=== PATIENT | male | born 1970 | race African-American/Black ===

== ENCOUNTER 2020-08-07 17:36 | Emergency (ER) | payer MEDICAID, SELFPAY ==
--- NOTE | ~2020-08-07 | XR_ITS ---
EXAMINATION: XR CHEST CLINICAL INFORMATION: Cough COMPARISON: None TECHNIQUE: 2 views of the chest were obtained. FINDINGS: There are streaky and hazy multifocal airspace opacities in the right and left midlung. These are concerning for atypical pneumonia, Covid 19. This could be further assessed with CT. No pleural effusion. Heart size normal. Cardiac and mediastinal contours are normal. XR/XR chest 2V IMPRESSION: Streaky and hazy multifocal bilateral airspace opacities concerning for pneumonia.
[2020-08-07 17:50] VITALS: BP 118/81; BP 126/84; PULSE 125; PULSE 80; RESP 20; TEMP 38.8; O2SAT 95; O2SAT 98; BMI 27.3
--- NOTE | 2020-08-07 18:10 | ED.PSYCH ---
HPI - Psych General Chief Complaint: Psychiatric Symptoms Stated Complaint: [facility] Time Seen by Provider: 08/08/20 00:48 Source: patient Mode of arrival: ambulatory Limitations: no limitations History of Present Illness HPI Narrative: 49-year-old male with past medical history of anxiety, depression, hypertension, and [facility] earlier today presents with ETOH abuse, marijuana abuse and suicidal and homicidal ideation. He states that he cannot function in the outside world, feels that he is being persecuted, and wants to kill people. MD complaint: suicidal ideation, feels depressed, homicidal ideation and alcohol abuse Onset (ago): hour(s) (Within the hour of arrival) History of same: Yes Relieving factors: none Exacerbating factors: alcohol and drug use Context: recent alcohol abuse, recent drug abuse and significant life stressor (Released from senior care earlier today) Associated psychiatric symptoms: depression, suicidal ideation, homicidal ideation and racing thoughts Associated symptoms: denies other symptoms Treatments prior to arrival: none If self harm: admits thoughts of self harm Related Data Home Medications Medication Instructions Recorded Confirmed fluoxetine 1 cap PO DAILY 08/07/20 08/07/20 hydroxyzine HCl 50 mg PO BEDTIME 08/07/20 08/07/20 hydroxyzine pamoate 1 cap PO BEDTIME 08/07/20 08/07/20 lisinopril-hydrochlorothiazide 08/07/20 prazosin 1 cap PO BEDTIME 08/07/20 08/07/20 Previous Rx's Medication Instructions Recorded cefuroxime axetil 500 mg PO Q12H 10 Days #20 tab 08/08/20 doxycycline monohydrate 100 mg PO BID 10 Days #20 cap 08/08/20 Allergies Allergy/AdvReac Type Severity Reaction Status Date / Time Penicillins [PENICILLINS] Allergy Severe SWELLING Unverified 03/08/20 19:23 AND ITCHING, THROAT CLOSES. Review of Systems Review of Systems: Constitutional: No Fever, No Chills ENT/Mouth: No Ear Pain, No Nasal Congestion, No sore throat Eyes: No Eye Pain, No Swelling, No Redness Cardiovascular: No Chest Pain, No SOB Respiratory: No Cough, No Sputum, No Dyspnea Gastrointestinal: No Nausea, No Vomiting, No Diarrhea, No Hematochezia, No Melena Genitourinary: No Dysuria, No Urinary Frequency, No Hematuria Musculoskeletal: No Myalgias Skin: No Skin Lesions, No rash Neuro: No Weakness, No Numbness, No Paresthesias, No Dizziness, No Headache Psych: Positive ETOH and marijuana abuse, positive Anxiety, positive Depression, positive SI/HI Heme/Lymph: No Lymphadenopathy Endocrine: No Polyuria, No Polydipsia Yes all other systems are reviewed and are negative PMFSH Past Medical History Attestation statement: The following information was validated with the patient. Source: old records reviewed Medical History ADHD Depression PTSD (post-traumatic stress disorder) Social History Social History Alcohol intake: current Smoking Status: Current every day smoker Use of substances other than those prescribed or required for medical reasons: Yes Substance Use Type: Marijuana Advance Directives: No Advance Directives Information Provided: Yes Physical Exam Vital Signs: Vital Signs: Last Vital Signs Temp 101.4 F H 08/07/20 21:21 Pulse 111 H 08/07/20 21:21 Resp 18 08/07/20 21:21 BP 124/84 08/07/20 21:21 Pulse Ox 97 08/07/20 21:21 Body Mass Index 27.3 Appearance: Alert. Oriented X3. No acute distress. Eyes: Pupils equal, round and reactive to light. ENT: Pharynx normal. Neck: Normal inspection. Neck supple. CVS: Normal heart rate and rhythm. Pulses normal. Respiratory: No respiratory distress. Breath sounds normal. Abdomen: Soft and nontender. Skin: Skin warm and dry. Normal skin color. Normal skin turgor. Extremities: No lower extremity edema. Neuro: No motor deficit. No sensory deficit. Course Course Course Narrative: 49-year-old male with past medical history of hypertension, EtOH abuse, marijuana abuse, released from senior care this morning presents with suicidal and homicidal ideation. He states that he has a ?flight of ideas? and that he has ?racing thoughts?. He is not specific about what these ideas or thoughts are, repeatedly states that he is suicidal and homicidal. He does not have a specific target, and does not give a specific plan about suicidality. Plan of care is for CBC, Chem 7, COVID test, CARTWRIGHT, and BHN consult. Chest x-rays positive for pneumonia. BHN consult complete. Plan of care to discharge home. Patient is satisfied with plan of care, states that he is going to physically assault someone here so he can stay in the hospital. Security at bedside, [place] [employer] called. MDM - Psych Differential Diagnosis Differential diagnosis: Likely acute psychosis, homicidal ideation, suicidal ideation, depression, drug-induced psychotic disorder, acute anxiety, attention deficit disorder, attention deficit hyperactivity disorder, substance abuse, alcohol intoxication and mood disorder Medical Records Attestation: I reviewed the patient's medical records. Lab Data Attestation: I reviewed the patient's lab results. Result diagrams: 08/07/20 18:56 08/07/20 18:56 Labs: Lab Results 08/07/20 08/07/20 08/07/20 Range/Units 18:50 18:50 18:56 WBC 11.2 H (4.8-10.8) X10*3/uL RBC 4.94 (4.60-5.80) X10*6/uL Hgb 13.2 L (14.0-18.0) g/dl Hct 39.4 L (42-52) % MCV 79.8 L (80-98) fL MCH 26.7 L (27.0-33.0) pg MCHC 33.5 (31.0-36.0) g/dl RDW 13.8 (11.0-16.0) % Plt Count 319 (160-400) X10*3/uL MPV 8.8 L (9.4-12.4) fL Immature Gran % (Auto) 0.3 (0.0-0.4) % Neut % (Auto) 82.6 H (45-73) % Lymph % (Auto) 11.2 L (20-40) % Stokes % (Auto) 5.5 (2-11) % Eos % (Auto) 0.1 (0-4) % Baso % (Auto) 0.3 (0-2) % Lymph # (Auto) 1.3 (1.2-4.9) X10*3/uL Stokes # (Auto) 0.6 (0.1-1.2) X10*3/uL Eos # (Auto) 0.0 (0.0-0.4) X10*3/uL Baso # (Auto) 0.0 (0.0-0.2) X10*3/uL Abs Immat Gran (auto) 0.03 (0.00-0.03) X10*3/uL Absolute Neuts (auto) 9.3 H (2.0-8.3) X10*3/uL Absolute Nucleated RBC 0.000 (0.0-0.012) X10*3/uL Nucleated RBC % (auto) 0.0 (0.0-0.2) /100WBC Sodium (135-145) mmol/L Potassium (3.3-5.1) mmol/L Chloride (96-108) mmol/L Carbon Dioxide (22-29) mmol/L Anion Gap (12-20) BUN (9-16) mg/dL Creatinine (0.5-1.4) mg/dL Estim Creat Clear Calc Estimated GFR Random Glucose (60-115) mg/dL Calcium (8.4-10.2) mg/dL Total Bilirubin (0.0-1.0) mg/dL AST (5-37) U/L ALT (0-40) U/L Alkaline Phosphatase (39-117) U/L Total Protein (6.5-8.0) g/dL Albumin (3.5-5.0) g/dL Urine Opiates Screen Not Detected (Not Detect) Ur Barbiturates Screen Not Detected (Not Detect) Ur Phencyclidine Scrn Not Detected (Not Detect) Ur Amphetamines Screen Not Detected (Not Detect) U Benzodiazepines Scrn Not Detected (Not Detect) Urine Cocaine Screen Not Detected (Not Detect) U Marijuana (THC) Screen POSITIVE H (Not Detect) Ethyl Alcohol mg/dL COVID-19 (ANANDA) Negative (Negative) COVID-19 Clin Com See Note 08/07/20 08/07/20 Range/Units 18:56 18:56 WBC (4.8-10.8) X10*3/uL RBC (4.60-5.80) X10*6/uL Hgb (14.0-18.0) g/dl Hct (42-52) % MCV (80-98) fL MCH (27.0-33.0) pg MCHC (31.0-36.0) g/dl RDW (11.0-16.0) % Plt Count (160-400) X10*3/uL MPV (9.4-12.4) fL Immature Gran % (Auto) (0.0-0.4) % Neut % (Auto) (45-73) % Lymph % (Auto) (20-40) % Stokes % (Auto) (2-11) % Eos % (Auto) (0-4) % Baso % (Auto) (0-2) % Lymph # (Auto) (1.2-4.9) X10*3/uL Stokes # (Auto) (0.1-1.2) X10*3/uL Eos # (Auto) (0.0-0.4) X10*3/uL Baso # (Auto) (0.0-0.2) X10*3/uL Abs Immat Gran (auto) (0.00-0.03) X10*3/uL Absolute Neuts (auto) (2.0-8.3) X10*3/uL Absolute Nucleated RBC (0.0-0.012) X10*3/uL Nucleated RBC % (auto) (0.0-0.2) /100WBC Sodium 137 (135-145) mmol/L Potassium 3.8 (3.3-5.1) mmol/L Chloride 102 (96-108) mmol/L Carbon Dioxide 21 L (22-29) mmol/L Anion Gap 18 (12-20) BUN 17 H (9-16) mg/dL Creatinine 1.25 (0.5-1.4) mg/dL Estim Creat Clear Calc 68.1 Estimated GFR > 60 Random Glucose 88 (60-115) mg/dL Calcium 10.0 (8.4-10.2) mg/dL Total Bilirubin 0.8 (0.0-1.0) mg/dL AST 28 (5-37) U/L ALT 27 (0-40) U/L Alkaline Phosphatase 71 (39-117) U/L Total Protein 8.1 H (6.5-8.0) g/dL Albumin 4.9 (3.5-5.0) g/dL Urine Opiates Screen (Not Detect) Ur Barbiturates Screen (Not Detect) Ur Phencyclidine Scrn (Not Detect) Ur Amphetamines Screen (Not Detect) U Benzodiazepines Scrn (Not Detect) Urine Cocaine Screen (Not Detect) U Marijuana (THC) Screen (Not Detect) Ethyl Alcohol 40 mg/dL COVID-19 (ANANDA) (Negative) COVID-19 Clin Com Imaging Data Chest x-ray: Attestation: I personally reviewed and interpreted this imaging study as follows: Radiologist's impression: EXAMINATION: XR CHEST CLINICAL INFORMATION: Cough COMPARISON: None TECHNIQUE: 2 views of the chest were obtained. FINDINGS: There are streaky and hazy multifocal airspace opacities in the right and left midlung. These are concerning for atypical pneumonia, Covid 19. This could be further assessed with CT. No pleural effusion. Heart size normal. Cardiac and mediastinal contours are normal. XR/XR chest 2V IMPRESSION: Streaky and hazy multifocal bilateral airspace opacities concerning for pneumonia. Discharge Plan Discharge Clinical Impression: Depression Qualifiers: Depression Type: major depressive disorder Major depression recurrence: recurrent Active/Remission status: currently active Major depression episode severity: moderate Qualified Code(s): F33.1 - Major depressive disorder, recurrent, moderate Pneumonia Qualifiers: Pneumonia type: due to unspecified organism Laterality: bilateral Lung location: unspecified part of lung Qualified Code(s): J18.9 - Pneumonia, unspecified organism Patient Disposition: Home, Self-Care Instructions: Depression (ED), Pneumonia (ED) Additional Instructions: Your chest x-ray is positive for pneumonia. Please take doxycycline and cefuroxime as directed. These medications are antibiotics. Follow-up with primary care physician as needed. Thank you for choosing this emergency department for evaluation. Please follow-up with primary care physician as needed. Return to the emergency department for any new, concerning, or worsening symptoms. Prescriptions: New doxycycline monohydrate 100 mg capsule 100 mg PO BID 10 Days Qty: 20 RF: 0 cefuroxime axetil 500 mg tablet 500 mg PO Q12H 10 Days Qty: 20 RF: 0 No Action fluoxetine 40 mg capsule 1 cap PO DAILY RF: 0 hydroxyzine pamoate 100 mg capsule 1 cap PO BEDTIME RF: 0 prazosin 2 mg capsule 1 cap PO BEDTIME RF: 0 hydroxyzine HCl 50 mg Tablet 50 mg PO BEDTIME RF: 0 lisinopril-hydrochlorothiazide RF: 0
[2020-08-07 19:02] LABS: MANUAL DIFF FLAG NO
--- NOTE | 2020-08-07 19:03 | PC.NURSE ---
report taken from day shift rn. pt to keep phone/headphones/front end technician and ankle front end technician. yarn texture machine operator aware.
[2020-08-07 19:04] LABS: Basophils Percent Auto 0.3 % (0-2); Eosinophils Percent Auto 0.1 % (0-4); Hematocrit 39.4 % (42-52); Hemoglobin 13.2 g/dl (14.0-18.0); Imm Gran Abs Auto 0.03 X10*3/uL (0.00-0.03); Imm Gran Pct Auto 0.3 % (0.0-0.4); Lymphocytes Absolute Auto 1.3 X10*3/uL (1.2-4.9); Lymphocytes Percent Auto 11.2 % (20-40); Mean Corpuscular HGB Conc 33.5 g/dl (31.0-36.0); Mean Corpuscular Hemoglobin 26.7 pg (27.0-33.0); Mean Corpuscular Volume 79.8 fL (80-98); Mean Platelet Volume 8.8 fL (9.4-12.4); Monocytes Absolute Auto 0.6 X10*3/uL (0.1-1.2); Monocytes Percent Auto 5.5 % (2-11); Neutrophils Absolute Auto 9.3 X10*3/uL (2.0-8.3); Neutrophils Percent Auto 82.6 % (45-73); Platelet Count 319 X10*3/uL (160-400); Red Blood Count 4.94 X10*6/uL (4.60-5.80); Red Cell Distribution Width 13.8 % (11.0-16.0); White Blood Count 11.2 X10*3/uL (4.8-10.8)
[2020-08-07 19:19] LABS: COVID-19 Test Negative (Negative); IDNOW Serial# 9DD0AD1C
[2020-08-07 19:26] LABS: Ethanol 40 mg/dL
[2020-08-07 19:30] LABS: Amphetamine Screen Urine Not Detected (Not Detect); Barbiturates, Urine Not Detected (Not Detect); Benzodiazepines Screen Urine Not Detected (Not Detect); Cannabinoid Screen Urine POSITIVE (Not Detect); Cocaine Screen Urine Not Detected (Not Detect); Opiate Screen Urine Not Detected (Not Detect); Phencyclidine Screen Urine Not Detected (Not Detect)
[2020-08-07 19:31] LABS: Alanine Aminotransferase 27 U/L (0-40); Albumin Level 4.9 g/dL (3.5-5.0); Alkaline Phosphatase 71 U/L (39-117); Anion Gap 18 (12-20); Aspartate Amino Transferase 28 U/L (5-37); Bilirubin Total 0.8 mg/dL (0.0-1.0); Blood Urea Nitrogen 17 mg/dL (9-16); Carbon Dioxide 21 mmol/L (22-29); Chloride 102 mmol/L (96-108); Creatinine Clr Calc Pharmacy 68.1; Estimated Glomerular Filt Rate > 60; Glucose Random 88 mg/dL (60-115); Potassium 3.8 mmol/L (3.3-5.1); Sodium 137 mmol/L (135-145); Total Protein 8.1 g/dL (6.5-8.0)
[2020-08-07 20:00] VITALS: RESP 16
--- NOTE | 2020-08-07 20:37 | PC.NURSE ---
faxed and called em.
[2020-08-07 21:21] VITALS: BP 124/84; PULSE 111; RESP 18; TEMP 38.6; O2SAT 97
[2020-08-07] MEDS: Acetaminophen 325 MG TABLET 650 MG PO (21:28)
--- NOTE | 2020-08-07 23:29 | PC.NURSE ---
Report received. PT is laying in bed. Calm and cooperative. BHN at bed side for crisis evaluation.
[2020-08-07] MEDS: Ibuprofen 600 MG TABLET PO (23:57)
[2020-08-08] VITALS: BP 121/85; PULSE 88; RESP 18; TEMP 37.1; O2SAT 98
--- NOTE | 2020-08-08 01:14 | PC.NURSE ---
PATIENT BEING DISCHARGED BY BHN AND PROVIDER. PATIENT REFUSING TO SIGN DISCHARGE PAPERWORK. PATIENT IS ALERT AND ORIENTED AND AMBULATING STEADILY. SKIN IS WITHIN NORMAL LIMITS. NO DISTRESS NOTED. VERBALIZED UNDERSTANDING OF D/C INSTRUCTIONS WITH NO FURTHER QUESTIONS OR CONCERNS. SECURITY AT BEDSIDE FOR DISCHSARGE
== END 2020-08-08 01:29 | disposition home or self-care (01) ==
PROVIDERS: Nurse Practitioner Family; Emergency Provider Internal Medicine
DX: F33.1 Major depressive disorder, recurrent, moderate (principal); J18.9 Pneumonia, unspecified organism; Z20.822 Contact with and (suspected) exposure to COVID-19; F41.9 Anxiety disorder, unspecified; F43.0 Acute stress reaction; I10 Essential (primary) hypertension; F10.10 Alcohol abuse, uncomplicated; Y90.9 Presence of alcohol in blood, level not specified; F12.10 Cannabis abuse, uncomplicated; R45.851 Suicidal ideations; R45.850 Homicidal ideations; F43.10 Post-traumatic stress disorder, unspecified; F17.200 Nicotine dependence, unspecified, uncomplicated
CPT/HCPCS: 36415; 71046; 80053; 80307; 80320; 85025; 87635; 99284

== ENCOUNTER 2020-08-13 17:43 | Emergency (ER) | payer MEDICAID, SELFPAY ==
--- NOTE | ~2020-08-13 | XR_ITS ---
EXAMINATION: XR CHEST CLINICAL INFORMATION: Recent pneumonia COMPARISON: 08/07/2020 TECHNIQUE: 2 views of the chest were obtained. FINDINGS: Normal cardiomediastinal silhouette. Interval resolution of previously seen streaky opacities in the bilateral midlung areas. No focal consolidation. No pleural effusion or pneumothorax. No acute osseous abnormality. There are old left-sided rib fractures. XR/XR chest 2V IMPRESSION: No acute disease within the chest. No focal consolidation.
--- NOTE | 2020-08-13 17:44 | ED.ALCOHOL ---
HPI - Alcohol General Chief Complaint: ETOH/Substance Use Stated Complaint: ETOH Time Seen by Provider: 08/13/20 19:57 Source: patient and EMS Mode of arrival: EMS Limitations: no limitations History of Present Illness HPI narrative: 49-year-old male presents via EMS for crack cocaine, alcohol, and PCP intoxication. Patient is requesting detox. MD complaint: alcohol intoxication Last drink: Just prior to admission Chronic alcohol use: Yes Previous visits for alcohol intoxication: No Recent trauma: No Associated symptoms: denies other symptoms Treatments prior to arrival: none Related Data Home Medications Medication Instructions Recorded Confirmed fluoxetine 1 cap PO DAILY 08/07/20 08/07/20 hydroxyzine HCl 50 mg PO BEDTIME 08/07/20 08/07/20 hydroxyzine pamoate 1 cap PO BEDTIME 08/07/20 08/07/20 lisinopril-hydrochlorothiazide 08/07/20 prazosin 1 cap PO BEDTIME 08/07/20 08/07/20 Previous Rx's Medication Instructions Recorded cefuroxime axetil 500 mg PO Q12H 10 Days #20 tab 08/08/20 doxycycline monohydrate 100 mg PO BID 10 Days #20 cap 08/08/20 Allergies Allergy/AdvReac Type Severity Reaction Status Date / Time Penicillins [PENICILLINS] Allergy Severe SWELLING Verified 08/13/20 18:29 AND ITCHING, THROAT CLOSES. Review of Systems Review of Systems: Constitutional: No Fever, No Chills ENT/Mouth: No sore throat, No Rhinorrhea Eyes: No Eye Pain, No Swelling, No Redness Cardiovascular: No Chest Pain, No SOB Respiratory: No Cough, No Sputum Gastrointestinal: No Nausea, No Vomiting, No Diarrhea, No abdominal Pain Genitourinary: No Dysuria, No Hematuria Musculoskeletal: No joint pain, No Myalgias, No Joint Swelling Skin: No Skin Lesions, No rash Neuro: No Weakness, No Numbness, No Loss of Consciousness, No Dizziness, No Headache Psych: Positive crack cocaine, PCP, marijuana and alcohol abuse, No Anxiety, No Depression, No SI/HI/AH/VH Heme/Lymph: No Bruising, No Bleeding,No Lymphadenopathy Endocrine: No Polyuria, No Polydipsia Yes all other systems are reviewed and are negative [facility] Past Medical History Attestation statement: The following information was validated with the patient. Source: old records reviewed Medical History ADHD Depression PTSD (post-traumatic stress disorder) Social History Social History Alcohol intake: current Alcohol intake frequency: 3 or more drinks per day Alcohol type: hard liquor Smoking Status: Never smoker Use of substances other than those prescribed or required for medical reasons: Yes Substance Use Type: Crack/Cocaine Advance Directives: No Advance Directives Information Provided: Yes Physical Exam Vital Signs: Vital Signs: Last Vital Signs Temp 99.9 F 08/13/20 18:29 Pulse 91 08/13/20 19:47 Resp 16 08/13/20 19:47 BP 128/72 08/13/20 19:47 Pulse Ox 97 08/13/20 19:47 Body Mass Index 33.8 Appearance: Alert. Oriented X3. No acute distress. Eyes: Pupils equal, round and reactive to light. ENT: Pharynx normal. Neck: Normal inspection. Neck supple. CVS: Normal heart rate and rhythm. Pulses normal. Respiratory: No respiratory distress. Breath sounds normal. Abdomen: Soft and nontender. Skin: Skin warm and dry. Normal skin color. Normal skin turgor. Extremities: No lower extremity edema. Neuro: No motor deficit. No sensory deficit. Course Course Course Narrative: 49-year-old male with past medical history of anxiety, depression, hypertension, released from [facility] on 08/07. He presents today via EMS with cocaine crack, PCP, marijuana and alcohol abuse. EMS reports that he smoked 4 blunts and cracked, and had 4 bags a crack on him. Patient is alert oriented on arrival and He is requesting detox. He was seen on 08/07 for multiple complaints, noted to have pneumonia on chest x-ray. Will repeat chest x-ray to monitor for improvement. He does report taking his medications as prescribed. Chest x-ray shows improvement, with no acute disease. customer care team coach discussing detox options with patient. Patient required several redirections for language, behavior and compliance. Bed search exhausted for detox beds. customer care team coach will give patient a list of detox facilities. Patient discharged home. Patient is angry, states that he will be back. Escorted out of the main Emergency Department by security. MDM - Alcohol MDM Narrative Medical decision making narrative: Substance abuse Medical Records Attestation: I reviewed the patient's medical records. Lab Data Attestation: I reviewed the patient's lab results. Result diagrams: 08/13/20 18:34 08/13/20 18:34 Labs: Lab Results 08/13/20 08/13/20 08/13/20 Range/Units 18:34 18:34 18:34 WBC 8.5 (4.8-10.8) X10*3/uL RBC 4.37 L (4.60-5.80) X10*6/uL Hgb 11.7 L (14.0-18.0) g/dl Hct 34.6 L (42-52) % MCV 79.2 L (80-98) fL MCH 26.8 L (27.0-33.0) pg MCHC 33.8 (31.0-36.0) g/dl RDW 13.7 (11.0-16.0) % Plt Count 318 (160-400) X10*3/uL MPV 8.9 L (9.4-12.4) fL Immature Gran % (Auto) 0.4 (0.0-0.4) % Neut % (Auto) 79.0 H (45-73) % Lymph % (Auto) 12.2 L (20-40) % [place] % (Auto) 7.4 (2-11) % Eos % (Auto) 0.2 (0-4) % Baso % (Auto) 0.8 (0-2) % Lymph # (Auto) 1.0 L (1.2-4.9) X10*3/uL [place] # (Auto) 0.6 (0.1-1.2) X10*3/uL Eos # (Auto) 0.0 (0.0-0.4) X10*3/uL Baso # (Auto) 0.1 (0.0-0.2) X10*3/uL Abs Immat Gran (auto) 0.03 (0.00-0.03) X10*3/uL Absolute Neuts (auto) 6.7 (2.0-8.3) X10*3/uL Absolute Nucleated RBC 0.000 (0.0-0.012) X10*3/uL Nucleated RBC % (auto) 0.0 (0.0-0.2) /100WBC Sodium 140 (135-145) mmol/L Potassium 4.2 (3.3-5.1) mmol/L Chloride 108 (96-108) mmol/L Carbon Dioxide 21 L (22-29) mmol/L Anion Gap 15 (12-20) BUN 11 (9-16) mg/dL Creatinine 1.01 (0.5-1.4) mg/dL Estim Creat Clear Calc 83.9 Estimated GFR > 60 Random Glucose 101 (60-115) mg/dL Calcium 9.1 D (8.4-10.2) mg/dL Urine Color Urine Appearance Urine pH (5.0-8.0) Ur Specific [place] (1.005-1.025) Urine Protein (NEG-TRACE) MG/DL Urine Glucose (UA) (NEG) MG/DL Urine Ketones (NEG) MG/DL Urine Blood (NEG) Urine Nitrite (NEG) Ur Leukocyte Esterase (NEG) Urine RBC (0) /HPF Urine WBC (0-4) /HPF Ur Squamous Epith Cells /LPF Urine Bacteria /LPF Hyaline Casts /LPF Urine Mucus /LPF Urine Opiates Screen (Not Detect) Ur Barbiturates Screen (Not Detect) Ur Phencyclidine Scrn (Not Detect) Ur Amphetamines Screen (Not Detect) U Benzodiazepines Scrn (Not Detect) Urine Cocaine Screen (Not Detect) U Marijuana (THC) Screen (Not Detect) Ethyl Alcohol 112 mg/dL 08/13/20 08/13/20 Range/Units 18:34 18:34 WBC (4.8-10.8) X10*3/uL RBC (4.60-5.80) X10*6/uL Hgb (14.0-18.0) g/dl Hct (42-52) % MCV (80-98) fL MCH (27.0-33.0) pg MCHC (31.0-36.0) g/dl RDW (11.0-16.0) % Plt Count (160-400) X10*3/uL MPV (9.4-12.4) fL Immature Gran % (Auto) (0.0-0.4) % Neut % (Auto) (45-73) % Lymph % (Auto) (20-40) % [place] % (Auto) (2-11) % Eos % (Auto) (0-4) % Baso % (Auto) (0-2) % Lymph # (Auto) (1.2-4.9) X10*3/uL [place] # (Auto) (0.1-1.2) X10*3/uL Eos # (Auto) (0.0-0.4) X10*3/uL Baso # (Auto) (0.0-0.2) X10*3/uL Abs Immat Gran (auto) (0.00-0.03) X10*3/uL Absolute Neuts (auto) (2.0-8.3) X10*3/uL Absolute Nucleated RBC (0.0-0.012) X10*3/uL Nucleated RBC % (auto) (0.0-0.2) /100WBC Sodium (135-145) mmol/L Potassium (3.3-5.1) mmol/L Chloride (96-108) mmol/L Carbon Dioxide (22-29) mmol/L Anion Gap (12-20) BUN (9-16) mg/dL Creatinine (0.5-1.4) mg/dL Estim Creat Clear Calc Estimated GFR Random Glucose (60-115) mg/dL Calcium (8.4-10.2) mg/dL Urine Color YELLOW Urine Appearance CLEAR Urine pH 5.5 (5.0-8.0) Ur Specific [place] >= 1.030 H (1.005-1.025) Urine Protein NEG (NEG-TRACE) MG/DL Urine Glucose (UA) NEG (NEG) MG/DL Urine Ketones NEG (NEG) MG/DL Urine Blood 1+ H (NEG) Urine Nitrite NEG (NEG) Ur Leukocyte Esterase NEG (NEG) Urine RBC 1-4 (0) /HPF Urine WBC 1-4 (0-4) /HPF Ur Squamous Epith Cells 1+ /LPF Urine Bacteria NONE /LPF Hyaline Casts 0-2 /LPF Urine Mucus TRACE /LPF Urine Opiates Screen Not Detected (Not Detect) Ur Barbiturates Screen Not Detected (Not Detect) Ur Phencyclidine Scrn POSITIVE H (Not Detect) Ur Amphetamines Screen Not Detected (Not Detect) U Benzodiazepines Scrn Not Detected (Not Detect) Urine Cocaine Screen POSITIVE H (Not Detect) U Marijuana (THC) Screen POSITIVE H (Not Detect) Ethyl Alcohol mg/dL Imaging Data Chest x-ray: Attestation: I personally reviewed and interpreted this imaging study as follows: Radiologist's impression: EXAMINATION: XR CHEST CLINICAL INFORMATION: Recent pneumonia COMPARISON: 08/07/2020 TECHNIQUE: 2 views of the chest were obtained. FINDINGS: Normal cardiomediastinal silhouette. Interval resolution of previously seen streaky opacities in the bilateral midlung areas. No focal consolidation. No pleural effusion or pneumothorax. No acute osseous abnormality. There are old left-sided rib fractures. XR/XR chest 2V IMPRESSION: No acute disease within the chest. No focal consolidation. Discharge Plan Discharge Clinical Impression: Polysubstance abuse Patient Disposition: Home, Self-Care Instructions: Polysubstance Abuse (ED) Additional Instructions: You were evaluated for polysubstance abuse. Unfortunately there are no detox beds available tonight. Please call detox facilities and requested bed. Thank you for choosing this emergency department for evaluation. Please follow-up with primary care physician as needed. Return to the emergency department for any new, concerning, or worsening symptoms. Prescriptions: No Action fluoxetine 40 mg capsule 1 cap PO DAILY RF: 0 hydroxyzine pamoate 100 mg capsule 1 cap PO BEDTIME RF: 0 prazosin 2 mg capsule 1 cap PO BEDTIME RF: 0 hydroxyzine HCl 50 mg Tablet 50 mg PO BEDTIME RF: 0 lisinopril-hydrochlorothiazide RF: 0 doxycycline monohydrate 100 mg capsule 100 mg PO BID 10 Days Qty: 20 RF: 0 cefuroxime axetil 500 mg tablet 500 mg PO Q12H 10 Days Qty: 20 RF: 0 Interventions: ED Discharge Assessment Last Done: 08/13/20 20:38 Discharge Date/Time: 08/13/20 20:38
[2020-08-13 18:29] VITALS: BP 143/87; PULSE 110; RESP 18; TEMP 37.7; O2SAT 97; BMI 33.8
[2020-08-13 18:40] LABS: MANUAL DIFF FLAG NO
[2020-08-13 18:42] LABS: Basophils Absolute Auto 0.1 X10*3/uL (0.0-0.2); Basophils Percent Auto 0.8 % (0-2); Eosinophils Percent Auto 0.2 % (0-4); Hematocrit 34.6 % (42-52); Hemoglobin 11.7 g/dl (14.0-18.0); Imm Gran Abs Auto 0.03 X10*3/uL (0.00-0.03); Imm Gran Pct Auto 0.4 % (0.0-0.4); Lymphocytes Percent Auto 12.2 % (20-40); Mean Corpuscular HGB Conc 33.8 g/dl (31.0-36.0); Mean Corpuscular Hemoglobin 26.8 pg (27.0-33.0); Mean Corpuscular Volume 79.2 fL (80-98); Mean Platelet Volume 8.9 fL (9.4-12.4); Monocytes Absolute Auto 0.6 X10*3/uL (0.1-1.2); Monocytes Percent Auto 7.4 % (2-11); Neutrophils Absolute Auto 6.7 X10*3/uL (2.0-8.3); Platelet Count 318 X10*3/uL (160-400); Red Blood Count 4.37 X10*6/uL (4.60-5.80); Red Cell Distribution Width 13.7 % (11.0-16.0); White Blood Count 8.5 X10*3/uL (4.8-10.8)
[2020-08-13 18:47] LABS: Glucose Urine UA NEG (NEG); Leukocyte Esterase Urine NEG (NEG); Nitrite Urine NEG (NEG); PH 5.5 (5.0-8.0); Specific Gravity - Urine >= 1.030 (1.005-1.025); Urine Blood 1+ (NEG); Urine Ketones NEG (NEG); Urine Protein NEG (NEG-TRACE)
[2020-08-13 18:51] LABS: Appearance Urine CLEAR; Color Urine YELLOW
[2020-08-13 18:56] LABS: Hyaline Casts Urine 0-2 /LPF; Mucus Urine TRACE /LPF; Squamous Epithelial Cell Urine 1+ /LPF
--- NOTE | 2020-08-13 19:07 | PC.NURSE ---
on phone with girlfriend. pt has been making mult requests from almost all staff passing by.
[2020-08-13 19:11] LABS: Ethanol 112 mg/dL
[2020-08-13 19:12] LABS: Anion Gap 15 (12-20); Blood Urea Nitrogen 11 mg/dL (9-16); Calcium 9.1 mg/dL (8.4-10.2); Carbon Dioxide 21 mmol/L (22-29); Chloride 108 mmol/L (96-108); Creatinine Clr Calc Pharmacy 83.9; Estimated Glomerular Filt Rate > 60; Glucose Random 101 mg/dL (60-115); Potassium 4.2 mmol/L (3.3-5.1); Sodium 140 mmol/L (135-145)
[2020-08-13 19:14] LABS: Amphetamine Screen Urine Not Detected (Not Detect); Barbiturates, Urine Not Detected (Not Detect); Cannabinoid Screen Urine POSITIVE (Not Detect); Cocaine Screen Urine POSITIVE (Not Detect); Opiate Screen Urine Not Detected (Not Detect); Phencyclidine Screen Urine POSITIVE (Not Detect)
--- NOTE | 2020-08-13 19:30 | MHC.RECOVSUP ---
Seeking detox o Current location: [facility] o Identified substance use concern: - Seeking ATS (detox) - Support ? Intervention: o ATS bed search started/completed/in process o Community resources provided o Harm reduction discussion ? Plan: o Bed search in progress to [facility] ? Additional information:I was able to engage with pt and he stated that he is looking to get into detox. He was on the phone with his girlfriend and she told me that she does not want him to get d/c because he doesn't have a place to sleep. I shared that I am not in a position to allow him to stay and that I am here to help him with getting into detox. I called [facility] and was told to call after 8pm because there was a change of shift happening. Pt stated having a history of mental health. pt also stated that he is currently suffering from homelessness and that [facility]. pt is not on MAT.
[2020-08-13 19:38] LABS: Benzodiazepines Screen Urine Not Detected (Not Detect)
[2020-08-13 19:47] VITALS: BP 128/72; PULSE 91; RESP 16; O2SAT 97
--- NOTE | 2020-08-13 20:37 | MHC.RECOVSUP ---
Reason for consult o Current location: [facility] ? Additional information:After calling [facility], there were no beds available for pt. I was able to provide him with recovery resources as well as the number for the detox and suggested that he call every two hours because he is on the waiting list.
--- NOTE | 2020-08-13 21:50 | MHC.CARE ---
CARE team and organ recovery coordinator contacted by waiting room staff re: pt who had just been discharged from ED. Pt was expressing his frustration with not being able to get into treatment, however was told by his fiancee that if he is able to present to [address] [place] [id number] in [place] before midnight that he will be able to stay there. Tasneem ordered for pt to transport to [facility].
== END 2020-08-13 20:38 | disposition home or self-care (01) ==
PROVIDERS: Nurse Practitioner Family; Emergency Provider Internal Medicine
DX: F14.120 Cocaine abuse with intoxication, uncomplicated (principal); F16.120 Hallucinogen abuse with intoxication, uncomplicated; F10.120 Alcohol abuse with intoxication, uncomplicated; Y90.5 Blood alcohol level of 100-119 mg/100 ml; F12.120 Cannabis abuse with intoxication, uncomplicated; I10 Essential (primary) hypertension; F43.10 Post-traumatic stress disorder, unspecified; F32.9 Major depressive disorder, single episode, unspecified; Z79.899 Other long term (current) drug therapy
CPT/HCPCS: 36415; 71046; 80048; 80307; 80320; 81001; 85025; 99285

== ENCOUNTER 2020-08-31 22:03 | Inpatient (IN) | payer MEDICAID, SELFPAY ==
--- NOTE | ~2020-08-31 | CT_ITS ---
EXAMINATION: CT ANGIOGRAM OF THE CHEST WITH AND WITHOUT CONTRAST (CT PULMONARY ANGIOGRAM FOR PE) CLINICAL INFORMATION: Reason for Exam COVID pneumonia with hypoxia COMPARISON: Chest x-ray 08/31/2020 TECHNIQUE: Prior to contrast administration, noncontrast localization images were obtained. Subsequently, multidetector volumetric imaging was performed from the thoracic inlet to below the diaphragms following the administration of 65 mL Omnipaque 350 intravenous contrast. No contrast reaction reported Sagittal, coronal, and MIP oblique sagittal reformatted images were obtained on the CT workstation, uploaded to PACS, and reviewed. This CT examination was performed using dose optimization techniques as appropriate, variously including the following: *Automated exposure control *Adjustment of mA and/or kV according to patient size (this includes techniques or standardized protocols for targeted exams where dose is matched to indication/reason for exam; i.e. extremities or head) *Use of iterative reconstruction technique Total exam dose-length product 283 mGy-cm FINDINGS: QUALITY OF STUDY/CONTRAST BOLUS: Satisfactory. PULMONARY ARTERIES: No central or segmental pulmonary emboli. Although assessment is partially limited due to streak artifact from dense contrast in the SVC, there is suspected to drainage of a prominent right upper lobe pulmonary vein into the SVC as seen on image [id number] in the setting of partial anomalous pulmonary venous return. THORACIC AORTA: No aneurysm or dissection. LUNG: There is moderately extensive multifocal patchy consolidation and groundglass opacity bilaterally, in keeping with history of Covid pneumonia. Mild upper lobe predominant emphysema is noted. PLEURA: No pleural effusion or pneumothorax. MEDIASTINUM: The visualized thyroid gland is unremarkable. There are subcentimeter mediastinal lymph nodes within the range of normal variation. Cardiac size is within normal limits; no pericardial effusion. CHEST WALL/AXILLA: No axillary or internal mammary lymphadenopathy. OSSEOUS STRUCTURES: No acute or suspicious osseous abnormality. UPPER ABDOMEN: Unremarkable. No reflux of contrast into the hepatic veins to suggest elevated right heart pressures. CT/CT angio chest PE protocol IMPRESSION: 1. No pulmonary embolus identified. 2. Moderately extensive patchy consolidations consistent with history of Covid pneumonia. 3. Upper lobe predominant emphysema. 4. 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 VTE: negative
--- NOTE | ~2020-08-31 | XR_ITS ---
EXAMINATION: XR CHEST CLINICAL INFORMATION: Positive COMPARISON: 08/13/2020 TECHNIQUE: Frontal view of the chest was obtained. FINDINGS: Exam does demonstrate patchy areas of opacity bilaterally occupying the mid to lower lung zones. Consistent with infiltrates. No effusion. XR/XR chest 1V IMPRESSION: Bilateral patchy infiltrates mid to lower lung zones
[2020-08-31 22:11] VITALS: BP 119/79; PULSE 107; RESP 16; TEMP 37.6; O2SAT 88; O2SAT 96; BMI 25.7
--- NOTE | 2020-08-31 22:21 | ED_ITS ---
HPI - SOB/Dyspnea General Chief Complaint: Upper Respiratory Symptoms Stated Complaint: Covid + Time Seen by Provider: 08/31/20 22:19 Source: patient Mode of arrival: ambulatory Limitations: no limitations History of Present Illness HPI Narrative: Patient with No significant past medical history was tested positive on 08/14 since then his not feeling good feel tired short of breath exhausted body aches been to [facility] 2 times was seen here yesterday for the same comes here as he is not getting better per EMS patient was saturating 88% at room air but on arrival patient was saturating 94% MD elicited complaint: shortness of breath and cough Related Data Home Medications Medication Instructions Recorded Confirmed fluoxetine 1 cap PO DAILY 09/01/20 09/01/20 hydroxyzine pamoate 1 cap PO BEDTIME 09/01/20 09/01/20 mirtazapine 15 mg PO DAILY 09/01/20 09/01/20 prazosin 1 cap PO BEDTIME 09/01/20 09/01/20 Allergies Allergy/AdvReac Type Severity Reaction Status Date / Time Penicillins [PENICILLINS] Allergy Severe SWELLING Verified 08/13/20 18:29 AND ITCHING, THROAT CLOSES. Review of Systems Review of Systems: Constitutional : No Weight loss, No Fever, No Chills ENT/Mouth : No sore throat, No Rhinorrhea Eyes: No Eye Pain, No Swelling Cardiovascular : No Chest Pain, no palpitations Respiratory : + Cough, No Sputum, + shortness of breath Gastrointestinal : no Nausea, No Vomiting, No Diarrhea, No abdominal Pain, no black stools Genitourinary : No Dysuria, No Urinary Frequency Musculoskeletal : No joint pain, + Myalgias, No Joint Swelling Skin : No Skin Lesions, No rash Neuro : + Weakness, No Numbness, No Dizziness, No Headache Psych : No Anxiety/Panic, No Depression Heme/Lymph: No Bruising, No Lymphadenopathy Endocrine : No Polyuria, No Polydipsia All other systems reviewed and are negative [facility] Past Medical History Medical History ADHD COVID-19 Depression PTSD (post-traumatic stress disorder) Social History Social History Household Members: None Housing: Homeless Do you presently have visiting nurse or other home services: No Alcohol intake: current Alcohol intake frequency: 3 or more drinks per day Alcohol type: hard liquor Smoking Status: Current every day smoker Packs Per Day: 0.5 Cigarettes Per Day: 10.0 Smoked in Last 30 Days: Yes Patient Interested in Nicotine Replacement: No Patient Given Instructions on How to Stop Smoking: Yes Date Education Initiated: 09/01/20 Second Hand Smoke Exposure: No Use of substances other than those prescribed or required for medical reasons: Yes Substance Use Type: Marijuana Substance Use Frequency: Daily Last Used Substance: Days (ago) Currently Displaying Signs/Symptoms of Drug Intoxication Withdrawal: No Any prior treatment program specific to substance use: No Have you been hit, kicked, punched, or otherwise hurt by someone within the past year? If so, by whom?: No Do you feel safe in your current relationship?: No Current Relationship Is there a partner from a previous relationship who is making you feel unsafe now?: No Are you made to feel afraid or neglected: No Advance Directives: No Advance Directives Information Provided: No Do you have thoughts of harming others: None Do you have a plan to hurt others: No Plan Recently lost weight without trying: Unsure service: No Current occupational status: employed Physical Exam Vital Signs: Vital Signs: Last Vital Signs Temp 97.7 F 09/01/20 19:07 Pulse 75 09/01/20 19:07 Resp 18 09/01/20 19:07 BP 123/63 09/01/20 19:07 Pulse Ox 96 09/01/20 19:07 Body Mass Index 25.7 Appearance: Alert. Oriented X3. No acute distress. Eyes: Pupils equal, round and reactive to light. ENT: Pharynx normal. Neck: Normal inspection. Neck supple. CVS: Normal heart rate and rhythm. Pulses normal. Respiratory: No respiratory distress. Good air entry Occasional crackles at bases Abdomen: Soft and nontender. Bowel sounds are present, no mass palpable, no CVA tenderness Skin: Skin warm and dry. Normal skin color. Normal skin turgor. Extremities: No lower extremity edema. Neuro: Oriented X 3. No motor deficit. No sensory deficit. MDM - SOB/Dyspnea MDM Narrative Medical decision making narrative: Patient with COVID-19 pneumonia exertion likes hypoxia not feeling good chest x-ray shows bilateral infiltrates patient for IV antibiotics steroids and supportive treatment 01:35 Showed bilateral diffuse infiltrates. Patient is homeless poor compliance with medications or steroids this is time patient will get inflammatory response symptomatically hypoxic will admit patient for supportive treatment, cta negative for PE Differential Diagnosis Differential diagnosis: Likely pneumonia Lab Data Attestation: I reviewed the patient's lab results. Result diagrams: 08/31/20 23:24 08/31/20 23:24 Labs: Lab Results 08/31/20 08/31/20 08/31/20 Range/Units 23:24 23:24 23:24 WBC 10.5 (4.8-10.8) X10*3/uL RBC 4.53 L (4.60-5.80) X10*6/uL Hgb 12.1 L (14.0-18.0) g/dl Hct 36.7 L (42-52) % MCV 81.0 (80-98) fL MCH 26.7 L (27.0-33.0) pg MCHC 33.0 (31.0-36.0) g/dl RDW 14.7 (11.0-16.0) % Plt Count 478 H D (160-400) X10*3/uL MPV 9.3 L (9.4-12.4) fL Immature Gran % (Auto) 1.6 H (0.0-0.4) % Neut % (Auto) 63.2 (45-73) % Lymph % (Auto) 25.1 (20-40) % Valley % (Auto) 8.2 (2-11) % Eos % (Auto) 1.7 (0-4) % Baso % (Auto) 0.2 (0-2) % Lymph # (Auto) 2.6 (1.2-4.9) X10*3/uL Valley # (Auto) 0.9 (0.1-1.2) X10*3/uL Eos # (Auto) 0.2 (0.0-0.4) X10*3/uL Baso # (Auto) 0.0 (0.0-0.2) X10*3/uL Abs Immat Gran (auto) 0.17 H (0.00-0.03) X10*3/uL Absolute Neuts (auto) 6.6 (2.0-8.3) X10*3/uL Absolute Nucleated RBC 0.050 H (0.0-0.012) X10*3/uL Nucleated RBC % (auto) 0.5 H (0.0-0.2) /100WBC D-Dimer 278 NG/ML Sodium 142 (135-145) mmol/L Potassium 4.5 (3.3-5.1) mmol/L Chloride 103 (96-108) mmol/L Carbon Dioxide 27 (22-29) mmol/L Anion Gap 17 (12-20) BUN 17 H D (9-16) mg/dL Creatinine 0.96 (0.5-1.4) mg/dL Estim Creat Clear Calc 81.8 Estimated GFR > 60 Random Glucose 74 (60-115) mg/dL Lactic Acid (0.5-2.0) mmol/L Lactic Acid Fup @ 2Hr (0.5-2.0) mmol/L Calcium 9.1 (8.4-10.2) mg/dL Total Bilirubin 0.8 (0.0-1.0) mg/dL Direct Bilirubin 0.4 (0.0-0.5) mg/dL AST 27 (5-37) U/L ALT 22 (0-40) U/L Alkaline Phosphatase 83 (39-117) U/L Lactate Dehydrogenase 419 H (118-273) U/L C-Reactive Protein 2.87 H (< or = 0.50) mg/dL Total Protein 7.0 (6.5-8.0) g/dL Albumin 3.9 D (3.5-5.0) g/dL COVID-19 (ANANDA) (Negative) COVID-19 Clin Com 08/31/20 09/01/20 09/01/20 Range/Units 23:24 00:45 01:57 WBC (4.8-10.8) X10*3/uL RBC (4.60-5.80) X10*6/uL Hgb (14.0-18.0) g/dl Hct (42-52) % MCV (80-98) fL MCH (27.0-33.0) pg MCHC (31.0-36.0) g/dl RDW (11.0-16.0) % Plt Count (160-400) X10*3/uL MPV (9.4-12.4) fL Immature Gran % (Auto) (0.0-0.4) % Neut % (Auto) (45-73) % Lymph % (Auto) (20-40) % Valley % (Auto) (2-11) % Eos % (Auto) (0-4) % Baso % (Auto) (0-2) % Lymph # (Auto) (1.2-4.9) X10*3/uL Valley # (Auto) (0.1-1.2) X10*3/uL Eos # (Auto) (0.0-0.4) X10*3/uL Baso # (Auto) (0.0-0.2) X10*3/uL Abs Immat Gran (auto) (0.00-0.03) X10*3/uL Absolute Neuts (auto) (2.0-8.3) X10*3/uL Absolute Nucleated RBC (0.0-0.012) X10*3/uL Nucleated RBC % (auto) (0.0-0.2) /100WBC D-Dimer NG/ML Sodium (135-145) mmol/L Potassium (3.3-5.1) mmol/L Chloride (96-108) mmol/L Carbon Dioxide (22-29) mmol/L Anion Gap (12-20) BUN (9-16) mg/dL Creatinine (0.5-1.4) mg/dL Estim Creat Clear Calc Estimated GFR Random Glucose (60-115) mg/dL Lactic Acid 2.2 H* (0.5-2.0) mmol/L Lactic Acid Fup @ 2Hr 2.0 (0.5-2.0) mmol/L Calcium (8.4-10.2) mg/dL Total Bilirubin (0.0-1.0) mg/dL Direct Bilirubin (0.0-0.5) mg/dL AST (5-37) U/L ALT (0-40) U/L Alkaline Phosphatase (39-117) U/L Lactate Dehydrogenase (118-273) U/L C-Reactive Protein (< or = 0.50) mg/dL Total Protein (6.5-8.0) g/dL Albumin (3.5-5.0) g/dL COVID-19 (ANANDA) Positive A (Negative) COVID-19 Clin Com See Note Discharge Plan Discharge Clinical Impression: COVID-19, Hypoxia Patient Disposition: Admitted As Inpatient Interventions: Admission Worksheet (ED) Last Done: 09/01/20 06:54 Discharge Date/Time: 09/01/20 06:55
[2020-08-31 23:39] LABS: MANUAL DIFF FLAG NO
[2020-08-31 23:44] LABS: Basophils Percent Auto 0.2 % (0-2); Eosinophils Absolute Auto 0.2 X10*3/uL (0.0-0.4); Eosinophils Percent Auto 1.7 % (0-4); Hematocrit 36.7 % (42-52); Hemoglobin 12.1 g/dl (14.0-18.0); Imm Gran Abs Auto 0.17 X10*3/uL (0.00-0.03); Imm Gran Pct Auto 1.6 % (0.0-0.4); Lymphocytes Absolute Auto 2.6 X10*3/uL (1.2-4.9); Lymphocytes Percent Auto 25.1 % (20-40); Mean Corpuscular Hemoglobin 26.7 pg (27.0-33.0); Mean Platelet Volume 9.3 fL (9.4-12.4); Monocytes Absolute Auto 0.9 X10*3/uL (0.1-1.2); Monocytes Percent Auto 8.2 % (2-11); NRBC Pct Auto 0.5 /100WBC (0.0-0.2); Neutrophils Absolute Auto 6.6 X10*3/uL (2.0-8.3); Neutrophils Percent Auto 63.2 % (45-73); Platelet Count 478 X10*3/uL (160-400); Red Blood Count 4.53 X10*6/uL (4.60-5.80); Red Cell Distribution Width 14.7 % (11.0-16.0); White Blood Count 10.5 X10*3/uL (4.8-10.8)
[2020-09-01] VITALS (7 sets, daily range): BP systolic 123–156; BP diastolic 63–85; PULSE 75–83; RESP 18; TEMP 36.2–36.6; O2SAT 96–98
[2020-09-01] MEDS: cefTRIAXone sodium 1 GM in 0.9 % Sodium Chloride 50 ML IV (00:04)
[2020-09-01 00:05] LABS: D Dimer 278 NG/ML
[2020-09-01] MEDS: 0.9 % Sodium Chloride 1,000 ML 999 ML IVCONT (00:05)
[2020-09-01 00:10] LABS: Lactic Acid 2.2 mmol/L (0.5-2.0)
[2020-09-01 00:12] LABS: Alanine Aminotransferase 22 U/L (0-40); Albumin Level 3.9 g/dL (3.5-5.0); Alkaline Phosphatase 83 U/L (39-117); Anion Gap 17 (12-20); Aspartate Amino Transferase 27 U/L (5-37); Bilirubin Direct 0.4 mg/dL (0.0-0.5); Bilirubin Total 0.8 mg/dL (0.0-1.0); Blood Urea Nitrogen 17 mg/dL (9-16); C Reactive Protein 2.87 mg/dL (< or = 0.50); Calcium 9.1 mg/dL (8.4-10.2); Carbon Dioxide 27 mmol/L (22-29); Chloride 103 mmol/L (96-108); Creatinine Clr Calc Pharmacy 81.8; Estimated Glomerular Filt Rate > 60; Glucose Random 74 mg/dL (60-115); Lactate Dehydrogenase 419 U/L (118-273); Potassium 4.5 mmol/L (3.3-5.1); Sodium 142 mmol/L (135-145)
[2020-09-01] MEDS: Doxycycline Hyclate 100 MG in 0.9 % Sodium Chloride 250 ML 166.67 MG IV (00:48)
[2020-09-01 01:11] LABS: COVID-19 Test Positive (Negative)
[2020-09-01] MEDS: iohexoL 350 MG/ML 75 ML INFUS..BTL 60 ML IV (01:27)
[2020-09-01 01:36] LABS: Reflex Lactate? Lactic Acid Added
--- NOTE | 2020-09-01 05:20 | PM.IMHP ---
History of Present Illness Date of Service: 09/01/20 Chief Complaint: Difficulty breathing This is in 49-year-old male with past medical history of hypertension who presents to the hospital with complaints of difficulty breathing. Patient reports that he was tested positive for COVID about 2 weeks ago but developed shortness of breath few days ago that got worse today. He is coughing minimally, and has some sputum production. He has no fever but chills, denies any sick contacts or recent travel, denies any abdominal pain nausea or vomiting, no diarrhea or constipation, no urinary symptoms, he denies having any loss of appetite smell or taste, he has no lower extremity edema. EMS reported that they found patient to be hypoxic with an O2 level of 88 on arrival to his home, in the ED patient hemodynamically stable with a temp of 99.6, heart rate of 107, respiratory rate of 16, blood pressure 119/79, satting 96% on room air. It appears that he does desat to the high 80s low 90s when ambulating. Labs are significant for a WBC count of 10.5, hemoglobin of 12.1, BUN of 17, creatinine of 0.96, lactic acid of 2.2 that resolved with fluids, LDH of 419, CRP of 2.87, CT angiograms revealing no PE, moderately extensive patchy consolidations consistent with history of COVID pneumonia, upper lobe predominant emphysema Past medical history: Hypertension, ADHD, PTSD Past surgical history: Denies Family history: Denies Social history: Comes from home, reports smoking 70s cigarettes a day, smokes marijuana daily, reports that he uses alcohol daily but has not drank in 3 days and isn't having any withdrawal symptoms. Review of Systems Review of Systems: Yes all other systems are reviewed and are negative [facility] Medical History ADHD COVID-19 Depression PTSD (post-traumatic stress disorder) Social History Alcohol intake: current Alcohol intake frequency: 3 or more drinks per day Alcohol type: hard liquor Smoking Status: Never smoker Substance Use Type: Crack/Cocaine Advance Directives: No Advance Directives Information Provided: No Meds Allergies Allergy/AdvReac Type Severity Reaction Status Date / Time Penicillins [PENICILLINS] Allergy Severe SWELLING Verified 08/13/20 18:29 AND ITCHING, THROAT CLOSES. Home Medications Medication Instructions Recorded Confirmed Last Taken Type fluoxetine 1 cap PO DAILY 09/01/20 09/01/20 Unknown History hydroxyzine pamoate 1 cap PO BEDTIME 09/01/20 09/01/20 Unknown History mirtazapine 15 mg PO DAILY 09/01/20 09/01/20 Unknown History prazosin 1 cap PO BEDTIME 09/01/20 09/01/20 Unknown History Physical Exam Vital Signs and Narrative: Vital Signs: Last Vital Signs Temp 97.9 F 09/01/20 02:07 Pulse 82 09/01/20 04:39 Resp 18 09/01/20 04:39 BP 128/82 09/01/20 04:39 Pulse Ox 97 09/01/20 04:39 Body Mass Index 25.7 Const: General: cooperative and no acute distress Orientation/consciousness: patient oriented x3 Eyes: General: appearance normal, both eyes and all related structures Resp: Effort & Inspection: normal respiratory effort and able to speak in complete sentences Cardio: Rate: regular rate Rhythm: regular rhythm GI: Palpation (GI): Soft to palpation Auscultation: normal bowel sounds Skin: General skin exam: no rashes or lesions noted Neuro: General: patient oriented x3 Cognition (Neuro): normal cognition Extrem: General: Yes normal to inspection and Yes no pedal edema Results Labs CBC and Chem 7: 08/31/20 23:24 08/31/20 23:24 Labs: Laboratory Results - last 24 hr 08/31/20 08/31/20 08/31/20 23:24 23:24 23:24 MCV 81.0 MCH 26.7 L MCHC 33.0 RDW 14.7 Plt Count 478 H D MPV 9.3 L Immature Gran % (Auto) 1.6 H Neut % (Auto) 63.2 Lymph % (Auto) 25.1 [place]ake % (Auto) 8.2 Eos % (Auto) 1.7 Baso % (Auto) 0.2 Lymph # (Auto) 2.6 [place] # (Auto) 0.9 Eos # (Auto) 0.2 Baso # (Auto) 0.0 Abs Immat Gran (auto) 0.17 H Absolute Neuts (auto) 6.6 Absolute Nucleated RBC 0.050 H Nucleated RBC % (auto) 0.5 H D-Dimer 278 Anion Gap 17 Estim Creat Clear Calc 81.8 Estimated GFR > 60 Random Glucose 74 Lactic Acid Lactic Acid Fup @ 2Hr Calcium 9.1 Total Bilirubin 0.8 Direct Bilirubin 0.4 AST 27 ALT 22 Alkaline Phosphatase 83 Lactate Dehydrogenase 419 H C-Reactive Protein 2.87 H Total Protein 7.0 Albumin 3.9 D COVID-19 (ANANDA) COVID-19 Clin Com 08/31/20 09/01/20 09/01/20 23:24 00:45 01:57 MCV MCH MCHC RDW Plt Count MPV Immature Gran % (Auto) Neut % (Auto) Lymph % (Auto) [place] % (Auto) Eos % (Auto) Baso % (Auto) Lymph # (Auto) [place] # (Auto) Eos # (Auto) Baso # (Auto) Abs Immat Gran (auto) Absolute Neuts (auto) Absolute Nucleated RBC Nucleated RBC % (auto) D-Dimer Anion Gap Estim Creat Clear Calc Estimated GFR Random Glucose Lactic Acid 2.2 H* Lactic Acid Fup @ 2Hr 2.0 Calcium Total Bilirubin Direct Bilirubin AST ALT Alkaline Phosphatase Lactate Dehydrogenase C-Reactive Protein Total Protein Albumin COVID-19 (ANANDA) Positive A COVID-19 Clin Com See Note Imaging Radiologist's Impressions: Impressions Chest X-Ray 08/31/20 22:21 IMPRESSION: Bilateral patchy infiltrates mid to lower lung zones Chest CTA 09/01/20 00:44 IMPRESSION: 1. No pulmonary embolus identified. 2. Moderately extensive patchy consolidations consistent with history of Covid pneumonia. 3. Upper lobe predominant emphysema. 4. 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 VTE: negative Assessment and Plan (1) Pneumonia due to COVID-19 virus: Status: Acute (2) Acute respiratory failure with hypoxia: Status: Acute This is a 41-year-old male who was diagnosed with COVID-19 about 2 weeks ago presents the hospital with complaints of shortness of breath. # COVID-19 pneumonia - CT shows extensive patchy infiltrate - found to be hypoxic in the high 80s - currently satting 96% on room air, has not required any oxygen while in the hospital - reported to have hypoxia on ambulation - at this time will monitor him off of any steroids as patient has no significant O2 requirements during my interview and during the hospital stay # acute hypoxic respiratory failure - secondary to COVID-19 - EMS recorded the patient was 88% on arrival - while in the ED has been satting in the 90s on room air - monitor for any worsening of respiratory status and or any increase in O2 requirements # PTSD/ADHD - continue home medications # hypertension - patient tells me that he has history of hypertension - will continue prazosin? DVT prophylaxis: Heparin subQ
[2020-09-01] MEDS: Mirtazapine 15 MG TABLET PO (09:02)
[2020-09-01] MEDS: FLUoxetine HCl 20 MG CAPSULE 40 MG PO (09:02)
[2020-09-01] MEDS: 0.9 % Sodium Chloride Flush 3 ML SYRINGE IVFLUSH ×2 (09:02→22:56)
--- NOTE | 2020-09-01 11:25 | MHC.CM.PN ---
CM met with pt who reports being homeless. He reports he called the [employer] response line about getting into a [facility]/hotel for isolation however he was there in mid-July so he is ineligible. per their guidelines, pt only needs to quarantine for the first 10 days after diagnosis. Pt reports he is looking into shelters but feels that is probably where he got the virus to begin with. Pt reports he is not feeling well and hopes he will not be discharged today. CM explained he should continue to explore DC options as he may DC soon. Current DC plan is TBD, pt reports he is familiar with the area shelters and is exploring that option. Pt will need bus passes or a taxi voucher depending on where he is going at DC.
[2020-09-01] MEDS: Heparin Sodium,Porcine 5,000 UNIT/ML VIAL 5000 UNIT SUBCUT (22:56)
[2020-09-01] MEDS: hydrOXYzine HCL 50 MG TABLET 100 MG PO (22:56)
[2020-09-01] MEDS: Prazosin HCL 1 MG CAPSULE PO (22:56)
[2020-09-02] VITALS: BP 120/78; PULSE 68; RESP 18; TEMP 36.6; O2SAT 98
[2020-09-02 03:45] VITALS: BP 124/71; PULSE 71; RESP 18; TEMP 37.7; O2SAT 98
[2020-09-02] MEDS: 0.9 % Sodium Chloride Flush 3 ML SYRINGE IVFLUSH ×2 (03:59→08:49)
[2020-09-02 05:43] LABS: MANUAL DIFF FLAG NO
[2020-09-02] MEDS: Heparin Sodium,Porcine 5,000 UNIT/ML VIAL 5000 UNIT SUBCUT (06:21)
[2020-09-02 06:37] LABS: Anion Gap 13 (12-20); Blood Urea Nitrogen 11 mg/dL (9-16); Calcium 8.9 mg/dL (8.4-10.2); Carbon Dioxide 24 mmol/L (22-29); Chloride 109 mmol/L (96-108); Creatinine Clr Calc Pharmacy 99.4; Estimated Glomerular Filt Rate > 60; Glucose Random 166 mg/dL (60-115); Potassium 4.7 mmol/L (3.3-5.1); Sodium 141 mmol/L (135-145)
[2020-09-02 06:41] LABS: Basophils Percent Auto 0.1 % (0-2); Eosinophils Percent Auto 0.2 % (0-4); Hematocrit 33.2 % (42-52); Hemoglobin 10.7 g/dl (14.0-18.0); Imm Gran Abs Auto 0.12 X10*3/uL (0.00-0.03); Imm Gran Pct Auto 1.1 % (0.0-0.4); Lymphocytes Absolute Auto 2.1 X10*3/uL (1.2-4.9); Lymphocytes Percent Auto 19.1 % (20-40); Mean Corpuscular HGB Conc 32.2 g/dl (31.0-36.0); Mean Corpuscular Hemoglobin 26.2 pg (27.0-33.0); Mean Corpuscular Volume 81.2 fL (80-98); Mean Platelet Volume 9.6 fL (9.4-12.4); Monocytes Absolute Auto 0.9 X10*3/uL (0.1-1.2); Monocytes Percent Auto 8.3 % (2-11); Neutrophils Absolute Auto 7.7 X10*3/uL (2.0-8.3); Neutrophils Percent Auto 71.2 % (45-73); Platelet Count 432 X10*3/uL (160-400); Red Blood Count 4.09 X10*6/uL (4.60-5.80); White Blood Count 10.7 X10*3/uL (4.8-10.8)
[2020-09-02 07:52] VITALS: BP 121/83; PULSE 72; RESP 20; TEMP 36.3; O2SAT 98
[2020-09-02] MEDS: Mirtazapine 15 MG TABLET PO (08:49)
[2020-09-02] MEDS: FLUoxetine HCl 20 MG CAPSULE 40 MG PO (08:49)
--- NOTE | 2020-09-02 09:48 | PM.DS ---
DS: Providers Provider Date of Service: 09/02/20 Date of admission: 09/01/20 05:20 Primary care physician: Unknown Physician DS: Diagnosis Discharge Diagnosis (1) Pneumonia due to COVID-19 virus: Status: Acute (2) Acute respiratory failure with hypoxia: Status: Acute DS: Medications Discharge Medications Home Medications: Home Medications Medication Instructions Recorded Confirmed fluoxetine 1 cap PO DAILY 09/01/20 09/01/20 hydroxyzine pamoate 1 cap PO BEDTIME 09/01/20 09/01/20 mirtazapine 15 mg PO DAILY 09/01/20 09/01/20 prazosin 1 cap PO BEDTIME 09/01/20 09/01/20 Previous Rx's Medication Instructions Recorded dexamethasone [Decadron] 6 mg PO DAILY #9 tab 09/02/20 DS: Summary Hospital Course Hospital Course: Chief Complaint: Difficulty breathing This is in 49-year-old male with past medical history of hypertension who presents to the hospital with complaints of difficulty breathing. Patient reports that he was tested positive for COVID about 2 weeks ago but developed shortness of breath few days ago that got worse today. He is coughing minimally, and has some sputum production. He has no fever but chills, denies any sick contacts or recent travel, denies any abdominal pain nausea or vomiting, no diarrhea or constipation, no urinary symptoms, he denies having any loss of appetite smell or taste, he has no lower extremity edema. EMS reported that they found patient to be hypoxic with an O2 level of 88 on arrival to his home, in the ED patient hemodynamically stable with a temp of 99.6, heart rate of 107, respiratory rate of 16, blood pressure 119/79, satting 96% on room air. It appears that he does desat to the high 80s low 90s when ambulating. Labs are significant for a WBC count of 10.5, hemoglobin of 12.1, BUN of 17, creatinine of 0.96, lactic acid of 2.2 that resolved with fluids, LDH of 419, CRP of 2.87, CT angiograms revealing no PE, moderately extensive patchy consolidations consistent with history of COVID pneumonia, upper lobe predominant emphysema Hospital course: Patient was observed in the hospital overnight. He did not have any documented evidence of low oxgyen other that what EMS reported. O2 sat has been consitently at 97 or above without oxygen. He has minimal cough. Will discharge with Dexamerthasone and advise self isolation Time Spent with Patient Time attestation: Total time spent providing and/or coordinating discharge services: Discharge coordination time: Greater than 30 minutes Physical Exam Vital Signs: Vital Signs: Last Vital Signs Temp 97.3 F 09/02/20 07:52 Pulse 72 09/02/20 07:52 Resp 20 09/02/20 07:52 BP 121/83 09/02/20 07:52 Pulse Ox 98 09/02/20 07:52 Body Mass Index 25.7 General: AO X 3, no acute distress Resp: normal respiratory effort, CVS: S1,S2,RRR GI: +BS, NT, no distention Skin: No rash Neuro: motor grossly intact Psych: appropriate affect DS: Data Data Completed and Pending Labs on day of discharge: Laboratory Results - last 24 hr 09/02/20 09/02/20 05:29 05:29 WBC 10.7 RBC 4.09 L Hgb 10.7 L Hct 33.2 L MCV 81.2 MCH 26.2 L MCHC 32.2 RDW 15.0 Plt Count 432 H MPV 9.6 Immature Gran % (Auto) 1.1 H Neut % (Auto) 71.2 Lymph % (Auto) 19.1 L [place] % (Auto) 8.3 Eos % (Auto) 0.2 Baso % (Auto) 0.1 Lymph # (Auto) 2.1 [place] # (Auto) 0.9 Eos # (Auto) 0.0 Baso # (Auto) 0.0 Abs Immat Gran (auto) 0.12 H Absolute Neuts (auto) 7.7 Absolute Nucleated RBC 0.000 Nucleated RBC % (auto) 0.0 Sodium 141 Potassium 4.7 Chloride 109 H Carbon Dioxide 24 Anion Gap 13 BUN 11 Creatinine 0.79 Estim Creat Clear Calc 99.4 Estimated GFR > 60 Random Glucose 166 H D Calcium 8.9 Preliminary micro results at discharge 08/31/20 23:33 Blood Culture - Preliminary Blood - Venous No growth after 24 hours. 08/31/20 23:24 Blood Culture - Preliminary Blood - Venous No growth after 24 hours. Discharge Plan Discharge Anticipated Discharge Date/Time: 09/02/20 09:42 Patient Disposition: Home, Self-Care Referrals: Physician,Unknown [Primary Care Provider] - Discharge Medications: New dexamethasone [Decadron] 6 mg tablet 6 mg PO DAILY Qty: 9 RF: 0 Continued fluoxetine 40 mg capsule 1 cap PO DAILY RF: 0 hydroxyzine pamoate 100 mg capsule 1 cap PO BEDTIME RF: 0 prazosin 1 mg capsule 1 cap PO BEDTIME RF: 0 mirtazapine 15 mg tablet 15 mg PO DAILY RF: 0 Discharge Orders: Discharge Order (Routine); Ordered 09/02/20 Ordered By: Lg Burgess Diet: advance to usual diet Activity on Discharge: As tolerated Stand Alone Forms: Patient Portal Discharge page Care Plan Goals: full recovery from covid Health Concerns: covid 19 Plan of Treatment: Take Dexamethasone as recommended. Follow CDC islation protocol CDC Guidelines for home isolation: - Stay away from others - Limit contact with pets and animals: If you must care for a pet, wash your hands before and after interacting with them - Wear a mask if you are sick - Cover your mouth and nose with a tissue when you cough or sneeze. Dispose of tissues in a lined trash can and wash your hands immediately with soap and water for at least 20 seconds. If soap and water are not available, clean hands with alcohol-based hand microelectronics technician that contains at least 60% alcohol. - Clean your hands often with soap and water for at least 20 seconds - Avoid touching your eyes, nose and mouth with unwashed hands - Do not share dishes, drinking glasses, cups, eating utensils, towels, or bedding with other people in your home. After using these items, wash them thoroughly with soap and water or put in the diagrammer and seamer. - Clean high-touch surfaces in your isolation area (?sick room? and bathroom) every day; let a caregiver clean and disinfect high-touch surfaces in other areas of the home. Clean the area or item with soap and water or another detergent if it is dirty. Then, use a household disinfectant. Seek medical attention, but call first: - Seek medical care right away if your illness is worsening (for example, if you have difficulty breathing). - Call your doctor before going in: Before going to the doctor?s office or emergency room, call ahead and tell them your symptoms. They will tell you what to do. - If possible, put on a facemask before you enter the building. If you can?t put on a facemask, try to keep a safe distance from other people (at least 6 feet away). This will help protect the people in the office or waiting room. - Follow care instructions from your healthcare provider and local health department: Your local health authorities will give instructions on checking your symptoms and reporting information. Emergency warning signs for COVID-19: - Difficulty breathing or shortness of breath - Persistent pain or pressure in the chest - New confusion or inability to arouse - Bluish lips or face Additional Instructions: - [] Discharge Date/Time: 09/02/20 10:48
--- NOTE | 2020-09-02 09:57 | MHC.CM.PN ---
CM informed pt now has a place to go however he will need to leave soon as his ride will only be available for a short time. Pt discharging today to a friends home with no services
[2020-09-02] MEDS: dexAMETHasone 6 MG TABLET PO (10:19)
== END 2020-09-02 10:48 | disposition home or self-care (01) | DRG 137 ==
LOC: HO.ED 09-01 01:39 → HO.IMC 09-01 05:51
PROVIDERS: Admitting Provider Internal Medicine; Emergency Provider Internal Medicine; Visit Provider Internal Medicine
DX: U07.1 COVID-19 (principal); J96.01 Acute respiratory failure with hypoxia; J12.82 Pneumonia due to coronavirus disease 2019; F17.210 Nicotine dependence, cigarettes, uncomplicated; F43.10 Post-traumatic stress disorder, unspecified; F90.9 Attention-deficit hyperactivity disorder, unspecified type; I10 Essential (primary) hypertension; Z79.899 Other long term (current) drug therapy
CPT/HCPCS: 36415; 71045; 71275; 80048; 80076; 83605; 83615; 85025; 85379; 86140; 87040; 87635; 96365; 96368; 96375; 99285; J0696; J1100; J8540; Q9967

== ENCOUNTER 2020-09-13 23:07 | Emergency (ER) | payer MEDICAID, SELFPAY ==
[2020-09-13 23:16] VITALS: BP 140/90; PULSE 100; RESP 18; O2SAT 95; O2SAT 96; BMI 25.0
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
== END 2020-09-13 23:30 | disposition left against medical advice (07) ==
PROVIDERS: Emergency Provider Internal Medicine
DX: F19.20 Other psychoactive substance dependence, uncomplicated (principal); Z86.16 Personal history of COVID-19; F43.10 Post-traumatic stress disorder, unspecified; F17.200 Nicotine dependence, unspecified, uncomplicated; F12.90 Cannabis use, unspecified, uncomplicated
CPT/HCPCS: 99283

== ENCOUNTER 2020-11-28 23:50 | Emergency (ER) | payer MEDICAID, SELFPAY ==
[2020-11-29 00:02] VITALS: BP 119/77; PULSE 96; RESP 16; TEMP 36.6; O2SAT 96; BMI 28.3
--- NOTE | 2020-11-29 00:20 | ED_ITS ---
HPI - Psych General Chief Complaint: ETOH/Substance Use Stated Complaint: ETOH SI Time Seen by Provider: 11/29/20 00:20 History of Present Illness HPI Narrative: Patient is a 50-year-old male with a long history of alcohol use cocaine use heroin use. Patient used are 3 tonight. Subsequently feel that he is unsafe to be alone. Patient denies suicidal ideation. Patient denies homicidal ideation. Has a long history of substance abuse. Patient denies any specific plan. Had a previous history of COVID-19. Related Data Home Medications Medication Instructions Recorded Confirmed fluoxetine 1 cap PO DAILY 09/01/20 09/01/20 hydroxyzine pamoate 1 cap PO BEDTIME 09/01/20 09/01/20 mirtazapine 15 mg PO DAILY 09/01/20 09/01/20 prazosin 1 cap PO BEDTIME 09/01/20 09/01/20 Previous Rx's Medication Instructions Recorded dexamethasone [Decadron] 6 mg PO DAILY #9 tab 09/02/20 Allergies Allergy/AdvReac Type Severity Reaction Status Date / Time Penicillins [PENICILLINS] Allergy Severe SWELLING Verified 08/13/20 18:29 AND ITCHING, THROAT CLOSES. Review of Systems Review of Systems: Constitutional: No Weight loss, No Fever, No Chills, No Night Sweats, No Fatigue, No Malaise ENT/Mouth: No Hearing loss, No Ear Pain, No Nasal Congestion, No Sinus Pain, No Hoarseness, No sore throat, No Rhinorrhea, No Swallowing Difficulty Eyes: No Eye Pain, No Swelling, No Redness, No Foreign Body, No Discharge, No Vision Changes Cardiovascular: No Chest Pain, No SOB, No Dyspnea on Exertion, No Orthopnea, No Edema, No Palpitations Respiratory: No Cough, No Sputum, No Wheezing, No Smoke Exposure, No Dyspnea Gastrointestinal: No Nausea, No Vomiting, No Diarrhea, No Constipation, No abdominal Pain, No Hematochezia, No Melena Genitourinary: no irregular bleeding, No Dysuria, No Urinary Frequency, No Hematuria, No Urinary Incontinence, No Urgency, No Flank Pain, No Urinary Flow Changes, No Hesitancy Musculoskeletal: No joint pain, No Myalgias, No Joint Swelling Skin: No Skin Lesions, No rash Neuro: No Weakness, No Numbness, No Paresthesias, No Loss of Consciousness, No Dizziness, No Headache Psych: No Anxiety/Panic, No Depression, No SI/HI/AH/VH, No Social Issues, Heme/Lymph: No Bruising, No Bleeding,No Lymphadenopathy Endocrine: No Polyuria, No Polydipsia, No Temperature Intolerance [facility] Past Medical History Attestation statement: The following information was validated with the patient. Medical History ADHD COVID-19 Depression PTSD (post-traumatic stress disorder) Social History Social History Household Members: None Housing: Homeless Do you presently have visiting nurse or other home services: No Alcohol intake: current Alcohol intake frequency: 3 or more drinks per day Alcohol type: hard liquor Cigarette Packs Per Day: 0.5 Cigarettes Per Day: 10.0 Second Hand Smoke Exposure: No Substance Use Type: Marijuana service: No Current occupational status: employed Physical Exam Vital Signs: Vital Signs: Last Vital Signs Temp 97.9 F 11/29/20 00:02 Pulse 96 11/29/20 00:02 Resp 16 11/29/20 00:02 BP 119/77 11/29/20 00:02 Pulse Ox 96 11/29/20 00:02 Body Mass Index 28.3 Appearance: Alert. Oriented X3. No acute distress. Eyes: Pupils equal, round and reactive to light. ENT: Pharynx normal. Neck: Normal inspection. Neck supple. No lymph nodes noted. No crepitus CVS: Normal heart rate and rhythm. Pulses normal. Normal S1 and S2 Respiratory: No respiratory distress. Breath sounds normal. No Wheezing. No rales Abdomen: Soft and nontender. No rigidity. No distention. good BS x4 Skin: Skin warm and dry. Normal skin color. Normal skin turgor. Extremities: No lower extremity edema. Neurovascular intact to all extremities. No Lacerations. No Rash Neuro: Oriented X 3. No motor deficit. No sensory deficit. Moving all extermities. No slurred speech MDM - Psych MDM Narrative Medical decision making narrative: Will wait for clinical sobriety. Will get N to evaluate patient. Discharge Plan Discharge Prescriptions: No Action fluoxetine 40 mg capsule 1 cap PO DAILY RF: 0 hydroxyzine pamoate 100 mg capsule 1 cap PO BEDTIME RF: 0 prazosin 1 mg capsule 1 cap PO BEDTIME RF: 0 mirtazapine 15 mg tablet 15 mg PO DAILY RF: 0 dexamethasone [Decadron] 6 mg tablet 6 mg PO DAILY Qty: 9 RF: 0
--- NOTE | 2020-11-29 00:34 | PC.NURSE ---
paperwork faxed to [facility]
[2020-11-29 01:07] LABS: COVID-19 Test Negative (Negative)
--- NOTE | 2020-11-29 01:24 | PC.NURSE ---
Electronic monitoring service called regarding pt stating that his ankle monitor is running low on battery. this nurse informed them that pt can not be left alone with ankle monitor certified surgical first assistant as it has a wire. electronic monitor service on phone said they understood and requested a phone number for [facility] in order to check in with staff and make sure patient is still in facility. phone number ([phone]) given to electronic monitoring service.
[2020-11-29 01:32] LABS: Ethanol 81 mg/dL
[2020-11-29 01:49] LABS: Amphetamine Screen Urine Not Detected (Not Detect); Barbiturates, Urine Not Detected (Not Detect); Benzodiazepines Screen Urine POSITIVE (Not Detect); Cannabinoid Screen Urine POSITIVE (Not Detect); Cocaine Screen Urine POSITIVE (Not Detect); Opiate Screen Urine Not Detected (Not Detect); Phencyclidine Screen Urine POSITIVE (Not Detect)
--- NOTE | 2020-11-29 01:55 | MHC.CARE ---
[facility] is also here to see pt, however pt is unable to be interviewed at this time. Pt is sedated and unable to wake up. CARE team should be consulted tomorrow to determine level of risk.
--- NOTE | 2020-11-29 02:10 | PC.NURSE ---
spoke with Nirmala from [facility], paperwork was received.
--- NOTE | 2020-11-29 03:47 | PC.NURSE ---
Darrell(?) from electronic monitoring service called to confirm that pt is still in behavioral health pod. this nurse informed her that pt is still in behavioral health pod. Darrell has no other questions or concerns at this time, she also stated that she would call around 7am to once again confirm that pt is still here.
--- NOTE | 2020-11-29 06:47 | PC.NURSE ---
Avery from electronic monitoring service called again to confirm that Kameron is still in the Behavioral health pod. this nurse informed her that he is still here and is still sleeping. Avery requested that patients ankle monitor be charged when he wakes up if possible. this nurse will inform oncoming nurse about this request.
--- NOTE | 2020-11-29 08:58 | ECG_ITS ---
Test Reason : MED CLEARANCE Blood Pressure : / mmHG Vent. Rate : 088 BPM Atrial Rate : 088 BPM P-R Int : 146 ms QRS Dur : 094 ms QT Int : 358 ms P-R-T Axes : 053 062 060 degrees QTc Int : 433 ms Normal sinus rhythm Minimal voltage criteria for LVH, may be normal variant Borderline ECG No previous ECGs available Referred By: Neha Hinkle Electronically Signed By:TEODORA KUMAR MD
--- NOTE | 2020-11-29 10:08 | PC.NURSE ---
CALL TO [facility]. PT LAST FILLED MEDS 09/10/20 FOR 30 DAY SUPPLY.
[2020-11-29 10:39] LABS: MANUAL DIFF FLAG NO
[2020-11-29 10:40] LABS: Basophils Percent Auto 0.7 % (0-2); Eosinophils Absolute Auto 0.2 X10*3/uL (0.0-0.4); Eosinophils Percent Auto 4.5 % (0-4); Hemoglobin 13.2 g/dl (14.0-18.0); Imm Gran Abs Auto 0.01 X10*3/uL (0.00-0.03); Imm Gran Pct Auto 0.2 % (0.0-0.4); Lymphocytes Absolute Auto 1.7 X10*3/uL (1.2-4.9); Lymphocytes Percent Auto 41.2 % (20-40); Mean Corpuscular HGB Conc 32.2 g/dl (31.0-36.0); Mean Platelet Volume 9.2 fL (9.4-12.4); Monocytes Absolute Auto 0.4 X10*3/uL (0.1-1.2); Monocytes Percent Auto 8.7 % (2-11); Neutrophils Absolute Auto 1.8 X10*3/uL (2.0-8.3); Neutrophils Percent Auto 44.7 % (45-73); Platelet Count 231 X10*3/uL (160-400); Red Blood Count 4.71 X10*6/uL (4.60-5.80); Red Cell Distribution Width 15.2 % (11.0-16.0)
[2020-11-29 10:41] VITALS: BP 128/93; PULSE 79; TEMP 36; O2SAT 95
[2020-11-29 10:45] LABS: Prothrombin Time 11.3 SEC (10.8-13.0)
--- NOTE | 2020-11-29 10:55 | PC.NURSE ---
PT OOB TO PHONE. SEEN BY CARE TEAM. AWAITING DISPO
[2020-11-29 11:13] LABS: Alanine Aminotransferase 14 U/L (0-40); Albumin Level 4.1 g/dL (3.5-5.0); Alkaline Phosphatase 84 U/L (39-117); Anion Gap 12 (12-20); Aspartate Amino Transferase 23 U/L (5-37); Bilirubin Total 0.4 mg/dL (0.0-1.0); Blood Urea Nitrogen 18 mg/dL (9-16); Calcium 9.5 mg/dL (8.4-10.2); Carbon Dioxide 23 mmol/L (22-29); Chloride 111 mmol/L (96-108); Creatinine Clr Calc Pharmacy 95.1; Estimated Glomerular Filt Rate > 60; Glucose Random 96 mg/dL (60-115); Potassium 4.1 mmol/L (3.3-5.1); Sodium 142 mmol/L (135-145); Total Protein 6.8 g/dL (6.5-8.0)
--- NOTE | 2020-11-29 12:21 | MHC.RECOVSUP ---
? Reason for consult:Continuity of care o Current location: [facility] o Identified substance use concern: Polysubstance - Seeking ATS (detox) - Support ? Intervention: o ATS bed search started/completed/in process o Community resources provided o Harm reduction discussion ? Plan: o Bed search in progress to o Patient to follow up with [facility] after discharge ? Additional information: Pt. is seeking detox. Bed search started, [facility] have no bed availibility. Waiting for [facility] and [facility] to return call after looking at referral.
== END 2020-11-29 14:02 | disposition other institution (70) ==
PROVIDERS: Physician Assistant Medical; Emergency Provider Emergency Medicine Emergency Medical Services
DX: F10.10 Alcohol abuse, uncomplicated (principal); Y90.4 Blood alcohol level of 80-99 mg/100 ml; F14.10 Cocaine abuse, uncomplicated; F11.10 Opioid abuse, uncomplicated; Z79.899 Other long term (current) drug therapy; Z59.0 Homelessness; Z20.822 Contact with and (suspected) exposure to COVID-19
CPT/HCPCS: 36415; 80053; 80307; 82077; 85025; 85610; 87635; 93005; 99284; 99285

== ENCOUNTER 2021-01-04 23:01 | Emergency (ER) | payer MEDICAID, SELFPAY ==
--- NOTE | 2021-01-04 23:03 | ED.ALCOHOL ---
HPI - Alcohol General Chief Complaint: ETOH/Substance Use Stated Complaint: Seeking Detox Time Seen by Provider: 01/04/21 23:26 Source: patient and EMS Mode of arrival: EMS Limitations: altered mental status History of Present Illness HPI narrative: 50-year-old male presents via EMS for a request for detox. Patient has his eyes closed, is not answering any questions. MD complaint: alcohol intoxication, alcohol dependence and desires rehab Last drink: Just prior to admission Chronic alcohol use: Yes Previous visits for alcohol intoxication: Yes Recent trauma: No Associated symptoms: denies other symptoms Related Data Home Medications Medication Instructions Recorded Confirmed fluoxetine 1 cap PO DAILY 09/01/20 09/01/20 hydroxyzine pamoate 1 cap PO BEDTIME 09/01/20 09/01/20 mirtazapine 15 mg PO DAILY 09/01/20 09/01/20 prazosin 1 cap PO BEDTIME 09/01/20 09/01/20 Previous Rx's Medication Instructions Recorded dexamethasone [Decadron] 6 mg PO DAILY #9 tab 09/02/20 Allergies Allergy/AdvReac Type Severity Reaction Status Date / Time Penicillins [PENICILLINS] Allergy Severe SWELLING Verified 01/04/21 23:17 AND ITCHING, THROAT CLOSES. Review of Systems Review of Systems: Patient is not answering any questions at this time. [facility] Past Medical History Attestation statement: The following information was validated with the patient. Source: old records reviewed Medical History ADHD COVID-19 Depression PTSD (post-traumatic stress disorder) Social History Social History Household Members: None Housing: Homeless Do you presently have visiting nurse or other home services: No Alcohol intake: current Alcohol intake frequency: 3 or more drinks per day Alcohol type: beer and hard liquor Patient Tobacco Use Status: Tobacco use Unknown Cigarette Packs Per Day: 0.5 Cigarettes Per Day: 10.0 Second Hand Smoke Exposure: No Substance Use Type: Crack/Cocaine and Heroin Advance Directives: No Advance Directives Information Provided: No service: No Current occupational status: employed Physical Exam Vital Signs: Vital Signs: Last Vital Signs Temp 98.3 F 01/04/21 23:12 Pulse 101 H 01/04/21 23:12 Resp 17 01/04/21 23:12 BP 133/82 01/04/21 23:12 Pulse Ox 97 01/04/21 23:12 Body Mass Index 31.5 Appearance: Alert. Oriented X3. No acute distress. Eyes: Pupils equal, round and reactive to light. ENT: Pharynx normal. Neck: Normal inspection. Neck supple. CVS: Normal heart rate and rhythm. Pulses normal. Respiratory: No respiratory distress. Breath sounds normal. Abdomen: Soft and nontender. Skin: Skin warm and dry. Normal skin color. Normal skin turgor. Extremities: No lower extremity edema. Neuro: No motor deficit. No sensory deficit. Course Course Course Narrative: 50-year-old male with significant past medical history of substance abuse, wearing an ankle bracelet from gun charges, presents via EMS for substance abuse requesting detox facilities. Patient is belligerent, not answering questions asked, when asked why he was wearing a bracelet on his ankle he stated that he was a ?menace to society?. Patient is not forthcoming with substances used. Stated that we are the medical coding auditor in that we should know what we are looking at. Security requested at this time as patient is verbally aggressive to all staff. Patient was reminded that he presented to the emergency department for assistance, and that he should mind his manners. 11:22 p.m. patient verbally aggressive, swearing at staff, security at bedside. Patient discharged home with paperwork for discharge facilities. Discharge Plan Discharge Clinical Impression: Cocaine substance abuse Alcoholic intoxication Qualifiers: Complication of substance-induced condition: uncomplicated Qualified Code(s): F10.920 - Alcohol use, unspecified with intoxication, uncomplicated Patient Disposition: Home, Self-Care Instructions: Polysubstance Abuse (ED) Additional Instructions: Consider detox. Thank you for choosing this emergency department for evaluation. Please follow-up with primary care physician as needed. Return to the emergency department for any new, concerning, or worsening symptoms. Prescriptions: No Action fluoxetine 40 mg capsule 1 cap PO DAILY RF: 0 hydroxyzine pamoate 100 mg capsule 1 cap PO BEDTIME RF: 0 prazosin 1 mg capsule 1 cap PO BEDTIME RF: 0 mirtazapine 15 mg tablet 15 mg PO DAILY RF: 0 dexamethasone [Decadron] 6 mg tablet 6 mg PO DAILY Qty: 9 RF: 0
[2021-01-04 23:12] VITALS: BP 133/82; PULSE 101; RESP 17; TEMP 36.8; O2SAT 97; BMI 31.5
--- NOTE | 2021-01-04 23:34 | PC.NURSE ---
PT BECAME VERBALLY ABUSIVE TO STAFF, CONTINUED TO DENY SI/SI, CONTINUED TO STATE HIS ONLY NEED WAS FOR DETOX PLACEMENT. PT WAS INTRUSIVE TO SURROUNDING PATIENT CARE WELL. PT REMAINED A/O X 3, SPEAKS IN FULL CLR SENTENCES. PER PROVIDER PT TO BE D/C W/LIST OF AREA DETOX FACILITIES
== END 2021-01-05 00:12 | disposition home or self-care (01) ==
PROVIDERS: Emergency Provider Internal Medicine
DX: F10.229 Alcohol dependence with intoxication, unspecified (principal); Y90.9 Presence of alcohol in blood, level not specified; F14.10 Cocaine abuse, uncomplicated
CPT/HCPCS: 99284

== ENCOUNTER 2021-04-28 03:06 | Emergency (ER) | payer MEDICAID, SELFPAY ==
[2021-04-28 03:18] VITALS: BP 150/100; PULSE 108; RESP 18; TEMP 36.8; O2SAT 98; BMI 27.6
--- NOTE | 2021-04-28 06:21 | PC.NURSE ---
IN ROOM TO SUTURE PT. PT TOLERATED WELL.
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
== END 2021-04-28 06:48 | disposition home or self-care (01) ==
PROVIDERS: Emergency Provider Emergency Medicine Emergency Medical Services
DX: S01.111A Laceration without foreign body of right eyelid and periocular area, initial encounter (principal); S01.412A Laceration without foreign body of left cheek and temporomandibular area, initial encounter; Y04.2XXA Assault by strike against or bumped into by another person, initial encounter; Y93.89 Activity, other specified; Y92.511 Restaurant or cafe as the place of occurrence of the external cause; Y99.9 Unspecified external cause status
CPT/HCPCS: 12052; 99283; 99284

== ENCOUNTER 2021-07-10 02:24 | Emergency (ER) | payer MEDICAID, SELFPAY ==
[2021-07-10 02:40] VITALS: BP 132/74; BP 135/94; PULSE 104; PULSE 86; RESP 22; TEMP 37.3; O2SAT 96; O2SAT 98; BMI 26.6
[2021-07-10 02:42] LABS: Glucose, Whole Blood 111 mg/dL (60-115)
--- NOTE | 2021-07-10 03:09 | ED.ALCOHOL ---
HPI - Alcohol General Chief Complaint: ETOH/Substance Use Stated Complaint: ETOH AND SI Time Seen by Provider: 07/10/21 03:07 History of Present Illness HPI narrative: 50-year-old male with a history of using alcohol, crack cocaine, marijuana. Very angry about someone. Potentially Wanna kill her. Patient question suicidal ideation. No specific plan. Sent in for further evaluation. Had previous history of COVID get his COVID vaccine. Related Data Home Medications Medication Instructions Recorded Confirmed fluoxetine 40 mg capsule 1 cap PO DAILY 09/01/20 09/01/20 hydroxyzine pamoate 100 mg capsule 1 cap PO BEDTIME 09/01/20 09/01/20 mirtazapine 15 mg tablet 15 mg PO DAILY 09/01/20 09/01/20 prazosin 1 mg capsule 1 cap PO BEDTIME 09/01/20 09/01/20 Previous Rx's Medication Instructions Recorded dexamethasone 6 mg tablet 6 mg PO DAILY #9 tab 09/02/20 (Decadron) bacitracin 500 unit/gram topical 1 appl TOPICAL BID #14.2 g 04/28/21 ointment Allergies Allergy/AdvReac Type Severity Reaction Status Date / Time Penicillins [PENICILLINS] Allergy Severe SWELLING Verified 07/10/21 02:43 AND ITCHING, THROAT CLOSES. Review of Systems Review of Systems: No chest pain or shortness breath no nausea no vomiting Yes all other systems are reviewed and are negative PMFSH Past Medical History Attestation statement: The following information was validated with the patient. Medical History ADHD COVID-19 Depression PTSD (post-traumatic stress disorder) Social History Social History Household Members: None Housing: Homeless Do you presently have visiting nurse or other home services: No Alcohol intake: current Alcohol intake frequency: 3 or more drinks per day Alcohol type: beer and hard liquor Patient Tobacco Use Status: Tobacco use Unknown Cigarette Packs Per Day: 0.5 Cigarettes Per Day: 10.0 Second Hand Smoke Exposure: No Substance Use Type: Crack/Cocaine and Heroin Advance Directives: No service: No Current occupational status: employed Physical Exam Vital Signs: Vital Signs: Last Vital Signs Temp 99.1 F 07/10/21 02:40 Pulse 104 H 07/10/21 02:40 Resp 22 H 07/10/21 02:40 BP 135/94 H 07/10/21 02:40 Pulse Ox 96 07/10/21 02:40 BMI result Body Mass Index 26.6 Appearance: Alert. Oriented X3. No acute distress. Eyes: Pupils equal, round and reactive to light. ENT: Pharynx normal. Neck: Normal inspection. Neck supple. No lymph nodes noted. No crepitus CVS: Normal heart rate and rhythm. Pulses normal. Normal S1 and S2 Respiratory: No respiratory distress. Breath sounds normal. No Wheezing. No rales Abdomen: Soft and nontender. No rigidity. No distention. good BS x4 Skin: Skin warm and dry. Normal skin color. Normal skin turgor. Extremities: No lower extremity edema. Neurovascular intact to all extremities. No Lacerations. No Rash Neuro: Oriented X 3. No motor deficit. No sensory deficit. Moving all extermities. No slurred speech MDM - Alcohol MDM Narrative Medical decision making narrative: Will get crisis to evaluate patient once patient is sober. Patient alcohol was 200. Awaiting crisis evaluation. In stable condition Lab Data Attestation: I reviewed the patient's lab results. Result diagrams: 07/10/21 03:36 07/10/21 03:36 Labs: Lab Results 07/10/21 07/10/21 07/10/21 Range/Units 02:39 03:36 03:36 WBC 6.1 (4.8-10.8) X10*3/uL RBC 5.29 (4.60-5.80) X10*6/uL Hgb 14.7 (14.0-18.0) g/dl Hct 43.3 (42.0-52.0) % MCV 81.9 (80.0-98.0) fL MCH 27.8 (27.0-33.0) pg MCHC 33.9 (31.0-36.0) g/dl RDW 15.5 (11.0-16.0) % Plt Count 299 (160-400) X10*3/uL MPV 9.2 L (9.4-12.4) fL Immature Gran % (Auto) 0.3 (0.0-0.4) % Neut % (Auto) 43.2 L (45-73) % Lymph % (Auto) 46.0 H (20-40) % [place] % (Auto) 8.4 (2-11) % Eos % (Auto) 1.3 (0-4) % Baso % (Auto) 0.8 (0-2) % Lymph # (Auto) 2.8 (1.2-4.9) X10*3/uL [place] # (Auto) 0.5 (0.1-1.2) X10*3/uL Eos # (Auto) 0.1 (0.0-0.4) X10*3/uL Baso # (Auto) 0.1 (0.0-0.2) X10*3/uL Abs Immat Gran (auto) 0.02 (0.00-0.03) X10*3/uL Absolute Neuts (auto) 2.6 (2.0-8.3) x10*3/uL Absolute Nucleated RBC 0.000 (0.0-0.012) X10*3/uL Nucleated RBC % (auto) 0.0 (0.0-0.2) /100WBC Sodium 144 (135-145) mmol/L Potassium 4.3 (3.3-5.1) mmol/L Chloride 112 H (96-108) mmol/L Carbon Dioxide 22 (22-29) mmol/L Anion Gap 14 (12-20) BUN 8 L (9-16) mg/dL Creatinine 1.11 (0.5-1.4) mg/dL Estim Creat Clear Calc 75.2 Estimated GFR > 60 POC Glucose 111 (60-115) mg/dL Random Glucose 100 (60-115) mg/dL Calcium 10.1 D (8.4-10.2) mg/dL Ethyl Alcohol mg/dL COVID-19 (ANANDA) (Negative) COVID-19 Clin Com 07/10/21 07/10/21 Range/Units 03:36 03:36 WBC (4.8-10.8) X10*3/uL RBC (4.60-5.80) X10*6/uL Hgb (14.0-18.0) g/dl Hct (42.0-52.0) % MCV (80.0-98.0) fL MCH (27.0-33.0) pg MCHC (31.0-36.0) g/dl RDW (11.0-16.0) % Plt Count (160-400) X10*3/uL MPV (9.4-12.4) fL Immature Gran % (Auto) (0.0-0.4) % Neut % (Auto) (45-73) % Lymph % (Auto) (20-40) % [place] % (Auto) (2-11) % Eos % (Auto) (0-4) % Baso % (Auto) (0-2) % Lymph # (Auto) (1.2-4.9) X10*3/uL [place] # (Auto) (0.1-1.2) X10*3/uL Eos # (Auto) (0.0-0.4) X10*3/uL Baso # (Auto) (0.0-0.2) X10*3/uL Abs Immat Gran (auto) (0.00-0.03) X10*3/uL Absolute Neuts (auto) (2.0-8.3) x10*3/uL Absolute Nucleated RBC (0.0-0.012) X10*3/uL Nucleated RBC % (auto) (0.0-0.2) /100WBC Sodium (135-145) mmol/L Potassium (3.3-5.1) mmol/L Chloride (96-108) mmol/L Carbon Dioxide (22-29) mmol/L Anion Gap (12-20) BUN (9-16) mg/dL Creatinine (0.5-1.4) mg/dL Estim Creat Clear Calc Estimated GFR POC Glucose (60-115) mg/dL Random Glucose (60-115) mg/dL Calcium (8.4-10.2) mg/dL Ethyl Alcohol 194 mg/dL COVID-19 (ANANDA) Negative (Negative) COVID-19 Clin Com See Note Discharge Plan Discharge Clinical Impression: Alcoholic intoxication, Suicidal ideation Prescriptions: No Action fluoxetine 40 mg capsule 1 cap PO DAILY RF: 0 hydroxyzine pamoate 100 mg capsule 1 cap PO BEDTIME RF: 0 prazosin 1 mg capsule 1 cap PO BEDTIME RF: 0 mirtazapine 15 mg tablet 15 mg PO DAILY RF: 0 dexamethasone [Decadron] 6 mg tablet 6 mg PO DAILY Qty: 9 RF: 0 bacitracin 500 unit/gram ointment 1 appl topical BID Qty: 14.2 RF: 0
--- NOTE | 2021-07-10 03:16 | PC.NURSE ---
Addendum entered by Syl Riddle 07/10/21 03:17: charge master coordinator made aware as pt will need sitter. Awaiting possible room assignment change. Original Note: Per Dr Lyman, upon MD pemberton, pt expressing vague SI. Pt admit to Dr Lyman use of crack and marijuana in addition to ETOH which was the only substance pt had reported to this RN. Per Dr Lyman, pt to have labs, and crisis c/s when sober.
[2021-07-10 03:48] LABS: MANUAL DIFF FLAG NO
[2021-07-10 03:49] LABS: Basophils Absolute Auto 0.1 X10*3/uL (0.0-0.2); Basophils Percent Auto 0.8 % (0-2); Eosinophils Absolute Auto 0.1 X10*3/uL (0.0-0.4); Eosinophils Percent Auto 1.3 % (0-4); Hematocrit 43.3 % (42.0-52.0); Hemoglobin 14.7 g/dl (14.0-18.0); Imm Gran Abs Auto 0.02 X10*3/uL (0.00-0.03); Imm Gran Pct Auto 0.3 % (0.0-0.4); Lymphocytes Absolute Auto 2.8 X10*3/uL (1.2-4.9); Mean Corpuscular HGB Conc 33.9 g/dl (31.0-36.0); Mean Corpuscular Hemoglobin 27.8 pg (27.0-33.0); Mean Corpuscular Volume 81.9 fL (80.0-98.0); Mean Platelet Volume 9.2 fL (9.4-12.4); Monocytes Absolute Auto 0.5 X10*3/uL (0.1-1.2); Monocytes Percent Auto 8.4 % (2-11); Neutrophils Absolute Auto 2.6 x10*3/uL (2.0-8.3); Neutrophils Percent Auto 43.2 % (45-73); Platelet Count 299 X10*3/uL (160-400); Red Blood Count 5.29 X10*6/uL (4.60-5.80); Red Cell Distribution Width 15.5 % (11.0-16.0); White Blood Count 6.1 X10*3/uL (4.8-10.8)
[2021-07-10 04:04] LABS: Ethanol 194 mg/dL
[2021-07-10 04:05] LABS: Anion Gap 14 (12-20); Blood Urea Nitrogen 8 mg/dL (9-16); Calcium 10.1 mg/dL (8.4-10.2); Carbon Dioxide 22 mmol/L (22-29); Chloride 112 mmol/L (96-108); Creatinine Clr Calc Pharmacy 75.2; Estimated Glomerular Filt Rate > 60; Glucose Random 100 mg/dL (60-115); Potassium 4.3 mmol/L (3.3-5.1); Sodium 144 mmol/L (135-145)
[2021-07-10 04:06] LABS: COVID-19 Test Negative (Negative); IDNOW Serial# 9DD0AD1C
[2021-07-10 06:00] VITALS: BP 124/81; PULSE 92; RESP 16; O2SAT 97
[2021-07-10 08:21] VITALS: BP 113/70; PULSE 87; RESP 16; TEMP 36.6; O2SAT 100
--- NOTE | 2021-07-10 10:34 | MHC.RECOVSUP ---
? Reason for consult:/recovery Support o Current location: [address] [place] [address] o Identified substance use concern:ETOH - Support ? Intervention: o Community resources provided o Plan: o Patient awaiting crisis evaluation o Patient to follow up with [facility] after discharge ? Additional information: Patient is no longer SI or HI. Patient refuses to go to detox and had a harm reduction discussion with him. gave patient community resources.Patient wants to be discharged.
[2021-07-10 10:50] VITALS: BP 133/83; PULSE 106; RESP 14; TEMP 36.6; O2SAT 98
== END 2021-07-10 11:04 | disposition home or self-care (01) ==
PROVIDERS: Emergency Provider Emergency Medicine Emergency Medical Services; PCP Internal Medicine
DX: F10.129 Alcohol abuse with intoxication, unspecified (principal); R45.851 Suicidal ideations; Y90.6 Blood alcohol level of 120-199 mg/100 ml; F11.90 Opioid use, unspecified, uncomplicated; F14.90 Cocaine use, unspecified, uncomplicated; F17.210 Nicotine dependence, cigarettes, uncomplicated; Z20.822 Contact with and (suspected) exposure to COVID-19; Z71.6 Tobacco abuse counseling; Z79.899 Other long term (current) drug therapy
CPT/HCPCS: 80048; 82077; 82947; 85025; 87635; 99284

== ENCOUNTER 2021-08-24 01:34 | Emergency (ER) | payer MEDICAID, SELFPAY ==
[2021-08-24 01:38] VITALS: BP 149/86; PULSE 103; RESP 16; TEMP 37.2; O2SAT 94; BMI 28.3
[2021-08-24 02:05] LABS: Appearance Urine CLEAR; Color Urine YELLOW; Glucose Urine UA NEG (NEG); Leukocyte Esterase Urine NEG (NEG); Nitrite Urine NEG (NEG); Specific Gravity - Urine <= 1.005 (1.005-1.025); Urine Blood TRACE (NEG); Urine Ketones NEG (NEG); Urine Protein NEG (NEG-TRACE)
[2021-08-24 02:14] LABS: WBC Urine 0-2 /HPF (0-4)
[2021-08-24 02:15] LABS: Bacteria Urine TRACE /LPF; RBC Urine 0-2 /HPF (0); Squamous Epithelial Cell Urine TRACE /LPF
[2021-08-24 02:20] LABS: Amphetamine Screen Urine Not Detected (Not Detect); Barbiturates, Urine Not Detected (Not Detect); Benzodiazepines Screen Urine Not Detected (Not Detect); Cannabinoid Screen Urine POSITIVE (Not Detect); Cocaine Screen Urine POSITIVE (Not Detect); Fentanyl, urine Not Detected (Not Detect); Opiate Screen Urine Not Detected (Not Detect); Phencyclidine Screen Urine Not Detected (Not Detect)
[2021-08-24 02:21] LABS: COVID-19 Test Negative (Negative)
--- NOTE | 2021-08-24 05:54 | PC.NURSE ---
Patient slept though the night, no distress observed/reported, behavior calm and quiet, patient reported he has been not taking his medication for year or more, N referral completed/confirmed , pending evaluation in the morning, will continue to monitor.
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
[2021-08-24 10:14] VITALS: BP 115/95; PULSE 92; RESP 16; O2SAT 100
== END 2021-08-24 10:18 | disposition home or self-care (01) ==
PROVIDERS: Emergency Provider Student in an Organized Health Care Education/Training Program
DX: F43.10 Post-traumatic stress disorder, unspecified (principal); F19.90 Other psychoactive substance use, unspecified, uncomplicated; F17.200 Nicotine dependence, unspecified, uncomplicated; Z20.822 Contact with and (suspected) exposure to COVID-19; Z72.89 Other problems related to lifestyle; Z63.0 Problems in relationship with spouse or partner; Z79.899 Other long term (current) drug therapy
CPT/HCPCS: 80307; 81001; 87635; 99284

== ENCOUNTER 2021-08-28 13:18 | Outpatient (REF) | payer MEDICAID, SELFPAY ==
--- NOTE | ~2021-08-28 | XR_ITS ---
EXAMINATION: RIGHT ELBOW AND RIGHT FOREARM X-RAYS CLINICAL INFORMATION: Pain post fall COMPARISON: None TECHNIQUE: 3 views of the right elbow and 2 views of the right forearm FINDINGS: Right elbow: There is a displaced fracture of the proximal ulna intra-articular with the humeral ulnar joint. There is a 2 cm displacement. No other fracture is seen. There is an elbow joint effusion. There is soft tissue swelling adjacent to the fracture. There is an osteophyte at the triceps tendon insertion to the olecranon. Right forearm: There is a fracture of the proximal humerus intra-articular with the humeral ulnar joint. No other acute fracture is seen. 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 There is deformity of the distal radius and distal ulna, question congenital versus posttraumatic. Soft tissues are unremarkable. XR/XR forearm RT 2V IMPRESSION: Displaced fracture of the proximal humerus intra-articular with the humeral ulnar joint. There is up to 2 cm fracture displacement. Elbow joint effusion. Osteophyte at the triceps tendon insertion to the olecranon.
--- NOTE | ~2021-08-28 | XR_ITS ---
EXAMINATION: RIGHT ELBOW AND RIGHT FOREARM X-RAYS CLINICAL INFORMATION: Pain post fall COMPARISON: None TECHNIQUE: 3 views of the right elbow and 2 views of the right forearm FINDINGS: Right elbow: There is a displaced fracture of the proximal ulna intra-articular with the humeral ulnar joint. There is a 2 cm displacement. No other fracture is seen. There is an elbow joint effusion. There is soft tissue swelling adjacent to the fracture. There is an osteophyte at the triceps tendon insertion to the olecranon. Right forearm: There is a fracture of the proximal humerus intra-articular with the humeral ulnar joint. No other acute fracture is seen. 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 There is deformity of the distal radius and distal ulna, question congenital versus posttraumatic. Soft tissues are unremarkable. XR/XR elbow RT 2V IMPRESSION: Displaced fracture of the proximal humerus intra-articular with the humeral ulnar joint. There is up to 2 cm fracture displacement. Elbow joint effusion. Osteophyte at the triceps tendon insertion to the olecranon.
== END 2021-08-28 13:19 | disposition home or self-care (01) ==
LOC: HO.XRAY 13:18
PROVIDERS: PCP Internal Medicine; Visit Provider Internal Medicine
DX: M25.521 Pain in right elbow (principal); S52.001A Unspecified fracture of upper end of right ulna, initial encounter for closed fracture; W19.XXXA Unspecified fall, initial encounter
CPT/HCPCS: 73070; 73090

== ENCOUNTER 2021-08-28 14:17 | Emergency (ER) | payer MEDICAID, SELFPAY ==
[2021-08-28 14:27] VITALS: BP 152/101; PULSE 83; RESP 19; TEMP 36.6; O2SAT 100; BMI 29.1
--- NOTE | 2021-08-28 15:11 | ED.EXTPRO ---
HPI - Extremity Problem General Chief complaint: Extremity Injury, Upper Stated complaint: r elbox fx Time Seen by Provider: 08/28/21 14:31 Source: patient Mode of arrival: ambulatory History of Present Illness HPI Narrative: 50-year-old male with past medical history of ADHD, depression, PTSD, substance abuse, presenting to the ED complaining right elbow pain s/p mechanical slip and fall on ice 1.5 weeks ago. Denies symptoms prior to fall occluding headache, CP/SOB. Denies head trauma or LOC. Reports continued pain to right elbow with decreased ROM. Denies numbness, tingling, weakness, CP, headache Patient states he is noncompliant with antihypertensives previously and saw PCP today who sent him to ED for x-rays and also prescribed new antihypertensives which she does not know the name of and hasnt started yet MD Complaint: extremity pain and extremity swelling Onset (ago): week(s) Pain Consistency: constant Location: right, upper extremity and elbow Related Data Home Medications Medication Instructions Recorded Confirmed fluoxetine 40 mg capsule 1 cap PO DAILY 09/01/20 09/01/20 hydroxyzine pamoate 100 mg capsule 1 cap PO BEDTIME 09/01/20 09/01/20 mirtazapine 15 mg tablet 15 mg PO DAILY 09/01/20 09/01/20 prazosin 1 mg capsule 1 cap PO BEDTIME 09/01/20 09/01/20 Previous Rx's Medication Instructions Recorded dexamethasone 6 mg tablet 6 mg PO DAILY #9 tab 09/02/20 (Decadron) bacitracin 500 unit/gram topical 1 appl TOPICAL BID #14.2 g 04/28/21 ointment acetaminophen 500 mg tablet 500 mg PO Q6H PRN #20 tab 08/28/21 (Tylenol Extra Strength) ibuprofen 800 mg tablet 800 mg PO Q8H PRN #14 tab 08/28/21 Allergies Allergy/AdvReac Type Severity Reaction Status Date / Time Penicillins [PENICILLINS] Allergy Severe SWELLING Verified 07/10/21 02:43 AND ITCHING, THROAT CLOSES. Review of Systems Review of Systems: Constitutional: No Fever, No Chills ENT/Mouth: No Ear Pain, No Nasal Congestion, No sore throat, No Swallowing Difficulty Cardiovascular: No Chest Pain, No SOB Respiratory: No Cough, No Sputum Gastrointestinal: No Nausea, No Vomiting,No Abdominal pain Genitourinary:, No Dysuria, No Urinary Frequency, No Urgency, No Flank Pain Musculoskeletal: + joint pain, No Myalgias, + Joint Swelling Skin: No Skin Lesions, No rash Neuro: No Weakness, No Numbness, No Paresthesias, no head trauma, no LOC Yes all other systems are reviewed and are negative [facility] Past Medical History Attestation statement: The following information was validated with the patient. Medical History ADHD COVID-19 Depression PTSD (post-traumatic stress disorder) Social History Social History Household Members: None Housing: Homeless Do you presently have visiting nurse or other home services: No Alcohol intake: current Alcohol intake frequency: 3 or more drinks per day Alcohol type: beer and hard liquor Patient Tobacco Use Status: Tobacco use Unknown Cigarette Packs Per Day: 0.5 Cigarettes Per Day: 10.0 Second Hand Smoke Exposure: No Substance Use Type: Crack/Cocaine and Heroin Advance Directives: No Advance Directives Information Provided: No service: No Current occupational status: employed Physical Exam Vital Signs: Vital Signs: Last Vital Signs Temp 98 F 08/28/21 14:27 Pulse 83 08/28/21 14:27 Resp 19 08/28/21 14:27 BP 152/101 H 08/28/21 14:27 Pulse Ox 100 08/28/21 14:27 BMI result Body Mass Index 29.1 Const: General: cooperative, healthy appearing and no acute distress Orientation/consciousness: patient oriented x3 Limitations: no limitations HENMT: Head: Yes normal to inspection Ears: hearing grossly normal bilaterally General nose exam: Normal external nose present Face and sinus: Yes normal facial exam Eyes: General: appearance normal, both eyes and all related structures EOM: EOMs intact bilaterally Neck: Neck: Yes normal visual inspection and Yes no meningeal signs Resp: Effort & Inspection: normal respiratory effort and no respiratory distress Cardio: Rate: regular rate Heart sounds: S1 normal heart sound present and S2 normal heart sound present Peripheral pulses: radial pulses present Skin: Rashes: no rashes Wounds: no wounds Neuro: General: patient oriented x3 and no meningeal signs Gait exam (Neuro): Normal gait present Extrem: Other: Right elbow with noted swelling and diffuse tenderness. Decreased flexion and extension secondary to pain. Neurovascular intact distally. Right shoulder nontender. Right wrist/digits nontender with full range of motion intact Course Course Course Narrative: XR forearm RT 2V IMPRESSION: Displaced fracture of the proximal ulna intra-articular with the humeral ulnar joint. There is up to 2 cm fracture displacement. Elbow joint effusion. Osteophyte at the triceps tendon insertion to the olecranon.? >> case discussed with orthopedic PA Rogelio recommended posterior long-arm splint and sling and have patient follow-up in the office later this week or early next week. Discussed at length with patient to avoid a to H/drug use especially prior to surgery I put him at risk of complications with anesthesia and infection -stressed importance of compliance with home medications, specifically antihypertensives. Patient denies CP, headache. MDM - Extremity (Nontraumatic) MDM Narrative Medical decision making narrative: 50-year-old male with past medical history of ADHD, depression, PTSD, substance abuse, presenting to the ED complaining right elbow pain s/p mechanical slip and fall on ice 1.5 weeks ago. On exam hypertensive, NAD, physical exam as above. Concern for fracture versus dislocation versus MSK pain/strain. Plan: X-rays Medical Records Attestation: I reviewed the patient's medical records. Lab Data Attestation: I reviewed the patient's lab results. Discharge Plan Discharge Clinical Impression: Fracture of proximal end of right ulna Qualifiers: Encounter type: initial encounter Fracture type: closed Fracture morphology: unspecified fracture morphology Qualified Code(s): S52.001A - Unspecified fracture of upper end of right ulna, initial encounter for closed fracture Patient Disposition: Home, Self-Care Instructions: Elbow Fracture (ED) Additional Instructions: You have a fractured elbow. Wear splint at all times, keep dry, and clean If fingers become swollen, numb, or pain becomes unbearable remove splint and return to the emergency department You need to follow-up in the orthopedic office by the end of the week or early next week, they should contact you however if they do not call you by Thursday please call them Motrin and Tylenol will help with pain and swelling, take as needed. Ice and elevate your elbow. Prescriptions: New ibuprofen 800 mg tablet 800 mg PO Q8H PRN (Reason: pain) Qty: 14 0RF acetaminophen [Tylenol Extra Strength] 500 mg tablet 500 mg PO Q6H PRN (Reason: pain or fever) Qty: 20 0RF No Action fluoxetine 40 mg capsule 1 cap PO DAILY 0RF hydroxyzine pamoate 100 mg capsule 1 cap PO BEDTIME 0RF prazosin 1 mg capsule 1 cap PO BEDTIME 0RF mirtazapine 15 mg tablet 15 mg PO DAILY 0RF dexamethasone [Decadron] 6 mg tablet 6 mg PO DAILY Qty: 9 0RF bacitracin 500 unit/gram ointment 1 appl topical BID Qty: 14.2 0RF Referrals: Rogelio Bernstein PA-C [Physician [employer]] - 2 days
== END 2021-08-28 16:04 | disposition home or self-care (01) ==
PROVIDERS: Emergency Provider Emergency Medicine; PCP Internal Medicine
DX: S52.001A Unspecified fracture of upper end of right ulna, initial encounter for closed fracture (principal); F90.9 Attention-deficit hyperactivity disorder, unspecified type; F33.1 Major depressive disorder, recurrent, moderate; F43.10 Post-traumatic stress disorder, unspecified; F14.10 Cocaine abuse, uncomplicated; F17.210 Nicotine dependence, cigarettes, uncomplicated; Z71.6 Tobacco abuse counseling; Z79.899 Other long term (current) drug therapy
CPT/HCPCS: 99283; 99284

== ENCOUNTER 2021-09-10 07:22 | Outpatient (REF) | payer MEDICAID, SELFPAY ==
--- NOTE | ~2021-09-10 | XR_ITS ---
EXAMINATION: XR ELBOW, RIGHT CLINICAL INFORMATION: Pain. COMPARISON: Right elbow 08/28/2021 TECHNIQUE: AP, lateral, and oblique views of the right elbow. FINDINGS: There is a complete fracture involving the proximal ulna with superior displacement of the olecranon. There is no abnormal joint effusion seen however. The radius is intact. The soft tissues are normal. XR/XR elbow RT min 3V IMPRESSION: Complete transverse fracture proximal ulna with superior dislocation of the olecranon. However no abnormal joint effusion seen. Previously seen joint effusion has improved significantly..
== END 2021-09-10 07:23 | disposition home or self-care (01) ==
LOC: HO.HOSX 07:22
PROVIDERS: Visit Provider Physician Assistant
DX: M25.521 Pain in right elbow (principal)
CPT/HCPCS: 29105; 73080; 99202

== ENCOUNTER 2021-10-03 08:22 | Outpatient (REF) | payer MEDICAID, SELFPAY ==
--- NOTE | ~2021-10-03 | XR_ITS ---
EXAMINATION: XR ELBOW, RIGHT CLINICAL INFORMATION: Pain COMPARISON: Previous x-rays most recent August 2021 TECHNIQUE: AP, lateral, and oblique views of the right elbow. FINDINGS: There is a displaced fracture of the proximal ulnar intra-articular with the humeral ulnar joint. There is a 2 cm displacement. Alignment appears unchanged. No other fracture is seen. There is an elbow joint effusion. There is an osteophyte at the triceps tendon insertion to the olecranon. XR/XR elbow RT min 3V IMPRESSION: No change in the displaced intra-articular proximal ulnar fracture.
== END 2021-10-03 08:23 | disposition home or self-care (01) ==
LOC: HO.HOSX 08:22
PROVIDERS: Visit Provider Physician Assistant
DX: S52.001A Unspecified fracture of upper end of right ulna, initial encounter for closed fracture (principal)
CPT/HCPCS: 73080; 99212

== ENCOUNTER 2021-10-08 08:13 | Day surgery (SDC) | payer MEDICAID, SELFPAY ==
--- NOTE | 2021-10-04 08:42 | HO.ANESPROP2 ---
Documented by User: Laura Ortiz NP 10/04/21 08:43 HPI - Anesthesia Eval Consult details Narrative: 50yo M for Right Olecranon ORIF PMFSH Active Problems Active Problems: All Active Problems (Updated 09/12/21 @ 20:24 by Ary Ramírez PA-C) Fracture of proximal end of right ulna (Acute) Pneumonia due to COVID-19 virus (Acute) COVID-19 (Acute) Past Medical History Medical History ADHD COVID-19 Depression PTSD (post-traumatic stress disorder) Social History Social History Household Members: None Housing: Homeless Do you presently have visiting nurse or other home services: No Alcohol intake: current Alcohol intake frequency: 3 or more drinks per day Alcohol type: beer and hard liquor Patient Tobacco Use Status: Current everyday Tobacco user Tobacco use type: Cigarette Cigarette Packs Per Day: 0.5 Cigarettes Per Day: 8 Second Hand Smoke Exposure: No Use of substances other than those prescribed or required for medical reasons: Yes Substance Use Type: Crack/Cocaine and Heroin Substance Use Frequency: Daily Are you DNR?: No Advance Directives: No Advance Directives Information Provided: Yes service: No Current occupational status: employed Meds Allergies Allergy/AdvReac Type Severity Reaction Status Date / Time Penicillins [PENICILLINS] Allergy Severe SWELLING Verified 10/03/21 11:40 AND ITCHING, THROAT CLOSES. Home Medications Medication Instructions Recorded Confirmed Last Taken Type fluoxetine 40 mg capsule 1 cap PO DAILY 09/01/20 09/01/20 Unknown History hydroxyzine pamoate 100 mg capsule 1 cap PO BEDTIME 09/01/20 09/01/20 Unknown History mirtazapine 15 mg tablet 15 mg PO DAILY 09/01/20 09/01/20 Unknown History prazosin 1 mg capsule 1 cap PO BEDTIME 09/01/20 09/01/20 Unknown History Exam Exam Date and Time: October 04, 2021 0842 Pertinent Lab Results Pertinent Lab Results: Laboratory Tests 07/10/21 07/10/21 03:36 03:36 WBC 6.1 Hgb 14.7 Hct 43.3 Plt Count 299 Sodium 144 Potassium 4.3 Chloride 112 H Carbon Dioxide 22 BUN 8 L Creatinine 1.11 Narrative Narrative: EKG 11/2020 Vent. Rate : 088 BPM ? ? Atrial Rate : 088 BPM ?? P-R Int : 146 ms? QRS Dur : 094 ms ? ? QT Int : 358 ms ? ? ? P-R-T Axes : 053 062 060 degrees ?? QTc Int : 433 ms ? Normal sinus rhythm Minimal voltage criteria for LVH, may be normal variant Borderline ECG No previous ECGs available Assessment and Plan Assessment Anesthesia Assessment: Chart Reviewed Documented by User: Celestine Jurado MD 10/08/21 14:11 PMFSH Past Medical History Medical History ADHD COVID-19 Depression PTSD (post-traumatic stress disorder) Family History Family history of problems with anesthesia: No Surgical History History of Problems with Anesthesia: No Social History Social History Household Members: None Housing: Homeless Do you presently have visiting nurse or other home services: No Alcohol intake: current Alcohol intake frequency: 3 or more drinks per day Alcohol type: beer and hard liquor Patient Tobacco Use Status: Current everyday Tobacco user Tobacco use type: Cigarette Cigarette Packs Per Day: 0.5 Cigarettes Per Day: 8 Second Hand Smoke Exposure: No Use of substances other than those prescribed or required for medical reasons: Yes Substance Use Type: Crack/Cocaine and Heroin Substance Use Frequency: Daily Are you DNR?: No Advance Directives: No Advance Directives Information Provided: Yes service: No Current occupational status: employed Meds Allergies Allergy/AdvReac Type Severity Reaction Status Date / Time Penicillins [PENICILLINS] Allergy Severe SWELLING Verified 10/03/21 11:40 AND ITCHING, THROAT CLOSES. Home Medications Medication Instructions Recorded Confirmed Last Taken Type fluoxetine 40 mg capsule 1 cap PO DAILY 09/01/20 09/01/20 Unknown History hydroxyzine pamoate 100 mg capsule 1 cap PO BEDTIME 09/01/20 09/01/20 Unknown History mirtazapine 15 mg tablet 15 mg PO DAILY 09/01/20 09/01/20 Unknown History prazosin 1 mg capsule 1 cap PO BEDTIME 09/01/20 09/01/20 Unknown History Exam Airway Mallampati Class: II TM Dist: >3cm Neck ROM: Full Loose/Missing/Broken Teeth: Yes (Chipped ) Heart: S1 S2 Lungs: b/l breath sounds Assessment and Plan Assessment Anesthesia Assessment: Anesthesia Plan Discussed Final Anesthetic Review Family History of Problems with Anesthesia: No History of Problems with Anesthesia: No NPO: Yes Final Preanesthetic Review: Meds/Allgs Chart Reviewed, Consent Obtained/Reviewed and Anes Risks/Benef Reviewed Patient Risk: Intermediate Procedure Risk: Intermediate Anesthetic Plan Anesthetic Plan: GA and Regional Block Disposition: Standard PACU
--- NOTE | ~2021-10-08 | FL_ITS ---
EXAMINATION: XR FLUOROSCOPY WITH IMAGES CLINICAL INFORMATION: Intra-articular fracture right olecranon status post open reduction internal fixation. COMPARISON: Radiographs right elbow 10/03/2021. TECHNIQUE: Fluoroscopy performed by Dr. Ralph Grover. Fluoroscopy time: 0.5 minutes DAP: 0.0267 mGycm2 Images: 6 FINDINGS: The intra-articular fracture right olecranon is reduced with dorsal side plate and multiple screws. Fracture fragments are in near-anatomic alignment. There is no dislocation. The hardware is intact. FL/FL guidance in OR IMPRESSION: Status post reduction internal fixation olecranon fracture. Hardware intact.
[2021-10-08 08:45] VITALS: BP 137/93; PULSE 84; RESP 20; TEMP 36.3; O2SAT 99; BMI 28.3
[2021-10-08 09:00] LABS: Amphetamine Screen Urine Not Detected (Not Detect); Barbiturates, Urine Not Detected (Not Detect); Benzodiazepines Screen Urine Not Detected (Not Detect); Cannabinoid Screen Urine POSITIVE (Not Detect); Cocaine Screen Urine Not Detected (Not Detect); Fentanyl, urine Not Detected (Not Detect); Opiate Screen Urine Not Detected (Not Detect); Phencyclidine Screen Urine Not Detected (Not Detect)
[2021-10-08] MEDS: Lactated Ringers 1,000 ML 100 ML IVCONT (09:19)
--- NOTE | 2021-10-08 12:09 | MHC.SHP ---
Pre-Procedural Eval Section A Date of Service: 10/08/21 The patient is an INPATIENT: No Changes since office visit: Yes Patient answered all questions; No Cold of Flu in the past 2 weeks, No New Medical Problems and No Changes in Medication The History & Physical has been completed within 30 days and I have reviewed it.: Yes Section B Chief Complaint: fracture Allergies: Allergies Allergy/AdvReac Type Severity Reaction Status Date / Time Penicillins [PENICILLINS] Allergy Severe SWELLING Verified 10/03/21 11:40 AND ITCHING, THROAT CLOSES. Plan I have reviewed the history and physical and performed a pertinent physical examination on my patient. No changes have occurred unless specified.
[2021-10-08 13:36] VITALS: BP 130/89; PULSE 79; RESP 16; O2SAT 94
[2021-10-08 14:26] VITALS: BP 137/95; PULSE 87; RESP 16; TEMP 36.1; O2SAT 99
--- NOTE | 2021-10-08 14:26 | P.BOP_ITS ---
Brief Operative Note Date of Service: 10/08/21 Pre-op diagnosis: Right olecranon fracture Procedure: ORIF right olvcranon Implants: Styker 3.5 lag screws x 2 Ignacio olecranon locking plate Surgeon: Ralph Grover MD Anesthesia: GLMA and regional Was an Guide Dog Trainer used for this Procedure?: Yes Guide Dog Trainer: Ary Ramírez Estimated blood loss (mL): 50 Tourniquet time (min): 70 IV fluids (mL): 1,000 Pathology: none sent Condition: stable Disposition: PACU
[2021-10-08 14:41] VITALS: BP 125/87; PULSE 80; RESP 17; O2SAT 98
[2021-10-08 15:06] VITALS: BP 131/88; PULSE 79; RESP 16; O2SAT 100
--- NOTE | 2021-10-09 08:29 | P.OP_ITS ---
Operative Note Operative Note Date of Service: 10/09/21 Narrative: Date of Service: 10/08/21 Pre-op diagnosis: Right olecranon fracture Procedure: ORIF right olvcranon Implants: Styker 3.5 lag screws x 2 Ignacio Olecranon locking plate Surgeon: Ralph Grover MD Anesthesia: GLMA and regional Was an Papier Mache' Molder used for this Procedure?: Yes Papier Mache' Molder: Ary Ramírez Estimated blood loss (mL): 50 Tourniquet time (min): 70 IV fluids (mL): 1,000 Pathology: none sent Condition: stable Disposition: PACU Patient was brought to the operating room and placed supine on the surgical table. He was prepped and draped in standard sterile fashion and a time out was called to identify proper site, proper procedure and IV antibiotics per weight were administered. I began by insufflating the tourniquet to 250 mm Hg and then made a standard posterior incision over the olecranon. Sharp dissection was taken down to bone and the periosteal tissue and fibrous tissue was dissected off of the nonunion. Both ends of the displaced olecranon fracture were identified. A curette and run sure were used to debride the fibrous bone down to bleeding cancellous bone. I irrigated copiously and placed a sharp tenaculum in via drill holes into the fracture fragments and was able to provisionally reduce the fracture. Then, using standard AO technique, I placed 2 lag screws orthogonal to the oblique fracture. This compressed the fracture and stabilized the reduction. I then placed a 8 hole olecranon locking plate over the fracture. A longitudinal split was made in the triceps to Harpreet the most proximal portion of the plate. Biplane fluoroscopy was used to confirm fracture reduction and hardware position. I then placed 2 proximal locking screws and then compressed the fracture from the distal oblong hole. Again I had excellent reproduction of the normal anatomy and reduction of the fracture. The remaining screw holes were filled with a combination of locking and non locking screws. Final biplanar fluoroscopic images were obtained. I was satisfied with the reduction and the hardware position. I then irrigated copiously and closed with absorbable suture and kae. Sterile dressing were applied and patient was placed in a sling. He will initiate ROM immediately.,
== END 2021-10-08 15:36 | disposition home or self-care (01) ==
PROVIDERS: Nurse Practitioner; PCP Internal Medicine; Visit Provider Orthopaedic Surgery
PROC: (CPT 24685; principal; 2021-10-08 11:40)
DX: S52.031A Displaced fracture of olecranon process with intraarticular extension of right ulna, initial encounter for closed fracture (principal); R20.0 Anesthesia of skin; W00.0XXA Fall on same level due to ice and snow, initial encounter; Y93.9 Activity, unspecified; Y92.9 Unspecified place or not applicable; Y99.8 Other external cause status; Z59.00 Homelessness unspecified; F90.9 Attention-deficit hyperactivity disorder, unspecified type; F32.9 Major depressive disorder, single episode, unspecified; F43.10 Post-traumatic stress disorder, unspecified; F10.239 Alcohol dependence with withdrawal, unspecified; F14.90 Cocaine use, unspecified, uncomplicated; F11.90 Opioid use, unspecified, uncomplicated; F17.210 Nicotine dependence, cigarettes, uncomplicated; Z88.0 Allergy status to penicillin
CPT/HCPCS: 24685; 80307; C1713; J1100; J2250; J2405; J2795; J3010

== ENCOUNTER 2021-11-05 07:08 | Outpatient (REF) | payer MEDICAID, SELFPAY ==
--- NOTE | ~2021-11-05 | XR_ITS ---
EXAMINATION: XR ELBOW, RIGHT CLINICAL INFORMATION: Elbow pain. COMPARISON: 10/08/2021 and studies dating back to 08/28/2021. TECHNIQUE: AP, lateral, and oblique views of the right elbow. FINDINGS: Patient is status post repair of proximal ulnar fracture with sideplate and screw fixation. Hardware appears intact. Staple line is present. There is a right elbow effusion. Fracture fragments appear aligned. XR/XR elbow RT min 3V IMPRESSION: Status post repair of proximal right ulnar fracture with hardware intact.
== END 2021-11-05 07:09 | disposition home or self-care (01) ==
LOC: HO.HOSX 07:08
PROVIDERS: Visit Provider Physician Assistant
DX: S52.001D Unspecified fracture of upper end of right ulna, subsequent encounter for closed fracture with routine healing (principal)
CPT/HCPCS: 73080; 99212

== ENCOUNTER 2021-12-05 07:13 | Outpatient (REF) | payer MEDICAID, SELFPAY | END 2021-12-05 07:14 | disposition home or self-care (01) | LOC: HO.HOSX 07:13 | PROVIDERS: Visit Provider Physician Assistant | DX: Z13.89 Encounter for screening for other disorder (principal) ==

== ENCOUNTER 2022-03-22 05:01 | Emergency (ER) | payer MEDICAID, SELFPAY ==
[2022-03-22 05:21] VITALS: BP 150/96; PULSE 113; RESP 18; O2SAT 93; BMI 27.3
[2022-03-22 06:00] VITALS: BP 127/83; PULSE 104; O2SAT 94
--- NOTE | 2022-03-22 06:58 | ED.GENADULT ---
HPI - General Adult General Chief complaint: ETOH/Substance Use Stated complaint: Drug Use,Seeking Detox Time Seen by Provider: 03/22/22 06:58 Source: patient and EMS Mode of arrival: EMS Limitations: no limitations History of Present Illness HPI narrative: 51-year-old male with history of daily abuse of alcohol presented after consuming alcohol on night last night seeking for detox. Patient otherwise decline headache, CP, SOB, and abdominal pain. Patient also declined SI or HI. Patient admitted to use marijuana for a long time otherwise no other drugs. Related Data Home Medications Medication Instructions Recorded Confirmed fluoxetine 40 mg capsule 1 cap PO DAILY 09/01/20 09/01/20 hydroxyzine pamoate 100 mg capsule 1 cap PO BEDTIME 09/01/20 09/01/20 mirtazapine 15 mg tablet 15 mg PO DAILY 09/01/20 09/01/20 prazosin 1 mg capsule 1 cap PO BEDTIME 09/01/20 09/01/20 Previous Rx's Medication Instructions Recorded dexamethasone 6 mg tablet 6 mg PO DAILY #9 tabs 09/02/20 (Decadron) bacitracin 500 unit/gram topical 1 appl topical BID #14.2 grams 04/28/21 ointment oxycodone-acetaminophen 5 mg-325 1 tab PO Q4-6H PRN pain (scale 10/08/21 mg tablet (Percocet) score 4-6) 7 days #42 tabs naproxen 500 mg tablet 500 mg PO Q8-12H PRN pain 30 days 10/09/21 #240 tabs Allergies Allergy/AdvReac Type Severity Reaction Status Date / Time Penicillins [PENICILLINS] Allergy Severe SWELLING Verified 10/03/21 11:40 AND ITCHING, THROAT CLOSES. Review of Systems Review of Systems: All other systems are reviewed and are negative Constitutional: Reports as per HPI and Reports no additional constitutional complaints Eyes: Reports as per HPI and Reports no additional eye complaints Reports system reviewed and no additional complaints, except as documented Cardiovascular: Reports as per HPI and Reports no additional cardiovascular complaints Respiratory: Reports as per HPI and Reports no additional respiratory complaints Gastrointestinal: Reports as per HPI and Reports no additional gastrointestinal complaints Genitourinary: Reports no additional female genitourinary complaints Musculoskeletal: Reports no additional musculoskeletal complaints Skin/Breast: Reports system reviewed and no additional complaints, except as docu Psychiatric: Reports no additional psychiatric complaints Endocrine: Reports no additional endocrine complaints Hematologic/Lymphatic: Reports no additional hematologic/lymphatic complaints Allergic/Immunologic: Reports no additional allergic/immunologic complaints Reports system reviewed and no additional complaints, except as documented and Reports Abnormal speech present [facility] Past Medical History Medical History ADHD COVID-19 Depression PTSD (post-traumatic stress disorder) Social History Social History Household Members: None Housing: Homeless Do you presently have visiting nurse or other home services: No Alcohol intake: current Alcohol intake frequency: 3 or more drinks per day Alcohol type: beer and hard liquor Patient Tobacco Use Status: Never used Tobacco Tobacco use type: Cigarette Cigarette Packs Per Day: 0.5 Cigarettes Per Day: 8 Second Hand Smoke Exposure: No Use of substances other than those prescribed or required for medical reasons: Yes Substance Use Type: Crack/Cocaine Advance Directives: No Advance Directives Information Provided: Yes service: No Current occupational status: employed Physical Exam ED Vital Signs: Vital Signs - 24 hr 03/22/22 05:21 03/22/22 06:00 Pulse Rate 113 H 104 H Respiratory Rate 18 Blood Pressure 150/96 H 127/83 Pulse Oximetry 93 94 Oxygen Delivery Method Room Air Room Air BMI result Body Mass Index 27.3 Vital signs have been reviewed as appeared to be correct. Blood pressure normal. Heart rate elevated. Respiration rate normal. Temperature normal. Oxygen saturation normal. Appearance: Alert. Oriented X3. No acute distress. Head: Normal external exam. Normocephalic. Atraumatic. No Avila signs noted. No raccoon eyes noted Eyes: PERRLA. EOMI. Conjunctiva and sclera normal. Eyelids normal. ENT: TM's Normal. Pharynx normal. Uvula midline. Moist mucous membranes. No trismus noted. No drooling noted. No muffled voice noted. Neck: Normal inspection. Neck supple. FROM. No adenopathy. Thyroid Normal. No meningeal signs. No neck mass noted. CVS: Normal heart rate and rhythm. Heart sound normal. No murmurs noted. Pulses normal throughout. Respiratory: No respiratory distress. Painless inspiration. Breath sounds normal. No wheezes/rales/rhonchi noted. Chest nontender. No accessory muscle usage noted or decreased air movement noted. Abdomen: Soft and nontender. Bowel sounds normal in all 4 quadrants. No distention noted. No organomegaly noted. No visible injury noted. Back: No CVA tenderness. Full range of motion noted. Skin: Skin warm and dry. Normal skin color. Normal skin turgor. No rashes/lesions/lacerations noted. Extremities: No lower extremity edema. Extremities exhibit normal range of motion. Extremities nontender. Neuro: Oriented X 3. Cranial nerve exam: II-XII are grossly intact No motor deficit. No sensory deficit. Reflexes normal. Patient Orientation: Person, Place, Time and Situation, okay hygiene and grooming. Fair eye contact, attentive, no tics or tremors. Level of Consciousness: Awake, Appropriate and Alert Patient Behavior: Appropriate, Guarded, Cooperative and Anxious Mood Description: Constricted, Blunted and Apprehensive Affect Description: Constricted, Blunted and Apprehensive Patient Cognition Impaired: No Ability to Follow Directions: Excellent Speech Pattern: Clear, Appropriate and Spontaneous Speech, nonpressured, spontaneous with regular rate and rhythm, normal volume and prosody. No dysarthria. Memory Description: Intact, Immediate Intact and Short Term Intact Hallucinations: None Delusions: Not Present Thought Process: Intact Thought Content: positive for Intact, positive for Logical, denies Suicidal Ideation and denies Homicidal Ideation. Depressive Symptoms: Not present. Judgement and Insight: Limited but adequate. Course Course Course Narrative: Patient eloped before full evaluation in the emergency department. Discharge Plan Discharge Clinical Impression: Alcoholic intoxication Patient Disposition: Elopement Prescriptions: No Action naproxen 500 mg tablet 500 mg PO Q8-12H PRN (Reason: pain) 30 Days Qty: 240 0RF fluoxetine 40 mg capsule 1 cap PO DAILY hydroxyzine pamoate 100 mg capsule 1 cap PO BEDTIME prazosin 1 mg capsule 1 cap PO BEDTIME mirtazapine 15 mg tablet 15 mg PO DAILY dexamethasone [Decadron] 6 mg tablet 6 mg PO DAILY Qty: 9 0RF bacitracin 500 unit/gram ointment 1 appl topical BID Qty: 14.2 0RF oxycodone-acetaminophen [Percocet] 5-325 mg tablet 1 tab PO Q4-6H PRN (Reason: pain (scale score 4-6)) 7 Days Qty: 42 0RF Interventions: ED Discharge Assessment Last Done: 03/22/22 08:26 Discharge Date/Time: 03/22/22 08:26
== END 2022-03-22 08:26 | disposition left against medical advice (07) ==
PROVIDERS: Emergency Provider Emergency Medicine
DX: F10.120 Alcohol abuse with intoxication, uncomplicated (principal); Y90.9 Presence of alcohol in blood, level not specified; F12.90 Cannabis use, unspecified, uncomplicated; F17.210 Nicotine dependence, cigarettes, uncomplicated; Z79.899 Other long term (current) drug therapy
CPT/HCPCS: 99282; 99284

== ENCOUNTER → 2022-07-31 14:31 | Outpatient (BNVA) | payer MEDICAID, SELFPAY | PROVIDERS: PCP Family Medicine; Visit Provider Surgery | DX: L72.0 Epidermal cyst (principal) | CPT/HCPCS: 99202 ==

== ENCOUNTER 2022-08-14 03:09 | Emergency (ER) | payer MEDICAID, SELFPAY ==
--- NOTE | 2022-08-14 05:33 | ED_ITS ---
HPI - Alcohol General Chief Complaint: ETOH/Substance Use Time Seen by Provider: 08/14/22 05:32 Source: patient Mode of arrival: EMS Limitations: no limitations History of Present Illness HPI narrative: Patient intoxicated wants help to stop drinking would like to go to detox patient has been here multiple times last year for same patient does have history of cocaine and marijuana use no fall no head injury Related Data Home Medications Medication Instructions Recorded Confirmed fluoxetine 40 mg capsule 1 cap PO DAILY 09/01/20 08/14/22 hydroxyzine pamoate 100 mg capsule 1 cap PO BEDTIME 09/01/20 08/14/22 prazosin 1 mg capsule 1 cap PO BEDTIME 09/01/20 08/14/22 Allergies Allergy/AdvReac Type Severity Reaction Status Date / Time Penicillins [PENICILLINS] Allergy Severe SWELLING Verified 10/03/21 11:40 AND ITCHING, THROAT CLOSES. Review of Systems Review of Systems: Yes all other systems are reviewed and are negative PMFSH Past Medical History Medical History ADHD COVID-19 Depression PTSD (post-traumatic stress disorder) Surgical History History of abdominal surgery Social History Social History Household Members: None Housing: Homeless Do you presently have visiting nurse or other home services: No Alcohol intake: current Alcohol intake frequency: 3 or more drinks per day Alcohol type: beer and hard liquor Patient Tobacco Use Status: Never used Tobacco Tobacco use type: Cigarette Cigarette Packs Per Day: 0.5 Cigarettes Per Day: 8 Second Hand Smoke Exposure: No Substance Use Type: Crack/Cocaine Advance Directives: No service: No Current occupational status: employed Physical Exam ED Vital Signs: Vital Signs - 24 hr 08/14/22 06:04 Temperature 98.7 F Pulse Rate 110 H Respiratory Rate 18 Blood Pressure 132/98 H Pulse Oximetry 98 Oxygen Delivery Method Room Air BMI result Body Mass Index 28.2 Appearance: Alert. Oriented X3. No acute distress. Intoxicated etoh+ Eyes: PERRLA, No Nystagmus ENT: Pharynx normal. Oral Mucosa moist atraumatic normocephalic Neck: Normal inspection. Neck supple. CVS: Normal heart rate and rhythm. Pulses normal. Respiratory: No respiratory distress. Equal air entry bilateral, no wheezing/rales/rhonchi Abdomen: Soft and nontender. Bowel sounds are present, no mass palpable, no CVA tenderness Skin: Skin warm and dry. Normal skin color. Normal skin turgor. Extremities: No lower extremity edema. No calf tenderness Neuro: Oriented X 3. No motor deficit. No sensory deficit.No cerebellar signs , cranial nerves II-XII intact Medical Decision Making Medical Decision Making [facility] Narrative: Will get care team involved for detox for cocaine and alcohol use patient medically cleared Lab Data [facility] Lab Attestation statement: I reviewed the patient's lab results. Labs: Lab Results 08/14/22 08/14/22 Range/Units 04:00 04:04 Urine Opiates Screen Not Detected (Not Detect) Urine Fentanyl Screen Not Detected (Not Detect) Ur Barbiturates Screen Not Detected (Not Detect) Ur Phencyclidine Scrn Not Detected (Not Detect) Ur Amphetamines Screen Not Detected (Not Detect) U Benzodiazepines Scrn Not Detected (Not Detect) Urine Cocaine Screen POSITIVE H (Not Detect) U Marijuana (THC) Screen POSITIVE H (Not Detect) Influenza Type A (PCR) NEGATIVE (Negative) Influenza Type B (PCR) NEGATIVE (Negative) RSV RNA Qual (PCR) NEGATIVE (Negative) SARS-CoV-2 RNA (RT-PCR) NEGATIVE (Negative) Discharge Plan Discharge Clinical Impression: Alcoholic intoxication, Cocaine abuse Patient Disposition: Still a Patient Prescriptions: No Action fluoxetine 40 mg capsule 1 cap PO DAILY hydroxyzine pamoate 100 mg capsule 1 cap PO BEDTIME prazosin 1 mg capsule 1 cap PO BEDTIME Interventions: [place]-Suicide Risk Severity Scale Last Done: 08/14/22 06:11
--- NOTE | 2022-08-14 05:35 | PC.NURSE ---
covid swab and [facility] urine sent See paper triage form
[2022-08-14 06:04] VITALS: BP 132/98; PULSE 110; RESP 18; TEMP 37.1; O2SAT 98; BMI 28.2
[2022-08-14 06:13] LABS: Amphetamine Screen Urine Not Detected (Not Detect); Barbiturates, Urine Not Detected (Not Detect); Opiate Screen Urine Not Detected (Not Detect); Phencyclidine Screen Urine Not Detected (Not Detect)
[2022-08-14 06:14] LABS: Benzodiazepines Screen Urine Not Detected (Not Detect); Cannabinoid Screen Urine POSITIVE (Not Detect); Cocaine Screen Urine POSITIVE (Not Detect); Fentanyl, urine Not Detected (Not Detect)
[2022-08-14 06:28] LABS: Influenza A PCR NEGATIVE (Negative); Influenza B PCR NEGATIVE (Negative); Resp Syncy Virus RNA Qual PCR NEGATIVE (Negative); SARS COV2 PCR INHOUSE NEGATIVE (Negative)
--- NOTE | 2022-08-14 07:40 | PC.NURSE ---
pt is sleeping resp even and unlabored.
[2022-08-14] MEDS: FLUoxetine HCl 20 MG CAPSULE 40 MG PO (08:40)
[2022-08-14 08:42] VITALS: BP 143/99; PULSE 104; RESP 16; TEMP 36.3; O2SAT 95
--- NOTE | 2022-08-14 08:45 | PC.NURSE ---
pt is awake, amb (i) gait steady to the bathroom, states that he is expecting a call from ssi on his phone. pt's phone is at the rn station so that he will be able to speak with ssi department when they call. pt denies any si/hi.
[2022-08-14 10:11] LABS: MANUAL DIFF FLAG NO
[2022-08-14 10:17] LABS: Basophils Percent Auto 0.6 % (0-2); Eosinophils Absolute Auto 0.2 X10*3/uL (0.0-0.4); Eosinophils Percent Auto 3.5 % (0-4); Hematocrit 44.8 % (42.0-52.0); Hemoglobin 14.7 g/dl (14.0-18.0); Imm Gran Abs Auto 0.02 X10*3/uL (0.00-0.03); Imm Gran Pct Auto 0.3 % (0.0-0.4); Lymphocytes Absolute Auto 2.1 X10*3/uL (1.2-4.9); Mean Corpuscular HGB Conc 32.8 g/dl (31.0-36.0); Mean Corpuscular Hemoglobin 26.8 pg (27.0-33.0); Mean Corpuscular Volume 81.8 fL (80.0-98.0); Monocytes Absolute Auto 0.6 X10*3/uL (0.1-1.2); Monocytes Percent Auto 8.9 % (2-11); Neutrophils Absolute Auto 3.8 x10*3/uL (2.0-8.3); Neutrophils Percent Auto 55.7 % (45-73); Platelet Count 266 X10*3/uL (160-400); Red Blood Count 5.48 X10*6/uL (4.60-5.80); White Blood Count 6.8 X10*3/uL (4.8-10.8)
[2022-08-14 10:39] LABS: Alanine Aminotransferase 21 U/L (0-40); Albumin Level 4.6 g/dL (3.5-5.0); Alkaline Phosphatase 83 U/L (39-117); Anion Gap 18 (12-20); Aspartate Amino Transferase 20 U/L (5-37); Bilirubin Total 0.7 mg/dL (0.0-1.0); Blood Urea Nitrogen 10 mg/dL (9-16); Calcium 9.3 mg/dL (8.4-10.2); Carbon Dioxide 20 mmol/L (22-29); Chloride 110 mmol/L (96-108); Creatinine Clr Calc Pharmacy 71.7; Estimated Glomerular Filt Rate > 60; Ethanol 27 mg/dL; Glucose Random 81 mg/dL (60-115); Potassium 4.6 mmol/L (3.3-5.1); Sodium 143 mmol/L (135-145); Total Protein 7.5 g/dL (6.5-8.0)
--- NOTE | 2022-08-14 12:36 | MHC.RECOVRN ---
This marine underwriter met with patient, patient was laying down in bed, awake to verbal command. Patient requesting detox. Patient reports has been drinking daily 4-6 24oz cans of beer daily for past 90 days, prior to this patient was in recovery for 1 year. Patient reports hisotry of ETOH use, has been through levels of treatment including, ATS,CSS, TSS. Patient reports in the past was on vivitrol injection for 10 months, which patient found effective. Patient reports no history of ETOH induced seizures, no history of DT's, halluciations. Patient reports in the past has experienced the sweats and tremor. Patient requesting to go to detox in [facility]. This marine underwriter sent referrals to [facility].
[2022-08-14 14:23] VITALS: BP 149/99; PULSE 96; RESP 16; TEMP 36.6; O2SAT 97
--- NOTE | 2022-08-14 15:49 | MHC.RECOVRN ---
Pt currently completing phone intake with [facility].
== END 2022-08-14 16:41 | disposition home or self-care (01) ==
PROVIDERS: Emergency Medicine; Emergency Provider Internal Medicine
DX: F10.220 Alcohol dependence with intoxication, uncomplicated (principal); Y90.1 Blood alcohol level of 20-39 mg/100 ml; F14.10 Cocaine abuse, uncomplicated; F17.210 Nicotine dependence, cigarettes, uncomplicated; Z20.822 Contact with and (suspected) exposure to COVID-19; Z20.828 Contact with and (suspected) exposure to other viral communicable diseases; F32.A Depression, unspecified; F43.10 Post-traumatic stress disorder, unspecified; Z79.899 Other long term (current) drug therapy
CPT/HCPCS: 0241U; 36415; 80053; 80307; 82077; 85025; 99284

== ENCOUNTER 2022-09-18 01:17 | Emergency (ER) | payer OTHER, MEDICAID, SELFPAY ==
[2022-09-18 01:23] VITALS: BMI 27.4
[2022-09-18 01:50] VITALS: BP 149/111; PULSE 95; RESP 17; TEMP 36.6; O2SAT 93
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
[2022-09-18 02:36] LABS: MANUAL DIFF FLAG NO
[2022-09-18 02:37] LABS: Basophils Percent Auto 0.5 % (0-2); Eosinophils Percent Auto 0.3 % (0-4); Hematocrit 46.7 % (42.0-52.0); Hemoglobin 15.5 g/dl (14.0-18.0); Imm Gran Abs Auto 0.01 X10*3/uL (0.00-0.03); Imm Gran Pct Auto 0.2 % (0.0-0.4); Lymphocytes Absolute Auto 2.7 X10*3/uL (1.2-4.9); Mean Corpuscular HGB Conc 33.2 g/dl (31.0-36.0); Mean Corpuscular Hemoglobin 27.3 pg (27.0-33.0); Mean Corpuscular Volume 82.4 fL (80.0-98.0); Mean Platelet Volume 9.1 fL (9.4-12.4); Monocytes Absolute Auto 0.6 X10*3/uL (0.1-1.2); Monocytes Percent Auto 9.6 % (2-11); Neutrophils Absolute Auto 2.6 x10*3/uL (2.0-8.3); Neutrophils Percent Auto 44.4 % (45-73); Platelet Count 281 X10*3/uL (160-400); Red Blood Count 5.67 X10*6/uL (4.60-5.80); Red Cell Distribution Width 15.3 % (11.0-16.0)
[2022-09-18 02:39] LABS: Appearance Urine Clear; Color Urine Yellow; Glucose Urine UA Negative (Negative); Leukocyte Esterase Urine Negative (Negative); Nitrite Urine Negative (Negative); UMIC TRIGGER UA YES; Urine Blood Small (1+) (Negative); Urine Ketones Negative (Negative); Urine Protein 30 (1+) mg/dL (Neg-Trace)
[2022-09-18 02:55] LABS: Alanine Aminotransferase 30 U/L (0-40); Albumin Level 4.9 g/dL (3.5-5.0); Alkaline Phosphatase 82 U/L (39-117); Anion Gap 15 (12-20); Aspartate Amino Transferase 25 U/L (5-37); Bilirubin Total 0.4 mg/dL (0.0-1.0); Blood Urea Nitrogen 10 mg/dL (9-16); Calcium 9.5 mg/dL (8.4-10.2); Carbon Dioxide 24 mmol/L (22-29); Chloride 112 mmol/L (96-108); Creatinine Clr Calc Pharmacy 75.1; Estimated Glomerular Filt Rate > 60; Ethanol 210 mg/dL; Glucose Random 89 mg/dL (60-115); Potassium 4.2 mmol/L (3.3-5.1); Sodium 147 mmol/L (135-145); Total Protein 7.8 g/dL (6.5-8.0)
[2022-09-18 02:59] LABS: COVID-19 Test Negative (Negative); IDNOW Serial# 6674DD1D
[2022-09-18 03:03] LABS: Amphetamine Screen Urine Not Detected (Not Detect); Barbiturates, Urine Not Detected (Not Detect); Benzodiazepines Screen Urine Not Detected (Not Detect); Cannabinoid Screen Urine POSITIVE (Not Detect); Cocaine Screen Urine POSITIVE (Not Detect); Fentanyl, urine POSITIVE (Not Detect); Opiate Screen Urine Not Detected (Not Detect); Phencyclidine Screen Urine Not Detected (Not Detect)
[2022-09-18 04:20] LABS: Bacteria Urine None Seen (None Seen); Hyaline Casts Urine 0-2 /LPF (0-2); RBC Urine 0-2 /HPF (0-2); Squamous Epithelial Cell Urine 0-2 /HPF (0-2); WBC Urine 0-5 /HPF (0-5)
[2022-09-18 05:29] VITALS: BP 129/80; PULSE 99; RESP 15; TEMP 36.5; O2SAT 98
--- NOTE | 2022-09-18 05:32 | PC.NURSE ---
Patient slept through the night, no distress observed/reported, asymptomatic of ETOH withdrawal at this time, behavior non concerning, med rec completed/patient is currently not on any medication, care consult ordered/pending evaluation, VSS, will continue to monitor.
--- NOTE | 2022-09-18 07:27 | PC.NURSE ---
patient appears to remain at rest at present respirations are even and unlabored patient appears in no distress, speaking with care team at present, and direct caqre staff. patient appears in no distress
== END 2022-09-18 08:04 | disposition home or self-care (01) ==
PROVIDERS: Emergency Provider Emergency Medicine Emergency Medical Services
DX: R45.850 Homicidal ideations (principal); F10.10 Alcohol abuse, uncomplicated; Y90.9 Presence of alcohol in blood, level not specified; F14.10 Cocaine abuse, uncomplicated; F12.10 Cannabis abuse, uncomplicated; Z20.822 Contact with and (suspected) exposure to COVID-19; Z20.828 Contact with and (suspected) exposure to other viral communicable diseases; Z79.899 Other long term (current) drug therapy
CPT/HCPCS: 36415; 80053; 80307; 81001; 82077; 85025; 87635; 99284; S9485

== ENCOUNTER 2022-10-09 21:08 | Emergency (ER) | payer MEDICAID, SELFPAY ==
[2022-10-09 21:18] VITALS: BP 160/98; PULSE 110; O2SAT 98
--- NOTE | 2022-10-09 21:19 | ED_ITS ---
HPI - Alcohol General Chief Complaint: ETOH/Substance Use <RAMIRO Swanson - Last Filed: 10/10/22 00:25> Stated Complaint: alcohol withdraw <RAMIRO Swanson - Last Filed: 10/10/22 00:25> Time Seen by Provider: 10/09/22 21:11 <RAMIRO Swanson - Last Filed: 10/10/22 00:25> Source: patient and EMS <RAMIRO Swanson Last Filed: 10/10/22 00:25> Mode of arrival: EMS <RAMIRO Swanson Last Filed: 10/10/22 00:25> Limitations: no limitations <RAMIRO Swanson Last Filed: 10/10/22 00:25> History of Present Illness HPI narrative: This is a 51-year-old male history of alcohol use disorder, ADHD, depression and anxiety presenting to the emergency department requesting detox from alcohol. Patient tells me typically drinks pt of whiskey a day with 6-12 Natty daddy's. Patient tells me his last drink was earlier this afternoon, he tells me he has gone into alcohol withdrawal however has never had alcohol withdrawal seizures or delirium tremens. Patient tells me he smokes marijuana however denies all other drug use, denies tobacco use. Denies visual, auditory and tactile hallucinations. Patient reports mild diffuse, throbbing headache and mild anxiety as well. Denies chest pain, shortness of breath, falls, trauma, nausea, vomiting, abdominal pain, vision changes, dizziness or weakness. Patient denies suicidal and homicidal ideation <RAMIRO Swanson - Last Filed: 10/10/22 00:25> Related Data Home Medications: Home Medications Medication Instructions Recorded Confirmed No Known Home Meds 09/18/22 09/18/22 <RAMIRO Swanson - Last Filed: 10/10/22 00:25> Allergies/Adverse Reactions: Allergies Allergy/AdvReac Type Severity Reaction Status Date / Time Penicillins [PENICILLINS] Allergy Severe SWELLING Verified 10/03/21 11:40 AND ITCHING, THROAT CLOSES. <RAMIRO Swanson Last Filed: 10/10/22 00:25> Review of Systems Review of Systems: Constitutional : No Fever, No Chills ENT/Mouth : No sore throat, No Rhinorrhea Eyes: No Eye Pain, No Swelling, No Redness Cardiovascular : No Chest Pain, No SOB Respiratory : No Cough, No Sputum Gastrointestinal : No Nausea, No Vomiting, No Diarrhea, No abdominal Pain Genitourinary : No Dysuria, No Hematuria Musculoskeletal : No joint pain, No Myalgias, No Joint Swelling Skin : No Skin Lesions, No rash Neuro : No Weakness, No Numbness, + headache Psych : No Anxiety, No Depression, No SI/HI/AH/VH All other systems reviewed and are negative <RAMIRO Swanson - Last Filed: 10/10/22 00:25> Yes all other systems are reviewed and are negative <RAMIRO Swanson - Last Filed: 10/10/22 00:25> [facility] Past Medical History Attestation statement: The following information was validated with the patient. <RAMIRO Swasnon - Last Filed: 10/10/22 00:25> Source: old records reviewed and nursing notes reviewed <RAMIRO Swanson - Last Filed: 10/10/22 00:25> Medical History: Medical History ADHD COVID-19 Depression PTSD (post-traumatic stress disorder) <RAMIRO Swanson - Last Filed: 10/10/22 00:25> Surgical History: Surgical History History of abdominal surgery <RAMIRO Swanson - Last Filed: 10/10/22 00:25> Social History Social History: Social History Household Members: None Housing: Homeless Do you presently have visiting nurse or other home services: No Alcohol intake: current Alcohol intake frequency: 3 or more drinks per day Alcohol type: beer and hard liquor Patient Tobacco Use Status: Never used Tobacco Tobacco use type: Cigarette Cigarette Packs Per Day: 0.5 Cigarettes Per Day: 8 Second Hand Smoke Exposure: No Substance Use Type: Crack/Cocaine Advance Directives: No Advance Directives Information Provided: No service: No Current occupational status: employed <RAMIRO Swanson - Last Filed: 10/10/22 00:25> Physical Exam ED Vital Signs: Vital Signs - 24 hr 10/09/22 21:23 10/09/22 21:31 10/09/22 21:39 Temperature 98.6 F 98.4 F 98.6 F Pulse Rate 104 H 89 107 H Respiratory Rate 18 16 12 Blood Pressure 142/94 H 149/103 H 148/100 H Pulse Oximetry 98 97 95 Oxygen Delivery Method Room Air Room Air Room Air 10/10/22 00:00 10/10/22 02:00 10/10/22 06:00 Temperature 98.6 F 97.7 F Pulse Rate 87 82 77 Respiratory Rate 16 16 16 Blood Pressure 155/94 H 138/92 H 131/85 Pulse Oximetry 97 98 97 Oxygen Delivery Method Room Air Room Air Room Air 10/10/22 07:52 Temperature 98.1 F Pulse Rate 88 Respiratory Rate 14 Blood Pressure 136/94 H Pulse Oximetry 94 Oxygen Delivery Method BMI result Body Mass Index 27.4 vss <RAMIRO Swanson - Last Filed: 10/10/22 00:25> Vital Signs - 24 hr 10/09/22 21:23 10/09/22 21:31 10/09/22 21:39 Temperature 98.6 F 98.4 F 98.6 F Pulse Rate 104 H 89 107 H Respiratory Rate 18 16 12 Blood Pressure 142/94 H 149/103 H 148/100 H Pulse Oximetry 98 97 95 Oxygen Delivery Method Room Air Room Air Room Air 10/10/22 00:00 10/10/22 02:00 10/10/22 06:00 Temperature 98.6 F 97.7 F Pulse Rate 87 82 77 Respiratory Rate 16 16 16 Blood Pressure 155/94 H 138/92 H 131/85 Pulse Oximetry 97 98 97 Oxygen Delivery Method Room Air Room Air Room Air 10/10/22 07:52 Temperature 98.1 F Pulse Rate 88 Respiratory Rate 14 Blood Pressure 136/94 H Pulse Oximetry 94 Oxygen Delivery Method BMI result Body Mass Index 27.4 <Michel Vinson MD - Last Filed: 10/10/22 10:40> Appearance: Alert.? Oriented X3.? No acute distress.? Head: Normocephalic, atraumatic, no step-offs or deformities Eyes/mi: Pupils equal, round and reactive to light.? Extraocular movements intact pain-free. Slight tongue fasciculations. Neck: Normal inspection.? Neck supple.? CVS: Normal heart rate and rhythm.? Pulses normal.? Respiratory: No respiratory distress.? Breath sounds normal.? Abdomen: Soft and nontender.? Skin: Skin warm and dry.? Normal skin color.? Normal skin turgor.? Extremities: No lower extremity edema.? No calf ttp. 5/5 strength to bilateral upper and lower extremities. Slight tremor to upper extremities while resting. Back: No midline tenderness, no C-spine tenderness, full range of motion, no C VA tenderness bilaterally Neuro: Oriented X 3.? No motor deficit.? No sensory deficit. CN 2-12 intact . Normal [id number], nzsr-[id number], steady tandem gait normal coordination. NIH stroke scale 0 <RAMIRO Swanson - Last Filed: 10/10/22 00:25> Course Reevaluation(s) Reevaluation #1: CBC appears to be within normal limits. Chemistry unremarkable. Ethanol negative. COVID negative. Patient feeling well hemodynamically stable. No signs of autonomic dysfunction, no signs of acute alcohol withdrawal at this time. Responding well to Ativan. Was placed on a CIWA protocol. If patient's CIWA greater than 9 will require medications, and possible admission however this time no need for that. Patient was evaluated by customer care team coach is who will see him again tomorrow morning for possible placement. At this time patient to be placed in observation, at time observation was started patient common cooperative no acute distress will continue to monitor. <RAMIRO Swanson - Last Filed: 10/10/22 00:25> Time: 00:24 <RAMIRO Swanson - Last Filed: 10/10/22 00:25> Reevaluation #2: The patient has been accepted into a detox program. The patient will be provided transport to the detox program. The patient was discharged. <Michel Vinson MD - Last Filed: 10/10/22 10:40> Time: 10:40 <Michel Vinson MD - Last Filed: 10/10/22 10:40> Medical Decision Making Medical Decision Making [facility] Narrative: [id number] This is a 51-year-old male presenting to the emergency department requesting detox from alcohol, denies SI and HI. Reports headache, mild anxiety. Physical exam with slight resting tremor to upper extremities and tongue fasciculations. Regular rate and rhythm. Lungs clear. Abdomen soft nontender nondistended. Neuro nonfocal. Cerebellar intact. Vital signs stable. No signs of autonomic dysfunction or acute alcohol withdrawal at this time. Likely still intoxicated from alcohol. Patient denies suicidal or homicidal ideation. Will rule out polysubstance abuse, electrolyte abnormalities. No signs of acute trauma, no signs of stroke, posterior stroke. Headache likely secondary to patient not drinking. Plan at this time medical clearance and evaluation by the customer care team coach is. I did already speak to the customer care team coach is the they will watch patient and aid in placement for detox. On arrival patient's CIWA score is 6, NIH stroke scale is 0 <RAMIRO Swanson - Last Filed: 10/10/22 00:25> Differential Diagnosis Differential Diagnoses: The differential diagnosis associated with the presentation includes < RAMIRO Swanson - Last Filed: 10/10/22 00:25> No signs of autonomic dysfunction or acute alcohol withdrawal at this time. Likely still intoxicated from alcohol. Patient denies suicidal or homicidal ideation. Will rule out polysubstance abuse, electrolyte abnormalities. No signs of acute trauma, no signs of stroke, posterior stroke. Headache likely secondary to patient not drinking. <RAMIRO Swanson - Last Filed: 10/10/22 00:25> Admission/Observation Consideration of admission/observation: Escalation of care including admission/observation considered <RAMIRO Swanson - Last Filed: 10/10/22 00:25> Unlikely medical admission <RAMIRO Swanson - Last Filed: 10/10/22 00:25> Consult Healthcare Provider Management of the patient was discussed with: Payroll Accounting Specialist (assistant women's basketball coach) <RAMRIO Swanson - Last Filed: 10/10/22 00:25> Lab Data [facility] Lab Attestation statement: I reviewed the patient's lab results. <RAMIRO Swanson - Last Filed: 10/10/22 00:25> Result Diagrams: 10/09/22 21:43 10/09/22 21:43 <RAMIRO Swanson - Last Filed: 10/10/22 00:25> Labs: Lab Results 10/09/22 10/09/22 10/09/22 Range/Units 21:43 21:43 21:43 WBC 6.1 (4.8-10.8) X10*3/uL RBC 5.09 (4.60-5.80) X10*6/uL Hgb 14.0 (14.0-18.0) g/dl Hct 41.9 L (42.0-52.0) % MCV 82.3 (80.0-98.0) fL MCH 27.5 (27.0-33.0) pg MCHC 33.4 (31.0-36.0) g/dl RDW 16.0 (11.0-16.0) % Plt Count 291 (160-400) X10*3/uL MPV 9.1 L (9.4-12.4) fL Immature Gran % (Auto) 0.3 (0.0-0.4) % Neut % (Auto) 46.8 (45-73) % Lymph % (Auto) 41.6 H (20-40) % [place] % (Auto) 9.5 (2-11) % Eos % (Auto) 1.0 (0-4) % Baso % (Auto) 0.8 (0-2) % Lymph # (Auto) 2.5 (1.2-4.9) X10*3/uL [place] # (Auto) 0.6 (0.1-1.2) X10*3/uL Eos # (Auto) 0.1 (0.0-0.4) X10*3/uL Baso # (Auto) 0.1 (0.0-0.2) X10*3/uL Abs Immat Gran (auto) 0.02 (0.00-0.03) X10*3/uL Absolute Neuts (auto) 2.9 (2.0-8.3) x10*3/uL Absolute Nucleated RBC 0.000 (0.0-0.012) X10*3/uL Nucleated RBC % (auto) 0.0 (0.0-0.2) /100WBC Sodium 140 (135-145) mmol/L Potassium 3.9 (3.3-5.1) mmol/L Chloride 107 (96-108) mmol/L Carbon Dioxide 24 (22-29) mmol/L Anion Gap 13 (12-20) BUN 12 (9-16) mg/dL Creatinine 0.98 (0.5-1.4) mg/dL Estim Creat Clear Calc 88.1 Estimated GFR > 60 Random Glucose 67 (60-115) mg/dL Calcium 9.4 (8.4-10.2) mg/dL Magnesium 1.9 (1.6-2.6) mg/dL Total Bilirubin 0.8 (0.0-1.0) mg/dL AST 30 (5-37) U/L ALT 32 (0-40) U/L Alkaline Phosphatase 86 (39-117) U/L Total Protein 7.1 (6.5-8.0) g/dL Albumin 4.4 (3.5-5.0) g/dL Urine Color Urine Appearance Urine pH (5.0-9.0) Ur Specific [place] (1.005-1.025) Urine Protein (Neg-Trace) mg/dL Urine Glucose (UA) (Negative) mg/dL Urine Ketones (Negative) mg/dL Urine Blood (Negative) Urine Nitrite (Negative) Ur Leukocyte Esterase (Negative) Urine RBC (0-2) /HPF Urine WBC (0-5) /HPF Ur Squamous Epith Cells (0-2) /HPF Urine Bacteria (None Seen) Hyaline Casts (0-2) /LPF Urine Opiates Screen (Not Detect) Urine Fentanyl Screen (Not Detect) Ur Barbiturates Screen (Not Detect) Ur Phencyclidine Scrn (Not Detect) Ur Amphetamines Screen (Not Detect) U Benzodiazepines Scrn (Not Detect) Urine Cocaine Screen (Not Detect) U Marijuana (THC) Screen (Not Detect) Ethyl Alcohol mg/dL COVID-19 (ANANDA) Negative (Negative) COVID-19 Clin Com See Note 10/09/22 10/10/22 10/10/22 Range/Units 21:43 08:09 08:09 WBC (4.8-10.8) X10*3/uL RBC (4.60-5.80) X10*6/uL Hgb (14.0-18.0) g/dl Hct (42.0-52.0) % MCV (80.0-98.0) fL MCH (27.0-33.0) pg MCHC (31.0-36.0) g/dl RDW (11.0-16.0) % Plt Count (160-400) X10*3/uL MPV (9.4-12.4) fL Immature Gran % (Auto) (0.0-0.4) % Neut % (Auto) (45-73) % Lymph % (Auto) (20-40) % [place] % (Auto) (2-11) % Eos % (Auto) (0-4) % Baso % (Auto) (0-2) % Lymph # (Auto) (1.2-4.9) X10*3/uL [place] # (Auto) (0.1-1.2) X10*3/uL Eos # (Auto) (0.0-0.4) X10*3/uL Baso # (Auto) (0.0-0.2) X10*3/uL Abs Immat Gran (auto) (0.00-0.03) X10*3/uL Absolute Neuts (auto) (2.0-8.3) x10*3/uL Absolute Nucleated RBC (0.0-0.012) X10*3/uL Nucleated RBC % (auto) (0.0-0.2) /100WBC Sodium (135-145) mmol/L Potassium (3.3-5.1) mmol/L Chloride (96-108) mmol/L Carbon Dioxide (22-29) mmol/L Anion Gap (12-20) BUN (9-16) mg/dL Creatinine (0.5-1.4) mg/dL Estim Creat Clear Calc Estimated GFR Random Glucose (60-115) mg/dL Calcium (8.4-10.2) mg/dL Magnesium (1.6-2.6) mg/dL Total Bilirubin (0.0-1.0) mg/dL AST (5-37) U/L ALT (0-40) U/L Alkaline Phosphatase (39-117) U/L Total Protein (6.5-8.0) g/dL Albumin (3.5-5.0) g/dL Urine Color Yellow Urine Appearance Hazy Urine pH 6.0 (5.0-9.0) Ur Specific [place] >= 1.030 H (1.005-1.025) Urine Protein Trace (Neg-Trace) mg/dL Urine Glucose (UA) Negative (Negative) mg/dL Urine Ketones Trace (Negative) mg/dL Urine Blood Trace (Negative) Urine Nitrite Negative (Negative) Ur Leukocyte Esterase Negative (Negative) Urine RBC 3-5 H (0-2) /HPF Urine WBC 6-10 H (0-5) /HPF Ur Squamous Epith Cells 3-5 (0-2) /HPF Urine Bacteria None Seen (None Seen) Hyaline Casts 0-2 (0-2) /LPF Urine Opiates Screen Not Detected (Not Detect) Urine Fentanyl Screen Not Detected (Not Detect) Ur Barbiturates Screen POSITIVE H (Not Detect) Ur Phencyclidine Scrn Not Detected (Not Detect) Ur Amphetamines Screen Not Detected (Not Detect) U Benzodiazepines Scrn Not Detected (Not Detect) Urine Cocaine Screen POSITIVE H (Not Detect) U Marijuana (THC) Screen POSITIVE H (Not Detect) Ethyl Alcohol < 10 mg/dL COVID-19 (ANANDA) (Negative) COVID-19 Clin Com <RAMIRO Swanson - Last Filed: 10/10/22 00:25> Lab Results 10/09/22 10/09/22 10/09/22 Range/Units 21:43 21:43 21:43 WBC 6.1 (4.8-10.8) X10*3/uL RBC 5.09 (4.60-5.80) X10*6/uL Hgb 14.0 (14.0-18.0) g/dl Hct 41.9 L (42.0-52.0) % MCV 82.3 (80.0-98.0) fL MCH 27.5 (27.0-33.0) pg MCHC 33.4 (31.0-36.0) g/dl RDW 16.0 (11.0-16.0) % Plt Count 291 (160-400) X10*3/uL MPV 9.1 L (9.4-12.4) fL Immature Gran % (Auto) 0.3 (0.0-0.4) % Neut % (Auto) 46.8 (45-73) % Lymph % (Auto) 41.6 H (20-40) % [place] % (Auto) 9.5 (2-11) % Eos % (Auto) 1.0 (0-4) % Baso % (Auto) 0.8 (0-2) % Lymph # (Auto) 2.5 (1.2-4.9) X10*3/uL [place] # (Auto) 0.6 (0.1-1.2) X10*3/uL Eos # (Auto) 0.1 (0.0-0.4) X10*3/uL Baso # (Auto) 0.1 (0.0-0.2) X10*3/uL Abs Immat Gran (auto) 0.02 (0.00-0.03) X10*3/uL Absolute Neuts (auto) 2.9 (2.0-8.3) x10*3/uL Absolute Nucleated RBC 0.000 (0.0-0.012) X10*3/uL Nucleated RBC % (auto) 0.0 (0.0-0.2) /100WBC Sodium 140 (135-145) mmol/L Potassium 3.9 (3.3-5.1) mmol/L Chloride 107 (96-108) mmol/L Carbon Dioxide 24 (22-29) mmol/L Anion Gap 13 (12-20) BUN 12 (9-16) mg/dL Creatinine 0.98 (0.5-1.4) mg/dL Estim Creat Clear Calc 88.1 Estimated GFR > 60 Random Glucose 67 (60-115) mg/dL Calcium 9.4 (8.4-10.2) mg/dL Magnesium 1.9 (1.6-2.6) mg/dL Total Bilirubin 0.8 (0.0-1.0) mg/dL AST 30 (5-37) U/L ALT 32 (0-40) U/L Alkaline Phosphatase 86 (39-117) U/L Total Protein 7.1 (6.5-8.0) g/dL Albumin 4.4 (3.5-5.0) g/dL Urine Color Urine Appearance Urine pH (5.0-9.0) Ur Specific [place] (1.005-1.025) Urine Protein (Neg-Trace) mg/dL Urine Glucose (UA) (Negative) mg/dL Urine Ketones (Negative) mg/dL Urine Blood (Negative) Urine Nitrite (Negative) Ur Leukocyte Esterase (Negative) Urine RBC (0-2) /HPF Urine WBC (0-5) /HPF Ur Squamous Epith Cells (0-2) /HPF Urine Bacteria (None Seen) Hyaline Casts (0-2) /LPF Urine Opiates Screen (Not Detect) Urine Fentanyl Screen (Not Detect) Ur Barbiturates Screen (Not Detect) Ur Phencyclidine Scrn (Not Detect) Ur Amphetamines Screen (Not Detect) U Benzodiazepines Scrn (Not Detect) Urine Cocaine Screen (Not Detect) U Marijuana (THC) Screen (Not Detect) Ethyl Alcohol mg/dL COVID-19 (ANANDA) Negative (Negative) COVID-19 Clin Com See Note 10/09/22 10/10/22 10/10/22 Range/Units 21:43 08:09 08:09 WBC (4.8-10.8) X10*3/uL RBC (4.60-5.80) X10*6/uL Hgb (14.0-18.0) g/dl Hct (42.0-52.0) % MCV (80.0-98.0) fL MCH (27.0-33.0) pg MCHC (31.0-36.0) g/dl RDW (11.0-16.0) % Plt Count (160-400) X10*3/uL MPV (9.4-12.4) fL Immature Gran % (Auto) (0.0-0.4) % Neut % (Auto) (45-73) % Lymph % (Auto) (20-40) % [place] % (Auto) (2-11) % Eos % (Auto) (0-4) % Baso % (Auto) (0-2) % Lymph # (Auto) (1.2-4.9) X10*3/uL [place] # (Auto) (0.1-1.2) X10*3/uL Eos # (Auto) (0.0-0.4) X10*3/uL Baso # (Auto) (0.0-0.2) X10*3/uL Abs Immat Gran (auto) (0.00-0.03) X10*3/uL Absolute Neuts (auto) (2.0-8.3) x10*3/uL Absolute Nucleated RBC (0.0-0.012) X10*3/uL Nucleated RBC % (auto) (0.0-0.2) /100WBC Sodium (135-145) mmol/L Potassium (3.3-5.1) mmol/L Chloride (96-108) mmol/L Carbon Dioxide (22-29) mmol/L Anion Gap (12-20) BUN (9-16) mg/dL Creatinine (0.5-1.4) mg/dL Estim Creat Clear Calc Estimated GFR Random Glucose (60-115) mg/dL Calcium (8.4-10.2) mg/dL Magnesium (1.6-2.6) mg/dL Total Bilirubin (0.0-1.0) mg/dL AST (5-37) U/L ALT (0-40) U/L Alkaline Phosphatase (39-117) U/L Total Protein (6.5-8.0) g/dL Albumin (3.5-5.0) g/dL Urine Color Yellow Urine Appearance Hazy Urine pH 6.0 (5.0-9.0) Ur Specific [place] >= 1.030 H (1.005-1.025) Urine Protein Trace (Neg-Trace) mg/dL Urine Glucose (UA) Negative (Negative) mg/dL Urine Ketones Trace (Negative) mg/dL Urine Blood Trace (Negative) Urine Nitrite Negative (Negative) Ur Leukocyte Esterase Negative (Negative) Urine RBC 3-5 H (0-2) /HPF Urine WBC 6-10 H (0-5) /HPF Ur Squamous Epith Cells 3-5 (0-2) /HPF Urine Bacteria None Seen (None Seen) Hyaline Casts 0-2 (0-2) /LPF Urine Opiates Screen Not Detected (Not Detect) Urine Fentanyl Screen Not Detected (Not Detect) Ur Barbiturates Screen POSITIVE H (Not Detect) Ur Phencyclidine Scrn Not Detected (Not Detect) Ur Amphetamines Screen Not Detected (Not Detect) U Benzodiazepines Scrn Not Detected (Not Detect) Urine Cocaine Screen POSITIVE H (Not Detect) U Marijuana (THC) Screen POSITIVE H (Not Detect) Ethyl Alcohol < 10 mg/dL COVID-19 (ANANDA) (Negative) COVID-19 Clin Com <Michel Vinson MD - Last Filed: 10/10/22 10:40> Core Measures AMI core measures followed: Yes <RAMIRO Swanson - Last Filed: 10/10/22 00:25> Measure exclusions: not indicated <RAMIRO Swanson - Last Filed: 10/10/22 00:25> Medications Administered Discontinued Medications Generic Name Dose Route Start Last Admin Trade Name Freq PRN Reason Stop Dose Admin Lorazepam 2 mg 10/09/22 21:18 10/09/22 21:45 Lorazepam 1 Mg Tablet PO 10/09/22 21:19 2 mg ONCE ONE Administration <RAMIRO Swanson - Last Filed: 10/10/22 00:25> Medications Administered Discontinued Medications Generic Name Dose Route Start Last Admin Trade Name Freq PRN Reason Stop Dose Admin Lorazepam 2 mg 10/09/22 21:18 10/09/22 21:45 Lorazepam 1 Mg Tablet PO 10/09/22 21:19 2 mg ONCE ONE Administration <Michel Vinson MD - Last Filed: 10/10/22 10:40> Critical Care Time Critical Care Time Critical Care Time: No <RAMIRO Swanson - Last Filed: 10/10/22 00:25> Discharge Plan Discharge Clinical Impression: Headache, Alcohol use disorder <RAMIRO Swanson - Last Filed: 10/10/22 00:25> Patient Disposition: Still a Patient <RAMIRO Swanson - Last Filed: 10/10/22 00:25> Prescriptions: No Action No Known Home Meds <RAMIRO Swanson - Last Filed: 10/10/22 00:25>
--- NOTE | 2022-10-09 21:20 | PC.NURSE ---
RAMIRO quarles for primary eval/assessment of patient immediately upon arrival to ED while awaiting bed assignment by charge weigher. Pt on EMS stretcher noted to be awake and alert without distress noted, he is conversing in full, clear and complete sentences answering questions appropriately. Pt is calm and cooperative at this time, will start in the main while medical concerns addressed.
[2022-10-09 21:23] VITALS: BP 142/94; PULSE 104; RESP 18; TEMP 37; O2SAT 98
[2022-10-09 21:31] VITALS: BP 149/103; PULSE 89; RESP 16; TEMP 36.9; O2SAT 97
[2022-10-09 21:39] VITALS: BP 148/100; PULSE 107; RESP 12; TEMP 37; O2SAT 95; BMI 27.4
[2022-10-09] MEDS: LORazepam 1 MG TABLET 2 MG PO (21:45)
--- NOTE | 2022-10-09 21:46 | MHC.EDTECH ---
PT BLOOD DRAWN ,COVID SWAB COLLECTED AND SENT TO LAB ,VITALS SIGN TAKEN ,PT WAS DESTINATION COORDINATOR INTO HOSPITAL ATTIRE PT JEANNAS LOCKED UP IN LOCKER # 10 IN POD .
[2022-10-09 21:49] LABS: MANUAL DIFF FLAG NO
[2022-10-09 21:50] LABS: Basophils Absolute Auto 0.1 X10*3/uL (0.0-0.2); Basophils Percent Auto 0.8 % (0-2); Eosinophils Absolute Auto 0.1 X10*3/uL (0.0-0.4); Hematocrit 41.9 % (42.0-52.0); Imm Gran Abs Auto 0.02 X10*3/uL (0.00-0.03); Imm Gran Pct Auto 0.3 % (0.0-0.4); Lymphocytes Absolute Auto 2.5 X10*3/uL (1.2-4.9); Lymphocytes Percent Auto 41.6 % (20-40); Mean Corpuscular HGB Conc 33.4 g/dl (31.0-36.0); Mean Corpuscular Hemoglobin 27.5 pg (27.0-33.0); Mean Corpuscular Volume 82.3 fL (80.0-98.0); Mean Platelet Volume 9.1 fL (9.4-12.4); Monocytes Absolute Auto 0.6 X10*3/uL (0.1-1.2); Monocytes Percent Auto 9.5 % (2-11); Neutrophils Absolute Auto 2.9 x10*3/uL (2.0-8.3); Neutrophils Percent Auto 46.8 % (45-73); Platelet Count 291 X10*3/uL (160-400); Red Blood Count 5.09 X10*6/uL (4.60-5.80); White Blood Count 6.1 X10*3/uL (4.8-10.8)
--- NOTE | 2022-10-09 21:58 | MHC.RECOVSUP ---
? Reason for consult:ETOH o? Current location:ED11? o? Identified substance use concern:? -? Seeking ATS (detox) -? Support ? Intervention: o? ATS bed search started/completed/in process o? Community resources provided ? Plan: o? Bed search in progress to [facility] o? Follow up tomorrow? ? Additional information:[facility] met with this pt and discussed ATS services, pt says he'd like to get ATS treatment, RC started bedsearch and provided pt with recovery resources. Please follow up with this pt in the morning.
[2022-10-09 22:04] LABS: COVID-19 Test Negative (Negative); Ethanol < 10 mg/dL; IDNOW Serial# 6674DD1D
[2022-10-09 22:05] LABS: Alanine Aminotransferase 32 U/L (0-40); Albumin Level 4.4 g/dL (3.5-5.0); Alkaline Phosphatase 86 U/L (39-117); Anion Gap 13 (12-20); Aspartate Amino Transferase 30 U/L (5-37); Bilirubin Total 0.8 mg/dL (0.0-1.0); Blood Urea Nitrogen 12 mg/dL (9-16); Calcium 9.4 mg/dL (8.4-10.2); Carbon Dioxide 24 mmol/L (22-29); Chloride 107 mmol/L (96-108); Creatinine Clr Calc Pharmacy 88.1; Estimated Glomerular Filt Rate > 60; Glucose Random 67 mg/dL (60-115); Magnesium 1.9 mg/dL (1.6-2.6); Potassium 3.9 mmol/L (3.3-5.1); Sodium 140 mmol/L (135-145); Total Protein 7.1 g/dL (6.5-8.0)
[2022-10-10] VITALS: BP 155/94; PULSE 87; RESP 16; TEMP 37; O2SAT 97
[2022-10-10 02:00] VITALS: BP 138/92; PULSE 82; RESP 16; TEMP 36.5; O2SAT 98
[2022-10-10 06:00] VITALS: BP 131/85; PULSE 77; RESP 16; O2SAT 97
--- NOTE | 2022-10-10 06:55 | PC.NURSE ---
Report to Jacqueline VILLA for continued care.
[2022-10-10 07:52] VITALS: BP 136/94; PULSE 88; RESP 14; TEMP 36.7; O2SAT 94
[2022-10-10 08:15] LABS: Appearance Urine Hazy; Color Urine Yellow; Glucose Urine UA Negative (Negative); Leukocyte Esterase Urine Negative (Negative); Nitrite Urine Negative (Negative); Specific Gravity - Urine >= 1.030 (1.005-1.025); UMIC TRIGGER UACC YES; Urine Blood Trace (Negative); Urine Ketones Trace mg/dL (Negative); Urine Protein Trace mg/dL (Neg-Trace)
[2022-10-10 08:38] LABS: Bacteria Urine None Seen (None Seen); Hyaline Casts Urine 0-2 /LPF (0-2); UACC Culture Trigger YES
[2022-10-10 10:14] LABS: Amphetamine Screen Urine Not Detected (Not Detect); Barbiturates, Urine POSITIVE (Not Detect); Benzodiazepines Screen Urine Not Detected (Not Detect); Cannabinoid Screen Urine POSITIVE (Not Detect); Cocaine Screen Urine POSITIVE (Not Detect); Fentanyl, urine Not Detected (Not Detect); Opiate Screen Urine Not Detected (Not Detect); Phencyclidine Screen Urine Not Detected (Not Detect)
--- NOTE | 2022-10-10 10:38 | PC.NURSE ---
Alert and oriented, resp even and unlabored. Offering no complaints at this time, call rodriguez within reach. Ambulating with steady gait.
[2022-10-10 10:43] VITALS: BP 145/102; PULSE 88; RESP 16; O2SAT 97
--- NOTE | 2022-10-10 10:54 | MHC.RECOVSUP ---
Pt accepted to [facility] and is in [employer].
== END 2022-10-10 11:02 | disposition home or self-care (01) ==
PROVIDERS: Physician Assistant; Emergency Provider Emergency Medicine Emergency Medical Services
DX: R51.9 Headache, unspecified (principal); F10.99 Alcohol use, unspecified with unspecified alcohol-induced disorder; Y90.0 Blood alcohol level of less than 20 mg/100 ml; Z20.822 Contact with and (suspected) exposure to COVID-19; F17.210 Nicotine dependence, cigarettes, uncomplicated
CPT/HCPCS: 36415; 80053; 80307; 81001; 82077; 83735; 85025; 87086; 87635; 99285

== ENCOUNTER 2022-10-17 05:43 | Emergency (ER) | payer MEDICAID, SELFPAY ==
[2022-10-17 05:51] VITALS: BP 144/96; PULSE 115; RESP 20; TEMP 36.4; O2SAT 97; BMI 27.2
[2022-10-17 07:20] LABS: MANUAL DIFF FLAG NO
[2022-10-17 07:22] LABS: Basophils Percent Auto 0.3 % (0-2); Hematocrit 44.3 % (42.0-52.0); Hemoglobin 14.9 g/dl (14.0-18.0); Imm Gran Abs Auto 0.03 X10*3/uL (0.00-0.03); Imm Gran Pct Auto 0.3 % (0.0-0.4); Lymphocytes Percent Auto 16.9 % (20-40); Mean Corpuscular HGB Conc 33.6 g/dl (31.0-36.0); Mean Corpuscular Hemoglobin 27.9 pg (27.0-33.0); Mean Platelet Volume 9.5 fL (9.4-12.4); Monocytes Percent Auto 8.5 % (2-11); Neutrophils Absolute Auto 8.8 x10*3/uL (2.0-8.3); Platelet Count 261 X10*3/uL (160-400); Red Blood Count 5.34 X10*6/uL (4.60-5.80); White Blood Count 11.9 X10*3/uL (4.8-10.8)
--- NOTE | 2022-10-17 07:29 | ED_ITS ---
HPI - General Adult General Chief complaint: General Medical Stated complaint: detox Time Seen by Provider: 10/17/22 07:28 Source: patient Mode of arrival: ambulatory Limitations: no limitations History of Present Illness HPI narrative: Patient is a 51 year old assigned male at with a history of substance abuse presenting to the emergency department today requesting detox. Patient states that he was at [facility] for 3 days for psychiatric issues, once he was discharged yesterday, he opted to drink alcohol, use crack, and smoke marijuana. Patient states that he is now regretful of these actions and would like help getting into a detox facility. Patient denies any dizziness, lightheadedness, abdominal pain, nausea, vomiting, fever, chills, blurry vision, double vision, loss of vision, chest pain, difficulty breathing, shortness of breath, back pain, night sweats, pain with urination, increased urinary frequency, increased urinary urgency, blood in his urine or stool, syncope or a near syncopal epis ode, recent trauma or falls, bowel incontinence, bladder incontinence, bowel retention, bladder retention, or any other complaints at this time. Onset (ago): day(s) (1) Severity: mild Relieving factors: none Exacerbating factors: none Associated symptoms: denies other symptoms Treatments prior to arrival: none Related Data Home Medications Medication Instructions Recorded Confirmed No Known Home Meds 09/18/22 09/18/22 Allergies Allergy/AdvReac Type Severity Reaction Status Date / Time Penicillins [PENICILLINS] Allergy Severe SWELLING Verified 10/17/22 05:57 AND ITCHING, THROAT CLOSES. Review of Systems Constitutional: Constitutional: Reports no additional constitutional complaints, Denies chills, Denies fever(s) and Denies night sweats Eyes: Eyes: Reports no additional eye complaints, Denies blurry vision, Denies change in vision, Denies diplopia, Denies eye discharge, Denies loss of vision and Denies eye pain ENT: Denies dizziness Cardiovascular: Cardiovascular: Reports no additional cardiovascular complaints, Denies chest pain, Denies lightheadedness, Denies Loss of Conscio usness and Denies dyspnea Respiratory: Respiratory: Reports no additional respiratory complaints and Denies dyspnea Gastrointestinal: Gastrointestinal: Reports no additional gastrointestinal c omplaints, Denies abdominal pain, Denies melena, Denies hematochezia, Denies change in bowel habits and Denies change in stool character Genitourinary: Genitourinary: Reports no additional male genitourinary complaints, Denies hematuria, Denies oliguria, Denies difficulty urinating, Denies dysuria, Denies urinary frequency, Denies urinary hesitancy, Denies urinary incontinence and Denies urinary urgency Musculoskeletal: Musculoskeletal: Reports no additional musculoskeletal complaints, Denies numbness and Denies tingling Neurologic: Denies dizziness, Denies loss of vision, Denies numbness and Denies tingling Psychiatric: Psychiatric: Reports no additional psychiatric complaints Endocrine: Endocrine: Reports no additional endocrine complaints Hematologic/Lymphatic: Hematologic/Lymphatic: Reports no additional hematologic/lymphatic complaints Allergic/Immunologic: Allergic/Immunologic: Reports no additional allergic/immunologic complaints PMFSH Past Medical History Attestation statement: The following information was validated with the patient. Source: old records reviewed and nursing notes reviewed Medical History ADHD COVID-19 Depression PTSD (post-traumatic stress disorder) Surgical History History of abdominal surgery Social History Social History Household Members: None Housing: Homeless Do you presently have visiting nurse or other home services: No Alcohol intake: current Alcohol intake frequency: 3 or more drinks per day Alcohol type: beer and hard liquor Patient Tobacco Use Status: Never used Tobacco Tobacco use type: Cigarette Cigarette Packs Per Day: 0.5 Cigarettes Per Day: 8 Second Hand Smoke Exposure: No Substance Use Type: Crack/Cocaine Advance Directives: No Advance Directives Information Provided: No service: No Current occupational status: employed Physical Exam ED Vital Signs: Vital Signs - 24 hr 10/17/22 05:51 10/17/22 09:59 Temperature 97.6 F 99.2 F Pulse Rate 115 H 105 H Respiratory Rate 20 20 Blood Pressure 144/96 H 132/72 Pulse Oximetry 97 96 Oxygen Delivery Method Room Air Room Air BMI result Body Mass Index 27.2 Const General: cooperative, no acute distress, alert and awake Nutritional Appearance: well nourished Orientation/consciousness: patient oriented x3 Limitations: no limitations HENMT Head: Yes normal to inspection and Yes atraumatic Ears: hearing grossly normal bilaterally and external ears normal General nose exam: Normal external nose present, no nasal discharge noted and no epistaxis Face and sinus: Yes normal facial exam, No abrasion and No laceration Mouth: Normal oral and palatal mucosa present, no drooling and no muffled voice Eyes General: appearance normal, both eyes and all related structures Periorbital: periorbital findings normal Eyelids: Yes eyelids normal Conjunctivae: conjunctivae normal Pupils: Equal, round and reactive pupils present EOM: EOMs intact bilaterally Neck Neck: Yes normal visual inspection, Yes full ROM and Yes no lymphadenopathy Chest Chest palpation & inspection: normal inspection of the chest Resp Effort & Inspection: normal respiratory effort and able to speak in complete sentences GI Inspection: Yes normal to inspection Neuro General: patient oriented x3 and moves all extremities Cranial nerves: Yes Equal, round and reactive pupils present Cognition (Neuro): normal cognition Motor exam (neuro): 5/5 motor strength present throughout Sensory Exam: Normal double simultaneous stimulation for sensation Coordination: [id number] test normal Extrem General: Yes normal to inspection, Yes full ROM and Yes capillary refill normal Psych Appearance: grossly normal Mental Status: mental status grossly normal Affect: normal affect Attitude: cooperative Thought process: Normal thought process present Thought content: Normal thought content present Insight: Good insight present (Psych) Medications Administered Discontinued Medications Generic Name Dose Route Start Last Admin Trade Name Joceline PRN Reason Stop Dose Admin Lorazepam 2 mg 10/17/22 07:43 10/17/22 08:11 Lorazepam 1 Mg Tablet PO 10/17/22 07:44 2 mg ONCE ONE Administration Medical Decision Making Medical Decision Making [facility] Narrative: Patient is a 51 year old assigned male at with a history of alcohol use presenting to the emergency department today requesting detox placement. Patient's physical exam was unremarkable. Patient's blood work was unremarkable. Recovery team met with the patient who explained that the patient did not meet detox placement criteria at this time. I explained my physical exam findings as well as all test results to the patient. I answered all questions asked by the patient. I stressed the importance of the patient taking his medication as prescribed. I stressed the importance of the patient following up with his primary care provider. I stressed the importance of the patient returning to the emergency department immediately if his symptoms were to worsen or if he were to develop any dizziness, shortness of breath, difficulty breathing, chest pain, blurry vision, loss of vision, nausea, vomiting, abdominal pain, fever, chills, back pain, or any other complaints. Patient verbalized agreement and understanding with this treatment plan and discharge. Differential Diagnosis Differential Diagnoses: The differential diagnosis associated with the presenta tion includes alcohol use Lab Data MDM Lab Attestation statement: I reviewed the patient's lab results. 10/17/22 07:17 10/17/22 07:17 Labs: Lab Results 10/17/22 10/17/22 10/17/22 Range/Units 07:17 07:17 09:21 WBC 11.9 H (4.8-10.8) X10*3/uL RBC 5.34 (4.60-5.80) X10*6/uL Hgb 14.9 (14.0-18.0) g/dl Hct 44.3 (42.0-52.0) % MCV 83.0 (80.0-98.0) fL MCH 27.9 (27.0-33.0) pg MCHC 33.6 (31.0-36.0) g/dl RDW 16.0 (11.0-16.0) % Plt Count 261 (160-400) X10*3/uL MPV 9.5 (9.4-12.4) fL Immature Gran % (Auto) 0.3 (0.0-0.4) % Neut % (Auto) 74.0 H (45-73) % Lymph % (Auto) 16.9 L (20-40) % [place] % (Auto) 8.5 (2-11) % Eos % (Auto) 0.0 (0-4) % Baso % (Auto) 0.3 (0-2) % Lymph # (Auto) 2.0 (1.2-4.9) X10*3/uL [place] # (Auto) 1.0 (0.1-1.2) X10*3/uL Eos # (Auto) 0.0 (0.0-0.4) X10*3/uL Baso # (Auto) 0.0 (0.0-0.2) X10*3/uL Abs Immat Gran (auto) 0.03 (0.00-0.03) X10*3/uL Absolute Neuts (auto) 8.8 H (2.0-8.3) x10*3/uL Absolute Nucleated RBC 0.000 (0.0-0.012) X10*3/uL Nucleated RBC % (auto) 0.0 (0.0-0.2) /100WBC Sodium 140 (135-145) mmol/L Potassium 4.6 (3.3-5.1) mmol/L Chloride 105 (96-108) mmol/L Carbon Dioxide 25 (22-29) mmol/L Anion Gap 15 (12-20) BUN 8 L (9-16) mg/dL Creatinine 1.00 (0.5-1.4) mg/dL Estim Creat Clear Calc 86.1 Estimated GFR > 60 Random Glucose 102 (60-115) mg/dL Calcium 9.6 (8.4-10.2) mg/dL Total Bilirubin 0.9 (0.0-1.0) mg/dL AST 30 (5-37) U/L ALT 34 (0-40) U/L Alkaline Phosphatase 83 (39-117) U/L Total Protein 7.8 (6.5-8.0) g/dL Albumin 4.9 (3.5-5.0) g/dL Urine Opiates Screen Not Detected (Not Detect) Urine Fentanyl Screen Not Detected (Not Detect) Ur Barbiturates Screen POSITIVE H (Not Detect) Ur Phencyclidine Scrn Not Detected (Not Detect) Ur Amphetamines Screen Not Detected (Not Detect) U Benzodiazepines Scrn Not Detected (Not Detect) Urine Cocaine Screen POSITIVE H (Not Detect) U Marijuana (THC) Screen POSITIVE H (Not Detect) Ethyl Alcohol 46 mg/dL Discharge Plan Discharge Clinical Impression: Alcohol use Patient Disposition: Home, Self-Care Instructions: Abuse of Alcohol (DC) Additional Instructions: Follow up with your primary care provider. Return to the emergency department immediately if your symptoms worsen or if you develop any dizziness, shortness of breath, difficulty breathing, chest pain, blurry vision, loss of vision, nausea, vomiting, abdominal pain, fever, chills, back pain, or any other complaints. Prescriptions: No Action No Known Home Meds [place] [facility] [place] (Call to establish and follow up with a primary care provider. If you already have a primary care provider, please follow up with them.) [facility] [place] [facility] [place] (Call to establish and follow up with a primary care provider. If you already have a primary care provider, please follow up with them.) [facility] [Provider Group] (Call to establish and follow up with a primary care provider. If you already have a primary care provider, please follow up with them.) Print Language: Estonian
[2022-10-17] MEDS: LORazepam 1 MG TABLET 2 MG PO (08:11)
[2022-10-17 08:18] LABS: Alanine Aminotransferase 34 U/L (0-40); Albumin Level 4.9 g/dL (3.5-5.0); Alkaline Phosphatase 83 U/L (39-117); Anion Gap 15 (12-20); Aspartate Amino Transferase 30 U/L (5-37); Bilirubin Total 0.9 mg/dL (0.0-1.0); Blood Urea Nitrogen 8 mg/dL (9-16); Calcium 9.6 mg/dL (8.4-10.2); Carbon Dioxide 25 mmol/L (22-29); Chloride 105 mmol/L (96-108); Creatinine Clr Calc Pharmacy 86.1; Estimated Glomerular Filt Rate > 60; Ethanol 46 mg/dL; Glucose Random 102 mg/dL (60-115); Potassium 4.6 mmol/L (3.3-5.1); Sodium 140 mmol/L (135-145); Total Protein 7.8 g/dL (6.5-8.0)
[2022-10-17 09:57] LABS: Amphetamine Screen Urine Not Detected (Not Detect); Barbiturates, Urine POSITIVE (Not Detect); Benzodiazepines Screen Urine Not Detected (Not Detect); Cannabinoid Screen Urine POSITIVE (Not Detect); Cocaine Screen Urine POSITIVE (Not Detect); Fentanyl, urine Not Detected (Not Detect); Opiate Screen Urine Not Detected (Not Detect); Phencyclidine Screen Urine Not Detected (Not Detect)
[2022-10-17 09:59] VITALS: BP 132/72; PULSE 105; RESP 20; TEMP 37.3; O2SAT 96
--- NOTE | 2022-10-17 10:26 | PC.NURSE ---
spoke w detox center and faxed the infor to them, awaiting final word/acceptance
--- NOTE | 2022-10-17 11:41 | MHC.RECOVSUP ---
Met with pt in RP2 for potential ATS. Pt reports having been at [facility] for 3 days for Psych and was out for one day drinking 4 nips and 3 24oz beers. Pt was provided recovery resources and T/W is checking in with [facility] to see if they would be open to taking him back for detox.
--- NOTE | 2022-10-17 13:27 | PC.NURSE ---
pt was set to be discharged but graduation coach was trying to get pt back to [facility], pt ended up eloping from the room
== END 2022-10-17 13:29 | disposition home or self-care (01) ==
PROVIDERS: Emergency Provider Emergency Medicine
DX: F10.20 Alcohol dependence, uncomplicated (principal); Y90.2 Blood alcohol level of 40-59 mg/100 ml; F19.10 Other psychoactive substance abuse, uncomplicated; F90.9 Attention-deficit hyperactivity disorder, unspecified type; F43.10 Post-traumatic stress disorder, unspecified; F32.A Depression, unspecified; F17.210 Nicotine dependence, cigarettes, uncomplicated
CPT/HCPCS: 36415; 80053; 80307; 82077; 85025; 99283; 99284

== ENCOUNTER 2022-10-27 02:23 | Inpatient (IN) | payer OTHER, MEDICAID, SELFPAY ==
--- NOTE | 2022-10-27 | ECG_ITS ---
Test Reason : PROLONGED QT Blood Pressure : / mmHG Vent. Rate : 076 BPM Atrial Rate : 076 BPM P-R Int : 142 ms QRS Dur : 088 ms QT Int : 400 ms P-R-T Axes : 056 059 069 degrees QTc Int : 450 ms Normal sinus rhythm Minimal voltage criteria for LVH, may be normal variant ( Sokolow-Pat ) Early Repolarization Borderline ECG When compared with ECG of 29-NOV-2020 13:41, No significant change was found Referred By: Giuseppe Smith Electronically Signed By:CANDIDA AARON
[2022-10-27 02:35] VITALS: BP 136/87; BP 178/118; PULSE 85; RESP 16; TEMP 36.6; O2SAT 95; O2SAT 96; BMI 32.6
[2022-10-27 03:04] LABS: Basophils Absolute Auto 0.1 X10*3/uL (0.0-0.2); Basophils Percent Auto 0.6 % (0-2); Eosinophils Absolute Auto 0.1 X10*3/uL (0.0-0.4); Eosinophils Percent Auto 1.5 % (0-4); Hematocrit 46.8 % (42.0-52.0); Hemoglobin 15.6 g/dl (14.0-18.0); Imm Gran Abs Auto 0.02 X10*3/uL (0.00-0.03); Imm Gran Pct Auto 0.3 % (0.0-0.4); Lymphocytes Absolute Auto 3.1 X10*3/uL (1.2-4.9); Lymphocytes Percent Auto 38.7 % (20-40); MANUAL DIFF FLAG NO; Mean Corpuscular HGB Conc 33.3 g/dl (31.0-36.0); Mean Corpuscular Hemoglobin 27.9 pg (27.0-33.0); Mean Corpuscular Volume 83.6 fL (80.0-98.0); Mean Platelet Volume 9.2 fL (9.4-12.4); Monocytes Absolute Auto 0.6 X10*3/uL (0.1-1.2); Neutrophils Percent Auto 50.9 % (45-73); Platelet Count 315 X10*3/uL (160-400); Red Cell Distribution Width 15.9 % (11.0-16.0); White Blood Count 7.9 X10*3/uL (4.8-10.8)
[2022-10-27 03:19] LABS: Alanine Aminotransferase 36 U/L (0-40); Albumin Level 4.9 g/dL (3.5-5.0); Alkaline Phosphatase 99 U/L (39-117); Amphetamine Screen Urine Not Detected (Not Detect); Anion Gap 14 (12-20); Aspartate Amino Transferase 38 U/L (5-37); Barbiturates, Urine POSITIVE (Not Detect); Benzodiazepines Screen Urine Not Detected (Not Detect); Bilirubin Total 1.2 mg/dL (0.0-1.0); Blood Urea Nitrogen 15 mg/dL (9-16); Calcium 9.9 mg/dL (8.4-10.2); Cannabinoid Screen Urine POSITIVE (Not Detect); Carbon Dioxide 24 mmol/L (22-29); Chloride 107 mmol/L (96-108); Cocaine Screen Urine POSITIVE (Not Detect); Creatinine Clr Calc Pharmacy 72.3; Estimated Glomerular Filt Rate > 60; Fentanyl, urine POSITIVE (Not Detect); Glucose Random 83 mg/dL (60-115); Opiate Screen Urine Not Detected (Not Detect); Phencyclidine Screen Urine POSITIVE (Not Detect); Potassium 4.2 mmol/L (3.3-5.1); Sodium 141 mmol/L (135-145); Total Protein 8.1 g/dL (6.5-8.0)
[2022-10-27 03:23] LABS: COVID-19 Test Negative (Negative); IDNOW Serial# 6674DD1D
[2022-10-27] MEDS: Acetaminophen 325 MG TABLET 650 MG PO (03:52)
[2022-10-27 04:11] LABS: Ethanol < 10 mg/dL
[2022-10-27 05:36] VITALS: BP 119/71; PULSE 67; RESP 16; TEMP 36.4; O2SAT 94
--- NOTE | 2022-10-27 06:48 | ED.PSYCH ---
HPI - Psych General Chief Complaint: Psychiatric Symptoms Stated Complaint: Altercation Time Seen by Provider: 10/27/22 06:40 Source: patient and EMS Mode of arrival: EMS Limitations: no limitations History of Present Illness HPI Narrative: 51-year-old male with history of PTSD, substance abuse, alcohol use presents to the ER for evaluation of suicidal ideation, homicidal ideation in the setting of acute intoxication. Patient reports drinking excessive amounts of alcohol was unable to quantify. On evaluation patient was sleeping and did not want to be woken up for interview and examination. On re-evaluation at 15:00 patient is awake, alert, oriented and pleasant. he states he thinks he starting to withdrawal from alcohol. He states his last drink was yesterday. He has been drinking at least 6 beers per day with liquor on top of that. He has also been using excessive amount of drugs almost daily. He wants to get help. He states he is going through a lot. MD complaint: suicidal ideation, feels depressed, homicidal ideation and alcohol abuse Onset (ago): unknown History of same: Yes Exacerbating factors: alcohol Context: recent alcohol abuse Associated psychiatric symptoms: depression, suicidal ideation and homicidal ideation Treatments prior to arrival: none If self harm: admits thoughts of self harm Related Data Home Medications Medication Instructions Recorded Confirmed fluoxetine 20 mg capsule 20 mg PO DAILY 10/27/22 10/27/22 hydrochlorothiazide 25 mg tablet 25 mg PO QAM 10/27/22 10/27/22 hydroxyzine pamoate 50 mg capsule 50 mg PO Q6H PRN Anxiety 10/27/22 10/27/22 melatonin 3 mg tablet 3 mg PO BEDTIME PRN Insomnia 10/27/22 10/27/22 mirtazapine 15 mg tablet 15 mg PO BEDTIME 10/27/22 10/27/22 prazosin 1 mg capsule 1 mg PO BEDTIME 10/27/22 10/27/22 Allergies Allergy/AdvReac Type Severity Reaction Status Date / Time Penicillins [PENICILLINS] Allergy Severe SWELLING Verified 10/17/22 05:57 AND ITCHING, THROAT CLOSES. PMFSH Past Medical History Medical History ADHD COVID-19 Depression PTSD (post-traumatic stress disorder) Surgical History History of abdominal surgery Social History Social History Household Members: None Housing: Homeless Do you presently have visiting nurse or other home services: No Alcohol intake: current Alcohol intake frequency: 3 or more drinks per day Alcohol type: beer and hard liquor Patient Tobacco Use Status: Never used Tobacco Tobacco use type: Cigarette Cigarette Packs Per Day: 0.5 Cigarettes Per Day: 8 Second Hand Smoke Exposure: No Substance Use Type: Crack/Cocaine Advance Directives: No Advance Directives Information Provided: No Healthcare Proxy: No Guardian: No service: No Current occupational status: employed Physical Exam Vital Signs: Vital Signs: Last Vital Signs Temp 97.6 F 10/27/22 05:36 Pulse 67 10/27/22 05:36 Resp 16 10/27/22 05:36 BP 119/71 10/27/22 05:36 Pulse Ox 94 10/27/22 05:36 O2 Del Method Room Air 10/27/22 05:36 BMI result Body Mass Index 32.6 Appearance: No acute distress. Head: normocephalic, atraumatic. Eyes: Pupils equal, round and reactive to light. ENT: Pharynx normal. No tonsillar swelling or exudate. Neck: Normal inspection. Neck supple. CVS: Normal heart rate and rhythm. Pulses normal. Respiratory: No respiratory distress. Breath sounds normal. Abdomen: Soft and nontender. +BS x4 Skin: Skin warm and dry. Normal skin color. Normal skin turgor. No rashes. Extremities: No lower extremity edema. No joint swelling. Neuro/psych: Oriented X 3. No motor deficit. No sensory deficit. CN II-XII intact. Normal speech and cognition. cooperative and pleasant. Depressed mood. Not suicidal, appropriate insight and judgment Medications Administered Generic Name Dose Route Start Last Admin Trade Name Freq PRN Reason Stop Dose Admin Fluoxetine HCl 20 mg 10/27/22 09:00 10/27/22 13:05 Fluoxetine Hcl 20 Mg Capsule PO 20 mg DAILY MARNIE Administration Hydrochlorothiazide 25 mg 10/27/22 09:00 10/27/22 13:05 Hydrochlorothiazide 25 Mg Tablet PO 25 mg DAILY MARNIE Administration Protocol Mirtazapine 15 mg 10/27/22 03:15 10/27/22 03:16 Mirtazapine 15 Mg Tablet PO Not Given BEDTIME MARNIE Prazosin HCl 1 mg 10/27/22 03:15 10/27/22 03:16 Prazosin Hcl 1 Mg Capsule PO Not Given BEDTIME MARNIE Protocol Discontinued Medications Generic Name Dose Route Start Last Admin Trade Name Joceline PRN Reason Stop Dose Admin Acetaminophen 650 mg 10/27/22 03:47 10/27/22 03:52 Acetaminophen 325 Mg Tablet PO 10/27/22 03:48 650 mg ONCE ONE Administration Medical Decision Making Medical Decision Making [facility] Narrative: 51-year-old male with history of PTSD, polysubstance abuse, alcohol use presents to the ER for evaluation of suicidal and homicidal ideation after reportedly drinking excessive amounts of alcohol. Patient uncooperative with interview and exam initially. Lab workup and toxicology were performed on arrival. Patient was found have a negative alcohol level and urine toxicology that was positive for fentanyl, barbiturates, PCP, cocaine and marijuana. Patient is medically cleared and should be evaluated by the care team for possible inpatient psychiatric admission once clinically sober. Patient is placed in physician observation at 12:30 pending care team evaluation. Differential Diagnosis Differential Diagnoses: The differential diagnosis associated with the presentation includes substance induced mood disorder, acute psychosis, schizophrenia, schizoaffective disorder, PTSD, bipolar disorder, major depression with psychotic features Lab Data [facility] Lab Attestation statement: I reviewed the patient's lab results. 10/27/22 02:57 10/27/22 02:57 Labs: Lab Results 10/27/22 10/27/22 10/27/22 Range/Units 02:57 02:57 02:57 WBC 7.9 (4.8-10.8) X10*3/uL RBC 5.60 (4.60-5.80) X10*6/uL Hgb 15.6 (14.0-18.0) g/dl Hct 46.8 (42.0-52.0) % MCV 83.6 (80.0-98.0) fL MCH 27.9 (27.0-33.0) pg MCHC 33.3 (31.0-36.0) g/dl RDW 15.9 (11.0-16.0) % Plt Count 315 (160-400) X10*3/uL MPV 9.2 L (9.4-12.4) fL Immature Gran % (Auto) 0.3 (0.0-0.4) % Neut % (Auto) 50.9 (45-73) % Lymph % (Auto) 38.7 (20-40) % [place] % (Auto) 8.0 (2-11) % Eos % (Auto) 1.5 (0-4) % Baso % (Auto) 0.6 (0-2) % Lymph # (Auto) 3.1 (1.2-4.9) X10*3/uL [place] # (Auto) 0.6 (0.1-1.2) X10*3/uL Eos # (Auto) 0.1 (0.0-0.4) X10*3/uL Baso # (Auto) 0.1 (0.0-0.2) X10*3/uL Abs Immat Gran (auto) 0.02 (0.00-0.03) X10*3/uL Absolute Neuts (auto) 4.0 (2.0-8.3) x10*3/uL Absolute Nucleated RBC 0.000 (0.0-0.012) X10*3/uL Nucleated RBC % (auto) 0.0 (0.0-0.2) /100WBC Sodium 141 (135-145) mmol/L Potassium 4.2 (3.3-5.1) mmol/L Chloride 107 (96-108) mmol/L Carbon Dioxide 24 (22-29) mmol/L Anion Gap 14 (12-20) BUN 15 (9-16) mg/dL Creatinine 1.21 (0.5-1.4) mg/dL Estim Creat Clear Calc 72.3 Estimated GFR > 60 Random Glucose 83 (60-115) mg/dL Calcium 9.9 (8.4-10.2) mg/dL Total Bilirubin 1.2 H (0.0-1.0) mg/dL AST 38 H (5-37) U/L ALT 36 (0-40) U/L Alkaline Phosphatase 99 (39-117) U/L Total Protein 8.1 H (6.5-8.0) g/dL Albumin 4.9 (3.5-5.0) g/dL Urine Color Urine Appearance Urine pH (5.0-9.0) Ur Specific [place] (1.005-1.025) Urine Protein (Neg-Trace) mg/dL Urine Glucose (UA) (Negative) mg/dL Urine Ketones (Negative) mg/dL Urine Blood (Negative) Urine Nitrite (Negative) Ur Leukocyte Esterase (Negative) Urine RBC (0-2) /HPF Urine WBC (0-5) /HPF Ur Squamous Epith Cells (0-2) /HPF Calcium Oxalate Crystal Urine Bacteria (None Seen) Hyaline Casts (0-2) /LPF Urine Opiates Screen (Not Detect) Urine Fentanyl Screen (Not Detect) Ur Barbiturates Screen (Not Detect) Ur Phencyclidine Scrn (Not Detect) Ur Amphetamines Screen (Not Detect) U Benzodiazepines Scrn (Not Detect) Urine Cocaine Screen (Not Detect) U Marijuana (THC) Screen (Not Detect) Ethyl Alcohol < 10 mg/dL COVID-19 (ANANDA) Negative (Negative) COVID-19 Clin Com See Note 10/27/22 10/27/22 Range/Units 02:57 02:57 WBC (4.8-10.8) X10*3/uL RBC (4.60-5.80) X10*6/uL Hgb (14.0-18.0) g/dl Hct (42.0-52.0) % MCV (80.0-98.0) fL MCH (27.0-33.0) pg MCHC (31.0-36.0) g/dl RDW (11.0-16.0) % Plt Count (160-400) X10*3/uL MPV (9.4-12.4) fL Immature Gran % (Auto) (0.0-0.4) % Neut % (Auto) (45-73) % Lymph % (Auto) (20-40) % [place] % (Auto) (2-11) % Eos % (Auto) (0-4) % Baso % (Auto) (0-2) % Lymph # (Auto) (1.2-4.9) X10*3/uL [place] # (Auto) (0.1-1.2) X10*3/uL Eos # (Auto) (0.0-0.4) X10*3/uL Baso # (Auto) (0.0-0.2) X10*3/uL Abs Immat Gran (auto) (0.00-0.03) X10*3/uL Absolute Neuts (auto) (2.0-8.3) x10*3/uL Absolute Nucleated RBC (0.0-0.012) X10*3/uL Nucleated RBC % (auto) (0.0-0.2) /100WBC Sodium (135-145) mmol/L Potassium (3.3-5.1) mmol/L Chloride (96-108) mmol/L Carbon Dioxide (22-29) mmol/L Anion Gap (12-20) BUN (9-16) mg/dL Creatinine (0.5-1.4) mg/dL Estim Creat Clear Calc Estimated GFR Random Glucose (60-115) mg/dL Calcium (8.4-10.2) mg/dL Total Bilirubin (0.0-1.0) mg/dL AST (5-37) U/L ALT (0-40) U/L Alkaline Phosphatase (39-117) U/L Total Protein (6.5-8.0) g/dL Albumin (3.5-5.0) g/dL Urine Color Dark Yellow Urine Appearance Clear Urine pH 5.5 (5.0-9.0) Ur Specific [place] >= 1.030 H (1.005-1.025) Urine Protein 100 (2+) H (Neg-Trace) mg/dL Urine Glucose (UA) Negative (Negative) mg/dL Urine Ketones 15 (Negative) mg/dL Urine Blood Negative (Negative) Urine Nitrite Negative (Negative) Ur Leukocyte Esterase Negative (Negative) Urine RBC 0-2 (0-2) /HPF Urine WBC 0-5 (0-5) /HPF Ur Squamous Epith Cells 0-2 (0-2) /HPF Calcium Oxalate Crystal Present Urine Bacteria None Seen (None Seen) Hyaline Casts 0-2 (0-2) /LPF Urine Opiates Screen Not Detected (Not Detect) Urine Fentanyl Screen POSITIVE H (Not Detect) Ur Barbiturates Screen POSITIVE H (Not Detect) Ur Phencyclidine Scrn POSITIVE H (Not Detect) Ur Amphetamines Screen Not Detected (Not Detect) U Benzodiazepines Scrn Not Detected (Not Detect) Urine Cocaine Screen POSITIVE H (Not Detect) U Marijuana (THC) Screen POSITIVE H (Not Detect) Ethyl Alcohol mg/dL COVID-19 (ANANDA) (Negative) COVID-19 Clin Com Independent Interpretation I performed an independent interpretation of an: EKG Interpretation: EKG with normal sinus rhythm, ventricular rate 76 beats per minute, normal LA interval, normal QTC, no ST segment elevations or depressions. No major change from November 2020 External Record Review External record reviewed: Outpatient record and Prior outpatient labs Prescription Management I considered prescription management with: Other ( antipsychotic and benzodiazepines) Chronic Conditions Patient?s care impacted by: Other ( Polysubstance abuse, PTSD) Social Determinants Patient?s care significantly limited by Social Determinants of Health including: Alcoholism and drug addiction in family and Other Social Determinant of Health Critical Care Time Critical Care Time Critical Care Time: No Discharge Plan Discharge Clinical Impression: Polysubstance abuse, Alcohol dependence Patient Disposition: Still a Patient Prescriptions: No Action prazosin 1 mg Capsule 1 mg PO BEDTIME hydroxyzine pamoate 50 mg Capsule 50 mg PO Q6H PRN (Reason: Anxiety) melatonin 3 mg Tablet 3 mg PO BEDTIME PRN (Reason: Insomnia) hydrochlorothiazide 25 mg Tablet 25 mg PO QAM mirtazapine 15 mg Tablet 15 mg PO BEDTIME fluoxetine 20 mg Capsule 20 mg PO DAILY Interventions: [place]-Suicide Risk Severity Scale Last Done: 10/27/22 11:53
[2022-10-27 07:51] LABS: Appearance Urine Clear; Color Urine Dark Yellow; Glucose Urine UA Negative (Negative); Leukocyte Esterase Urine Negative (Negative); Nitrite Urine Negative (Negative); PH 5.5 (5.0-9.0); Specific Gravity - Urine >= 1.030 (1.005-1.025); UMIC TRIGGER UA YES; Urine Blood Negative (Negative); Urine Ketones 15 mg/dL (Negative); Urine Protein 100 (2+) mg/dL (Neg-Trace)
[2022-10-27 08:12] LABS: Bacteria Urine None Seen (None Seen); Calcium Oxalate Crystals Urine Present; Hyaline Casts Urine 0-2 /LPF (0-2); RBC Urine 0-2 /HPF (0-2); Squamous Epithelial Cell Urine 0-2 /HPF (0-2); WBC Urine 0-5 /HPF (0-5)
[2022-10-27] MEDS: hydroCHLOROthiazide 25 MG TABLET PO (13:05)
[2022-10-27] MEDS: FLUoxetine HCl 20 MG CAPSULE PO (13:05)
[2022-10-27 16:10] VITALS: BP 134/96; PULSE 62; RESP 15; TEMP 36.3; O2SAT 97
[2022-10-27] MEDS: LORazepam 1 MG TABLET PO (16:21)
[2022-10-27] MEDS: Mirtazapine 15 MG TABLET PO (20:34)
[2022-10-27] MEDS: Prazosin HCL 1 MG CAPSULE PO (20:34)
[2022-10-27] MEDS: Melatonin 3 MG TABLET PO (20:37)
[2022-10-27 20:39] VITALS: BP 126/89; PULSE 72; RESP 17; TEMP 37.2; O2SAT 98
[2022-10-28 03:48] VITALS: BP 124/79; PULSE 78; RESP 17; TEMP 36.4; O2SAT 98
--- NOTE | 2022-10-28 05:59 | PC.NURSE ---
Patient slept through the night, no distress observed/reported, behavior non concerning, disposition per care team is voluntary inpatient bed search, medication compliant, labs completed/resulted, will continue to monitor.
[2022-10-28] MEDS: hydroCHLOROthiazide 25 MG TABLET PO (08:07)
[2022-10-28] MEDS: FLUoxetine HCl 20 MG CAPSULE PO (08:07)
[2022-10-28] MEDS: hydrOXYzine HCL 50 MG TABLET PO (08:10)
[2022-10-28 09:25] VITALS: BP 116/88; PULSE 72; RESP 12; TEMP 36.7; O2SAT 96
[2022-10-28 16:20] VITALS: BP 134/96; PULSE 86; RESP 20; TEMP 36.4; O2SAT 99
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
[2022-10-28 18:18] VITALS: BMI 27.5
[2022-10-28 20:20] VITALS: BP 137/85; PULSE 86; RESP 16; TEMP 36.1; O2SAT 96
[2022-10-28] MEDS: Melatonin 3 MG TABLET PO (20:29)
[2022-10-28] MEDS: Prazosin HCL 1 MG CAPSULE PO (20:29)
[2022-10-28] MEDS: Mirtazapine 15 MG TABLET PO (20:29)
[2022-10-29 08:30] VITALS: BP 131/87; PULSE 83; RESP 18; TEMP 36.3; O2SAT 97
--- NOTE | 2022-10-29 09:23 | P.HPPS_ITS ---
HPI Date of Service: 10/29/22 Chief Complaint: SI Sources of Information: patient interviewed, chart reviewed and crisis/core team assessment reviewed HPI Subjective Notes: Farr Warning (given and shows understanding) and Conditional Voluntary Narrative: Mr. Cordero is a 51 year-old male with hx of depression, cocaine and alcohol use disorder who self presented to [facility] reporting increase depression and suicidal ideation with plan to start fight and being killed by someone else. Utox is positive for cocaine, PCP, barbiturates, fentanyl. BAL less than 10. On the unit, pt reports depressed mood and anxious mood in context of recent break up with partner of last 10 years. He reports partner also uses alcohol and they had an argument. Pt states she called the visual education director for no reason. Pt reports using alcohol daily including 6 24-onz beers and several nips. He also reports using crack cocaine once a week. He reports he did not use fentanyl nor pcp intentionally, so he wonders if it was laced with cocaine he used. He reports he has been homeless for some months. He reports he has people in community that are looking for him as they accuse him of stealing. On the unit, he denies suicidal or homicidal ideation. He denies history of auditory and visual hallucinations. He reports sleeping well for the most part with current medic ations. We also discussed that the times when he presents to the hospital he happens to have a court hearing.Pt reports he was not aware that he had to present to the court and hopes that hospital can provide a note that he was receiving care. Pt presents as very future oriented. He does admit that he is in no way suicidal and wants help to change his lifestyle including considering outpatient s ubstance use treatment. This rfp writer explained that we can make referrals for such programs but he has to follow up in the community. Furthermore, it was explained to pt that hospital can't provide housing or housing resources, therefore he will have to step down to [facility] in the mean time. Past Psychiatric History: Inpatient: some in the past in [facility]. He reports recent admission to [facility] few weeks ago- he did not follow up with referrals for treatment OP: none Past medication trials: prozac (reports helpful), remeron, prazosin. Suicide attempts: denies Medical Evaluation Reviewed: Yes [facility] Medical History ADHD COVID-19 Depression PTSD (post-traumatic stress disorder) Surgical History History of abdominal surgery Family History: unknown Social History: Pt from [facility]. Currently, not working, no stable housing. Substance History: cocaine: on and off several years, currently reports using weekly opioids: denies- he was positive for fentanyl which pt thinks it was laced with crack cocaine alcohol: several years reports drinking daily. 6 24-onz beers, several nips PCP: denies, but he was positive barbiturates: denies, but was positive. Trauma History: hx of but not details provided Diagnostics Vital Signs (24Hr): Vital Signs - 24 hr 10/28/22 09:25 10/28/22 16:20 10/28/22 20:20 Temperature 98.1 F 97.6 F 97 F Pulse Rate 72 86 86 Respiratory Rate 12 20 16 Blood Pressure 116/88 134/96 H 137/85 Pulse Oximetry 96 99 96 Oxygen Delivery Method Room Air Room Air Room Air BMI result Body Mass Index 27.5 Labs 10/27/22 02:57 10/27/22 02:57 Meds/Allergies Meds Home Medications Medication Instructions Recorded Confirmed Type fluoxetine 20 mg capsule 20 mg PO DAILY 10/27/22 10/27/22 History hydrochlorothiazide 25 mg tablet 25 mg PO QAM 10/27/22 10/27/22 History hydroxyzine pamoate 50 mg capsule 50 mg PO Q6H PRN Anxiety 10/27/22 10/27/22 History melatonin 3 mg tablet 3 mg PO BEDTIME PRN Insomnia 10/27/22 10/27/22 History mirtazapine 15 mg tablet 15 mg PO BEDTIME 10/27/22 10/27/22 History prazosin 1 mg capsule 1 mg PO BEDTIME 10/27/22 10/27/22 History Allergies Allergies Allergy/AdvReac Type Severity Reaction Status Date / Time Penicillins [PENICILLINS] Allergy Severe SWELLING Verified 10/17/22 05:57 AND ITCHING, THROAT CLOSES. Mental Status Exam Mental Status Exam Narrative: Appearance: casually groomed, good hygiene, in NAD Behavior: cooperative Psychomotor: no agitation or retardation noted Speech: clear, normal rate/rhythm/volume, spontaneous TP: linear TC: no signs of psychosis, future oriented Mood: better Affect: congruent, bright, no labile SI: denies HI: denies VH/AH: none Delusions: none Insight/judgment: poor x 2. memory/cog: alert oriented x 3. grossly intact to conversational testing. Assessment & Plan Assessment & Plan (1) MDD (major depressive disorder), recurrent episode, moderate: Status: Acute Code(s): F33.1 - Major depressive disorder, recurrent, moderate (2) Alcohol use disorder, moderate, dependence: Status: Acute Code(s): F10.20 - Alcohol dependence, uncomplicated (3) Cocaine use disorder, moderate, dependence: Status: Acute Code(s): F14.20 - Cocaine dependence, uncomplicated Plan Mr. Cordero is a 51 year-old male with hx of depression, cocaine, alcohol use disorder, legal charges for A&B who self presented on day of court to [facility] reporting suicidal ideation with plan to start a fight in hopes that someone will kill him. In the ED, utox is positive for cocaine, fentanyl, pcp and barbiturates. Pt reports mostly using alcohol, drinking daily. BAL was neg. He reports cocaine use but denies opiod or PCP, which he suspects might have been laced with cocaine. He presents as future oriented, advocating for himself to secure placement even if in maladaptive way by misuse of hospital resources. Nonetheless, these are clinical indications that pt is not at imminent risk of harm to self due to suicidality, but quite the opposite, he is trying hard to survive with a very future oriented mindset. He does report motivation to start substance use treatment in the community. He was explained referrals can be made but he has to follow up in the community, which he is in agreement. We discussed risks, benefits and alternative treatment options, he agrees to continue prozac, remeron and prazosin. PLAN 1. Admit to M3, CV, 15 minutes checks for safety 2. continue prozac, remeron, prazosin 3. aftercare planning. 4. pt stable to be discharged soon. Patient educated on: diagnosis, medication risk/benefits and substance abuse Informed Consent: understands Reason for continued inpatient stay Substantial Risk for: stable for discharge Statement Statement: I have reviewed the history and physical and performed a pertinent examination on my patient. No changes have occurred unless specified. If the History and Physical was not performed prior to admission, the Hospitalist's service will be consulted for completing the admission physical. Time Spent With Patient Time: Total time managing care of this patient today ____ minutes.
[2022-10-29] MEDS: hydrOXYzine HCL 25 MG TABLET PO (09:25)
[2022-10-29] MEDS: FLUoxetine HCl 20 MG CAPSULE PO (09:25)
[2022-10-29] MEDS: hydroCHLOROthiazide 25 MG TABLET PO (09:25)
[2022-10-29 20:00] VITALS: BP 105/68; PULSE 95; RESP 16; TEMP 36.7; O2SAT 98
[2022-10-29] MEDS: Prazosin HCL 1 MG CAPSULE PO (20:18)
[2022-10-29] MEDS: Mirtazapine 15 MG TABLET PO (20:19)
[2022-10-29] MEDS: Melatonin 3 MG TABLET PO (20:19)
[2022-10-30 09:09] VITALS: BP 150/85; PULSE 82; RESP 16; TEMP 36.5; O2SAT 100
[2022-10-30] MEDS: hydroCHLOROthiazide 25 MG TABLET PO (09:14)
[2022-10-30] MEDS: hydrOXYzine HCL 25 MG TABLET PO (09:14)
[2022-10-30] MEDS: FLUoxetine HCl 20 MG CAPSULE PO (09:14)
--- NOTE | 2022-10-30 09:48 | PM.PSYDC ---
DS: Providers Provider Date of Service: 10/30/22 Date of admission: 10/28/22 15:51 Primary care physician: Unknown Physician DS: Diagnosis Discharge Diagnosis (1) MDD (major depressive disorder), recurrent episode, moderate: Status: Acute (2) Alcohol use disorder, moderate, dependence: Status: Acute (3) Cocaine use disorder, moderate, dependence: Status: Acute DS: Medications Discharge Medications Home Medications: Previous Rx's Medication Instructions Recorded fluoxetine 20 mg capsule 20 mg PO DAILY #30 caps 10/30/22 hydrochlorothiazide 25 mg tablet 25 mg PO DAILY #30 tabs 10/30/22 melatonin 3 mg tablet 3 mg PO BEDTIME PRN Insomnia #30 10/30/22 tabs mirtazapine 15 mg tablet 15 mg PO BEDTIME #30 tabs 10/30/22 prazosin 1 mg capsule 1 mg PO BEDTIME #30 caps 10/30/22 Mental Status Exam Mental Status Exam Narrative: Appearance: casually groomed, good hygiene, in NAD Behavior: cooperative Psychomotor: no agitation or retardation noted Speech: clear, normal rate/rhythm/volume, spontaneous TP: linear TC: no signs of psychosis, future oriented Mood: better Affect: congruent, bright, no labile SI: denies HI: denies VH/AH: none Delusions: none Insight/judgment: poor x 2. memory/cog: alert oriented x 3. grossly intact to conversational testing. Data Data Completed and Pending Completed studies during hospitalization [Text1]: 10/27/22 10/27/22 10/27/22 02:57 02:57 02:57 WBC 7.9 RBC 5.60 Hgb 15.6 Hct 46.8 MCV 83.6 MCH 27.9 MCHC 33.3 RDW 15.9 Plt Count 315 MPV 9.2 L Immature Gran % (Auto) 0.3 Neut % (Auto) 50.9 Lymph % (Auto) 38.7 [place] % (Auto) 8.0 Eos % (Auto) 1.5 Baso % (Auto) 0.6 Lymph # (Auto) 3.1 [place] # (Auto) 0.6 Eos # (Auto) 0.1 Baso # (Auto) 0.1 Abs Immat Gran (auto) 0.02 Absolute Neuts (auto) 4.0 Absolute Nucleated RBC 0.000 Nucleated RBC % (auto) 0.0 Sodium 141 Potassium 4.2 Chloride 107 Carbon Dioxide 24 Anion Gap 14 BUN 15 Creatinine 1.21 Estim Creat Clear Calc 72.3 Estimated GFR > 60 Random Glucose 83 Calcium 9.9 Total Bilirubin 1.2 H AST 38 H ALT 36 Alkaline Phosphatase 99 Total Protein 8.1 H Albumin 4.9 Urine Color Urine Appearance Urine pH Ur Specific [place] Urine Protein Urine Glucose (UA) Urine Ketones Urine Blood Urine Nitrite Ur Leukocyte Esterase Urine RBC Urine WBC Ur Squamous Epith Cells Calcium Oxalate Crystal Urine Bacteria Hyaline Casts Urine Opiates Screen Urine Fentanyl Screen Ur Barbiturates Screen Ur Phencyclidine Scrn Ur Amphetamines Screen U Benzodiazepines Scrn Urine Cocaine Screen U Marijuana (THC) Screen Ethyl Alcohol < 10 COVID-19 (ANANDA) Negative COVID-19 Clin Com See Note 10/27/22 10/27/22 02:57 02:57 WBC RBC Hgb Hct MCV MCH MCHC RDW Plt Count MPV Immature Gran % (Auto) Neut % (Auto) Lymph % (Auto) [place] % (Auto) Eos % (Auto) Baso % (Auto) Lymph # (Auto) [place] # (Auto) Eos # (Auto) Baso # (Auto) Abs Immat Gran (auto) Absolute Neuts (auto) Absolute Nucleated RBC Nucleated RBC % (auto) Sodium Potassium Chloride Carbon Dioxide Anion Gap BUN Creatinine Estim Creat Clear Calc Estimated GFR Random Glucose Calcium Total Bilirubin AST ALT Alkaline Phosphatase Total Protein Albumin Urine Color Dark Yellow Urine Appearance Clear Urine pH 5.5 Ur Specific [place] >= 1.030 H Urine Protein 100 (2+) H Urine Glucose (UA) Negative Urine Ketones 15 Urine Blood Negative Urine Nitrite Negative Ur Leukocyte Esterase Negative Urine RBC 0-2 Urine WBC 0-5 Ur Squamous Epith Cells 0-2 Calcium Oxalate Crystal Present Urine Bacteria None Seen Hyaline Casts 0-2 Urine Opiates Screen Not Detected Urine Fentanyl Screen POSITIVE H Ur Barbiturates Screen POSITIVE H Ur Phencyclidine Scrn POSITIVE H Ur Amphetamines Screen Not Detected U Benzodiazepines Scrn Not Detected Urine Cocaine Screen POSITIVE H U Marijuana (THC) Screen POSITIVE H Ethyl Alcohol COVID-19 (ANANDA) COVID-19 Clin Com DS: Summary Hospital Course Hospital Course: HPI: Mr. Cordero is a 51 year-old male with hx of depression, cocaine and alcohol use disorder who self presented to [facility] [place] [facility] [place] reporting increase depression and suicidal ideation with plan to start fight and being killed by someone else. Utox is positive for cocaine, PCP, barbiturates, fentanyl. BAL less than 10. On the unit, pt reports depressed mood and anxious mood in context of recent break up with partner of last 10 years. He reports partner also uses alcohol and they had an argument. Pt states she called the mixed crop farmer for no reason. Pt reports using alcohol daily including 6 24-onz beers and several nips. He also reports using crack cocaine once a week. He reports he did not use fentanyl nor pcp intentionally, so he wonders if it was laced with cocaine he used. He reports he has been homeless for some months. He reports he has people in community that are looking for him as they accuse him of stealing. On the unit, he denies suicidal or homicidal ideation. He denies history of auditory and visual hallucinations. He reports sleeping well for the most part with current medications. We also discussed that the times when he presents to the hospital he happens to have a court hearing.Pt reports he was not aware that he had to present to the court and hopes that hospital can provide a note that he was receiving care. Pt presents as very future oriented. He does admit that he is in no way suicidal and wants help to change his lifestyle including considering outpatient substance use treatment. This automobile and property underwriter explained that we can make referrals for such programs but he has to follow up in the community. Furthermore, it was explained to pt that hospital can't provide housing or housing resources, therefore he will have to step down to intermediate in the mean time. Past Psychiatric History: Inpatient: some in the past in [facility]. He reports recent admission to [facility] few weeks ago- he did not follow up with referrals for treatment ? OP: none Past medication trials: prozac (reports helpful), remeron, prazosin. ? Suicide attempts: denies Medical Evaluation Reviewed: Yes HOSPITAL COURSE On the unit, pt was admitted on CV and placed on 15 minutes checks for safety. On the unit, pt denied suicidal or homicidal ideation. He reported he had court hearing and had been coming to the ED on days of court hearing. He presents as future oriented in that he has been advocating for himself for safe intermediate and worried about potential legal consequences. Pt was given information as to how court may be able to help him continue substance use treatment. We discussed risks, benefits and alternative treatment options, he agreed to continue prozac. He did not present with any signs of psychosis or delusions. He was visible on the unit, social with select peers. There were no incidences of disruptive behaviors nor need for restraints. Status at Discharge Cognitive/behavioral status at discharge: Pt with bright, non labile affect. No SI/HI. No psychosis or delusions. Pt sleeping and eating well. No aggression towards self or others. Future oriented and advocating for himself for safe intermediate. Functional status at discharge: independent ambulation Overall status at discharge: patient is progressing back to baseline Time Spent with Patient Time attestation: Total time managing care of this patient today ____ minutes. Discharge Plan Discharge Anticipated Discharge Date/Time: 10/30/22 09:39 Patient Disposition: Home, Self-Care Discharge Diagnosis: MDD, recurrent, moderate cocaine use disorder alcohol use disorder Referrals: Ethel Guerrero MD [Physician] - 11/11/22 9:30 am Discharge Medications: Discontinued prazosin 1 mg Capsule 1 mg PO BEDTIME hydroxyzine pamoate 50 mg Capsule 50 mg PO Q6H PRN (Reason: Anxiety) melatonin 3 mg Tablet 3 mg PO BEDTIME PRN (Reason: Insomnia) hydrochlorothiazide 25 mg Tablet 25 mg PO QAM mirtazapine 15 mg Tablet 15 mg PO BEDTIME fluoxetine 20 mg Capsule 20 mg PO DAILY No Action No Known Home Meds Discharge Orders: Discharge Order (Routine); Ordered 10/30/22 Ordered By: Lela Orr Diet: Regular diet Activity on Discharge: As tolerated Stand Alone Forms: Patient Portal Discharge page, Community Support Care Plan Goals: 1. Maintain mood 2. No SI/HI 3. Harm reduction- although substance of choice is crack cocaine and alcohol, it appears he has gotten laced substances with fentanyl, giving narcan at time of discharge. Health Concerns: Follow up with PCP Plan of Treatment: 1. Take medications as prescribed 2. Go to nearest ED or call 911 in event of emergency. Assessment: Pt with brighter, non labile. No SI.HI. no psychosis or delusions. No signs of aggression towards self or others. Pt sleeping and eating well. Discharge Date/Time: 10/30/22 11:30
--- NOTE | 2022-10-30 12:09 | PC.NURSE ---
Kameron was A/O X4, he appeared calm and pleasant, when asked if he had any thoughts of wanting to hurt self or others stated No, verbalized understanding when going over discharge paper work. No physical complaints.
== END 2022-10-30 11:30 | disposition home or self-care (01) | DRG 751 ==
LOC: HO.ED 10-28 15:28 → HO.PADLT16 10-28 15:59
PROVIDERS: Physician Assistant; Admitting Provider Social Worker; Emergency Provider Emergency Medicine Emergency Medical Services; Visit Provider Social Worker
DX: F33.1 Major depressive disorder, recurrent, moderate (principal); R45.851 Suicidal ideations; R45.850 Homicidal ideations; F17.210 Nicotine dependence, cigarettes, uncomplicated; F14.20 Cocaine dependence, uncomplicated; F10.20 Alcohol dependence, uncomplicated; F19.10 Other psychoactive substance abuse, uncomplicated; F90.9 Attention-deficit hyperactivity disorder, unspecified type; F43.10 Post-traumatic stress disorder, unspecified; Z20.822 Contact with and (suspected) exposure to COVID-19; Z71.6 Tobacco abuse counseling; Z79.899 Other long term (current) drug therapy
CPT/HCPCS: 80053; 80307; 81001; 85025; 87635; 93005; 99285; S9485

== ENCOUNTER 2022-11-19 00:35 | Emergency (ER) | payer MEDICAID, SELFPAY ==
[2022-11-19 00:40] VITALS: BP 150/80; PULSE 92; O2SAT 97
[2022-11-19 00:41] VITALS: BP 150/80; PULSE 92; RESP 18; O2SAT 97; BMI 30.9
--- NOTE | 2022-11-19 01:15 | PC.NURSE ---
Pt stayed in bathroom for over 10 minutes. When he came out, pt stated he is leaving. rail walker explained that it is not safe to leave, requesting provider evaluate pt at this time.
--- NOTE | 2022-11-19 01:16 | PC.NURSE ---
Pt stating if anyone touches me, it's not going to be good.
--- NOTE | 2022-11-19 01:21 | PC.NURSE ---
Dr Barbosa at bedside stated if pt attempted to leave, call Hunter [facility]LEY.
--- NOTE | 2022-11-19 01:32 | PC.NURSE ---
Addendum entered by Shereen Kat RN 11/19/22 01:35: Pt was offered help with psychiatry and with detox, he refused. Original Note: Pt attempted to leave ER. Security and [employer] were called. Pt continued to state that he was homicidal. PD explained the situation and gave pt options to either stay in ER or leave in protective custody. PD ended up taking the pt in custody and they left the ER. MD and charge aware.
--- NOTE | 2022-11-19 01:37 | ED.ALCOHOL ---
HPI - Alcohol General Chief Complaint: ETOH/Substance Use Stated Complaint: etoh Time Seen by Provider: 11/19/22 00:47 Related Data Previous Rx's Medication Instructions Recorded fluoxetine 20 mg capsule 20 mg PO DAILY #30 caps 10/30/22 hydrochlorothiazide 25 mg tablet 25 mg PO DAILY #30 tabs 10/30/22 melatonin 3 mg tablet 3 mg PO BEDTIME PRN Insomnia #30 10/30/22 tabs mirtazapine 15 mg tablet 15 mg PO BEDTIME #30 tabs 10/30/22 prazosin 1 mg capsule 1 mg PO BEDTIME #30 caps 10/30/22 Allergies Allergy/AdvReac Type Severity Reaction Status Date / Time Penicillins [PENICILLINS] Allergy Severe SWELLING Verified 10/17/22 05:57 AND ITCHING, THROAT CLOSES. PMFSH Past Medical History Medical History ADHD COVID-19 Depression PTSD (post-traumatic stress disorder) Surgical History History of abdominal surgery Social History Social History Household Members: None Housing: Homeless Do you presently have visiting nurse or other home services: No Alcohol intake: current Alcohol intake frequency: 3 or more drinks per day Alcohol type: beer and hard liquor Patient Tobacco Use Status: Current everyday Tobacco user Tobacco use type: Cigarette Cigarette Packs Per Day: 0.5 Cigarettes Per Day: 8 Second Hand Smoke Exposure: No Use of substances other than those prescribed or required for medical reasons: Yes Substance Use Type: Marijuana Advance Directives: No Advance Directives Information Provided: No service: No Current occupational status: employed Sexual orientation: Straight/Heterosexual Physical Exam ED Vital Signs: Vital Signs - 24 hr 11/19/22 00:41 Pulse Rate 92 Respiratory Rate 18 Blood Pressure 150/80 H Pulse Oximetry 97 Oxygen Delivery Method Room Air BMI result Body Mass Index 30.9 Discharge Plan Discharge Clinical Impression: Alcoholic intoxication Patient Disposition: Elopement Prescriptions: No Action prazosin 1 mg Capsule 1 mg PO BEDTIME Qty: 30 0RF Protocol: Hold for SBP< HOLD for SBP < : 90 melatonin 3 mg Tablet 3 mg PO BEDTIME PRN (Reason: Insomnia) Qty: 30 0RF hydrochlorothiazide 25 mg Tablet 25 mg PO DAILY Qty: 30 0RF Protocol: Hold for SBP< HOLD for SBP < : 90 mirtazapine 15 mg Tablet 15 mg PO BEDTIME Qty: 30 0RF fluoxetine 20 mg Capsule 20 mg PO DAILY Qty: 30 0RF Interventions: ED Discharge Assessment Last Done: 11/19/22 01:35
== END 2022-11-19 01:45 ==
PROVIDERS: Emergency Provider Student in an Organized Health Care Education/Training Program
DX: F10.220 Alcohol dependence with intoxication, uncomplicated (principal); Y90.9 Presence of alcohol in blood, level not specified; F17.210 Nicotine dependence, cigarettes, uncomplicated; F12.90 Cannabis use, unspecified, uncomplicated
CPT/HCPCS: 99283

== ENCOUNTER 2022-11-27 01:57 | Emergency (ER) | payer OTHER, MEDICAID, SELFPAY ==
[2022-11-27 02:03] VITALS: BP 123/81; PULSE 95; RESP 17; TEMP 36.8; O2SAT 96; BMI 26.6
--- NOTE | 2022-11-27 02:10 | ED.PSYCH ---
HPI - Psych General Chief Complaint: ETOH/Substance Use Stated Complaint: si/hi Time Seen by Provider: 11/27/22 01:58 Source: patient Mode of arrival: EMS Limitations: no limitations History of Present Illness HPI Narrative: Patient comes to the emergency room complaining of feeling suicidal. Patient states that he admits to using cocaine, marijuana, drinking alcohol. Patient states that he has been having arguments with his significant other who called the police on him. Patient states that he is feeling a bit suicidal, feels sometimes like hurting his girlfriend but does not want to actually do it therefore he agreed to come to the emergency room. Patient requesting to be sent to a dual diagnosis facility. Denies any other symptoms. Related Data Home Medications Medication Instructions Recorded Confirmed No Known Home Meds 11/27/22 11/27/22 Allergies Allergy/AdvReac Type Severity Reaction Status Date / Time Penicillins [PENICILLINS] Allergy Severe SWELLING Verified 10/17/22 05:57 AND ITCHING, THROAT CLOSES. Review of Systems Review of Systems: Constitutional : No Weight loss, No Fever, No Chills, No Night Sweats, No Fatigue, No Malaise ENT/Mouth : No Hearing loss, No Ear Pain, No Nasal Congestion, No Sinus Pain, No Hoarseness, No sore throat, No Rhinorrhea, No Swallowing Difficulty Eyes: No Eye Pain, No Swelling, No Redness, No Foreign Body, No Discharge, No Vision Changes Cardiovascular : No Chest Pain, No SOB, No Dyspnea on Exertion, No Orthopnea, No Edema, No Palpitations Respiratory : No Cough, No Sputum, No Wheezing, No Smoke Exposure, No Dyspnea Gastrointestinal : No Nausea, No Vomiting, No Diarrhea, No Constipation, No abdominal Pain, No Hematochezia, No Melena Genitourinary : no irregular bleeding, No Dysuria, No Urinary Frequency, No Hematuria, No Urinary Incontinence, No Urgency, No Flank Pain, No Urinary Flow Changes, No Hesitancy Musculoskeletal : No joint pain, No Myalgias, No Joint Swelling Skin : No Skin Lesions, No rash Neuro : No Weakness, No Numbness, No Paresthesias, No Loss of Consciousness, No Dizziness, No Headache Psych : No Anxiety/Panic, complaining of feeling suicidal, does have vague thoughts of hurting significant other Heme/Lymph: No Bruising, No Bleeding,No Lymphadenopathy Endocrine : No Polyuria, No Polydipsia, No Temperature Intolerance [facility] Past Medical History Medical History (Updated 11/27/22 @ 02:16 by Mary Steele MD) ADHD Alcohol use disorder, moderate, dependence Cocaine use disorder, moderate, dependence COVID-19 Depression PTSD (post-traumatic stress disorder) Surgical History History of abdominal surgery Social History Social History Household Members: None Housing: Homeless Do you presently have visiting nurse or other home services: No Alcohol intake: current Alcohol intake frequency: 3 or more drinks per day Alcohol type: beer and hard liquor Patient Tobacco Use Status: Current everyday Tobacco user Tobacco use type: Cigarette Cigarette Packs Per Day: 0.5 Cigarettes Per Day: 8 Second Hand Smoke Exposure: No Substance Use Type: Marijuana service: No Current occupational status: employed Sexual orientation: Straight/Heterosexual Physical Exam Vital Signs: Vital Signs: Last Vital Signs Temp 98.3 F 11/27/22 02:03 Pulse 95 11/27/22 02:03 Resp 17 11/27/22 02:03 BP 123/81 11/27/22 02:03 Pulse Ox 96 11/27/22 02:03 O2 Del Method Room Air 11/27/22 02:03 BMI result Body Mass Index 26.6 Const: Other: Appearance: Alert. Oriented X3. No acute distress. Eyes: Pupils equal, round and reactive to light. ENT: Pharynx normal. Neck: Normal inspection. Neck supple. No lymph nodes noted. No crepitus CVS: Normal heart rate and rhythm. Pulses normal. Normal S1 and S2 Respiratory: No respiratory distress. Breath sounds normal. No Wheezing. No rales Abdomen: Soft and nontender. No rigidity. No distention. Skin: Skin warm and dry. Normal skin color. Normal skin turgor. Extremities: No lower extremity edema. No Lacerations. No Rash Neuro: Oriented X 3. No motor deficit. No sensory deficit. Moving all extremities. No slurred speech. CN 2 through 12 grossly intact Psych: calm, cooperative, normal affect Course Course Course Narrative: -of patient's labs are pending -patient calm, cooperative -care team consult pending -physician observation started at 02:10 Discharge Plan Discharge Clinical Impression: Polysubstance abuse, Suicidal ideation Patient Disposition: Still a Patient
[2022-11-27 02:31] LABS: MANUAL DIFF FLAG NO
[2022-11-27 02:34] LABS: Basophils Absolute Auto 0.1 X10*3/uL (0.0-0.2); Basophils Percent Auto 0.9 % (0-2); Eosinophils Absolute Auto 0.1 X10*3/uL (0.0-0.4); Hematocrit 44.6 % (42.0-52.0); Hemoglobin 14.9 g/dl (14.0-18.0); Imm Gran Abs Auto 0.01 X10*3/uL (0.00-0.03); Imm Gran Pct Auto 0.1 % (0.0-0.4); Lymphocytes Absolute Auto 3.3 X10*3/uL (1.2-4.9); Lymphocytes Percent Auto 48.8 % (20-40); Mean Corpuscular HGB Conc 33.4 g/dl (31.0-36.0); Mean Corpuscular Hemoglobin 27.6 pg (27.0-33.0); Mean Corpuscular Volume 82.7 fL (80.0-98.0); Monocytes Absolute Auto 0.5 X10*3/uL (0.1-1.2); Monocytes Percent Auto 7.2 % (2-11); Neutrophils Absolute Auto 2.8 x10*3/uL (2.0-8.3); Platelet Count 290 X10*3/uL (160-400); Red Blood Count 5.39 X10*6/uL (4.60-5.80); Red Cell Distribution Width 15.5 % (11.0-16.0); White Blood Count 6.7 X10*3/uL (4.8-10.8)
[2022-11-27 02:47] LABS: COVID-19 Test Negative (Negative); IDNOW Serial# BCCEAD1C
[2022-11-27 02:54] LABS: Alanine Aminotransferase 35 U/L (0-40); Albumin Level 4.7 g/dL (3.5-5.0); Alkaline Phosphatase 92 U/L (39-117); Anion Gap 17 (12-20); Aspartate Amino Transferase 42 U/L (5-37); Bilirubin Total 0.7 mg/dL (0.0-1.0); Blood Urea Nitrogen 12 mg/dL (9-16); Calcium 9.7 mg/dL (8.4-10.2); Carbon Dioxide 20 mmol/L (22-29); Chloride 111 mmol/L (96-108); Creatinine Clr Calc Pharmacy 70.4; Estimated Glomerular Filt Rate > 60; Ethanol 125 mg/dL; Glucose Random 94 mg/dL (60-115); Potassium 3.9 mmol/L (3.3-5.1); Sodium 144 mmol/L (135-145); Total Protein 8.1 g/dL (6.5-8.0)
[2022-11-27 02:56] LABS: Appearance Urine Clear; Color Urine Yellow; Glucose Urine UA Negative (Negative); Leukocyte Esterase Urine Negative (Negative); Nitrite Urine Negative (Negative); Specific Gravity - Urine 1.015 (1.005-1.025); UMIC TRIGGER UA YES; Urine Blood Small (1+) (Negative); Urine Ketones Negative (Negative); Urine Protein Trace mg/dL (Neg-Trace)
[2022-11-27 02:59] LABS: Amphetamine Screen Urine Not Detected (Not Detect); Barbiturates, Urine Not Detected (Not Detect); Benzodiazepines Screen Urine POSITIVE (Not Detect); Cannabinoid Screen Urine POSITIVE (Not Detect); Cocaine Screen Urine POSITIVE (Not Detect); Fentanyl, urine POSITIVE (Not Detect); Opiate Screen Urine Not Detected (Not Detect); Phencyclidine Screen Urine Not Detected (Not Detect)
[2022-11-27 03:12] LABS: Bacteria Urine None Seen (None Seen); RBC Urine 0-2 /HPF (0-2); Squamous Epithelial Cell Urine 0-2 /HPF (0-2); WBC Urine 0-5 /HPF (0-5)
--- NOTE | 2022-11-27 05:17 | PC.NURSE ---
Patient in bed appears sleeping, no distress observed/reported, engaged well with care team, disposition pending but patient was sectioned due to HI towards his girlfriend, med rec reviewed/patient is currently not on any home medication, behavior non concerning, will continue to monitor.
[2022-11-27 08:30] VITALS: BP 125/82; PULSE 82; RESP 12; TEMP 36.6; O2SAT 95
--- NOTE | 2022-11-27 12:44 | MHC.CARE ---
Conducted Bed Search for pt. placement found at [facility] [address] , [facility] [address], Accpeting Dr. Barnes, ETA is AYESHA. Notified Pod nurse setting up transport
--- NOTE | 2022-11-27 13:22 | PC.NURSE ---
Nurse to Nurse report given to Pooja VILLA at [facility]
== END 2022-11-27 14:43 ==
PROVIDERS: Emergency Provider Emergency Medicine
DX: F19.10 Other psychoactive substance abuse, uncomplicated (principal); R45.851 Suicidal ideations; Z20.822 Contact with and (suspected) exposure to COVID-19; F10.20 Alcohol dependence, uncomplicated; Y90.6 Blood alcohol level of 120-199 mg/100 ml; F12.90 Cannabis use, unspecified, uncomplicated; F14.20 Cocaine dependence, uncomplicated; F33.1 Major depressive disorder, recurrent, moderate; F17.210 Nicotine dependence, cigarettes, uncomplicated
CPT/HCPCS: 36415; 80053; 80307; 81001; 81003; 85025; 87635; 99285; S9485

== ENCOUNTER 2023-03-04 20:17 | Emergency (ER) | payer MEDICAID, SELFPAY ==
--- NOTE | 2023-03-04 20:25 | ED_ITS ---
HPI - General Adult General Chief complaint: General Medical Stated complaint: crisis Time Seen by Provider: 03/04/23 20:25 Source: patient Mode of arrival: ambulatory Limitations: no limitations History of Present Illness HPI narrative: Patient had few drinks and then had verbal altercation with his girlfriend neighbors called police patient came here because of situation at home denied any homicidal feels cool at this time no psych history in the past would like to go home Related Data Home Medications Medication Instructions Recorded Confirmed No Known Home Meds 03/04/23 03/04/23 Allergies Allergy/AdvReac Type Severity Reaction Status Date / Time Penicillins [PENICILLINS] Allergy Severe SWELLING Verified 10/17/22 05:57 AND ITCHING, THROAT CLOSES. Review of Systems Review of Systems: Yes all other systems are reviewed and are negative [facility] Past Medical History Medical History Cocaine use disorder, moderate, dependence Alcohol use disorder, moderate, dependence COVID-19 ADHD PTSD (post-traumatic stress disorder) Depression Surgical History History of abdominal surgery Social History Social History Household Members: None Housing: Homeless Do you presently have visiting nurse or other home services: No Alcohol intake: current Alcohol intake frequency: 3 or more drinks per day Alcohol type: beer and hard liquor Patient Tobacco Use Status: Current everyday Tobacco user Tobacco use type: Cigarette Cigarette Packs Per Day: 0.5 Cigarettes Per Day: 8 Second Hand Smoke Exposure: No Substance Use Type: Marijuana Advance Directives: No Advance Directives Information Provided: No service: No Current occupational status: employed Sexual orientation: Straight/Heterosexual Physical Exam ED Vital Signs: BMI result Body Mass Index 26.6 Appearance: Alert. Oriented X3. No acute distress. Eyes: PERRLA, No Nystagmus ENT: Pharynx normal. Oral Mucosa moist Neck: Normal inspection. Neck supple. CVS: Normal heart rate and rhythm. Pulses normal. Respiratory: No respiratory distress. Equal air entry bilateral, no wheezing/rales/rhonchi Abdomen: Soft and nontender. Bowel sounds are present, no mass palpable, no CVA tenderness Skin: Skin warm and dry. Normal skin color. Normal skin turgor. Extremities: No lower extremity edema. No calf tenderness psych: Calm and cooperative denies any SI or HI no significant depression Neuro: Oriented X 3. No motor deficit. No sensory deficit.No cerebellar signs , cranial nerves II-XII intact Medical Decision Making Medical Decision Making MDM Narrative: Patient with mood disorder after drinking alcohol at this time patient clinically sober ambulatory with steady gait discharge patient home denies any psych history in the past Discharge Plan Discharge Clinical Impression: Mood disorder Patient Disposition: Home, Self-Care Instructions: Mood Disorders (ED) Additional Instructions: Care as advised Prescriptions: No Action No Known Home Meds Interventions: ED Discharge Assessment Last Done: 03/04/23 20:34 Discharge Date/Time: 03/04/23 20:52
[2023-03-04 20:30] VITALS: BMI 26.6
== END 2023-03-04 20:52 | disposition home or self-care (01) ==
LOC: HO.ED 20:43
PROVIDERS: Emergency Provider Internal Medicine
DX: F39 Unspecified mood [affective] disorder (principal)
CPT/HCPCS: 99282

== ENCOUNTER 2023-05-16 01:06 | Emergency (ER) | payer MEDICAID, OTHER, SELFPAY ==
[2023-05-16] VITALS (8 sets, daily range): BP systolic 125–151; BP diastolic 76–93; PULSE 76–103; RESP 16–18; TEMP 36.6–36.8; O2SAT 93–99; BMI 28.2
--- NOTE | 2023-05-16 01:34 | PC.NURSE ---
pt [place]AM[place] from [place]. pt reports walking self to [place] police station requesting help. pt reports he would like detox from crack and rehab for alcohol use. pt reports using crack this morning and having a few fireball nips . pt reports previous symptom of alcohol withdraw including sweating and muscle tremors. Pt CIWA currently 0. pt requesting psych consult due to depression, pt reports being treated with depression medications. pt denies SI/HI. security at beside to assist pt with cell changer, belongings secured in decon at this time.
[2023-05-16 02:41] LABS: MANUAL DIFF FLAG NO
[2023-05-16 02:42] LABS: Basophils Percent Auto 0.5 % (0-2); Eosinophils Absolute Auto 0.1 X10*3/uL (0.0-0.4); Eosinophils Percent Auto 0.7 % (0-4); Hematocrit 41.4 % (42.0-52.0); Hemoglobin 13.8 g/dl (14.0-18.0); Imm Gran Abs Auto 0.03 X10*3/uL (0.00-0.03); Imm Gran Pct Auto 0.3 % (0.0-0.4); Lymphocytes Percent Auto 33.8 % (20-40); Mean Corpuscular HGB Conc 33.3 g/dl (31.0-36.0); Mean Corpuscular Hemoglobin 28.2 pg (27.0-33.0); Mean Corpuscular Volume 84.7 fL (80.0-98.0); Mean Platelet Volume 9.2 fL (9.4-12.4); Monocytes Absolute Auto 0.5 X10*3/uL (0.1-1.2); Monocytes Percent Auto 5.8 % (2-11); Neutrophils Absolute Auto 5.2 x10*3/uL (2.0-8.3); Neutrophils Percent Auto 58.9 % (45-73); Platelet Count 285 X10*3/uL (160-400); Red Blood Count 4.89 X10*6/uL (4.60-5.80); Red Cell Distribution Width 14.9 % (11.0-16.0); White Blood Count 8.8 X10*3/uL (4.8-10.8)
[2023-05-16 02:57] LABS: Alanine Aminotransferase 20 U/L (0-40); Albumin Level 4.7 g/dL (3.5-5.0); Alkaline Phosphatase 73 U/L (39-117); Anion Gap 16 (12-20); Aspartate Amino Transferase 22 U/L (5-37); Bilirubin Total 0.5 mg/dL (0.0-1.0); Blood Urea Nitrogen 18 mg/dL (9-16); Calcium 9.8 mg/dL (8.4-10.2); Carbon Dioxide 20 mmol/L (22-29); Chloride 110 mmol/L (96-108); Creatinine Clr Calc Pharmacy 72.6; Estimated Glomerular Filt Rate > 60; Ethanol 74 mg/dL; Glucose Random 116 mg/dL (60-115); Sodium 142 mmol/L (135-145)
--- NOTE | 2023-05-16 03:17 | ED_ITS ---
HPI - Psych General Chief Complaint: ETOH/Substance Use Stated Complaint: unsafe Time Seen by Provider: 05/16/23 02:59 Source: patient Mode of arrival: EMS Limitations: no limitations History of Present Illness HPI Narrative: Patient history of alcohol use cocaine and heroin use alcohol use with depression but upset with his roommate came to the hospital before something bad happens denies any SI or HI but was felt that he could not control himself patient asking for some help does not have any psychiatrist or therapist Related Data Home Medications Medication Instructions Recorded Confirmed No Known Home Meds 03/04/23 03/04/23 Allergies Allergy/AdvReac Type Severity Reaction Status Date / Time Penicillins [PENICILLINS] Allergy Severe SWELLING Verified 05/16/23 01:29 AND ITCHING, THROAT CLOSES. Review of Systems 2 Review of Systems: Yes all other systems are reviewed and are negative PMFSH Past Medical History Medical History Cocaine use disorder, moderate, dependence Alcohol use disorder, moderate, dependence COVID-19 ADHD PTSD (post-traumatic stress disorder) Depression Surgical History History of abdominal surgery Social History Household Members: None Housing: Homeless Do you presently have visiting nurse or other home services: No Alcohol intake: current Alcohol intake frequency: 3 or more drinks per day Alcohol type: beer and hard liquor Patient Tobacco Use Status: Current everyday Tobacco user Tobacco use type: Cigarette Cigarette Packs Per Day: 0.5 Cigarettes Per Day: 8 Smoked in Last 30 Days: No Second Hand Smoke Exposure: No Use of substances other than those prescribed or required for medical reasons: Yes Substance Use Type: Crack/Cocaine Advance Directives: No Advance Directives Information Provided: Yes service: No Current occupational status: employed Sexual orientation: Straight/Heterosexual Physical Exam 2 Vital Signs: Vital Signs: Last Vital Signs Temp 97.9 F 05/16/23 05:00 Pulse 103 H 05/16/23 05:00 Resp 16 05/16/23 05:00 BP 125/76 05/16/23 05:00 Pulse Ox 93 05/16/23 05:00 O2 Del Method Room Air 05/16/23 05:00 BMI result Body Mass Index 28.2 Appearance: Alert. Oriented X3. No acute distress. Eyes: PERRLA, No Nystagmus ENT: Pharynx normal. Oral Mucosa moist Neck: Normal inspection. Neck supple. CVS: Normal heart rate and rhythm. Pulses normal. Respiratory: No respiratory distress. Equal air entry bilateral, no wheezing/rales/rhonchi Abdomen: Soft and nontender. Bowel sounds are present, no mass palpable, no CVA tenderness Skin: Skin warm and dry. Normal skin color. Normal skin turgor. Extremities: No lower extremity edema. No calf tenderness psych: Feel depressed denies any SI or HI no hallucination or delusion Neuro: Oriented X 3. No motor deficit. No sensory deficit.No cerebellar signs , cranial nerves II-XII intact Medications Administered Discontinued Medications Generic Name Dose Route Start Last Admin Trade Name Freq PRN Reason Stop Dose Admin Lorazepam 2 mg 05/16/23 03:17 05/16/23 04:18 Lorazepam 1 Mg Tablet PO 05/16/23 03:18 2 mg ONCE ONE Administration Medical Decision Making Medical Decision Making [facility] Narrative: Patient with substance abuse with major depression asking for detox will get care time involved Differential Diagnosis Differential Diagnoses: The differential diagnosis associated with the presentation includes As above Lab Data [facility] Lab Attestation statement: I reviewed the patient's lab results. 05/16/23 02:37 05/16/23 02:37 Labs: Lab Results 05/16/23 Range/Units 02:37 WBC 8.8 (4.8-10.8) X10*3/uL RBC 4.89 (4.60-5.80) X10*6/uL Hgb 13.8 L (14.0-18.0) g/dl Hct 41.4 L (42.0-52.0) % MCV 84.7 (80.0-98.0) fL MCH 28.2 (27.0-33.0) pg MCHC 33.3 (31.0-36.0) g/dl RDW 14.9 (11.0-16.0) % Plt Count 285 (160-400) X10*3/uL MPV 9.2 L (9.4-12.4) fL Immature Gran % (Auto) 0.3 (0.0-0.4) % Neut % (Auto) 58.9 (45-73) % Lymph % (Auto) 33.8 (20-40) % [place] % (Auto) 5.8 (2-11) % Eos % (Auto) 0.7 (0-4) % Baso % (Auto) 0.5 (0-2) % Lymph # (Auto) 3.0 (1.2-4.9) X10*3/uL [place] # (Auto) 0.5 (0.1-1.2) X10*3/uL Eos # (Auto) 0.1 (0.0-0.4) X10*3/uL Baso # (Auto) 0.0 (0.0-0.2) X10*3/uL Abs Immat Gran (auto) 0.03 (0.00-0.03) X10*3/uL Absolute Neuts (auto) 5.2 (2.0-8.3) x10*3/uL Absolute Nucleated RBC 0.000 (0.0-0.012) X10*3/uL Nucleated RBC % (auto) 0.0 (0.0-0.2) /100WBC Sodium 142 (135-145) mmol/L Potassium 4.0 (3.3-5.1) mmol/L Chloride 110 H (96-108) mmol/L Carbon Dioxide 20 L (22-29) mmol/L Anion Gap 16 (12-20) BUN 18 H (9-16) mg/dL Creatinine 1.23 (0.5-1.4) mg/dL Estim Creat Clear Calc 72.6 Estimated GFR > 60 Random Glucose 116 H (60-115) mg/dL Calcium 9.8 (8.4-10.2) mg/dL Total Bilirubin 0.5 (0.0-1.0) mg/dL AST 22 (5-37) U/L ALT 20 (0-40) U/L Alkaline Phosphatase 73 (39-117) U/L Total Protein 8.0 (6.5-8.0) g/dL Albumin 4.7 (3.5-5.0) g/dL Ethyl Alcohol 74 mg/dL Discharge Plan Discharge Clinical Impression: Alcoholic intoxication, Polysubstance abuse, Major depression Patient Disposition: Still a Patient Prescriptions: No Action No Known Home Meds
[2023-05-16] MEDS: LORazepam 1 MG TABLET 2 MG PO (04:18)
--- NOTE | 2023-05-16 07:36 | MHC.CARE ---
CARE Team consult placed for depression. Pt reports to t/w he is requesting detox admission as he has been using daily since 04/30/23. Plan for recovery team to meet with Pt for detox placement.
--- NOTE | 2023-05-16 08:00 | PC.NURSE ---
patient appears to be asleep, respirations equal and unlabored.
--- NOTE | 2023-05-16 10:37 | PC.NURSE ---
patient was on phone with detox intake, microbiology coordinator spoke with this RN stating patient was endorsing HI and could nt be placed at their facility. this RN spoke with patient and he states he started having thoughts of homicial ideation last night due to his signficant other calling the police on him, patient states he only has these thoughts towards significant other and no one else. patient denies SI
--- NOTE | 2023-05-16 10:41 | MHC.RECOVRN ---
Met with pt in ED6 after pt cleared by CARE Team and requesting ATS. Pt laying in bed, awake, alert, easily engages in conversation. Pt reports alcohol use, 6 beers and 1/2 pint Fireball daily x 1 week and is interested in going to ATS. Pt has been to [facility] in the past, will go anywhere except that facility. After bedsearch conducted, a bed is available at [facility] in [place]. Pt attempted phone screen, however, informed intake at the facility he is homicidal. Due to that, pt will be referred back to CARE Team. Discussed with provider and RN.
--- NOTE | 2023-05-16 17:09 | PC.NURSE ---
Patient is alert and oriented and able to make needs known. Patient is ambulatory and able to move freely around unit. Patient has a good appetite and ate 100% of lunch. Patient eating a turkey sandwhich in his room at this time.
--- NOTE | 2023-05-16 19:16 | PC.NURSE ---
patient appears to remain at rest at present respirations are even and unlabored patient appears in no distress.
[2023-05-16 19:47] LABS: Amphetamine Screen Urine Not Detected (Not Detect); Barbiturates, Urine Not Detected (Not Detect); Benzodiazepines Screen Urine Not Detected (Not Detect); Cannabinoid Screen Urine POSITIVE (Not Detect); Cocaine Screen Urine POSITIVE (Not Detect); Fentanyl, urine Not Detected (Not Detect); Opiate Screen Urine Not Detected (Not Detect); Phencyclidine Screen Urine Not Detected (Not Detect)
[2023-05-16] MEDS: cloNIDine HCL 0.1 MG TABLET PO (19:54)
[2023-05-16] MEDS: hydrOXYzine HCL 50 MG TABLET PO (19:54)
[2023-05-16 19:55] LABS: Appearance Urine Clear; Color Urine Yellow; Glucose Urine UA Negative (Negative); Leukocyte Esterase Urine Negative (Negative); Nitrite Urine Negative (Negative); PH 5.5 (5.0-9.0); Specific Gravity - Urine 1.025 (1.005-1.025); Urine Blood Negative (Negative); Urine Ketones Negative (Negative); Urine Protein Negative (Neg-Trace)
[2023-05-16 19:57] LABS: Bacteria Urine None Seen (None Seen); Hyaline Casts Urine 0-2 /LPF (0-2); RBC Urine 0-2 /HPF (0-2); Squamous Epithelial Cell Urine 0-2 /HPF (0-2); WBC Urine 0-5 /HPF (0-5)
[2023-05-17 02:08] VITALS: BP 114/79; PULSE 69; RESP 17; TEMP 36.2; O2SAT 97
--- NOTE | 2023-05-17 08:49 | MHC.CARE ---
RAD Team completed referral to [facility] for individual therapy, RAD Team to f/u tomorrow (05/18)
--- NOTE | 2023-05-17 08:51 | PC.NURSE ---
patient alert and oriented and able to make needs known. patient has a good appetite and ate 100% of breakfast. Patient advocating for discharge. Denies SI/HI. Patient discharged from facility with belongings.
== END 2023-05-17 08:52 | disposition home or self-care (01) ==
PROVIDERS: Emergency Provider Internal Medicine
DX: F10.220 Alcohol dependence with intoxication, uncomplicated (principal); Y90.3 Blood alcohol level of 60-79 mg/100 ml; F19.10 Other psychoactive substance abuse, uncomplicated; F32.9 Major depressive disorder, single episode, unspecified; F14.20 Cocaine dependence, uncomplicated; F90.9 Attention-deficit hyperactivity disorder, unspecified type; F43.10 Post-traumatic stress disorder, unspecified; F17.210 Nicotine dependence, cigarettes, uncomplicated
CPT/HCPCS: 36415; 80053; 80307; 81001; 85025; 99285; S9485

== ENCOUNTER 2023-07-04 05:15 | Emergency (ER) | payer MEDICAID, SELFPAY ==
--- NOTE | 2023-07-04 05:27 | ED.ALCOHOL ---
HPI - Alcohol General Chief Complaint: ETOH/Substance Use Stated Complaint: etoh Time Seen by Provider: 07/04/23 05:26 Source: patient, EMS and old records reviewed Mode of arrival: EMS Limitations: other (ETOH use) History of Present Illness HPI narrative: 52 yo male with PMH of depression, substance abuse, ETOH abuse here with c/o not being safe in the community and noting that he could do something if he stays out there. He notes he is dual dx and is not doing well mentally. He has no SI right now but he might. I offered recovery coaches and detox to the patient but he refuses and states he is in need of mental health care. MD complaint: alcohol intoxication Last drink: Hours (ago) Chronic alcohol use: Yes Previous visits for alcohol intoxication: Yes Recent trauma: No Associated symptoms: depression Treatments prior to arrival: none Related Data Home Medications Medication Instructions Recorded Confirmed No Known Home Meds 05/16/23 05/16/23 Allergies Allergy/AdvReac Type Severity Reaction Status Date / Time Penicillins [PENICILLINS] Allergy Severe SWELLING Verified 07/04/23 05:31 AND ITCHING, THROAT CLOSES. Review of Systems Review of Systems: Constitutional : No Fever, No Chills ENT/Mouth : No Ear Pain, No Nasal Congestion, No sore throat Eyes: No Eye Pain, No Swelling, No Redness Cardiovascular : No Chest Pain, No SOB Respiratory : No Cough, No Sputum, No Dyspnea Gastrointestinal : No Nausea, No Vomiting, No Diarrhea, No Hematochezia, No Melena Genitourinary : No Dysuria, No Urinary Frequency, No Hematuria Musculoskeletal : No Myalgias Skin : No Skin Lesions, No rash Neuro : No Weakness, No Numbness, No Paresthesias, No Dizziness, No Headache Psych : positive Anxiety, positive Depression, no SI/HI All other systems reviewed and are negative PMFSH Past Medical History Attestation statement: The following information was validated with the patient. Source: old records reviewed Onset Date is defined in the Problem List Problems that require an onset date and time if occurred within 24 hrs of arrival to the ED Aortic Dissection and Rupture; Neurologic impairment; Cardiopulmonary Arrest; Endotracheal Intubation; Insertion or Replacement of Mechanical Circulatory Assist Device Medical History Cocaine use disorder, moderate, dependence Alcohol use disorder, moderate, dependence COVID-19 ADHD PTSD (post-traumatic stress disorder) Depression Surgical History History of abdominal surgery Social History Social History Household Members: None Housing: Homeless Do you presently have visiting nurse or other home services: No Alcohol intake: current Alcohol intake frequency: 3 or more drinks per day Alcohol type: beer and hard liquor Patient Tobacco Use Status: Current everyday Tobacco user Tobacco use type: Cigarette Cigarette Packs Per Day: 0.5 Cigarettes Per Day: 8 Smoked in Last 30 Days: No Second Hand Smoke Exposure: No Use of substances other than those prescribed or required for medical reasons: Yes Substance Use Type: Crack/Cocaine and Marijuana Advance Directives: No Advance Directives Information Provided: Yes service: No Current occupational status: employed Sexual orientation: Straight/Heterosexual Physical Exam ED Vital Signs: Vital Signs - 24 hr 07/04/23 05:31 Temperature 98.3 F Pulse Rate 100 Respiratory Rate 18 Blood Pressure 128/91 H Pulse Oximetry 96 Oxygen Delivery Method Room Air BMI result Body Mass Index 27.5 Appearance: Alert. Oriented X3. No acute distress. Eyes: Pupils equal, round and reactive to light. ENT: Pharynx normal. Neck: Normal inspection. Neck supple. CVS: Normal heart rate and rhythm. Pulses normal. Respiratory: No respiratory distress. Breath sounds normal. Abdomen: Soft and nontender. Skin: Skin warm and dry. Normal skin color. Normal skin turgor. Extremities: No lower extremity edema. No calf ttp Neuro: Oriented X 3. No motor deficit. No sensory deficit. CN2-12 intact Course Course Course Narrative: Physician observation started at 609am. Patient placed in physician observation because the patient needed more time for CARE team and recovery team to asses the need for psych admission. At the time observation was started the patient's vitals were stable, patient is alert and oriented but slightly anxious, Neuro: nonfocal, CV RRR, Lungs clear Medical Decision Making Medical Decision Making [facility] Narrative: 52 yo male with PMH of depression, substance abuse, ETOH abuse here with c/o depresion and being in mental health crisis - at this time will need labs and CARE team consult he decline detox right now Differential Diagnosis Differential Diagnoses: The differential diagnosis associated with the presentation includes alcohol abuse Admission/Observation Consideration of admission/observation: Escalation of care including admission/observation considered observe until clinically sober Consult Healthcare Provider Management of the patient was discussed with: Behavioral Health Provider Lab Data MDM Lab Attestation statement: I reviewed the patient's lab results. 07/04/23 06:24 07/04/23 06:24 Labs: Lab Results 07/04/23 Range/Units 06:24 WBC 14.2 H (4.8-10.8) X10*3/uL RBC 5.08 (4.60-5.80) X10*6/uL Hgb 14.6 (14.0-18.0) g/dl Hct 42.8 (42.0-52.0) % MCV 84.3 (80.0-98.0) fL MCH 28.7 (27.0-33.0) pg MCHC 34.1 (31.0-36.0) g/dl RDW 14.5 (11.0-16.0) % Plt Count 224 (160-400) X10*3/uL MPV 9.2 L (9.4-12.4) fL Immature Gran % (Auto) 0.7 H (0.0-0.4) % Neut % (Auto) 82.3 H (45-73) % Lymph % (Auto) 11.4 L (20-40) % [place] % (Auto) 5.1 (2-11) % Eos % (Auto) 0.1 (0-4) % Baso % (Auto) 0.4 (0-2) % Lymph # (Auto) 1.6 (1.2-4.9) X10*3/uL [place] # (Auto) 0.7 (0.1-1.2) X10*3/uL Eos # (Auto) 0.0 (0.0-0.4) X10*3/uL Baso # (Auto) 0.1 (0.0-0.2) X10*3/uL Abs Immat Gran (auto) 0.10 H (0.00-0.03) X10*3/uL Absolute Neuts (auto) 11.7 H (2.0-8.3) x10*3/uL Absolute Nucleated RBC 0.000 (0.0-0.012) X10*3/uL Nucleated RBC % (auto) 0.0 (0.0-0.2) /100WBC Independent Historian Clinical information obtained from an independent historian. History obtained from or confirmed by: EMS External Record Review External record reviewed: Inpatient record Social Determinants Patient?s care significantly limited by Social Determinants of Health including: Inadequate housing and Problems related to primary support group Discharge Plan Discharge Clinical Impression: Alcohol use disorder, moderate, dependence, MDD (major depressive disorder), recurrent episode, moderate Patient Disposition: Still a Patient Prescriptions: No Action No Known Home Meds
[2023-07-04 05:31] VITALS: BP 128/91; BP 160/98; PULSE 100; PULSE 95; RESP 18; TEMP 36.8; O2SAT 95; O2SAT 96; BMI 27.5
[2023-07-04 06:30] LABS: Basophils Absolute Auto 0.1 X10*3/uL (0.0-0.2); Basophils Percent Auto 0.4 % (0-2); Eosinophils Percent Auto 0.1 % (0-4); Hematocrit 42.8 % (42.0-52.0); Hemoglobin 14.6 g/dl (14.0-18.0); Imm Gran Pct Auto 0.7 % (0.0-0.4); Lymphocytes Absolute Auto 1.6 X10*3/uL (1.2-4.9); Lymphocytes Percent Auto 11.4 % (20-40); MANUAL DIFF FLAG NO; Mean Corpuscular HGB Conc 34.1 g/dl (31.0-36.0); Mean Corpuscular Hemoglobin 28.7 pg (27.0-33.0); Mean Corpuscular Volume 84.3 fL (80.0-98.0); Mean Platelet Volume 9.2 fL (9.4-12.4); Monocytes Absolute Auto 0.7 X10*3/uL (0.1-1.2); Monocytes Percent Auto 5.1 % (2-11); Neutrophils Absolute Auto 11.7 x10*3/uL (2.0-8.3); Neutrophils Percent Auto 82.3 % (45-73); Platelet Count 224 X10*3/uL (160-400); Red Blood Count 5.08 X10*6/uL (4.60-5.80); Red Cell Distribution Width 14.5 % (11.0-16.0); White Blood Count 14.2 X10*3/uL (4.8-10.8)
[2023-07-04 06:42] LABS: COVID-19 Test Negative (Negative); IDNOW Serial# 6674DD1D
[2023-07-04 06:51] LABS: Alanine Aminotransferase 19 U/L (0-40); Albumin Level 4.6 g/dL (3.5-5.0); Alkaline Phosphatase 87 U/L (39-117); Anion Gap 17 (12-20); Aspartate Amino Transferase 26 U/L (5-37); Bilirubin Direct 0.3 mg/dL (0.0-0.5); Bilirubin Total 0.8 mg/dL (0.0-1.0); Blood Urea Nitrogen 12 mg/dL (9-16); Calcium 9.6 mg/dL (8.4-10.2); Carbon Dioxide 18 mmol/L (22-29); Chloride 112 mmol/L (96-108); Creatinine Clr Calc Pharmacy 75.7; Estimated Glomerular Filt Rate > 60; Ethanol 186 mg/dL; Glucose Random 82 mg/dL (60-115); Magnesium 2.1 mg/dL (1.6-2.6); Potassium 3.8 mmol/L (3.3-5.1); Sodium 143 mmol/L (135-145)
[2023-07-04 07:06] LABS: Amphetamine Screen Urine Not Detected (Not Detect); Barbiturates, Urine Not Detected (Not Detect); Benzodiazepines Screen Urine Not Detected (Not Detect); Cannabinoid Screen Urine POSITIVE (Not Detect); Cocaine Screen Urine POSITIVE (Not Detect); Fentanyl, urine Not Detected (Not Detect); Opiate Screen Urine Not Detected (Not Detect); Phencyclidine Screen Urine Not Detected (Not Detect)
[2023-07-04 07:37] VITALS: BP 122/73; PULSE 91; RESP 18; TEMP 36.7; O2SAT 98
--- NOTE | 2023-07-04 08:52 | PC.NURSE ---
assumed care of this pt at 0700. pt denies pain, vss. breakfast ordered. pt medically cleared and is waiting on General Utility Worker.
[2023-07-04 11:00] VITALS: BP 145/94; PULSE 102; RESP 18; O2SAT 96
--- NOTE | 2023-07-04 12:20 | PC.NURSE ---
pt cleared for discharge. discharge instructions reviewed with pt. pt escorted to [facility] to retrieve hi belongings. denies pain.
--- NOTE | 2023-07-04 14:44 | MHC.RECOVRN ---
Recovery Support RN met with patient in ED-21 for Addiction Medicine Consult for Alcohol and Cocaine use. Patient resting in bed, appears restless but A&Ox3, cooperative. Reports he has a problem with drinking alcohol, and does not feel he has any addiction to cocaine. He's been drinking 1 pint of fireball and large cans of Natty Daddy daily. He reports daily drinking, but binges every few days- more frequently lately. Last drink was around 8pm yesterday. Reports crack use is 1-2x/month via smoking. He usually smokes $50 worth each time. Last use was also around 8pm yesterday. Admits that he uses crack only when he binge drinks. Currently, he reports feeling sweaty, hot/cold flashes, restless, and anxious. He reports a long history of alcohol abuse, and has sought treatment at inpatient facilities but unable to recall specific places. He was able to recover completely for 10 months a few years ago . His current goal is to completely abstain from alcohol. He wants inpatient treatment program. Will ask CARE Team to assist with bed search. Provided him with recovery resource material, left at bedside. Discussed with Concha Colby APRN.
== END 2023-07-04 12:23 | disposition home or self-care (01) ==
PROVIDERS: Emergency Medicine; Emergency Provider Emergency Medicine
DX: F10.20 Alcohol dependence, uncomplicated (principal); Y90.6 Blood alcohol level of 120-199 mg/100 ml; F33.1 Major depressive disorder, recurrent, moderate; Z11.52 Encounter for screening for COVID-19; F14.20 Cocaine dependence, uncomplicated; F90.9 Attention-deficit hyperactivity disorder, unspecified type; F43.10 Post-traumatic stress disorder, unspecified; F17.210 Nicotine dependence, cigarettes, uncomplicated
CPT/HCPCS: 80048; 80076; 80307; 83735; 85025; 87635; 99284; 99285

== ENCOUNTER 2023-07-16 05:10 | Emergency (ER) | payer OTHER, MEDICAID, SELFPAY ==
[2023-07-16 05:16] VITALS: BP 145/94; PULSE 98; RESP 16; TEMP 36.9; O2SAT 96; BMI 27.2
--- NOTE | 2023-07-16 05:44 | PC.NURSE ---
Med rec done, Pt verbalize home meds.
[2023-07-16 05:52] LABS: MANUAL DIFF FLAG NO
[2023-07-16 05:53] LABS: Basophils Absolute Auto 0.1 X10*3/uL (0.0-0.2); Basophils Percent Auto 0.5 % (0-2); Eosinophils Percent Auto 0.1 % (0-4); Hematocrit 43.1 % (42.0-52.0); Hemoglobin 14.2 g/dl (14.0-18.0); Imm Gran Abs Auto 0.04 X10*3/uL (0.00-0.03); Imm Gran Pct Auto 0.4 % (0.0-0.4); Lymphocytes Absolute Auto 3.1 X10*3/uL (1.2-4.9); Lymphocytes Percent Auto 29.1 % (20-40); Mean Corpuscular HGB Conc 32.9 g/dl (31.0-36.0); Mean Corpuscular Hemoglobin 27.4 pg (27.0-33.0); Mean Platelet Volume 8.6 fL (9.4-12.4); Monocytes Percent Auto 9.2 % (2-11); Neutrophils Absolute Auto 6.6 x10*3/uL (2.0-8.3); Neutrophils Percent Auto 60.7 % (45-73); Platelet Count 326 X10*3/uL (160-400); Red Blood Count 5.19 X10*6/uL (4.60-5.80); Red Cell Distribution Width 13.7 % (11.0-16.0); White Blood Count 10.8 X10*3/uL (4.8-10.8)
[2023-07-16 06:06] LABS: Alanine Aminotransferase 21 U/L (0-40); Albumin Level 4.9 g/dL (3.5-5.0); Alkaline Phosphatase 94 U/L (39-117); Anion Gap 18 (12-20); Aspartate Amino Transferase 22 U/L (5-37); Bilirubin Total 0.4 mg/dL (0.0-1.0); Blood Urea Nitrogen 16 mg/dL (9-16); Calcium 9.7 mg/dL (8.4-10.2); Carbon Dioxide 19 mmol/L (22-29); Chloride 108 mmol/L (96-108); Creatinine Clr Calc Pharmacy 70.9; Estimated Glomerular Filt Rate > 60; Ethanol 123 mg/dL; Glucose Random 69 mg/dL (60-115); Magnesium 2.1 mg/dL (1.6-2.6); Potassium 4.3 mmol/L (3.3-5.1); Sodium 141 mmol/L (135-145); Total Protein 8.5 g/dL (6.5-8.0)
--- NOTE | 2023-07-16 06:20 | ED.ALCOHOL ---
HPI - Alcohol General Chief Complaint: Psychiatric Symptoms Stated Complaint: Crisis Time Seen by Provider: 07/16/23 06:00 Source: patient Mode of arrival: ambulatory History of Present Illness HPI narrative: 52-year-old male presents with request for detox, patient states that he smokes crack/weed and drinks alcohol. Patient also endorses that he is currently out on bail and has a electorate officer with whom he is supposed to have an appointment today. Patient states that when his significant other and he began drinking they began arguing and even though he is giving her some money she is kicked him out of the house and called the government service executive on him. Patient states that he is interested in having detox but that it can not be local or he will not be successful. He denies SI/AVH. But endorses that he feels very angry towards his significant other. Related Data Home Medications Medication Instructions Recorded Confirmed fluoxetine 20 mg capsule 20 mg PO DAILY 07/16/23 07/16/23 hydroxyzine HCl 50 mg tablet 50 mg PO BID 07/16/23 07/16/23 mirtazapine 15 mg tablet 15 mg PO BEDTIME 07/16/23 07/16/23 prazosin 1 mg capsule 1 mg PO BEDTIME 07/16/23 07/16/23 Allergies Allergy/AdvReac Type Severity Reaction Status Date / Time Penicillins [PENICILLINS] Allergy Severe SWELLING Verified 07/16/23 05:16 AND ITCHING, THROAT CLOSES. Review of Systems Review of Systems: Pertinent positives and negatives as stated in HPI PMF Past Medical History Source: nursing notes reviewed Medical History Cocaine use disorder, moderate, dependence Alcohol use disorder, moderate, dependence COVID-19 ADHD PTSD (post-traumatic stress disorder) Depression Surgical History History of abdominal surgery Social History Social History Household Members: None Housing: Homeless Do you presently have visiting nurse or other home services: No Alcohol intake: current Alcohol intake frequency: 3 or more drinks per day Alcohol type: beer and hard liquor Patient Tobacco Use Status: Current everyday Tobacco user Tobacco use type: Cigarette Cigarette Packs Per Day: 0.5 Cigarettes Per Day: 8 Second Hand Smoke Exposure: No Substance Use Type: Crack/Cocaine and Marijuana Advance Directives: No Advance Directives Information Provided: No service: No Current occupational status: employed Sexual orientation: Straight/Heterosexual Physical Exam ED Vital Signs: Vital Signs - 24 hr 07/16/23 05:16 Temperature 98.5 F Pulse Rate 98 Respiratory Rate 16 Blood Pressure 145/94 H Pulse Oximetry 96 Oxygen Delivery Method Room Air BMI result Body Mass Index 27.2 VITAL SIGNS: Reviewed. GENERAL: Well developed, well nourished, in no acute distress. HEAD: Normocephalic/atraumatic EYES: PERRLA, EOMI EARS: Ext canals without abnormality NOSE: Nares patent bilateral OROPHARYNX: no oral lesions noted, posterior pharynx clear NECK: Supple, no adenopathy LUNGS: Normal breath sounds. No adventitious sounds or accessory muscle use. SpO2<96> CARDIOVASCULAR: Regular rate and rhythm without noted murmurs ABDOMEN: Soft, non-tender, non-distended with bowel sounds. MUSCULOSKELETAL: No tenderness, deformities, or effusions noted on gross inspection. EXTREMITIES: No cyanosis, clubbing or edema. LLE: There is a clean based wound to the anterior aspect of the left lower tibia, there is no surrounding erythema or induration, there is no drainage SKIN: Inspection of the skin reveals no rashes NEUROLOGIC: Alert and oriented x 4. Strength and sensation to light touch were grossly intact x 4, cranial nerves 2-12 are grossly intact. Medical Decision Making Medical Decision Making MDM Narrative: 52-year-old male with history and clinical presentation, DDX: etoh intoxication, HI, requesting detox Reviewed all investigations and hematologic indices are negative for leukocytosis or left shift, there is no anemia or thrombocytopenia. Chemistry disease do not demonstrate EARL or electrolyte/liver enzyme derangements. UDS is positive for cocaine/marijuana and BAL-123. COVID-19 is negative. Patient has a wound the anterior aspect of the left lower leg that does not appear to be infected, although patient feels that this might be secondary to a spider bite, the differential may also include cancer. Patient is otherwise medically cleared Patient placed in physician observation because the patient needed more time for evaluation by the care team for detox. At the time observation was started the patient's vital signs were stable, patient is alert and oriented, neuro: Nonfocal, CV RRR, lungs clear Differential Diagnosis Differential Diagnoses: The differential diagnosis associated with the presentation includes Please see the discussion above Admission/Observation Consideration of admission/observation: Escalation of care including admission/observation considered Please see the discussion above Lab Data MDM Lab Attestation statement: I reviewed the patient's lab results. Please see the discussion above 07/16/23 05:37 07/16/23 05:37 Labs: Lab Results 07/16/23 Range/Units 05:37 WBC 10.8 (4.8-10.8) X10*3/uL RBC 5.19 (4.60-5.80) X10*6/uL Hgb 14.2 (14.0-18.0) g/dl Hct 43.1 (42.0-52.0) % MCV 83.0 (80.0-98.0) fL MCH 27.4 (27.0-33.0) pg MCHC 32.9 (31.0-36.0) g/dl RDW 13.7 (11.0-16.0) % Plt Count 326 D (160-400) X10*3/uL MPV 8.6 L (9.4-12.4) fL Immature Gran % (Auto) 0.4 (0.0-0.4) % Neut % (Auto) 60.7 (45-73) % Lymph % (Auto) 29.1 (20-40) % [place] % (Auto) 9.2 (2-11) % Eos % (Auto) 0.1 (0-4) % Baso % (Auto) 0.5 (0-2) % Lymph # (Auto) 3.1 (1.2-4.9) X10*3/uL [place] # (Auto) 1.0 (0.1-1.2) X10*3/uL Eos # (Auto) 0.0 (0.0-0.4) X10*3/uL Baso # (Auto) 0.1 (0.0-0.2) X10*3/uL Abs Immat Gran (auto) 0.04 H (0.00-0.03) X10*3/uL Absolute Neuts (auto) 6.6 (2.0-8.3) x10*3/uL Absolute Nucleated RBC 0.000 (0.0-0.012) X10*3/uL Nucleated RBC % (auto) 0.0 (0.0-0.2) /100WBC Sodium 141 (135-145) mmol/L Potassium 4.3 (3.3-5.1) mmol/L Chloride 108 (96-108) mmol/L Carbon Dioxide 19 L (22-29) mmol/L Anion Gap 18 (12-20) BUN 16 (9-16) mg/dL Creatinine 1.16 (0.5-1.4) mg/dL Estim Creat Clear Calc 70.9 Estimated GFR > 60 Random Glucose 69 (60-115) mg/dL Calcium 9.7 (8.4-10.2) mg/dL Magnesium 2.1 (1.6-2.6) mg/dL Total Bilirubin 0.4 (0.0-1.0) mg/dL AST 22 (5-37) U/L ALT 21 (0-40) U/L Alkaline Phosphatase 94 (39-117) U/L Total Protein 8.5 H (6.5-8.0) g/dL Albumin 4.9 (3.5-5.0) g/dL Ethyl Alcohol 123 mg/dL External Record Review External record reviewed: Outpatient record and Prior outpatient labs Social Determinants Patient?s care significantly limited by Social Determinants of Health including: Alcoholism and drug addiction in family Critical Care Time Critical Care Time Critical Care Time: Yes Total Critical Care Time: 30 Attestation: I personally attest to this time spent taking care of the patient. Discharge Plan Discharge Clinical Impression: Alcohol use disorder, Depression, Cocaine use disorder Patient Disposition: Still a Patient Prescriptions: No Action prazosin 1 mg capsule 1 mg PO BEDTIME hydroxyzine HCl 50 mg tablet 50 mg PO BID mirtazapine 15 mg tablet 15 mg PO BEDTIME fluoxetine 20 mg capsule 20 mg PO DAILY
[2023-07-16 06:23] LABS: Amphetamine Screen Urine Not Detected (Not Detect); Barbiturates, Urine Not Detected (Not Detect); Benzodiazepines Screen Urine Not Detected (Not Detect); Cannabinoid Screen Urine POSITIVE (Not Detect); Cocaine Screen Urine POSITIVE (Not Detect); Fentanyl, urine Not Detected (Not Detect); Opiate Screen Urine Not Detected (Not Detect); Phencyclidine Screen Urine Not Detected (Not Detect)
[2023-07-16 06:23] LABS: COVID-19 Test Negative (Negative); IDNOW Serial# 152EDE1D
--- NOTE | 2023-07-16 13:59 | MHC.RECOVRN ---
Addendum entered by Anyi Mistry 07/16/23 14:45: Bedsearch exhausted. Discussed with pt, pt plans to dc home and follow up with [facility] in the morning to restart bedsearch. Pt denies questions or concerns for t/w. Provider and RN aware. Original Note: Met with pt in 4 after pt cleared by CARE Team and requesting ATS. Pt had presented to the ED requesting ATS, reporting alcohol withdrawal, and HI towards significant other. Pt evaluated by CARE Team and is cleared for ATS admission. Pt sitting in bed, awake, alert, easily engages in conversation. Does not appear to be in withdrawal. Pt reports alcohol use, 1 pint Fireball daily plus 4-5 24 ounce beers x 4 days, last drink 0200. Pt also reports cocaine use, INH, $30 approx 3 times monthly. Pt is intersted in ATS, would prefer facilities in [facility]. Pt denies other questions or concerns. Bedsearch will be conducted.
== END 2023-07-16 15:14 | disposition home or self-care (01) ==
PROVIDERS: Student in an Organized Health Care Education/Training Program; Emergency Provider Emergency Medicine
DX: F33.1 Major depressive disorder, recurrent, moderate (principal); F10.10 Alcohol abuse, uncomplicated; Y90.6 Blood alcohol level of 120-199 mg/100 ml; F14.10 Cocaine abuse, uncomplicated; Z11.52 Encounter for screening for COVID-19; Z79.899 Other long term (current) drug therapy
CPT/HCPCS: 36415; 80053; 80307; 83735; 85025; 87635; 99283; 99284; S9485

== ENCOUNTER 2023-08-12 01:48 | Emergency (ER) | payer MEDICAID, SELFPAY ==
[2023-08-12 01:59] VITALS: BP 160/104; PULSE 64; O2SAT 95
[2023-08-12 02:06] VITALS: BMI 32.3
[2023-08-12 04:39] VITALS: BP 129/92; PULSE 99; RESP 18; O2SAT 99
--- NOTE | 2023-08-12 04:48 | PC.NURSE ---
pt ambulating with a steady gait around the ER. pt did go to the bathroom and proceeded to break the flusher on purpose. pt is difficulty to redirect. refused vitals multiple times however finally agreed while provider was at bedside. pt is requesting detox at this time.
--- NOTE | 2023-08-12 06:46 | ED.ALCOHOL ---
HPI - Alcohol General Chief Complaint: ETOH/Substance Use Stated Complaint: ETOH USE,HIGH BP 160/104 PER EMS Time Seen by Provider: 08/12/23 06:41 Source: patient and EMS Mode of arrival: EMS Limitations: no limitations History of Present Illness HPI narrative: 52 year old male with pmhx significant for cocaine use disorder, alcohol use disorder, PTSD, depression and ADHD presents to the ED via EMS for evaluation of alcohol intoxication. Per EMS, patient was found wandering throughout [place], intoxicated and disorderly early this morning. PD was on scene. On initial exam, he is refusing to answer most questions however states that he would like detox. He is unable to quantify how much he drank today. He currently has no complaints. Denies head strike or LOC. Denies ilicit substance use. He denies SI/HI. Denies AH/TH/VH. Related Data Home Medications Medication Instructions Recorded Confirmed fluoxetine 20 mg capsule 20 mg PO DAILY 07/16/23 07/16/23 hydroxyzine HCl 50 mg tablet 50 mg PO BID 07/16/23 07/16/23 mirtazapine 15 mg tablet 15 mg PO BEDTIME 07/16/23 07/16/23 prazosin 1 mg capsule 1 mg PO BEDTIME 07/16/23 07/16/23 Allergies Allergy/AdvReac Type Severity Reaction Status Date / Time Penicillins [PENICILLINS] Allergy Severe SWELLING Verified 07/16/23 05:16 AND ITCHING, THROAT CLOSES. Review of Systems Review of Systems: Constitutional: No fever, chills, fatigue, night sweats, weight changes ENT/Mouth: No ear pain, hearing loss, nasal congestion, sinus pain, rhinorrhea, sore throat Eyes: No eye pain, swelling, redness, vision changes, discharge Cardio: No chest pain, palpitations, [place], orthopnea, peripheral edema Pulm: No SOB, cough, sputum, wheezing, dyspnea, hemoptysis GI: No nausea, vomiting, hematemesis, abdominal pain, diarrhea, constipation, hematochezia, melena : No irregular bleeding, dysuria, frequency, urgency, hesitancy, hematuria, flank pain, urinary flow changes, urinary incontinence or retention MSK: No back pain, neck pain, joint pain, myalgias Skin: No lesions, rashes Neuro: No weakness, numbness, paresthesias, LOC, dizziness, headache Psych: No anxiety/panic, depression, SI/HI, AH/VH All other systems reviewed and are negative. [facility] Past Medical History Attestation statement: The following information was validated with the patient. Source: old records reviewed and nursing notes reviewed Medical History Cocaine use disorder, moderate, dependence Alcohol use disorder, moderate, dependence COVID-19 ADHD PTSD (post-traumatic stress disorder) Depression Surgical History History of abdominal surgery Social History Social History Household Members: None Housing: Homeless Do you presently have visiting nurse or other home services: No Alcohol intake: current Alcohol intake frequency: 3 or more drinks per day Alcohol type: beer and hard liquor Patient Tobacco Use Status: Current everyday Tobacco user Tobacco use type: Cigarette Cigarette Packs Per Day: 0.5 Cigarettes Per Day: 8 Second Hand Smoke Exposure: No Substance Use Type: Crack/Cocaine and Marijuana Advance Directives: No Advance Directives Information Provided: No service: No Current occupational status: employed Sexual orientation: Straight/Heterosexual Physical Exam ED Vital Signs: Vital Signs - 24 hr 08/12/23 04:39 Pulse Rate 99 Respiratory Rate 18 Blood Pressure 129/92 H Pulse Oximetry 99 Oxygen Delivery Method Room Air BMI result Body Mass Index 32.3 Patient hypertensive to 129/92, vitals otherwise wnl. Const General: cooperative, comfortable and no acute distress Orientation/consciousness: patient oriented x3 Limitations: no limitations [facility] Head: Yes normal to inspection, Yes No palpable skull fracture present, Yes normocephalic and Yes atraumatic Eyes General: appearance normal, both eyes and all related structures Conjunctivae: conjunctivae normal Sclerae: sclerae normal Pupils: Equal, round and reactive pupils present Neck Other: + no c spine tenderness or step off deformity Neck: Yes normal visual inspection and Yes full ROM Chest Chest palpation & inspection: normal inspection of the chest and normal palpation of entire chest wall Resp Effort & Inspection: normal respiratory effort Auscultation: clear to auscultation bilaterally Cardio Rate: regular rate Rhythm: regular rhythm Back/Spine/Pelvis Other: No midline spinous tenderness or step off deformity. No paraspinal muscle tenderness. Skin General skin exam: no rashes or lesions noted Neuro General: patient oriented x3 and gait normal Cranial nerves: Yes Equal, round and reactive pupils present Extrem General: Yes normal to inspection Course Course Course Narrative: 0750-- Patient eloped while I was in another room caring for a patient. Per highway engineering technician and RN, patient jumped up out of his bed and began to yell at staff, stating you guys aren't doing anything for me. you need to do your job . He then began to through food and drink around and at staff. Tech immediately rang for security who followed patient out of the ED. > labs and addiction med consult were pending at time of elopment. Medical Decision Making Medical Decision Making [facility] Narrative: 52 year old male with pmhx significant for cocaine use disorder, alcohol use disorder, PTSD, depression and ADHD presents to the ED via EMS for evaluation of alcohol intoxication. Patient noted to be hypertensive, vitals otherwise WNL. On my initial examination, patient lying comfortably in bed, sleeping. I had to nudge patient awake. At 1st was refusing to answer my questions however then began to cooperate. Physical exam essentially unremarkable. Clinical concern for acute ETOH intoxication, EtOH withdrawal, polysubstance use, dehydration, anemia, electrolyte abnormality. Lower suspicion for DT, withdrawal seizure. Plan for basic labs, UA, u tox, and addiction med consult. Differential Diagnosis Differential Diagnoses: The differential diagnosis associated with the presentation includes as above. Admission/Observation Not indicated. Independent Historian Clinical information obtained from an independent historian. History obtained from or confirmed by: EMS External Record Review External record reviewed: Inpatient record, Office record, Outpatient record, Prior outpatient labs, Prior outpatient radiology, Primary care record and Outside ED record Prescription Management I considered prescription management with: Pain Medication Chronic Conditions Patient?s care impacted by: Other (alcohol dependence) Social Determinants Patient?s care significantly limited by Social Determinants of Health including: Alcoholism and drug addiction in family and Other Social Determinant of Health Discharge Plan Discharge Clinical Impression: Alcohol use disorder Patient Disposition: Elopement Prescriptions: No Action prazosin 1 mg capsule 1 mg PO BEDTIME hydroxyzine HCl 50 mg tablet 50 mg PO BID mirtazapine 15 mg tablet 15 mg PO BEDTIME fluoxetine 20 mg capsule 20 mg PO DAILY Interventions: ED Discharge Assessment Last Done: 08/12/23 07:57 Discharge Date/Time: 08/12/23 07:15
--- NOTE | 2023-08-12 07:50 | PC.NURSE ---
While getting report on this pt I heard him yelling at staff. I looked over to see what was happening, I saw the pt knock his breakfast tray off the counter then threw pudding at staff. Charge nurse Don intervened and told the pt to leave. Security got involved and walked the pt out of the er without incident.
== END 2023-08-12 07:15 | disposition left against medical advice (07) ==
PROVIDERS: Emergency Provider Emergency Medicine
DX: F10.20 Alcohol dependence, uncomplicated (principal); F14.20 Cocaine dependence, uncomplicated; F33.1 Major depressive disorder, recurrent, moderate; Z79.899 Other long term (current) drug therapy
CPT/HCPCS: 99283; 99284

== ENCOUNTER 2023-12-09 05:46 | Emergency (ER) | payer OTHER, SELFPAY ==
[2023-12-09 05:54] VITALS: BP 107/64; BP 134/92; PULSE 102; PULSE 89; RESP 20; TEMP 36.8; O2SAT 95; O2SAT 96; BMI 32.2
--- NOTE | 2023-12-09 06:01 | ED_ITS ---
HPI - Alcohol General Chief Complaint: ETOH/Substance Use Stated Complaint: seeking detox Time Seen by Provider: 12/09/23 05:59 Source: patient and EMS Mode of arrival: EMS Limitations: other History of Present Illness ED Provider: Dr. Mary Steele HPI narrative: Patient comes to the emergency room by EMS. According to EMS, the patient reported that he used got kicked out of his girlfriend's house, patient used ?many drugs? and alcohol. Patient requested EMS to take him to a hospital where they will forced him to stay. When patient was asked by his nurse if he is suicidal, patient answered ?I plea the 5th . Patient requesting food and states that he would like to go to a dual diagnosis facility. Related Data Home Medications ?Medication ?Instructions ?Recorded ?Confirmed fluoxetine 20 mg capsule 20 mg PO DAILY 07/16/23 07/16/23 hydroxyzine HCl 50 mg tablet 50 mg PO BID 07/16/23 07/16/23 mirtazapine 15 mg tablet 15 mg PO BEDTIME 07/16/23 07/16/23 prazosin 1 mg capsule 1 mg PO BEDTIME 07/16/23 07/16/23 Allergies Allergy/AdvReac Type Severity Reaction Status Date / Time Penicillins [PENICILLINS] Allergy Severe SWELLING Verified 12/09/23 05:58 AND ITCHING, THROAT CLOSES. Review of Systems Review of Systems: Constitutional : No Weight loss, No Fever, No Chills, No Night Sweats, No Fatigue, No Malaise ENT/Mouth : No Hearing loss, No Ear Pain, No Nasal Congestion, No Sinus Pain, No Hoarseness, No sore throat, No Rhinorrhea, No Swallowing Difficulty Eyes: No Eye Pain, No Swelling, No Redness, No Foreign Body, No Discharge, No Vision Changes Cardiovascular : No Chest Pain, No SOB, No Dyspnea on Exertion, No Orthopnea, No Edema, No Palpitations Respiratory : No Cough, No Sputum, No Wheezing, No Smoke Exposure, No Dyspnea Gastrointestinal : No Nausea, No Vomiting, No Diarrhea, No Constipation, No abdominal Pain, No Hematochezia, No Melena Genitourinary : no irregular bleeding, No Dysuria, No Urinary Frequency, No Hematuria, No Urinary Incontinence, No Urgency, No Flank Pain, No Urinary Flow Changes, No Hesitancy Musculoskeletal : No joint pain, No Myalgias, No Joint Swelling Skin : No Skin Lesions, No rash Neuro : No Weakness, No Numbness, No Paresthesias, No Loss of Consciousness, No Dizziness, No Headache Psych : No Anxiety/Panic, vague suicidal ideation with no direct answer or plan, admits to polysubstance abuse and alcohol abuse Heme/Lymph: No Bruising, No Bleeding,No Lymphadenopathy Endocrine : No Polyuria, No Polydipsia, No Temperature Intolerance PMFSH Past Medical History Medical History Cocaine use disorder, moderate, dependence Alcohol use disorder, moderate, dependence COVID-19 ADHD PTSD (post-traumatic stress disorder) Depression Surgical History History of abdominal surgery Social History Social History Household Members: None Housing: Homeless Do you presently have visiting nurse or other home services: No Alcohol intake: current Alcohol intake frequency: 3 or more drinks per day Alcohol type: beer and hard liquor Patient Tobacco Use Status: Current everyday Tobacco user Tobacco use type: Cigarette Cigarette Packs Per Day: 0.5 Cigarettes Per Day: 8 Second Hand Smoke Exposure: No Substance Use Type: Crack/Cocaine and Marijuana Advance Directives: No Advance Directives Information Provided: No service: No Current occupational status: employed Sexual orientation: Straight/Heterosexual Physical Exam ED Vital Signs: Vital Signs - 24 hr 12/09/23 05:54 Temperature 98.2 F Pulse Rate 89 Respiratory Rate 20 Blood Pressure 107/64 Pulse Oximetry 95 Oxygen Delivery Method Room Air BMI result Body Mass Index 32.2 Const Other: Appearance: Alert. Oriented X3. No acute distress. Eyes: Pupils equal, round and reactive to light. ENT: Pharynx normal. Neck: Normal inspection. Neck supple. No lymph nodes noted. No crepitus CVS: Normal heart rate and rhythm. Pulses normal. Normal S1 and S2 Respiratory: No respiratory distress. Breath sounds normal. No Wheezing. No rales Abdomen: Soft and nontender. No rigidity. No distention. Skin: Skin warm and dry. Normal skin color. Normal skin turgor. Extremities: No lower extremity edema. No Lacerations. No Rash Neuro: Oriented X 3. No motor deficit. No sensory deficit. Moving all extremities. No slurred speech. CN 2 through 12 grossly intact Psych: calm, cooperative, normal affect Course Course Course Narrative: -all of patient's labs pending -care team consult pending -vague SI? Not answering directly, states that he ?pleads the 5th , it voluntarily here, asking the staff no to discharge him. Medical Decision Making Differential Diagnosis Differential Diagnoses: The differential diagnosis associated with the presentation includes (Polysubstance abuse, alcohol abuse, homeless) Admission/Observation Consideration of admission/observation: Escalation of care including admission/observation considered (Care team consult pending to determine patient's disposition) Critical Care Time Critical Care Time Critical Care Time: Yes Total Critical Care Time: 30 Attestation: I have personally provided critical care time. Time includes review of lab data, radiology results, discussion with consultants, and monitoring for potential decompensation. Intervention performed as documented. Discharge Plan Discharge Clinical Impression: Polysubstance abuse Patient Disposition: Still a Patient Prescriptions: No Action prazosin 1 mg capsule 1 mg PO BEDTIME hydroxyzine HCl 50 mg tablet 50 mg PO BID mirtazapine 15 mg tablet 15 mg PO BEDTIME fluoxetine 20 mg capsule 20 mg PO DAILY Print Language: Lithuanian
[2023-12-09 06:07] LABS: MANUAL DIFF FLAG NO
[2023-12-09 06:12] LABS: Basophils Percent Auto 0.6 % (0-2); Eosinophils Absolute Auto 0.1 X10*3/uL (0.0-0.4); Eosinophils Percent Auto 1.2 % (0-4); Hematocrit 38.7 % (42.0-52.0); Hemoglobin 13.1 g/dl (14.0-18.0); Imm Gran Abs Auto 0.02 X10*3/uL (0.00-0.03); Imm Gran Pct Auto 0.3 % (0.0-0.4); Lymphocytes Absolute Auto 3.8 X10*3/uL (1.2-4.9); Lymphocytes Percent Auto 56.2 % (20-40); Mean Corpuscular HGB Conc 33.9 g/dl (31.0-36.0); Mean Corpuscular Hemoglobin 28.1 pg (27.0-33.0); Mean Platelet Volume 9.2 fL (9.4-12.4); Monocytes Absolute Auto 0.6 X10*3/uL (0.1-1.2); Monocytes Percent Auto 8.5 % (2-11); Neutrophils Absolute Auto 2.2 x10*3/uL (2.0-8.3); Neutrophils Percent Auto 33.2 % (45-73); Platelet Count 276 X10*3/uL (160-400); Red Blood Count 4.66 X10*6/uL (4.60-5.80); Red Cell Distribution Width 15.2 % (11.0-16.0); White Blood Count 6.7 X10*3/uL (4.8-10.8)
[2023-12-09 06:22] LABS: Alanine Aminotransferase 38 U/L (0-40); Albumin Level 4.4 g/dL (3.5-5.0); Alkaline Phosphatase 66 U/L (39-117); Anion Gap 14 (12-20); Aspartate Amino Transferase 38 U/L (5-37); Bilirubin Total 0.3 mg/dL (0.0-1.0); Blood Urea Nitrogen 14 mg/dL (9-16); Calcium 9.5 mg/dL (8.4-10.2); Carbon Dioxide 21 mmol/L (22-29); Chloride 113 mmol/L (96-108); Estimated Glomerular Filt Rate > 60; Ethanol 171 mg/dL; Glucose Random 95 mg/dL (60-115); Potassium 4.2 mmol/L (3.3-5.1); Sodium 144 mmol/L (135-145); Total Protein 7.5 g/dL (6.5-8.0)
--- NOTE | 2023-12-09 06:30 | PC.NURSE ---
pt reporting wanting detox, too old to be doing this . pt reports etoh, last drink a few hours ago, crack and marijuana use . pt calm and cooperative. denies SI. CIWA low at this time. pt did report hx of seizures in past while detoxing. med rec done. pt requesting food.
--- NOTE | 2023-12-09 06:38 | PC.NURSE ---
pt reports 5 tall beers a day and 2 sleeves of nips a day, as well as crack and marijuana daily
--- NOTE | 2023-12-09 07:13 | PC.NURSE ---
Resumed care at 0700, pt resting in bed quietly, a/ox4, respirations even and unlabored. Seizure pads in place for safety. Pt is aware of need for urine sample. Call rodriguez within reach.
[2023-12-09 08:46] VITALS: BP 112/71; PULSE 89; RESP 12; TEMP 36.4; O2SAT 95
--- NOTE | 2023-12-09 10:25 | MHC.RECOVRN ---
Briefly met with pt after cleared by CARE Team and pt request for ATS. Pt laying in bed, awake, engages in conversation, appears comfortable. Pt reports alcohol use, 20 nips Fireball daily plus 6 24 ounce beers. Pt also reports cocaine use, INH, $30-$40 daily. Last use of substances prior to arrival. Pt is interested in ATS, willing to go to any facility except in [place]. Referral sent to Willi.
[2023-12-09 10:52] LABS: Appearance Urine Clear; Color Urine Yellow; Glucose Urine UA Negative (Negative); Leukocyte Esterase Urine Negative (Negative); Nitrite Urine Negative (Negative); Urine Blood Negative (Negative); Urine Ketones Negative (Negative); Urine Protein Negative (Neg-Trace)
--- NOTE | 2023-12-09 10:55 | MHC.CARE ---
[facility] has received patient's ACCS/ respite referral and it is in review at this time.
[2023-12-09 10:58] LABS: Amphetamine Screen Urine Not Detected (Not Detect); Barbiturates, Urine Not Detected (Not Detect); Benzodiazepines Screen Urine POSITIVE (Not Detect); Buprenorphine Scr Not Detected (Not Detect); Cannabinoid Screen Urine POSITIVE (Not Detect); Cocaine Screen Urine POSITIVE (Not Detect); Fentanyl, urine Not Detected (Not Detect); Methadone Screen, Urine Not Detected (Not Detect); Opiate Screen Urine Not Detected (Not Detect); Oxycodone Screen Urine Not Detected (Not Detect); Phencyclidine Screen Urine Not Detected (Not Detect)
[2023-12-09 15:29] VITALS: BP 112/71; PULSE 89; RESP 12; TEMP 36.4; O2SAT 95
--- NOTE | 2023-12-09 15:57 | MHC.RECOVRN ---
Pt accepted to [facility]. Transported via [employer].
== END 2023-12-09 15:32 ==
PROVIDERS: Emergency Provider Emergency Medicine
DX: F14.10 Cocaine abuse, uncomplicated (principal); F12.10 Cannabis abuse, uncomplicated; F17.210 Nicotine dependence, cigarettes, uncomplicated; F10.10 Alcohol abuse, uncomplicated; Z79.899 Other long term (current) drug therapy
CPT/HCPCS: 36415; 80053; 80307; 81003; 85025; 99284; S9485

== ENCOUNTER 2023-12-14 01:07 | Emergency (ER) | payer MEDICAID, SELFPAY ==
--- NOTE | 2023-12-14 | ECG_ITS ---
Test Reason : CHECK QTC Blood Pressure : / mmHG Vent. Rate : 087 BPM Atrial Rate : 087 BPM P-R Int : 148 ms QRS Dur : 090 ms QT Int : 362 ms P-R-T Axes : 056 062 035 degrees QTc Int : 435 ms Normal sinus rhythm Minimal voltage criteria for LVH, may be normal variant ( Sokolow-Pat ) Borderline ECG When compared with ECG of 27-OCT-2022 15:06, No significant change was found Referred By: Kimberly Sorto Electronically Signed By:TEODORA KUMAR MD
[2023-12-14 01:16] VITALS: BP 130/78; BP 132/78; PULSE 90; PULSE 93; RESP 18; TEMP 36.8; O2SAT 97; O2SAT 98; BMI 25.8
--- NOTE | 2023-12-14 01:20 | ED.GENADULT ---
HPI - General Adult General Chief complaint: Psychiatric Symptoms Stated complaint: etoh si Time Seen by Provider: 12/14/23 01:19 Source: patient and EMS Mode of arrival: EMS Limitations: no limitations History of Present Illness ED Provider: Kimberly Sorto PA-C HPI narrative: Patient is a 53 year old assigned male at with a history of MDD, alcohol use, and cocaine use presenting to the emergency department today with suicidal ideation and alcohol intoxication. Patient states that he has been drinking a lot of alcohol and has thoughts of killing himself with multiple methods to do so. Patient denies any dizziness, lightheadedness, abdominal pain, nausea, vomiting, fever, chills, blurry vision, double vision, loss of vision, chest pain, difficulty breathing, shortness of breath, back pain, night sweats, pain with urination, increased urinary frequency, increased urinary urgency, blood in his urine or stool, syncope or a near syncopal episode, recent trauma or falls, bowel incontinence, bladder incontinence, or any other complaints at this time. Relieving factors: none Exacerbating factors: none Associated symptoms: denies other symptoms Treatments prior to arrival: none Related Data Home Medications ?Medication ?Instructions ?Recorded ?Confirmed fluoxetine 20 mg capsule 20 mg PO DAILY 07/16/23 12/09/23 hydroxyzine HCl 50 mg tablet 50 mg PO BID 07/16/23 12/09/23 mirtazapine 15 mg tablet 15 mg PO BEDTIME 07/16/23 12/09/23 prazosin 1 mg capsule 1 mg PO BEDTIME 07/16/23 12/09/23 clonidine HCl 0.1 mg tablet 0.1 mg PO BEDTIME 12/09/23 12/09/23 melatonin 3 mg tablet 3 mg PO BEDTIME PRN Sleep 12/09/23 12/09/23 Allergies Allergy/AdvReac Type Severity Reaction Status Date / Time Penicillins [PENICILLINS] Allergy Severe SWELLING Verified 12/14/23 01:19 AND ITCHING, THROAT CLOSES. Review of Systems Constitutional: Constitutional: Reports no additional constitutional complaints, Denies chills, Denies fever(s) and Denies night sweats Eyes: Eyes: Reports no additional eye complaints, Denies blurry vision, Denies change in vision, Denies diplopia, Denies eye discharge, Denies loss of vision and Denies eye pain ENT: Denies dizziness Cardiovascular: Cardiovascular: Reports no additional cardiovascular complaints, Denies chest pain, Denies lightheadedness, Denies Loss of Consciousness and Denies dyspnea Respiratory: Respiratory: Reports no additional respiratory complaints and Denies dyspnea Gastrointestinal: Gastrointestinal: Reports no additional gastrointestinal complaints, Denies abdominal pain, Denies melena, Denies hematochezia, Denies change in bowel habits and Denies change in stool character Genitourinary: Genitourinary: Reports no additional male genitourinary complaints, Denies hematuria, Denies oliguria, Denies difficulty urinating, Denies dysuria, Denies urinary frequency, Denies urinary hesitancy, Denies urinary incontinence and Denies urinary urgency Musculoskeletal: Musculoskeletal: Reports no additional musculoskeletal complaints, Denies numbness and Denies tingling Neurologic: Denies dizziness, Denies loss of vision, Denies numbness and Denies tingling Psychiatric: Psychiatric: Reports suicidal ideation Endocrine: Endocrine: Reports no additional endocrine complaints Hematologic/Lymphatic: Hematologic/Lymphatic: Reports no additional hematologic/lymphatic complaints Allergic/Immunologic: Allergic/Immunologic: Reports no additional allergic/immunologic complaints [facility] Past Medical History Attestation statement: The following information was validated with the patient. Source: old records reviewed and nursing notes reviewed Medical History Cocaine use disorder, moderate, dependence Alcohol use disorder, moderate, dependence COVID-19 ADHD PTSD (post-traumatic stress disorder) Depression Surgical History History of abdominal surgery Social History Social History Household Members: None Housing: Homeless Do you presently have visiting nurse or other home services: No Alcohol intake: current Alcohol intake frequency: 3 or more drinks per day Alcohol type: beer and hard liquor Patient Tobacco Use Status: Current everyday Tobacco user Tobacco use type: Cigarette Cigarette Packs Per Day: 0.5 Cigarettes Per Day: 8 Second Hand Smoke Exposure: No Substance Use Type: Crack/Cocaine and Marijuana Advance Directives: No Advance Directives Information Provided: No Do you have a plan to hurt others: No Plan service: No Current occupational status: employed Sexual orientation: Straight/Heterosexual Physical Exam ED Vital Signs: Vital Signs - 24 hr 12/14/23 01:16 12/14/23 01:42 Temperature 98.2 F 97.9 F Pulse Rate 90 91 Respiratory Rate 18 16 Blood Pressure 130/78 135/89 Pulse Oximetry 98 95 Oxygen Delivery Method Room Air Room Air BMI result Body Mass Index 25.8 Const General: cooperative, no acute distress, alert and awake Nutritional Appearance: well nourished Orientation/consciousness: patient oriented x3 Limitations: no limitations HENMT Head: Yes normal to inspection and Yes atraumatic Ears: hearing grossly normal bilaterally and external ears normal General nose exam: Normal external nose present, no nasal discharge noted and no epistaxis Face and sinus: Yes normal facial exam, No abrasion and No laceration Mouth: Normal oral and palatal mucosa present, no drooling and no muffled voice Eyes General: appearance normal, both eyes and all related structures Periorbital: periorbital findings normal Eyelids: Yes eyelids normal Conjunctivae: conjunctivae normal Pupils: Equal, round and reactive pupils present EOM: EOMs intact bilaterally Neck Neck: Yes normal visual inspection, Yes full ROM and Yes no lymphadenopathy Chest Chest palpation & inspection: normal inspection of the chest Resp Effort & Inspection: normal respiratory effort and able to speak in complete sentences GI Inspection: Yes normal to inspection Neuro General: patient oriented x3 and moves all extremities Cranial nerves: Yes Equal, round and reactive pupils present Cognition (Neuro): normal cognition Motor exam (neuro): 5/5 motor strength present throughout Sensory Exam: Normal double simultaneous stimulation for sensation Coordination: [id number] test normal Extrem General: Yes normal to inspection, Yes full ROM and Yes capillary refill normal Psych Appearance: grossly normal Affect: Labile affect present Attitude: cooperative Thought content: Suicidality present Medical Decision Making Medical Decision Making MDM Narrative: Patient is a 53 year old assigned male at with a history of MDD, alcohol abuse, and cocaine abuse presenting to the emergency department today with alcohol intoxication and suicidal ideation. Patient's physical exam showed an obviously intoxicated individual making suicidal statements. Patient's blood work is unremarkable. Patient's urine showed no acute process. I explained my physical exam findings to the patient. I answered all questions asked by the patient. Patient's disposition is pending CARE team evaluation. Differential Diagnosis Differential Diagnoses: The differential diagnosis associated with the presentation includes Suicidal ideation Intoxication Admission/Observation Consideration of admission/observation: Escalation of care including admission/observation considered Patient's disposition will be determined after CARE team evaluation. Lab Data [facility] Lab Attestation statement: I reviewed the patient's lab results. My interpretation of these results are in the MDM Rationale portion of this note. 12/14/23 01:36 12/14/23 01:36 Labs: Lab Results 12/14/23 Range/Units 01:36 WBC 5.8 (4.8-10.8) X10*3/uL RBC 5.02 (4.60-5.80) X10*6/uL Hgb 14.1 (14.0-18.0) g/dl Hct 41.4 L (42.0-52.0) % MCV 82.5 (80.0-98.0) fL MCH 28.1 (27.0-33.0) pg MCHC 34.1 (31.0-36.0) g/dl RDW 15.2 (11.0-16.0) % Plt Count 304 (160-400) X10*3/uL MPV 9.0 L (9.4-12.4) fL Sodium 143 (135-145) mmol/L Potassium 4.2 (3.3-5.1) mmol/L Chloride 110 H (96-108) mmol/L Carbon Dioxide 18 L (22-29) mmol/L Anion Gap 19 (12-20) BUN 17 H (9-16) mg/dL Creatinine 1.07 (0.5-1.4) mg/dL Estim Creat Clear Calc 83.3 Estimated GFR > 60 Random Glucose 71 (60-115) mg/dL Calcium 9.4 (8.4-10.2) mg/dL Total Bilirubin 0.4 (0.0-1.0) mg/dL AST 30 (5-37) U/L ALT 29 (0-40) U/L Alkaline Phosphatase 83 (39-117) U/L Total Protein 8.6 H (6.5-8.0) g/dL Albumin 4.9 (3.5-5.0) g/dL Urine Color Yellow Urine Appearance Clear Urine pH 5.0 (5.0-9.0) Ur Specific [place] 1.010 (1.005-1.025) Urine Protein Trace (Neg-Trace) mg/dL Urine Glucose (UA) Negative (Negative) mg/dL Urine Ketones Negative (Negative) mg/dL Urine Blood Trace H (Negative) Urine Nitrite Negative (Negative) Ur Leukocyte Esterase Negative (Negative) Urine RBC 0-2 (0-2) /HPF Urine WBC 0-5 (0-5) /HPF Ur Squamous Epith Cells 0-2 (0-2) /HPF Urine Bacteria None Seen (None Seen) Hyaline Casts 0-2 (0-2) /LPF Urine Opiates Screen Not Detected (Not Detect) Ur Buprenorphine Scrn Not Detected (Not Detect) ng/mL Ur Oxycodone Screen Not Detected (Not Detect) ng/mL Urine Methadone Screen Not Detected (Not Detect) ng/mL Urine Fentanyl Screen Not Detected (Not Detect) Ur Barbiturates Screen Not Detected (Not Detect) Ur Phencyclidine Scrn Not Detected (Not Detect) Ur Amphetamines Screen Not Detected (Not Detect) U Benzodiazepines Scrn POSITIVE H (Not Detect) Urine Cocaine Screen POSITIVE H (Not Detect) U Marijuana (THC) Screen POSITIVE H (Not Detect) Ethyl Alcohol 253 mg/dL Independent Historian Clinical information obtained from an independent historian. History obtained from or confirmed by: EMS (EMS provided additional history and confirmed the history provided by the patient. ) Discharge Plan Discharge Clinical Impression: Suicidal ideation, Alcohol abuse Patient Disposition: Still a Patient Prescriptions: No Action prazosin 1 mg capsule 1 mg PO BEDTIME hydroxyzine HCl 50 mg tablet 50 mg PO BID mirtazapine 15 mg tablet 15 mg PO BEDTIME fluoxetine 20 mg capsule 20 mg PO DAILY clonidine HCl 0.1 mg tablet 0.1 mg PO BEDTIME melatonin 3 mg tablet 3 mg PO BEDTIME PRN (Reason: Sleep) Print Language: Frisian
[2023-12-14 01:42] VITALS: BP 135/89; PULSE 91; RESP 16; TEMP 36.6; O2SAT 95
[2023-12-14 01:43] LABS: Basophils Percent Auto 0.5 % (0-2); Eosinophils Absolute Auto 0.1 X10*3/uL (0.0-0.4); Eosinophils Percent Auto 1.4 % (0-4); Hematocrit 41.4 % (42.0-52.0); Hemoglobin 14.1 g/dl (14.0-18.0); Imm Gran Abs Auto 0.02 X10*3/uL (0.00-0.03); Imm Gran Pct Auto 0.3 % (0.0-0.4); Lymphocytes Absolute Auto 3.7 X10*3/uL (1.2-4.9); Lymphocytes Percent Auto 63.3 % (20-40); MANUAL DIFF FLAG SCAN; Mean Corpuscular HGB Conc 34.1 g/dl (31.0-36.0); Mean Corpuscular Hemoglobin 28.1 pg (27.0-33.0); Mean Corpuscular Volume 82.5 fL (80.0-98.0); Monocytes Absolute Auto 0.6 X10*3/uL (0.1-1.2); Monocytes Percent Auto 9.5 % (2-11); Neutrophils Absolute Auto 1.4 x10*3/uL (2.0-8.3); Platelet Count 304 X10*3/uL (160-400); Red Blood Count 5.02 X10*6/uL (4.60-5.80); Red Cell Distribution Width 15.2 % (11.0-16.0); SCAN SMEAR FLAG 1; White Blood Count 5.8 X10*3/uL (4.8-10.8)
[2023-12-14 01:45] LABS: Appearance Urine Clear; Color Urine Yellow; Glucose Urine UA Negative (Negative); Leukocyte Esterase Urine Negative (Negative); Nitrite Urine Negative (Negative); UMIC TRIGGER UA YES; Urine Blood Trace (Negative); Urine Ketones Negative (Negative); Urine Protein Trace mg/dL (Neg-Trace)
[2023-12-14 01:48] LABS: Bacteria Urine None Seen (None Seen); Hyaline Casts Urine 0-2 /LPF (0-2); RBC Urine 0-2 /HPF (0-2); Squamous Epithelial Cell Urine 0-2 /HPF (0-2); WBC Urine 0-5 /HPF (0-5)
[2023-12-14 01:54] LABS: Amphetamine Screen Urine Not Detected (Not Detect); Barbiturates, Urine Not Detected (Not Detect); Benzodiazepines Screen Urine POSITIVE (Not Detect); Buprenorphine Scr Not Detected (Not Detect); Cannabinoid Screen Urine POSITIVE (Not Detect); Cocaine Screen Urine POSITIVE (Not Detect); Fentanyl, urine Not Detected (Not Detect); Methadone Screen, Urine Not Detected (Not Detect); Opiate Screen Urine Not Detected (Not Detect); Oxycodone Screen Urine Not Detected (Not Detect); Phencyclidine Screen Urine Not Detected (Not Detect)
[2023-12-14 01:56] LABS: Alanine Aminotransferase 29 U/L (0-40); Albumin Level 4.9 g/dL (3.5-5.0); Alkaline Phosphatase 83 U/L (39-117); Anion Gap 19 (12-20); Aspartate Amino Transferase 30 U/L (5-37); Bilirubin Total 0.4 mg/dL (0.0-1.0); Blood Urea Nitrogen 17 mg/dL (9-16); Calcium 9.4 mg/dL (8.4-10.2); Carbon Dioxide 18 mmol/L (22-29); Chloride 110 mmol/L (96-108); Creatinine Clr Calc Pharmacy 83.3; Estimated Glomerular Filt Rate > 60; Ethanol 253 mg/dL; Glucose Random 71 mg/dL (60-115); Potassium 4.2 mmol/L (3.3-5.1); Sodium 143 mmol/L (135-145); Total Protein 8.6 g/dL (6.5-8.0)
[2023-12-14 01:58] LABS: COVID-19 Test Negative (Negative); IDNOW Serial# 08D9AD1C
[2023-12-14 02:35] LABS: SLIDE REVIEW VERIFIED
[2023-12-14 02:43] LABS: Acetaminophen LAB < 3 mcg/mL (<30); Salicylate < 5.0 mg/dL (15-30)
--- NOTE | 2023-12-14 08:00 | PC.NURSE ---
Assumed care of patient at 0645, patient appears to be in no apparent distress, sleeping on couch in BH 8, respirations even and unlabored. Continue plan of care for care team eval this am
--- NOTE | 2023-12-14 09:32 | PC.NURSE ---
unable to verify home medications at this time as patient is non-participatory in conversation
--- NOTE | 2023-12-14 09:51 | PC.NURSE ---
RE; med rec This RN completed med rec with patient. Patient states he takes the meds added to the med rec, unsure of where he gets medications filled but states he has been consistent with taking them daily. States he last took meds two days ago.
[2023-12-14 12:53] VITALS: BP 132/88; PULSE 84; RESP 16; TEMP 36.4; O2SAT 97
--- NOTE | 2023-12-14 19:51 | MHC.CARE ---
RAD Team emailed a completed referral for [facility] on 12/14/23. RAD Team will follow up tomorrow.
== END 2023-12-14 12:54 | disposition home or self-care (01) ==
PROVIDERS: Physician Assistant Medical; Emergency Provider Internal Medicine
DX: F10.129 Alcohol abuse with intoxication, unspecified (principal); Y90.8 Blood alcohol level of 240 mg/100 ml or more; R45.851 Suicidal ideations; R94.31 Abnormal electrocardiogram [ECG] [EKG]; F14.10 Cocaine abuse, uncomplicated; F17.210 Nicotine dependence, cigarettes, uncomplicated; F12.90 Cannabis use, unspecified, uncomplicated; Z11.52 Encounter for screening for COVID-19; Z79.899 Other long term (current) drug therapy
CPT/HCPCS: 80053; 80143; 80179; 80307; 81001; 85025; 87635; 93005; 99284; 99285; S9485

== ENCOUNTER → 2023-12-14 08:11 | Outpatient (BNV) | payer MEDICAID, SELFPAY | PROVIDERS: Emergency Provider Internal Medicine; Visit Provider Internal Medicine Cardiovascular Disease | DX: R94.31 Abnormal electrocardiogram [ECG] [EKG] (principal) | CPT/HCPCS: 93010 ==

== ENCOUNTER 2024-05-06 04:31 | Emergency (ER) | payer MEDICAID, SELFPAY ==
[2024-05-06 04:36] VITALS: BP 123/71; BP 126/84; PULSE 70; RESP 18; TEMP 36.6; O2SAT 97; O2SAT 98
[2024-05-06 04:45] VITALS: BP 121/73; PULSE 70; RESP 18; TEMP 36.6; O2SAT 97
[2024-05-06 05:27] LABS: Glucose, Whole Blood 198 mg/dL (60-115)
[2024-05-06 05:38] LABS: Ethanol 32 mg/dL
[2024-05-06 05:41] LABS: Acetaminophen LAB < 3 mcg/mL (<30); Salicylate < 5.0 mg/dL (15-30)
[2024-05-06 06:23] VITALS: BP 124/76; PULSE 74; RESP 16; TEMP 36.7; O2SAT 98
--- NOTE | 2024-05-06 07:06 | PC.NURSE ---
patient a&ox3, ambulatory with steady gait, pt looking to go to detox, rr equal/non labored, pt requesting po- given per his request.
--- NOTE | 2024-05-06 07:28 | ED.GENADULT ---
HPI - General Adult General Chief complaint: General Medical Stated complaint: Detox request, does not feel safe Time Seen by Provider: 05/06/24 06:56 Source: patient Mode of arrival: ambulatory History of Present Illness ED Provider: Chelsey [facility] narrative: 53-year-old male who denies any past medical history but states he is a daily drinker of alcohol and endorses 12 beers a day with some hard liquor, denies any significant seizure activity when abstaining from alcohol. He is looking for detox and denies any SI/HI. Related Data Home Medications ?Medication ?Instructions ?Recorded ?Confirmed fluoxetine 20 mg capsule 20 mg PO DAILY 07/16/23 12/14/23 hydroxyzine HCl 50 mg tablet 50 mg PO BID 07/16/23 12/14/23 mirtazapine 15 mg tablet 15 mg PO BEDTIME 07/16/23 12/14/23 prazosin 1 mg capsule 1 mg PO BEDTIME 07/16/23 12/14/23 clonidine HCl 0.1 mg tablet 0.1 mg PO BEDTIME 12/09/23 12/14/23 melatonin 3 mg tablet 3 mg PO BEDTIME PRN Sleep 12/09/23 12/14/23 Previous Rx's ?Medication ?Instructions ?Recorded metformin 1,000 mg tablet 1,000 mg PO BIDWMEAL #60 tabs 05/06/24 Allergies Allergy/AdvReac Type Severity Reaction Status Date / Time Penicillins [PENICILLINS] Allergy Severe SWELLING Verified 05/06/24 04:41 AND ITCHING, THROAT CLOSES. Review of Systems Review of Systems: Pertinent positives and negatives as stated in HPI [facility] Past Medical History Medical History Cocaine use disorder, moderate, dependence Alcohol use disorder, moderate, dependence COVID-19 ADHD PTSD (post-traumatic stress disorder) Depression Surgical History History of abdominal surgery Social History Social History Household Members: None Housing: Homeless Do you presently have visiting nurse or other home services: No Unable to assess alcohol history related to: Refusing to respond Alcohol intake: current Alcohol intake frequency: 3 or more drinks per day Alcohol type: beer and hard liquor Patient Tobacco Use Status: Current everyday Tobacco user Tobacco use type: Cigarette Cigarette Packs Per Day: 0.5 Cigarettes Per Day: 8 Smoked in Last 30 Days: Yes Second Hand Smoke Exposure: No Use of substances other than those prescribed or required for medical reasons: No Substance Use Type: Crack/Cocaine and Marijuana Advance Directives: No Do you have a plan to hurt others: No Plan service: No Current occupational status: employed Sexual orientation: Straight/Heterosexual Physical Exam ED Vital Signs: Vital Signs - 24 hr 05/06/24 04:36 05/06/24 04:45 05/06/24 06:23 Temperature 97.8 F 97.8 F 98.0 F Pulse Rate 70 70 74 Respiratory Rate 18 18 16 Blood Pressure 123/71 121/73 124/76 Pulse Oximetry 97 97 98 Oxygen Delivery Method Room Air Room Air Room Air 05/06/24 08:00 Temperature 98.8 F Pulse Rate 83 Respiratory Rate 16 Blood Pressure 124/89 Pulse Oximetry 98 Oxygen Delivery Method Room Air BMI result Body Mass Index 30.0 VITAL SIGNS: Reviewed. GENERAL: Well developed, well nourished, in no acute distress. HEAD: Normocephalic/atraumatic EYES: PERRLA, EOMI EARS: Ext canals without abnormality NOSE: Nares patent bilateral OROPHARYNX: no oral lesions noted, posterior pharynx clear NECK: Supple, no adenopathy LUNGS: Normal breath sounds. No adventitious sounds or accessory muscle use. SpO2<98> CARDIOVASCULAR: Regular rate and rhythm without noted murmurs ABDOMEN: Soft, non-tender, non-distended with bowel sounds. MUSCULOSKELETAL: No tenderness, deformities, or effusions noted on gross inspection. EXTREMITIES: No cyanosis, clubbing or edema. SKIN: Inspection of the skin reveals no rashes NEUROLOGIC: Alert and oriented x 4. Strength and sensation to light touch were grossly intact x 4, cranial nerves 2-12 are grossly intact. Medical Decision Making Medical Decision Making MDM Narrative: 53-year-old male with history and clinical presentation, DD DX: Alcohol use disorder, no SI or HI, patient appears very calm and not tremulous and serum ETOH-well below 100 without any evidence of withdrawal. Will medically clear and then have addiction medicine see the patient. 0837: Patient reports he no longer wants to stay for detox and wants to be discharged. I reviewed all investigations and interpreted them as follows, there is no evidence of acute infection, patient has a stable normocytic anemia and no thrombocytopenia. Patient's random glucose was noted to be over 200 suggesting an underlying diabetes diagnosis although he denied any history of diabetes. On chemistry indices there is no evidence of EARL or electrolyte derangements. Hemoglobin A1c-12 indicative of underlying diabetes, patient will be discharged with metformin twice daily and strict instructions to follow-up with his primary care doctor. Toxicology negative for salicylate/acetaminophen, ETOH -32, toxicology is positive for cocaine and cannabis. Patient is otherwise medically cleared with a diagnosis of diabetes and will be discharged with a prescription for diabetes and informed of his diagnosis. He is not SI/HI and has chosen to be discharged. Differential Diagnosis Differential Diagnoses: The differential diagnosis associated with the presentation includes See above Admission/Observation Consideration of admission/observation: Escalation of care including admission/observation considered See above Lab Data MDM Lab Attestation statement: I reviewed the patient's lab results. See above 05/06/24 07:31 05/06/24 07:31 Labs: Lab Results 05/06/24 05/06/24 05/06/24 Range/Units 05:20 05:23 07:31 WBC 5.1 (4.8-10.8) X10*3/uL RBC 4.94 (4.60-5.80) X10*6/uL Hgb 13.7 L (14.0-18.0) g/dl Hct 40.9 L (42.0-52.0) % MCV 82.8 (80.0-98.0) fL MCH 27.7 (27.0-33.0) pg MCHC 33.5 (31.0-36.0) g/dl RDW 14.9 (11.0-16.0) % Plt Count 293 (160-400) X10*3/uL MPV 9.9 (9.4-12.4) fL Immature Gran % (Auto) 1.0 H (0.0-0.4) % Neut % (Auto) 45.5 (45-73) % Lymph % (Auto) 41.8 H (20-40) % [place] % (Auto) 8.6 (2-11) % Eos % (Auto) 2.5 (0-4) % Baso % (Auto) 0.6 (0-2) % Lymph # (Auto) 2.1 (1.2-4.9) X10*3/uL [place] # (Auto) 0.4 (0.1-1.2) X10*3/uL Eos # (Auto) 0.1 (0.0-0.4) X10*3/uL Baso # (Auto) 0.0 (0.0-0.2) X10*3/uL Abs Immat Gran (auto) 0.05 H (0.00-0.03) X10*3/uL Absolute Neuts (auto) 2.3 (2.0-8.3) x10*3/uL Absolute Nucleated RBC 0.000 (0.0-0.012) X10*3/uL Nucleated RBC % (auto) 0.0 (0.0-0.2) /100WBC Sodium 137 (135-145) mmol/L Potassium 4.3 (3.3-5.1) mmol/L Chloride 106 (96-108) mmol/L Carbon Dioxide 25 (22-29) mmol/L Anion Gap 10 L (12-20) BUN 8 L (9-16) mg/dL Creatinine 0.96 (0.5-1.4) mg/dL Estim Creat Clear Calc 88.5 Estimated GFR > 60 POC Glucose 198 H (60-115) mg/dL Random Glucose 249 H (60-115) mg/dL Estimat Average Glucose 298 mg/dL Hemoglobin A1c % 12.0 H (<6.0) % Calcium 8.7 D (8.4-10.2) mg/dL Salicylates < 5.0 L (15-30) mg/dL Urine Opiates Screen (Not Detect) Ur Buprenorphine Scrn (Not Detect) ng/mL Ur Oxycodone Screen (Not Detect) ng/mL Urine Methadone Screen (Not Detect) ng/mL Urine Fentanyl Screen (Not Detect) Acetaminophen < 3 (<30) mcg/mL Ur Barbiturates Screen (Not Detect) Ur Phencyclidine Scrn (Not Detect) Ur Amphetamines Screen (Not Detect) U Benzodiazepines Scrn (Not Detect) Urine Cocaine Screen (Not Detect) U Marijuana (THC) Screen (Not Detect) Ethyl Alcohol 32 10 mg/dL 05/06/24 Range/Units 07:33 WBC (4.8-10.8) X10*3/uL RBC (4.60-5.80) X10*6/uL Hgb (14.0-18.0) g/dl Hct (42.0-52.0) % MCV (80.0-98.0) fL MCH (27.0-33.0) pg MCHC (31.0-36.0) g/dl RDW (11.0-16.0) % Plt Count (160-400) X10*3/uL MPV (9.4-12.4) fL Immature Gran % (Auto) (0.0-0.4) % Neut % (Auto) (45-73) % Lymph % (Auto) (20-40) % [place] % (Auto) (2-11) % Eos % (Auto) (0-4) % Baso % (Auto) (0-2) % Lymph # (Auto) (1.2-4.9) X10*3/uL [place] # (Auto) (0.1-1.2) X10*3/uL Eos # (Auto) (0.0-0.4) X10*3/uL Baso # (Auto) (0.0-0.2) X10*3/uL Abs Immat Gran (auto) (0.00-0.03) X10*3/uL Absolute Neuts (auto) (2.0-8.3) x10*3/uL Absolute Nucleated RBC (0.0-0.012) X10*3/uL Nucleated RBC % (auto) (0.0-0.2) /100WBC Sodium (135-145) mmol/L Potassium (3.3-5.1) mmol/L Chloride (96-108) mmol/L Carbon Dioxide (22-29) mmol/L Anion Gap (12-20) BUN (9-16) mg/dL Creatinine (0.5-1.4) mg/dL Estim Creat Clear Calc Estimated GFR POC Glucose (60-115) mg/dL Random Glucose (60-115) mg/dL Estimat Average Glucose mg/dL Hemoglobin A1c % (<6.0) % Calcium (8.4-10.2) mg/dL Salicylates (15-30) mg/dL Urine Opiates Screen Not Detected (Not Detect) Ur Buprenorphine Scrn Not Detected (Not Detect) ng/mL Ur Oxycodone Screen Not Detected (Not Detect) ng/mL Urine Methadone Screen Not Detected (Not Detect) ng/mL Urine Fentanyl Screen Not Detected (Not Detect) Acetaminophen (<30) mcg/mL Ur Barbiturates Screen Not Detected (Not Detect) Ur Phencyclidine Scrn Not Detected (Not Detect) Ur Amphetamines Screen Not Detected (Not Detect) U Benzodiazepines Scrn Not Detected (Not Detect) Urine Cocaine Screen POSITIVE H (Not Detect) U Marijuana (THC) Screen POSITIVE H (Not Detect) Ethyl Alcohol mg/dL External Record Review External record reviewed: Outpatient record, Prior outpatient radiology and Outside ED record Chronic Conditions Patient?s care impacted by: Diabetes Critical Care Time Critical Care Time Critical Care Time: Yes Total Critical Care Time: 30 Attestation: I personally attest to this time spent taking care of the patient. Discharge Plan Discharge Clinical Impression: Cocaine use, Diabetes mellitus, new onset, Alcohol use disorder Patient Disposition: Home, Self-Care Instructions: Type 2 Diabetes in Adults: New Diagnosis (ED), Abuse of Alcohol (ED), Diabetes and Nutrition (ED) Additional Instructions: You have been started on metformin, you have a new diagnosis of diabetes. You need to find a primary care doctor AYESHA for further outpatient management. Prescriptions: New metformin 1,000 mg tablet 1,000 mg PO BIDWMEAL Qty: 60 0RF No Action prazosin 1 mg capsule 1 mg PO BEDTIME hydroxyzine HCl 50 mg tablet 50 mg PO BID mirtazapine 15 mg tablet 15 mg PO BEDTIME fluoxetine 20 mg capsule 20 mg PO DAILY clonidine HCl 0.1 mg tablet 0.1 mg PO BEDTIME melatonin 3 mg tablet 3 mg PO BEDTIME PRN (Reason: Sleep) Referrals: Concha Colby ACCOUNTANT SUPERVISOR [Nurse Practitioner] - Print Language: Maltese
[2024-05-06 07:39] LABS: Basophils Percent Auto 0.6 % (0-2); Eosinophils Absolute Auto 0.1 X10*3/uL (0.0-0.4); Eosinophils Percent Auto 2.5 % (0-4); Hematocrit 40.9 % (42.0-52.0); Hemoglobin 13.7 g/dl (14.0-18.0); Imm Gran Abs Auto 0.05 X10*3/uL (0.00-0.03); Lymphocytes Absolute Auto 2.1 X10*3/uL (1.2-4.9); Lymphocytes Percent Auto 41.8 % (20-40); MANUAL DIFF FLAG NO; Mean Corpuscular HGB Conc 33.5 g/dl (31.0-36.0); Mean Corpuscular Hemoglobin 27.7 pg (27.0-33.0); Mean Corpuscular Volume 82.8 fL (80.0-98.0); Mean Platelet Volume 9.9 fL (9.4-12.4); Monocytes Absolute Auto 0.4 X10*3/uL (0.1-1.2); Monocytes Percent Auto 8.6 % (2-11); Neutrophils Absolute Auto 2.3 x10*3/uL (2.0-8.3); Neutrophils Percent Auto 45.5 % (45-73); Platelet Count 293 X10*3/uL (160-400); Red Blood Count 4.94 X10*6/uL (4.60-5.80); Red Cell Distribution Width 14.9 % (11.0-16.0); White Blood Count 5.1 X10*3/uL (4.8-10.8)
[2024-05-06 08:00] VITALS: BP 124/89; PULSE 83; RESP 16; TEMP 37.1; O2SAT 98
[2024-05-06 08:00] LABS: Amphetamine Screen Urine Not Detected (Not Detect); Barbiturates, Urine Not Detected (Not Detect); Benzodiazepines Screen Urine Not Detected (Not Detect); Buprenorphine Scr Not Detected (Not Detect); Cannabinoid Screen Urine POSITIVE (Not Detect); Cocaine Screen Urine POSITIVE (Not Detect); Fentanyl, urine Not Detected (Not Detect); Methadone Screen, Urine Not Detected (Not Detect); Opiate Screen Urine Not Detected (Not Detect); Oxycodone Screen Urine Not Detected (Not Detect); Phencyclidine Screen Urine Not Detected (Not Detect)
[2024-05-06 08:02] LABS: Anion Gap 10 (12-20); Blood Urea Nitrogen 8 mg/dL (9-16); Calcium 8.7 mg/dL (8.4-10.2); Carbon Dioxide 25 mmol/L (22-29); Chloride 106 mmol/L (96-108); Creatinine Clr Calc Pharmacy 88.5; Estimated Glomerular Filt Rate > 60; Ethanol 10 mg/dL; Glucose Random 249 mg/dL (60-115); Potassium 4.3 mmol/L (3.3-5.1); Sodium 137 mmol/L (135-145)
[2024-05-06 08:07] LABS: Estimated Average Glucose 298 mg/dL; Hemoglobin A1C 380.5829 umol/L; Total Hemoglobin (HGBA1C) 3543.2258 umol/L
[2024-05-06] MEDS: metFORMIN HCl 1,000 MG TABLET 1000 MG PO (08:56)
--- NOTE | 2024-05-06 08:57 | PC.NURSE ---
pt medicated per order pt discharging to home and will follow up with ryne jackson
[2024-05-06 09:01] VITALS: BP 121/76; PULSE 76; RESP 16; TEMP 36.9; O2SAT 97
== END 2024-05-06 09:02 | disposition home or self-care (01) ==
PROVIDERS: Emergency Provider Student in an Organized Health Care Education/Training Program
DX: F10.90 Alcohol use, unspecified, uncomplicated (principal); F14.90 Cocaine use, unspecified, uncomplicated; E11.9 Type 2 diabetes mellitus without complications; F43.10 Post-traumatic stress disorder, unspecified; F90.9 Attention-deficit hyperactivity disorder, unspecified type; Z79.899 Other long term (current) drug therapy
CPT/HCPCS: 36415; 80048; 80143; 80179; 80307; 82947; 83036; 85025; 99284

== ENCOUNTER 2024-05-10 23:57 | Emergency (ER) | payer MEDICAID, SELFPAY ==
[2024-05-11 00:16] VITALS: BP 144/94; PULSE 89; RESP 16; O2SAT 97
[2024-05-11 00:17] VITALS: BP 140/78; PULSE 76; O2SAT 95; BMI 30.4
--- NOTE | 2024-05-11 00:47 | PC.NURSE ---
Pts has three bags of belongings placed on the fourth shelve in the closet.
[2024-05-11 00:49] LABS: Basophils Absolute Auto 0.1 X10*3/uL (0.0-0.2); Basophils Percent Auto 0.7 % (0-2); Eosinophils Absolute Auto 0.1 X10*3/uL (0.0-0.4); Eosinophils Percent Auto 0.7 % (0-4); Hematocrit 46.3 % (42.0-52.0); Hemoglobin 15.4 g/dl (14.0-18.0); Imm Gran Abs Auto 0.04 X10*3/uL (0.00-0.03); Imm Gran Pct Auto 0.5 % (0.0-0.4); Lymphocytes Absolute Auto 3.7 X10*3/uL (1.2-4.9); Lymphocytes Percent Auto 48.9 % (20-40); MANUAL DIFF FLAG NO; Mean Corpuscular HGB Conc 33.3 g/dl (31.0-36.0); Mean Corpuscular Hemoglobin 27.9 pg (27.0-33.0); Mean Corpuscular Volume 83.9 fL (80.0-98.0); Mean Platelet Volume 9.6 fL (9.4-12.4); Monocytes Absolute Auto 0.4 X10*3/uL (0.1-1.2); Monocytes Percent Auto 5.6 % (2-11); Neutrophils Absolute Auto 3.3 x10*3/uL (2.0-8.3); Neutrophils Percent Auto 43.6 % (45-73); Platelet Count 265 X10*3/uL (160-400); Red Blood Count 5.52 X10*6/uL (4.60-5.80); Red Cell Distribution Width 15.4 % (11.0-16.0); White Blood Count 7.5 X10*3/uL (4.8-10.8)
[2024-05-11 00:51] LABS: Appearance Urine Clear; Color Urine Yellow; Glucose Urine UA 100 mg/dL (Negative); Leukocyte Esterase Urine Negative (Negative); Nitrite Urine Negative (Negative); PH 5.5 (5.0-9.0); Specific Gravity - Urine <= 1.005 (1.005-1.025); Urine Blood Negative (Negative); Urine Ketones Negative (Negative); Urine Protein Trace mg/dL (Neg-Trace)
[2024-05-11 00:56] LABS: Bacteria Urine None Seen (None Seen); Hyaline Casts Urine 0-2 /LPF (0-2); RBC Urine 0-2 /HPF (0-2); Squamous Epithelial Cell Urine 0-2 /HPF (0-2); WBC Urine 0-5 /HPF (0-5)
[2024-05-11 01:01] LABS: Amphetamine Screen Urine Not Detected (Not Detect); Barbiturates, Urine Not Detected (Not Detect); Benzodiazepines Screen Urine Not Detected (Not Detect); Buprenorphine Scr Not Detected (Not Detect); Cannabinoid Screen Urine POSITIVE (Not Detect); Cocaine Screen Urine POSITIVE (Not Detect); Fentanyl, urine Not Detected (Not Detect); Methadone Screen, Urine Not Detected (Not Detect); Opiate Screen Urine Not Detected (Not Detect); Oxycodone Screen Urine Not Detected (Not Detect); Phencyclidine Screen Urine Not Detected (Not Detect)
[2024-05-11 01:05] LABS: Alanine Aminotransferase 70 U/L (0-40); Albumin Level 4.9 g/dL (3.5-5.0); Anion Gap 22 (12-20); Aspartate Amino Transferase 50 U/L (5-37); Bilirubin Total 0.5 mg/dL (0.0-1.0); Blood Urea Nitrogen 8 mg/dL (9-16); Calcium 10.2 mg/dL (8.4-10.2); Carbon Dioxide 17 mmol/L (22-29); Chloride 107 mmol/L (96-108); Creatinine Clr Calc Pharmacy 87.5; Estimated Glomerular Filt Rate > 60; Ethanol 328 mg/dL; Glucose Random 256 mg/dL (60-115); Potassium 4.3 mmol/L (3.3-5.1); Sodium 142 mmol/L (135-145); Total Protein 8.4 g/dL (6.5-8.0)
--- NOTE | 2024-05-11 01:06 | ED.ALCOHOL ---
HPI - Alcohol General Chief Complaint: ETOH/Substance Use Stated Complaint: ETOH Time Seen by Provider: 05/11/24 01:05 Source: patient and EMS Mode of arrival: EMS Limitations: no limitations History of Present Illness ED Provider: kiana CRISTINA narrative: Patient' history of alcohol abuse and cocaine abuse brought by EMS after being found stumbling in the street by the police patient has been here before for similar presentation no signs of injury Related Data Home Medications ?Medication ?Instructions ?Recorded ?Confirmed fluoxetine 20 mg capsule 20 mg PO DAILY 07/16/23 12/14/23 hydroxyzine HCl 50 mg tablet 50 mg PO BID 07/16/23 12/14/23 mirtazapine 15 mg tablet 15 mg PO BEDTIME 07/16/23 12/14/23 prazosin 1 mg capsule 1 mg PO BEDTIME 07/16/23 12/14/23 clonidine HCl 0.1 mg tablet 0.1 mg PO BEDTIME 12/09/23 12/14/23 melatonin 3 mg tablet 3 mg PO BEDTIME PRN Sleep 12/09/23 12/14/23 Previous Rx's ?Medication ?Instructions ?Recorded metformin 1,000 mg tablet 1,000 mg PO BIDWMEAL #60 tabs 05/06/24 Allergies Allergy/AdvReac Type Severity Reaction Status Date / Time Penicillins [PENICILLINS] Allergy Severe SWELLING Verified 05/11/24 00:20 AND ITCHING, THROAT CLOSES. Review of Systems Review of Systems: Yes Unobtainable due to mental status PMFSH Past Medical History Medical History Cocaine use disorder, moderate, dependence Alcohol use disorder, moderate, dependence COVID-19 ADHD PTSD (post-traumatic stress disorder) Depression Surgical History History of abdominal surgery Social History Social History Household Members: None Housing: Homeless Do you presently have visiting nurse or other home services: No Unable to assess alcohol history related to: Refusing to respond Alcohol intake: current Alcohol intake frequency: 3 or more drinks per day Alcohol type: beer and hard liquor Patient Tobacco Use Status: Current everyday Tobacco user Tobacco use type: Cigarette Cigarette Packs Per Day: 0.5 Cigarettes Per Day: 8 Second Hand Smoke Exposure: No Use of substances other than those prescribed or required for medical reasons: Unknown Substance Use Type: Crack/Cocaine and Marijuana Advance Directives: No Do you have a plan to hurt others: No Plan service: No Current occupational status: employed Sexual orientation: Straight/Heterosexual Physical Exam ED Vital Signs: Vital Signs - 24 hr 05/11/24 00:16 05/11/24 06:00 Temperature 98.4 F Pulse Rate 89 88 Respiratory Rate 16 16 Blood Pressure 144/94 H 116/69 Pulse Oximetry 97 97 Oxygen Delivery Method Room Air Room Air BMI result Body Mass Index 30.4 Appearance: Alert. Oriented X3. No acute distress. ETOH++ no signs of injury Eyes: PERRLA, No Nystagmus ENT: Pharynx normal. Oral Mucosa moist AT NC Neck: Normal inspection. Neck supple. CVS: Normal heart rate and rhythm. Pulses normal. Respiratory: No respiratory distress. Equal air entry bilateral, no wheezing/rales/rhonchi Abdomen: Soft and nontender. Bowel sounds are present, no mass palpable, no CVA tenderness Skin: Skin warm and dry. Normal skin color. Normal skin turgor. Extremities: No lower extremity edema. No calf tenderness Neuro: Oriented X 3. No motor deficit. No sensory deficit.No cerebellar signs , cranial nerves II-XII intact Medical Decision Making Medical Decision Making MDM Narrative: Patient intoxicated cocaine abuse been here multiple times after staying in the ER patient has became sober does not want any detox will discharge patient home Lab Data [facility] Lab Attestation statement: I reviewed the patient's lab results. 05/11/24 00:43 05/11/24 00:43 Labs: Lab Results 05/11/24 Range/Units 00:43 WBC 7.5 (4.8-10.8) X10*3/uL RBC 5.52 (4.60-5.80) X10*6/uL Hgb 15.4 (14.0-18.0) g/dl Hct 46.3 (42.0-52.0) % MCV 83.9 (80.0-98.0) fL MCH 27.9 (27.0-33.0) pg MCHC 33.3 (31.0-36.0) g/dl RDW 15.4 (11.0-16.0) % Plt Count 265 (160-400) X10*3/uL MPV 9.6 (9.4-12.4) fL Immature Gran % (Auto) 0.5 H (0.0-0.4) % Neut % (Auto) 43.6 L (45-73) % Lymph % (Auto) 48.9 H (20-40) % Christian % (Auto) 5.6 (2-11) % Eos % (Auto) 0.7 (0-4) % Baso % (Auto) 0.7 (0-2) % Lymph # (Auto) 3.7 (1.2-4.9) X10*3/uL Christian # (Auto) 0.4 (0.1-1.2) X10*3/uL Eos # (Auto) 0.1 (0.0-0.4) X10*3/uL Baso # (Auto) 0.1 (0.0-0.2) X10*3/uL Abs Immat Gran (auto) 0.04 H (0.00-0.03) X10*3/uL Absolute Neuts (auto) 3.3 (2.0-8.3) x10*3/uL Absolute Nucleated RBC 0.000 (0.0-0.012) X10*3/uL Nucleated RBC % (auto) 0.0 (0.0-0.2) /100WBC Sodium 142 (135-145) mmol/L Potassium 4.3 (3.3-5.1) mmol/L Chloride 107 (96-108) mmol/L Carbon Dioxide 17 L (22-29) mmol/L Anion Gap 22 H (12-20) BUN 8 L (9-16) mg/dL Creatinine 1.08 (0.5-1.4) mg/dL Estim Creat Clear Calc 87.5 Estimated GFR > 60 Random Glucose 256 H (60-115) mg/dL Calcium 10.2 D (8.4-10.2) mg/dL Total Bilirubin 0.5 (0.0-1.0) mg/dL AST 50 H (5-37) U/L ALT 70 H (0-40) U/L Alkaline Phosphatase 116 (39-117) U/L Total Protein 8.4 H (6.5-8.0) g/dL Albumin 4.9 (3.5-5.0) g/dL Urine Color Yellow Urine Appearance Clear Urine pH 5.5 (5.0-9.0) Ur Specific [place] <= 1.005 (1.005-1.025) Urine Protein Trace (Neg-Trace) mg/dL Urine Glucose (UA) 100 H (Negative) mg/dL Urine Ketones Negative (Negative) mg/dL Urine Blood Negative (Negative) Urine Nitrite Negative (Negative) Ur Leukocyte Esterase Negative (Negative) Urine RBC 0-2 (0-2) /HPF Urine WBC 0-5 (0-5) /HPF Ur Squamous Epith Cells 0-2 (0-2) /HPF Urine Bacteria None Seen (None Seen) Hyaline Casts 0-2 (0-2) /LPF Urine Opiates Screen Not Detected (Not Detect) Ur Buprenorphine Scrn Not Detected (Not Detect) ng/mL Ur Oxycodone Screen Not Detected (Not Detect) ng/mL Urine Methadone Screen Not Detected (Not Detect) ng/mL Urine Fentanyl Screen Not Detected (Not Detect) Ur Barbiturates Screen Not Detected (Not Detect) Ur Phencyclidine Scrn Not Detected (Not Detect) Ur Amphetamines Screen Not Detected (Not Detect) U Benzodiazepines Scrn Not Detected (Not Detect) Urine Cocaine Screen POSITIVE H (Not Detect) U Marijuana (THC) Screen POSITIVE H (Not Detect) Ethyl Alcohol 328 H* mg/dL Discharge Plan Discharge Clinical Impression: Alcoholic intoxication, Cocaine use disorder, moderate, dependence Patient Disposition: Home, Self-Care Instructions: Cocaine Abuse (ED), Alcohol Intoxication (ED) Additional Instructions: Stop using drugs stop drinking alcohol and follow up with detox as needed Prescriptions: No Action prazosin 1 mg capsule 1 mg PO BEDTIME hydroxyzine HCl 50 mg tablet 50 mg PO BID mirtazapine 15 mg tablet 15 mg PO BEDTIME fluoxetine 20 mg capsule 20 mg PO DAILY clonidine HCl 0.1 mg tablet 0.1 mg PO BEDTIME melatonin 3 mg tablet 3 mg PO BEDTIME PRN (Reason: Sleep) metformin 1,000 mg tablet 1,000 mg PO BIDWMEAL Qty: 60 0RF Print Language: Greek
[2024-05-11 01:27] LABS: Alkaline Phosphatase 116 U/L (39-117)
[2024-05-11 06:00] VITALS: BP 116/69; PULSE 88; RESP 16; TEMP 36.9; O2SAT 97
[2024-05-11 06:53] VITALS: BP 116/69; PULSE 88; RESP 16; TEMP 36.9; O2SAT 97
== END 2024-05-11 06:30 | disposition home or self-care (01) ==
PROVIDERS: Emergency Provider Internal Medicine
DX: F10.220 Alcohol dependence with intoxication, uncomplicated (principal); Y90.8 Blood alcohol level of 240 mg/100 ml or more; F14.20 Cocaine dependence, uncomplicated; F33.1 Major depressive disorder, recurrent, moderate; F17.210 Nicotine dependence, cigarettes, uncomplicated
CPT/HCPCS: 36415; 80053; 80307; 81001; 85025; 99284

== ENCOUNTER 2024-05-19 03:21 | Emergency (ER) | payer MEDICAID, SELFPAY ==
[2024-05-19 03:40] VITALS: BP 135/80; BP 152/90; PULSE 103; PULSE 107; RESP 16; TEMP 37; O2SAT 93; O2SAT 95; BMI 34.0
--- NOTE | 2024-05-19 03:46 | PC.NURSE ---
t/w conducted person search which revealed no contraband or injury to client, provided 2 sandwiches and 2 4 ounce fruit juices. cooperative exhibits aroma of significant etoh consumption.
[2024-05-19 04:34] LABS: Amphetamine Screen Urine Not Detected (Not Detect); Barbiturates, Urine Not Detected (Not Detect); Benzodiazepines Screen Urine Not Detected (Not Detect); Buprenorphine Scr Not Detected (Not Detect); Cannabinoid Screen Urine POSITIVE (Not Detect); Cocaine Screen Urine POSITIVE (Not Detect); Fentanyl, urine Not Detected (Not Detect); Methadone Screen, Urine Not Detected (Not Detect); Opiate Screen Urine Not Detected (Not Detect); Oxycodone Screen Urine Not Detected (Not Detect); Phencyclidine Screen Urine Not Detected (Not Detect)
--- NOTE | 2024-05-19 06:04 | MHC.EDTECH ---
lab draw apurva zuniga requested to have blood drawn after I sleep. rn aware.
--- NOTE | 2024-05-19 06:15 | ED.PSYCH ---
HPI - Psych General Chief Complaint: Psychiatric Symptoms Stated Complaint: ETOH, BH unsafe at home self mediacating Time Seen by Provider: 05/19/24 04:58 Source: patient Mode of arrival: EMS Limitations: no limitations History of Present Illness ED Provider: kiana CRISTINA Narrative: Patient homeless with history of substance abuse using cocaine feels homicidal against significant other partner as they were interfering with him denies any SI sleeping on arrival Related Data Home Medications ?Medication ?Instructions ?Recorded ?Confirmed fluoxetine 20 mg capsule 20 mg PO DAILY 07/16/23 12/14/23 hydroxyzine HCl 50 mg tablet 50 mg PO BID 07/16/23 12/14/23 mirtazapine 15 mg tablet 15 mg PO BEDTIME 07/16/23 12/14/23 prazosin 1 mg capsule 1 mg PO BEDTIME 07/16/23 12/14/23 clonidine HCl 0.1 mg tablet 0.1 mg PO BEDTIME 12/09/23 12/14/23 melatonin 3 mg tablet 3 mg PO BEDTIME PRN Sleep 12/09/23 12/14/23 Previous Rx's ?Medication ?Instructions ?Recorded metformin 1,000 mg tablet 1,000 mg PO BIDWMEAL #60 tabs 05/06/24 Allergies Allergy/AdvReac Type Severity Reaction Status Date / Time Penicillins [PENICILLINS] Allergy Severe SWELLING Verified 05/19/24 03:44 AND ITCHING, THROAT CLOSES. Review of Systems Review of Systems: Yes all other systems are reviewed and are negative PMF Past Medical History Medical History Cocaine use disorder, moderate, dependence Alcohol use disorder, moderate, dependence COVID-19 ADHD PTSD (post-traumatic stress disorder) Depression Surgical History History of abdominal surgery Social History Social History Household Members: None Housing: Homeless Do you presently have visiting nurse or other home services: No Unable to assess alcohol history related to: Refusing to respond Alcohol intake: current Alcohol intake frequency: 3 or more drinks per day Alcohol type: beer and hard liquor Patient Tobacco Use Status: Current everyday Tobacco user Tobacco use type: Cigarette Cigarette Packs Per Day: 0.5 Cigarettes Per Day: 8 Second Hand Smoke Exposure: No Substance Use Type: Crack/Cocaine and Marijuana Advance Directives: No Advance Directives Information Provided: Yes Do you have a plan to hurt others: No Plan service: No Current occupational status: employed Sexual orientation: Straight/Heterosexual Physical Exam Vital Signs: Vital Signs: Last Vital Signs Temp 98.6 F 05/19/24 03:40 Pulse 103 H 05/19/24 03:40 Resp 16 05/19/24 03:40 BP 135/80 05/19/24 03:40 Pulse Ox 95 05/19/24 03:40 O2 Del Method Room Air 05/19/24 03:40 BMI result Body Mass Index 34.0 Appearance: Alert. Oriented X3. No acute distress. Eyes: No pallor or icterus ENT: Pharynx normal. Oral Mucosa moist Neck: Normal inspection. Neck supple. CVS: Normal heart rate and rhythm. Pulses normal. Respiratory: No respiratory distress. Equal air entry bilateral, no wheezing/rales/rhonchi Abdomen: Soft and nontender. Bowel sounds are present, no mass palpable, no CVA tenderness Skin: Skin warm and dry. Normal skin color. Normal skin turgor. Extremities: No lower extremity edema. No calf tenderness psych: Denies SI or HI at this time Neuro: Oriented X 3. No motor deficit. No sensory deficit.No cerebellar signs , cranial nerves II-XII intact Medical Decision Making Medical Decision Making [facility] Narrative: Patient's polysubstance abuse will get care team involved? For HI/substance abuse Lab Data [facility] Lab Attestation statement: I reviewed the patient's lab results. Labs: Lab Results 05/19/24 Range/Units 04:18 Urine Opiates Screen Not Detected (Not Detect) Ur Buprenorphine Scrn Not Detected (Not Detect) ng/mL Ur Oxycodone Screen Not Detected (Not Detect) ng/mL Urine Methadone Screen Not Detected (Not Detect) ng/mL Urine Fentanyl Screen Not Detected (Not Detect) Ur Barbiturates Screen Not Detected (Not Detect) Ur Phencyclidine Scrn Not Detected (Not Detect) Ur Amphetamines Screen Not Detected (Not Detect) U Benzodiazepines Scrn Not Detected (Not Detect) Urine Cocaine Screen POSITIVE H (Not Detect) U Marijuana (THC) Screen POSITIVE H (Not Detect) Discharge Plan Discharge Clinical Impression: Cocaine use disorder, moderate, dependence, Homicidal ideation Patient Disposition: Still a Patient Prescriptions: No Action prazosin 1 mg capsule 1 mg PO BEDTIME hydroxyzine HCl 50 mg tablet 50 mg PO BID mirtazapine 15 mg tablet 15 mg PO BEDTIME fluoxetine 20 mg capsule 20 mg PO DAILY clonidine HCl 0.1 mg tablet 0.1 mg PO BEDTIME melatonin 3 mg tablet 3 mg PO BEDTIME PRN (Reason: Sleep) metformin 1,000 mg tablet 1,000 mg PO BIDWMEAL Qty: 60 0RF Interventions: [place]-Suicide Risk Severity Scale Last Done: 05/19/24 04:22 Print Language: French
[2024-05-19 07:30] VITALS: RESP 14
--- NOTE | 2024-05-19 07:32 | PC.NURSE ---
Assumed care of patient at 0645, patient appears to be sleeping, respirations even and unlabored, no apparent distress. Continue plan of care for med clearance and CARE team nilay
--- NOTE | 2024-05-19 09:05 | PHA.MEDREC ---
Pharmacy Consult ? Medication Reconciliation RN has completed the medication reconciliation, pharmacy reviewed.
--- NOTE | 2024-05-19 10:39 | PC.NURSE ---
pt refusing to participate in care, stating can you come back bro, let me sleep . This RN attempted to explain he need for vitals and blood sugar check, pt declined
--- NOTE | 2024-05-19 11:37 | PC.NURSE ---
pt once again refusing blood draws and point of care
[2024-05-19 16:04] VITALS: RESP 16
--- NOTE | 2024-05-19 16:05 | PC.NURSE ---
Patient continues to refuse treatment or care
[2024-05-19] MEDS: metFORMIN HCl 1,000 MG TABLET 1000 MG PO (18:20)
--- NOTE | 2024-05-19 18:39 | MHC.CARE ---
Consulted with Dr. Salter and discussed plan for pt to remain in the ED tonight and follow up with Recovery tomorrow. Pt is in agreement with plan.
[2024-05-19 21:00] VITALS: BP 140/95; PULSE 97; RESP 18; TEMP 36.7; O2SAT 96
[2024-05-19] MEDS: Atorvastatin Calcium 10 MG TABLET PO (21:00)
--- NOTE | 2024-05-19 23:26 | PC.NURSE ---
Took report from off-going RN at 2300 hours. PT is a 53 y/o for presents for evaluation of HI without a plan. Pt is calm and cooperative, independent with ADLs, and denies any SI at this time. Plan of care is pending recovery. Will continue to monitor for any changes.
--- NOTE | 2024-05-20 01:27 | PC.NURSE ---
Pt is sleeping in bed, appears comfortable. Easily arousable with verbal stimuli. Changes positions independently as desired. Will continue to monitor for any changes.
--- NOTE | 2024-05-20 03:08 | PC.NURSE ---
Pt is sleeping in bed on left side, appears comfortable. Breathing observed, easily arousable with verbal stimuli. Changes positions independently as desired. Q15 safety checks continue. Will continue to monitor for any changes
[2024-05-20 06:38] VITALS: BP 128/89; PULSE 78; RESP 16; TEMP 36.8; O2SAT 98
[2024-05-20 06:40] LABS: Glucose, Whole Blood 215 mg/dL (60-115)
[2024-05-20] MEDS: metFORMIN HCl 1,000 MG TABLET 1000 MG PO (07:38)
[2024-05-20] MEDS: Insulin Glargine,Hum.rec.anlog 100 UNIT/ML 10 ML VIAL 40 UNIT SUBCUT (08:36)
[2024-05-20 09:35] VITALS: BP 140/101; PULSE 100; RESP 16; TEMP 37.1; O2SAT 96
== END 2024-05-20 09:46 | disposition home or self-care (01) ==
PROVIDERS: Internal Medicine; Emergency Provider Emergency Medicine Emergency Medical Services
DX: F14.20 Cocaine dependence, uncomplicated (principal); R45.850 Homicidal ideations; F33.1 Major depressive disorder, recurrent, moderate; F43.10 Post-traumatic stress disorder, unspecified; F10.20 Alcohol dependence, uncomplicated; Y90.9 Presence of alcohol in blood, level not specified; F19.10 Other psychoactive substance abuse, uncomplicated; F17.210 Nicotine dependence, cigarettes, uncomplicated; Z59.00 Homelessness unspecified; Z79.899 Other long term (current) drug therapy
CPT/HCPCS: 80307; 82947; 99285; S9485

== ENCOUNTER 2024-05-24 23:59 | Emergency (ER) | payer MEDICAID, SELFPAY ==
[2024-05-25 00:13] VITALS: BP 175/112; PULSE 94; PULSE 98; RESP 16; TEMP 37; O2SAT 100; O2SAT 97; BMI 28.1
[2024-05-25 00:21] VITALS: BP 175/112; PULSE 94; RESP 17; TEMP 36.9; O2SAT 100
--- NOTE | 2024-05-25 00:52 | ED_ITS ---
HPI - General Adult General Chief complaint: Psychiatric Symptoms Stated complaint: ETOH, SI/HI Time Seen by Provider: 05/25/24 00:27 Source: patient, RN notes reviewed and old records reviewed Mode of arrival: EMS Limitations: other (intoxication) History of Present Illness ED Provider: Miguel HPI narrative: 53 year old male with past medical history significant for diabetes, polysubstance abuse, MDD presents for evaluation of depression Patient reports increasing depression with vague suicidal ideation. He does not have a plan He has not been taking his medications including antidepressants due to his substance abuse issues. He reports ?I have been self medicating with crack, marijuana, liquor. The patient's last drink was just prior to arrival. He reports that he had five 24 oz beers and ?several fireball nips. He reports that he is going through a lot but does not elaborate He denies any somatic complaints at this time Related Data Home Medications ?Medication ?Instructions ?Recorded ?Confirmed simvastatin 20 mg tablet (Zocor) 20 mg PO BEDTIME 05/19/24 05/25/24 Previous Rx's ?Medication ?Instructions ?Recorded metformin 1,000 mg tablet 1,000 mg PO BIDWMEAL #60 tabs 05/06/24 Allergies Allergy/AdvReac Type Severity Reaction Status Date / Time Penicillins [PENICILLINS] Allergy Severe SWELLING Verified 05/25/24 00:17 AND ITCHING, THROAT CLOSES. Review of Systems 2 Constitutional: Constitutional: Denies body ache(s), Denies chills, Denies fever(s) and Denies headache(s) Eyes: Eyes: Denies blurry vision ENT: Denies vertigo, Denies dizziness and Denies headache(s) Cardiovascular: Cardiovascular: Reports chest pain and Denies dyspnea Respiratory: Respiratory: Denies cough and Denies dyspnea Gastrointestinal: Gastrointestinal: Denies abdominal pain, Denies nausea and Denies vomiting Musculoskeletal: Musculoskeletal: Denies back pain Integumentary/Breasts: Skin/Breast: Denies rash Neurologic: Denies vertigo, Denies dizziness and Denies headache(s) [facility] Past Medical History Medical History Cocaine use disorder, moderate, dependence Alcohol use disorder, moderate, dependence COVID-19 ADHD PTSD (post-traumatic stress disorder) Depression Surgical History History of abdominal surgery Social History Social History Household Members: None Housing: Homeless Do you presently have visiting nurse or other home services: No Unable to assess alcohol history related to: Refusing to respond Alcohol intake: current Alcohol intake frequency: a few times a month Alcohol type: beer and hard liquor Patient Tobacco Use Status: Current everyday Tobacco user Tobacco use type: Cigarette Cigarette Packs Per Day: 0.5 Cigarettes Per Day: 8 Smoked in Last 30 Days: Yes Second Hand Smoke Exposure: No Use of substances other than those prescribed or required for medical reasons: Yes Substance Use Type: Crack/Cocaine Substance Use Frequency: Recent Binge Advance Directives: No Do you have a plan to hurt others: No Plan service: No Current occupational status: employed Sexual orientation: Straight/Heterosexual Physical Exam ED Vital Signs: Vital Signs - 24 hr 05/25/24 00:13 05/25/24 00:21 05/25/24 07:41 Temperature 98.6 F 98.5 F Pulse Rate 94 94 Respiratory Rate 16 17 16 Blood Pressure 175/112 H 175/112 H Pulse Oximetry 100 100 Oxygen Delivery Method Room Air Room Air BMI result Body Mass Index 28.1 Const General: healthy appearing, comfortable, no acute distress, alert and awake Nutritional Appearance: well nourished Orientation/consciousness: patient oriented x3 HENMT Head: Yes normocephalic and Yes atraumatic Eyes Eyelids: Yes eyelids normal Conjunctivae: conjunctivae normal Sclerae: sclerae normal Corneas: corneas normal Pupils: Equal, round and reactive pupils present EOM: EOMs intact bilaterally Neck Neck: Yes full ROM Resp Effort & Inspection: normal respiratory effort, able to speak in complete sentences and not labored Cardio Rate: regular rate Rhythm: regular rhythm GI Inspection: No distended Palpation (GI): Soft to palpation, not firm, nontender, no guarding and not rigid Skin General skin exam: elasticity normal Neuro General: patient oriented x3 Cranial nerves: Yes Equal, round and reactive pupils present and Yes Bilaterally intact EOM present Cognition (Neuro): normal cognition Extrem Other: Moving all extremities well without any obvious deformities Course Reevaluation(s) Reevaluation #1: The patient has been held in the emergency department overnight for possible detox placement. He was seen by the addiction Medicine team. Arrangements were made for him to go to [facility] detox but the patient ultimately change his mind and refused to go to [facility]. He would like to be discharged. He seems to have capacity to make decisions. Time: 14:20 Medications Administered Generic Name Dose Route Start Last Admin Trade Name Frenancie PRN Reason Stop Dose Admin Insulin Glargine 40 unit 05/25/24 09:30 05/25/24 09:46 Insulin Glargine,Hum.Rec.Anlog 100 Unit/Ml 10 Ml Vial SUBCUT Not Given DAILY [facility] Medical Decision Making Medical Decision Making MDM Narrative: 53-year-old male presents for evaluation of depression with vague suicidal ideation. He admits to drinking heavily today. Plan for medical clearance and care team evaluation. Differential Diagnosis Differential Diagnoses: The differential diagnosis associated with the presentation includes Depression Suicidal ideation Substance abuse Alcohol intoxication Medication noncompliance Lab Data 05/25/24 01:57 05/25/24 01:57 Labs: Lab Results 05/25/24 05/25/24 05/25/24 Range/Units 01:32 01:57 08:58 WBC 5.2 (4.8-10.8) X10*3/uL RBC 4.87 (4.60-5.80) X10*6/uL Hgb 13.8 L (14.0-18.0) g/dl Hct 42.2 (42.0-52.0) % MCV 86.7 (80.0-98.0) fL MCH 28.3 (27.0-33.0) pg MCHC 32.7 (31.0-36.0) g/dl RDW 16.2 H (11.0-16.0) % Plt Count 289 (160-400) X10*3/uL MPV 9.6 (9.4-12.4) fL Immature Gran % (Auto) 0.2 (0.0-0.4) % Neut % (Auto) 37.1 L (45-73) % Lymph % (Auto) 54.6 H (20-40) % Rhea % (Auto) 5.4 (2-11) % Eos % (Auto) 1.5 (0-4) % Baso % (Auto) 1.2 (0-2) % Lymph # (Auto) 2.8 (1.2-4.9) X10*3/uL Rhea # (Auto) 0.3 (0.1-1.2) X10*3/uL Eos # (Auto) 0.1 (0.0-0.4) X10*3/uL Baso # (Auto) 0.1 (0.0-0.2) X10*3/uL Abs Immat Gran (auto) 0.01 (0.00-0.03) X10*3/uL Absolute Neuts (auto) 1.9 L (2.0-8.3) x10*3/uL Absolute Nucleated RBC 0.000 (0.0-0.012) X10*3/uL Nucleated RBC % (auto) 0.0 (0.0-0.2) /100WBC Sodium 143 (135-145) mmol/L Potassium 3.6 (3.3-5.1) mmol/L Chloride 110 H (96-108) mmol/L Carbon Dioxide 18 L (22-29) mmol/L Anion Gap 19 (12-20) BUN 8 L (9-16) mg/dL Creatinine 1.01 (0.5-1.4) mg/dL Estim Creat Clear Calc 93.0 Estimated GFR > 60 POC Glucose 155 H (60-115) mg/dL Random Glucose 136 H (60-115) mg/dL Calcium 8.9 D (8.4-10.2) mg/dL Total Bilirubin 0.5 (0.0-1.0) mg/dL AST 65 H (5-37) U/L ALT 72 H (0-40) U/L Alkaline Phosphatase 90 (39-117) U/L Total Protein 7.4 (6.5-8.0) g/dL Albumin 4.3 (3.5-5.0) g/dL Salicylates < 5.0 L (15-30) mg/dL Urine Opiates Screen Not Detected (Not Detect) Ur Buprenorphine Scrn Not Detected (Not Detect) ng/mL Ur Oxycodone Screen Not Detected (Not Detect) ng/mL Urine Methadone Screen Not Detected (Not Detect) ng/mL Urine Fentanyl Screen Not Detected (Not Detect) Acetaminophen < 3 (<30) mcg/mL Ur Barbiturates Screen Not Detected (Not Detect) Ur Phencyclidine Scrn Not Detected (Not Detect) Ur Amphetamines Screen Not Detected (Not Detect) U Benzodiazepines Scrn Not Detected (Not Detect) Urine Cocaine Screen POSITIVE H (Not Detect) U Marijuana (THC) Screen POSITIVE H (Not Detect) Ethyl Alcohol 217 mg/dL Discharge Plan Discharge Clinical Impression: Polysubstance abuse Patient Disposition: Home, Self-Care Additional Instructions: Please continue your regular medications. Please try to avoid alcohol and other drugs. Please follow up soon with your regular doctor. Return to the emergency room if you feel significantly worse. Prescriptions: No Action metformin 1,000 mg tablet 1,000 mg PO BIDWMEAL Qty: 60 0RF simvastatin [Zocor] 20 mg tablet 20 mg PO BEDTIME Referrals: [facility] [Provider Group] Interventions: [place]-Suicide Risk Severity Scale Last Done: 05/25/24 00:29 Print Language: Bhutanese
--- NOTE | 2024-05-25 01:47 | MHC.EDTECH ---
t/w and JANETTET Marlene C, attempted lab draw 4x. pt a difficult draw. rn aware.
[2024-05-25 01:54] LABS: Amphetamine Screen Urine Not Detected (Not Detect); Barbiturates, Urine Not Detected (Not Detect); Benzodiazepines Screen Urine Not Detected (Not Detect); Buprenorphine Scr Not Detected (Not Detect); Cannabinoid Screen Urine POSITIVE (Not Detect); Cocaine Screen Urine POSITIVE (Not Detect); Fentanyl, urine Not Detected (Not Detect); Methadone Screen, Urine Not Detected (Not Detect); Opiate Screen Urine Not Detected (Not Detect); Oxycodone Screen Urine Not Detected (Not Detect); Phencyclidine Screen Urine Not Detected (Not Detect)
[2024-05-25 02:02] LABS: Basophils Absolute Auto 0.1 X10*3/uL (0.0-0.2); Basophils Percent Auto 1.2 % (0-2); Eosinophils Absolute Auto 0.1 X10*3/uL (0.0-0.4); Eosinophils Percent Auto 1.5 % (0-4); Hematocrit 42.2 % (42.0-52.0); Hemoglobin 13.8 g/dl (14.0-18.0); Imm Gran Abs Auto 0.01 X10*3/uL (0.00-0.03); Imm Gran Pct Auto 0.2 % (0.0-0.4); Lymphocytes Absolute Auto 2.8 X10*3/uL (1.2-4.9); Lymphocytes Percent Auto 54.6 % (20-40); MANUAL DIFF FLAG NO; Mean Corpuscular HGB Conc 32.7 g/dl (31.0-36.0); Mean Corpuscular Hemoglobin 28.3 pg (27.0-33.0); Mean Corpuscular Volume 86.7 fL (80.0-98.0); Mean Platelet Volume 9.6 fL (9.4-12.4); Monocytes Absolute Auto 0.3 X10*3/uL (0.1-1.2); Monocytes Percent Auto 5.4 % (2-11); Neutrophils Absolute Auto 1.9 x10*3/uL (2.0-8.3); Neutrophils Percent Auto 37.1 % (45-73); Platelet Count 289 X10*3/uL (160-400); Red Blood Count 4.87 X10*6/uL (4.60-5.80); Red Cell Distribution Width 16.2 % (11.0-16.0); White Blood Count 5.2 X10*3/uL (4.8-10.8)
[2024-05-25 02:20] LABS: Albumin Level 4.3 g/dL (3.5-5.0); Alkaline Phosphatase 90 U/L (39-117); Anion Gap 19 (12-20); Aspartate Amino Transferase 65 U/L (5-37); Bilirubin Total 0.5 mg/dL (0.0-1.0); Blood Urea Nitrogen 8 mg/dL (9-16); Calcium 8.9 mg/dL (8.4-10.2); Carbon Dioxide 18 mmol/L (22-29); Chloride 110 mmol/L (96-108); Estimated Glomerular Filt Rate > 60; Ethanol 217 mg/dL; Glucose Random 136 mg/dL (60-115); Potassium 3.6 mmol/L (3.3-5.1); Sodium 143 mmol/L (135-145); Total Protein 7.4 g/dL (6.5-8.0)
[2024-05-25 02:28] LABS: Acetaminophen LAB < 3 mcg/mL (<30); Salicylate < 5.0 mg/dL (15-30)
[2024-05-25 02:48] LABS: Alanine Aminotransferase 72 U/L (0-40)
--- NOTE | 2024-05-25 04:58 | PC.NURSE ---
patient appears to be resting quietly in room w/ even and unlabored respirations.
[2024-05-25 07:41] VITALS: RESP 16
--- NOTE | 2024-05-25 07:43 | PC.NURSE ---
Assumed care of patient at 0645, patient appears to be sleeping, respirations even and unlabored, no apparent distress noted. Continue plan of care for CARE team nilay
[2024-05-25 09:02] LABS: Glucose, Whole Blood 155 mg/dL (60-115)
--- NOTE | 2024-05-25 10:09 | MHC.RECOVRN ---
Pt cleared by CARE Team, pt reported interest in ATS. Pts referral sent to [facility].
--- NOTE | 2024-05-25 10:45 | PHA.MEDREC ---
Pharmacy Consult ? Medication Reconciliation Pharmacy reviewed med rec done by nursing. In claims the medications QTY was 0 so I called [facility] in [place] and they were able to confirm what the patient picked up on 05/10. They confirmed he picked up simvastatin 20mg tabs once at bedtime, Metformin 1000mg tabs 1 BID, Fluoxetine 20mg tabs 1 BID, Clonidine 0.2mg 1 BID, Buspirone 15mg tabs 1 TID, Mirtazipine 15mg 1 at bedtime, Diphenhydramine 50mg 1 at bedtime, Prazosin 2mg 2 at bedtime and Olanzipine 5mg tabs 1 BID; They stated he never picked up the Ste[place]arto 5mg tabs or Insulin Glargine from their facility. I updated and confirmed the med rec according to when and what the patient picked up at [facility].
--- NOTE | 2024-05-25 11:20 | MHC.RECOVRN ---
[facility] is currently reviewing pts referral.
--- NOTE | 2024-05-25 13:00 | MHC.RECOVRN ---
Pt accepted to [facility] pending phone screen.
--- NOTE | 2024-05-25 13:23 | PC.NURSE ---
Patient calm and cooperative, offering no complaints, declined lunchtime POC check. Pt now making phone calls in common area
--- NOTE | 2024-05-25 13:25 | PC.NURSE ---
Pt reports to this RN that he does not want to go to [facility] I don't like that detox, yall can just discharge me, its all good . Anyi, stone cutter aware
[2024-05-25 15:23] VITALS: BP 104/88; PULSE 86; RESP 16; TEMP 37.3; O2SAT 97
== END 2024-05-25 15:27 | disposition home or self-care (01) ==
PROVIDERS: Physician Assistant; Emergency Provider Emergency Medicine Emergency Medical Services
DX: F19.10 Other psychoactive substance abuse, uncomplicated (principal); E11.9 Type 2 diabetes mellitus without complications; F14.20 Cocaine dependence, uncomplicated; F10.20 Alcohol dependence, uncomplicated; Y90.7 Blood alcohol level of 200-239 mg/100 ml; F17.210 Nicotine dependence, cigarettes, uncomplicated; Z79.02 Long term (current) use of antithrombotics/antiplatelets; Z79.84 Long term (current) use of oral hypoglycemic drugs
CPT/HCPCS: 36415; 80053; 80143; 80179; 80307; 82947; 85025; 99285

== ENCOUNTER 2024-06-20 02:19 | Inpatient (IN) | payer MEDICAID, OTHER, SELFPAY ==
[2024-06-20] VITALS (9 sets, daily range): BP systolic 102–170; BP diastolic 62–121; PULSE 80–103; RESP 14–20; TEMP 36.2–36.9; O2SAT 94–97; BMI 29.1
[2024-06-20 03:01] LABS: Basophils Absolute Auto 0.1 X10*3/uL (0.0-0.2); Basophils Percent Auto 0.9 % (0-2); Eosinophils Absolute Auto 0.1 X10*3/uL (0.0-0.4); Eosinophils Percent Auto 1.3 % (0-4); Hematocrit 39.7 % (42.0-52.0); Hemoglobin 13.5 g/dl (14.0-18.0); Imm Gran Abs Auto 0.03 X10*3/uL (0.00-0.03); Imm Gran Pct Auto 0.4 % (0.0-0.4); Lymphocytes Absolute Auto 4.6 X10*3/uL (1.2-4.9); Lymphocytes Percent Auto 58.7 % (20-40); MANUAL DIFF FLAG NO; Mean Corpuscular Hemoglobin 28.5 pg (27.0-33.0); Mean Corpuscular Volume 83.9 fL (80.0-98.0); Mean Platelet Volume 9.4 fL (9.4-12.4); Monocytes Absolute Auto 0.5 X10*3/uL (0.1-1.2); Monocytes Percent Auto 6.4 % (2-11); Neutrophils Absolute Auto 2.6 x10*3/uL (2.0-8.3); Neutrophils Percent Auto 32.3 % (45-73); Platelet Count 286 X10*3/uL (160-400); Red Blood Count 4.73 X10*6/uL (4.60-5.80); Red Cell Distribution Width 15.5 % (11.0-16.0); White Blood Count 7.9 X10*3/uL (4.8-10.8)
[2024-06-20 03:12] LABS: Anion Gap 14 (12-20); Blood Urea Nitrogen 11 mg/dL (9-16); Calcium 9.2 mg/dL (8.4-10.2); Carbon Dioxide 21 mmol/L (22-29); Chloride 112 mmol/L (96-108); Creatinine Clr Calc Pharmacy 88.3; Estimated Glomerular Filt Rate > 60; Ethanol 274 mg/dL; Glucose Random 102 mg/dL (60-115); Potassium 3.9 mmol/L (3.3-5.1); Sodium 143 mmol/L (135-145)
[2024-06-20 04:08] LABS: Amphetamine Screen Urine Not Detected (Not Detect); Barbiturates, Urine Not Detected (Not Detect); Benzodiazepines Screen Urine Not Detected (Not Detect); Buprenorphine Scr Not Detected (Not Detect); Cannabinoid Screen Urine POSITIVE (Not Detect); Cocaine Screen Urine POSITIVE (Not Detect); Fentanyl, urine Not Detected (Not Detect); Methadone Screen, Urine Not Detected (Not Detect); Opiate Screen Urine Not Detected (Not Detect); Oxycodone Screen Urine Not Detected (Not Detect); Phencyclidine Screen Urine Not Detected (Not Detect)
--- NOTE | 2024-06-20 06:43 | ED_ITS ---
HPI - Psych General Chief Complaint: ETOH/Substance Use Stated Complaint: ETOH/SI Time Seen by Provider: 06/20/24 06:26 Source: patient and EMS Mode of arrival: EMS Limitations: no limitations History of Present Illness ED Provider: Dr. Mary Steele HPI Narrative: Patient comes to the emergency room complaining of suicidal ideation and admits to using crack and drinking alcohol. Patient states that he needs help with his alcohol before he does hurt himself. Patient denies HI. Denies any falls, denies any injuries. Related Data Home Medications ?Medication ?Instructions ?Recorded ?Confirmed simvastatin 20 mg tablet (Zocor) 20 mg PO BEDTIME 05/19/24 05/25/24 Previous Rx's ?Medication ?Instructions ?Recorded metformin 1,000 mg tablet 1,000 mg PO BIDWMEAL #60 tabs 05/06/24 Allergies Allergy/AdvReac Type Severity Reaction Status Date / Time Penicillins [PENICILLINS] Allergy Severe SWELLING Verified 06/20/24 02:31 AND ITCHING, THROAT CLOSES. Review of Systems 2 Review of Systems: Constitutional : No Weight loss, No Fever, No Chills, No Night Sweats, No Fatigue, No Malaise ENT/Mouth : No Hearing loss, No Ear Pain, No Nasal Congestion, No Sinus Pain, No Hoarseness, No sore throat, No Rhinorrhea, No Swallowing Difficulty Eyes: No Eye Pain, No Swelling, No Redness, No Foreign Body, No Discharge, No Vision Changes Cardiovascular : No Chest Pain, No SOB, No Dyspnea on Exertion, No Orthopnea, No Edema, No Palpitations Respiratory : No Cough, No Sputum, No Wheezing, No Smoke Exposure, No Dyspnea Gastrointestinal : No Nausea, No Vomiting, No Diarrhea, No Constipation, No abdominal Pain, No Hematochezia, No Melena Genitourinary : no irregular bleeding, No Dysuria, No Urinary Frequency, No Hematuria, No Urinary Incontinence, No Urgency, No Flank Pain, No Urinary Flow Changes, No Hesitancy Musculoskeletal : No joint pain, No Myalgias, No Joint Swelling Skin : No Skin Lesions, No rash Neuro : No Weakness, No Numbness, No Paresthesias, No Loss of Consciousness, No Dizziness, No Headache Psych : Complaining of anxiety and depression, admits to polysubstance abuse, admits to vague SI, no HI Heme/Lymph: No Bruising, No Bleeding,No Lymphadenopathy Endocrine : No Polyuria, No Polydipsia, No Temperature Intolerance [facility] Past Medical History Medical History Cocaine use disorder, moderate, dependence Alcohol use disorder, moderate, dependence COVID-19 ADHD PTSD (post-traumatic stress disorder) Depression Surgical History History of abdominal surgery Social History Social History Household Members: None Housing: Homeless Do you presently have visiting nurse or other home services: No Unable to assess alcohol history related to: Refusing to respond Alcohol intake: current Alcohol intake frequency: 3 or more drinks per day Alcohol type: beer Patient Tobacco Use Status: Current everyday Tobacco user Tobacco use type: Cigarette Cigarette Packs Per Day: 0.5 Cigarettes Per Day: 8 Smoked in Last 30 Days: Yes Second Hand Smoke Exposure: No Use of substances other than those prescribed or required for medical reasons: Yes Substance Use Type: Crack/Cocaine Last Used Substance: Hours (ago) Advance Directives: No Advance Directives Information Provided: Yes service: No Current occupational status: employed Sexual orientation: Straight/Heterosexual Physical Exam 2 Vital Signs: Vital Signs: Last Vital Signs Temp 98.4 F 06/20/24 06:40 Pulse 81 06/20/24 06:40 Resp 16 06/20/24 06:40 BP 102/62 06/20/24 06:40 Pulse Ox 94 06/20/24 06:40 O2 Del Method Room Air 06/20/24 06:40 BMI result Body Mass Index 29.1 Const: Other: Appearance: Alert. Oriented X3. No acute distress. Eyes: Pupils equal, round and reactive to light. ENT: Pharynx normal. Neck: Normal inspection. Neck supple. No lymph nodes noted. No crepitus CVS: Normal heart rate and rhythm. Pulses normal. Normal S1 and S2 Respiratory: No respiratory distress. Breath sounds normal. No Wheezing. No rales Abdomen: Soft and nontender. No rigidity. No distention. Skin: Skin warm and dry. Normal skin color. Normal skin turgor. Extremities: No lower extremity edema. No Lacerations. No Rash Neuro: Oriented X 3. No motor deficit. No sensory deficit. Moving all extremities. No slurred speech. CN 2 through 12 grossly intact Psych: calm, cooperative, normal affect Medical Decision Making Medical Decision Making [facility] Narrative: My interpretation of labs: No significant abnormality in patient's hematology chemistry, toxicology positive for EtOH, level 274, urine positive for cocaine and THC Care team consult Physician observation started at 06:45 Differential Diagnosis Differential Diagnoses: The differential diagnosis associated with the presentation includes Admission/Observation Consideration of admission/observation: Escalation of care including admission/observation considered (Patient is under physician observation waiting to be seen by the care team) Lab Data [facility] Lab Attestation statement: I reviewed the patient's lab results. 06/20/24 02:54 06/20/24 02:54 Labs: Lab Results 06/20/24 06/20/24 Range/Units 02:54 02:58 WBC 7.9 (4.8-10.8) X10*3/uL RBC 4.73 (4.60-5.80) X10*6/uL Hgb 13.5 L (14.0-18.0) g/dl Hct 39.7 L (42.0-52.0) % MCV 83.9 (80.0-98.0) fL MCH 28.5 (27.0-33.0) pg MCHC 34.0 (31.0-36.0) g/dl RDW 15.5 (11.0-16.0) % Plt Count 286 (160-400) X10*3/uL MPV 9.4 (9.4-12.4) fL Immature Gran % (Auto) 0.4 (0.0-0.4) % Neut % (Auto) 32.3 L (45-73) % Lymph % (Auto) 58.7 H (20-40) % [place] % (Auto) 6.4 (2-11) % Eos % (Auto) 1.3 (0-4) % Baso % (Auto) 0.9 (0-2) % Lymph # (Auto) 4.6 (1.2-4.9) X10*3/uL [place] # (Auto) 0.5 (0.1-1.2) X10*3/uL Eos # (Auto) 0.1 (0.0-0.4) X10*3/uL Baso # (Auto) 0.1 (0.0-0.2) X10*3/uL Abs Immat Gran (auto) 0.03 (0.00-0.03) X10*3/uL Absolute Neuts (auto) 2.6 (2.0-8.3) x10*3/uL Absolute Nucleated RBC 0.000 (0.0-0.012) X10*3/uL Nucleated RBC % (auto) 0.0 (0.0-0.2) /100WBC Sodium 143 (135-145) mmol/L Potassium 3.9 (3.3-5.1) mmol/L Chloride 112 H (96-108) mmol/L Carbon Dioxide 21 L (22-29) mmol/L Anion Gap 14 (12-20) BUN 11 (9-16) mg/dL Creatinine 0.95 (0.5-1.4) mg/dL Estim Creat Clear Calc 88.3 Estimated GFR > 60 Random Glucose 102 (60-115) mg/dL Calcium 9.2 (8.4-10.2) mg/dL Urine Opiates Screen Not Detected (Not Detect) Ur Buprenorphine Scrn Not Detected (Not Detect) ng/mL Ur Oxycodone Screen Not Detected (Not Detect) ng/mL Urine Methadone Screen Not Detected (Not Detect) ng/mL Urine Fentanyl Screen Not Detected (Not Detect) Ur Barbiturates Screen Not Detected (Not Detect) Ur Phencyclidine Scrn Not Detected (Not Detect) Ur Amphetamines Screen Not Detected (Not Detect) U Benzodiazepines Scrn Not Detected (Not Detect) Urine Cocaine Screen POSITIVE H (Not Detect) U Marijuana (THC) Screen POSITIVE H (Not Detect) Ethyl Alcohol 274 mg/dL Critical Care Time Critical Care Time Critical Care Time: Yes Total Critical Care Time: 35 Attestation: I have personally provided critical care time. Time includes review of lab data, radiology results, discussion with consultants, and monitoring for potential decompensation. Intervention performed as documented. Discharge Plan Discharge Clinical Impression: Polysubstance abuse, Depression Patient Disposition: Still a Patient Prescriptions: No Action metformin 1,000 mg tablet 1,000 mg PO BIDWMEAL Qty: 60 0RF simvastatin [Zocor] 20 mg tablet 20 mg PO BEDTIME Print Language: Serbian
--- NOTE | 2024-06-20 08:02 | MHC.EDTECH ---
1:1 sitter at bedside, pt provided breakfast, ate 75%, CARE team speaking w pt, all needs met at this time
--- NOTE | 2024-06-20 08:29 | MHC.CARE ---
Pt will be a dual dx bedsearch
--- NOTE | 2024-06-20 08:35 | ECG_ITS ---
Test Reason : cocaine use Blood Pressure : / mmHG Vent. Rate : 088 BPM Atrial Rate : 088 BPM P-R Int : 142 ms QRS Dur : 082 ms QT Int : 364 ms P-R-T Axes : 054 055 031 degrees QTc Int : 440 ms Normal sinus rhythm Minimal voltage criteria for LVH, may be normal variant ( Sokolow-Pat ) Borderline ECG When compared with ECG of 14-DEC-2023 08:11, No significant change was found Referred By: Trini Nicholson Electronically Signed By:TEODORA KUMAR MD
[2024-06-20] MEDS: Mirtazapine 15 MG TABLET PO (10:07)
[2024-06-20] MEDS: metFORMIN HCl 1,000 MG TABLET 1000 MG PO ×2 (10:07→17:36)
[2024-06-20] MEDS: FLUoxetine HCl 20 MG CAPSULE PO (10:07)
[2024-06-20] MEDS: LORazepam 1 MG TABLET 2 MG PO ×2 (10:07→17:38)
[2024-06-20 12:22] LABS: Glucose, Whole Blood 106 mg/dL (60-115)
--- NOTE | 2024-06-20 17:24 | PC.NURSE ---
Assumed care of patient at 1715. Patient alert and oriented, OOB ambulating unit, gait steady. Patient currently calm and cooperative. Continue with plan of care for dual dx inpatient bed search.
[2024-06-20] MEDS: cloNIDine HCL 0.1 MG TABLET PO (18:10)
--- NOTE | 2024-06-20 18:13 | PC.NURSE ---
Patient blood pressure 170/121, MD Gaetano made aware. One time dose of Clonidine 0.1mg given as ordered.
[2024-06-20 18:57] LABS: Glucose, Whole Blood 109 mg/dL (60-115)
[2024-06-20 23:34] LABS: Glucose, Whole Blood 130 mg/dL (60-115)
[2024-06-20] MEDS: Atorvastatin Calcium 10 MG TABLET PO (23:36)
[2024-06-20] MEDS: Melatonin 3 MG TABLET PO (23:36)
[2024-06-21 07:17] LABS: Glucose, Whole Blood 162 mg/dL (60-115)
[2024-06-21] MEDS: metFORMIN HCl 1,000 MG TABLET 1000 MG PO (08:07)
[2024-06-21] MEDS: FLUoxetine HCl 20 MG CAPSULE PO (08:58)
[2024-06-21] MEDS: Mirtazapine 15 MG TABLET PO (08:58)
[2024-06-21] MEDS: Insulin Glargine,Hum.rec.anlog 100 UNIT/ML 10 ML VIAL 40 UNIT SUBCUT (08:59)
--- NOTE | 2024-06-21 09:00 | PC.NURSE ---
Pt refused BP earlier
--- NOTE | 2024-06-21 10:33 | PHA.MEDREC ---
Addendum entered by Ezekiel Harris 06/21/24 11:12: reviewed Original Note: Pharmacy Consult ? Medication Reconciliation Pharmacy reviewed med rec done by nursing. In claims the most recent medications filled had quantity of 0 next to them, I called patients pharmacy to confirm the medications. They confirmed the patient had picked up the Clonidine 0.3mg tab, Fluoxetine 20mg, Metformin 100mg tab, Mirtazapine 15mg and Simvastatin 20mg tabs on 05/10. They confirmed he picked up the Melatonin 3mg tab on 04/08 for 30 days last from their facility. They also stated he had filled an Olanzapine 5mg tab on 05/10 but only got a partial quantity of 10 tabs and they never got the remainder. They stated they got a script of the Lantus insulin in on 04/29 that the patient never filled and before that they have no fill history of insulin being filled for that patient.
--- NOTE | 2024-06-21 11:17 | PC.NURSE ---
Pt requesting to speak with CARE team- 3 phone call made- Barry came down and briefly spoke to him. Pt started acting up- screaming I am leaving- started kicking the doors and demanding he was going to leave- security called
--- NOTE | 2024-06-21 11:20 | PC.NURSE ---
Patient refused medication to him calm down
[2024-06-21 12:47] VITALS: BP 179/112; PULSE 81; RESP 17; O2SAT 97
--- NOTE | 2024-06-21 12:48 | MHC.CARE ---
CARE Team speaks with pt, who is requesting a discharge.? Pt reports ?having things to do.? Pt is advised that he will remain in the ED and is currently on a section 12 as he had stated he was going to ?kill? his girlfriend and her son.? Pt had also stated he intended on committing a physical assault upon his girlfriend. Pt was advised that he would be going to one of this facility?s inpatient psychiatric units today.? Pt expressed strong disagreement with this outcome although he found it a favorable outcome yesterday. Pt reported that if he is made to remain at this facility and is not discharged he would lose control and ?there will be problems.?? He reported that he does not wish to make problems but will do so if he is forced to (by not being discharged). Pt appeared to be growing agitated, as such; CARE Team terminated the conversation to afford the pt to regain behavioral control so a productive conversation could be had later.? Pt then began fiercely and violently kicking the exit door in the pod, elevating his voice.? CARE Team advised pt that his current behaviors will not expedite his discharge from this facility and may prove to be a hinderance to any immediate departure.
[2024-06-21 12:54] LABS: Glucose, Whole Blood 95 mg/dL (60-115)
[2024-06-21 12:57] VITALS: BP 179/112
[2024-06-21] MEDS: amLODIPine Besylate 5 MG TABLET PO (12:57)
--- NOTE | 2024-06-21 13:00 | PC.NURSE ---
Pt states his BP is always elevated when he is upset- Pt medicated with Duane- aware of [facility]
--- NOTE | 2024-06-21 13:31 | PC.NURSE ---
Pt refused- to take any ativan- pt states he does not need it
--- NOTE | 2024-06-21 13:39 | MHC.CARE ---
1317 - CARE Team speaks with pt?s significant other Ms. Shilpa Austin([phone]).? An ARELIS Form has been signed by pt. Pt?s significant other has been made aware of the threats against her and her son. Pt?s disposition was discussed with Ms. Austin upon the request of pt. Ms. Austin reports that she believes that she has ?squashed? the issues between pt and her son and attributes pt?s comments/threats to his being unable to effectively process and articulate his emotions.? She reports that when pt is ready to discharge, he may discharge to her home.
[2024-06-21 14:10] VITALS: BP 204/130; PULSE 88; O2SAT 98
[2024-06-21 14:15] VITALS: BP 198/120
[2024-06-21 15:16] VITALS: BMI 28.6
[2024-06-21 15:24] LABS: Alanine Aminotransferase 79 U/L (0-40); Albumin Level 4.7 g/dL (3.5-5.0); Anion Gap 16 (12-20); Aspartate Amino Transferase 42 U/L (5-37); Bilirubin Total 0.6 mg/dL (0.0-1.0); Blood Urea Nitrogen 10 mg/dL (9-16); Calcium 9.9 mg/dL (8.4-10.2); Carbon Dioxide 22 mmol/L (22-29); Chloride 110 mmol/L (96-108); Creatinine Clr Calc Pharmacy 76.3; Estimated Glomerular Filt Rate > 60; Glucose Random 150 mg/dL (60-115); Potassium 3.9 mmol/L (3.3-5.1); Sodium 144 mmol/L (135-145); Total Protein 8.2 g/dL (6.5-8.0)
--- NOTE | 2024-06-21 15:39 | P.HPPS_ITS ---
HPI Date of Service: 06/21/24 Chief Complaint: crisis Sources of Information: patient interviewed, chart reviewed and crisis/core team assessment reviewed HPI Subjective Notes: Farr Warning and Conditional Voluntary Narrative: Patient is a 53-year-old male with history of MDD, PTSD, cocaine use disorder and alcohol use disorder who arrived via ambulance due to suicidal ideation secondary to cocaine and alcohol use. Per crisis report, patient reports he wanted help with his alcohol use before he hurts himself. He called EMS from a gas station after an argument with his significant other and reported having a terrible holiday and feeling depressed. Patient reports history of inpatient psychiatric hospitalizations and detox admissions. Patient declined referrals for recovery team and lacked of interest in detox. Patient reports he wishes to go to [facility] to see an outpatient therapist. denies SI/HI/VH/AH. When patient came in intoxicated he did make remarks about wanting to beat the shit out of his girlfriend . Patient reports hostility between him and his girlfriend's son. He reported suicidal ideation after an argument with his significant other and being ejected from the home. Patient denies any history of suicide attempts or self-harming behavior. Utox positive for cocaine, marijuana and alcohol. During admission assessment, patient presents alert and oriented x3. Calm, cooperative and friendly. Patient reports feeling fine; patient stated, I was intoxicated when I came here. I do not want to kill myself or anybody. I do not need to be here. If I wanted to hurt myself or someone else I would have. Me and my fiance's son got into an argument and said stupid things. Me and her have been together for 12 years. I would not hurt her or him . Patient reports he does not have access to a gun. Patient gave this customs entry writer consent to speak to his fiancee, Kathy Austin. Ms. Austin reports she has no concerns about the comments of violence that the patient made towards her. Ms. Austin stated, we're passed that argument. Kameron apologized. He does not have access to a gun. We say stupid things when we're drunk together. Sometimes we have even gotten into physical altercations. When he is sober we talk it out and smooth that out. I would take him back home but I told him that he can not drink in my house . Ms. Austin reports that patient plans on following up with an outpatient provider for his substance use and states that he is medication compliant when at home. Ms. Austin stated, I'm not worried about him hurting himself or anyone else. He can come back home today . Past Psychiatric History: Inpatient: hx of 4-5 inpatient psychiatric hospitalizations in [place] for depression. hx of multiple detox admissions. OP: none Past medication trials: prozac (reports helpful), remeron, prazosin. denies SA/SIB Medical Evaluation Reviewed: Yes [facility] Medical History (Updated 06/21/24 @ 16:54 by Romy Guevara NP) Cocaine use disorder, moderate, dependence Alcohol use disorder, moderate, dependence COVID-19 ADHD PTSD (post-traumatic stress disorder) Depression Surgical History History of abdominal surgery Family History: unknown Social History: Lives in an apartment with his fidoriee. One daughter (19 y/o). Disability. GED. Substance History: Patient reports crack, alcohol and marijuana use. Trauma History: Yes Diagnostics Vital Signs (24Hr): Vital Signs - 24 hr 06/20/24 17:41 06/20/24 18:10 06/20/24 23:32 Temperature 97.2 F 98.1 F Pulse Rate 103 H 80 Respiratory Rate 18 17 Blood Pressure 170/121 H 170/121 H 137/91 H Pulse Oximetry 96 96 Oxygen Delivery Method Room Air Room Air 06/21/24 12:47 06/21/24 12:57 06/21/24 14:10 Temperature Pulse Rate 81 88 Respiratory Rate 17 Blood Pressure 179/112 H 179/112 H 204/130 H Pulse Oximetry 97 98 Oxygen Delivery Method Room Air Room Air 06/21/24 14:15 Temperature Pulse Rate Respiratory Rate Blood Pressure 198/120 H Pulse Oximetry Oxygen Delivery Method BMI result Body Mass Index 28.6 Labs 06/20/24 02:54 06/21/24 14:50 Labs: Laboratory Results - last 48 hr 06/20/24 06/20/24 06/20/24 02:54 02:58 12:12 WBC 7.9 RBC 4.73 Hgb 13.5 L Hct 39.7 L MCV 83.9 MCH 28.5 MCHC 34.0 RDW 15.5 Plt Count 286 MPV 9.4 Immature Gran % (Auto) 0.4 Neut % (Auto) 32.3 L Lymph % (Auto) 58.7 H [place] % (Auto) 6.4 Eos % (Auto) 1.3 Baso % (Auto) 0.9 Lymph # (Auto) 4.6 [place] # (Auto) 0.5 Eos # (Auto) 0.1 Baso # (Auto) 0.1 Abs Immat Gran (auto) 0.03 Absolute Neuts (auto) 2.6 Absolute Nucleated RBC 0.000 Nucleated RBC % (auto) 0.0 Hold Purple Top Sodium 143 Potassium 3.9 Chloride 112 H Carbon Dioxide 21 L Anion Gap 14 BUN 11 Creatinine 0.95 Estim Creat Clear Calc 88.3 Estimated GFR > 60 POC Glucose 106 Random Glucose 102 Calcium 9.2 Total Bilirubin AST ALT Total Protein Albumin Urine Opiates Screen Not Detected Ur Buprenorphine Scrn Not Detected Ur Oxycodone Screen Not Detected Urine Methadone Screen Not Detected Urine Fentanyl Screen Not Detected Ur Barbiturates Screen Not Detected Ur Phencyclidine Scrn Not Detected Ur Amphetamines Screen Not Detected U Benzodiazepines Scrn Not Detected Urine Cocaine Screen POSITIVE H U Marijuana (THC) Screen POSITIVE H Ethyl Alcohol 274 06/20/24 06/20/24 06/21/24 18:53 23:31 07:13 WBC RBC Hgb Hct MCV MCH MCHC RDW Plt Count MPV Immature Gran % (Auto) Neut % (Auto) Lymph % (Auto) [place] % (Auto) Eos % (Auto) Baso % (Auto) Lymph # (Auto) [place] # (Auto) Eos # (Auto) Baso # (Auto) Abs Immat Gran (auto) Absolute Neuts (auto) Absolute Nucleated RBC Nucleated RBC % (auto) Hold Purple Top Sodium Potassium Chloride Carbon Dioxide Anion Gap BUN Creatinine Estim Creat Clear Calc Estimated GFR POC Glucose 109 130 H 162 H Random Glucose Calcium Total Bilirubin AST ALT Total Protein Albumin Urine Opiates Screen Ur Buprenorphine Scrn Ur Oxycodone Screen Urine Methadone Screen Urine Fentanyl Screen Ur Barbiturates Screen Ur Phencyclidine Scrn Ur Amphetamines Screen U Benzodiazepines Scrn Urine Cocaine Screen U Marijuana (THC) Screen Ethyl Alcohol 06/21/24 06/21/24 06/21/24 12:51 14:50 14:58 WBC RBC Hgb Hct MCV MCH MCHC RDW Plt Count MPV Immature Gran % (Auto) Neut % (Auto) Lymph % (Auto) [place] % (Auto) Eos % (Auto) Baso % (Auto) Lymph # (Auto) [place] # (Auto) Eos # (Auto) Baso # (Auto) Abs Immat Gran (auto) Absolute Neuts (auto) Absolute Nucleated RBC Nucleated RBC % (auto) Hold Purple Top SEE NOTE Sodium 144 Potassium 3.9 Chloride 110 H Carbon Dioxide 22 Anion Gap 16 BUN 10 Creatinine 1.09 Estim Creat Clear Calc 76.3 Estimated GFR > 60 POC Glucose 95 Random Glucose 150 H Calcium 9.9 D Total Bilirubin 0.6 AST 42 H ALT 79 H Total Protein 8.2 H Albumin 4.7 Urine Opiates Screen Ur Buprenorphine Scrn Ur Oxycodone Screen Urine Methadone Screen Urine Fentanyl Screen Ur Barbiturates Screen Ur Phencyclidine Scrn Ur Amphetamines Screen U Benzodiazepines Scrn Urine Cocaine Screen U Marijuana (THC) Screen Ethyl Alcohol Meds/Allergies Meds Home Medications ?Medication ?Instructions ?Recorded ?Confirmed ?Type simvastatin 20 mg tablet (Zocor) 20 mg PO BEDTIME 05/19/24 06/20/24 History clonidine HCl 0.2 mg tablet 0.2 mg PO BEDTIME PRN Anxiety 06/20/24 06/20/24 History fluoxetine 20 mg tablet 20 mg PO DAILY 06/20/24 06/20/24 History melatonin 3 mg capsule 3 mg PO BEDTIME 06/20/24 06/20/24 History mirtazapine 15 mg tablet 15 mg DAILY 06/20/24 06/20/24 History Allergies Allergies Allergy/AdvReac Type Severity Reaction Status Date / Time Penicillins [PENICILLINS] Allergy Severe SWELLING Verified 06/20/24 02:31 AND ITCHING, THROAT CLOSES. Mental Status Exam Mental Status Exam Narrative: Pt is alert and oriented; behavior is cooperative, friendly and calm; dressed in casual attire; mood is described as good ; eye contact appropriate; Speech is normal rate, volume and not pressured; thought process is organized and goal directed; Thought content is on discharge; otherwise pertinent to relevant topics and without any delusional content, paranoid ideations or grandiosity; denies SI/HI/VH/AH. Assessment & Plan Assessment & Plan (1) MDD (major depressive disorder), recurrent episode, moderate: Status: Acute Code(s): F33.1 - Major depressive disorder, recurrent, moderate (2) PTSD (post-traumatic stress disorder): Status: Acute Code(s): F43.10 - Post-traumatic stress disorder, unspecified (3) Alcohol use disorder: Status: Inactive Code(s): F10.90 - Alcohol use, unspecified, uncomplicated (4) Cocaine use disorder: Status: Inactive Code(s): F14.10 - Cocaine abuse, uncomplicated Plan Plan: CV 15 minute safety checks Obtain collateral Continue home medications Follow up with outpatient providers Discharge Patient educated on: diagnosis, medication risk/benefits and therapeutic strategies Reason for continued inpatient stay Substantial Risk for: stable for discharge Statement Statement: I have reviewed the history and physical and performed a pertinent examination on my patient. No changes have occurred unless specified. If the History and Physical was not performed prior to admission, the Hospitalist's service will be consulted for completing the admission physical. Time Spent With Patient Time: Total time managing care of this patient today _60___ minutes.
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
[2024-06-21 15:49] LABS: Alkaline Phosphatase 105 U/L (39-117)
[2024-06-21] MEDS: Naloxone HCl Nasal TAKE HOME 4 MG SPRAY 8 MG NOSTRILALT (16:12)
== END 2024-06-21 16:13 | disposition home or self-care (01) | DRG 751 ==
LOC: HO.ED 17:17 → HO.PADLT16 06-21 12:07
PROVIDERS: Admitting Provider Registered Nurse; Emergency Provider Emergency Medicine; Responsible Provider Registered Nurse; Visit Provider Psychiatry & Neurology Psychiatry
DX: F33.1 Major depressive disorder, recurrent, moderate (principal); R45.851 Suicidal ideations; F11.20 Opioid dependence, uncomplicated; F10.229 Alcohol dependence with intoxication, unspecified; F17.210 Nicotine dependence, cigarettes, uncomplicated; F19.10 Other psychoactive substance abuse, uncomplicated; Z71.6 Tobacco abuse counseling; Y90.8 Blood alcohol level of 240 mg/100 ml or more; Z59.02 Unsheltered homelessness; Z79.899 Other long term (current) drug therapy
CPT/HCPCS: 36415; 80048; 80053; 80307; 82947; 85025; 93005; 99285

== ENCOUNTER → 2024-06-20 08:35 | Outpatient (BNV) | payer MEDICAID, SELFPAY | PROVIDERS: Emergency Provider Emergency Medicine; Visit Provider Internal Medicine Cardiovascular Disease | DX: R94.31 Abnormal electrocardiogram [ECG] [EKG] (principal); F19.10 Other psychoactive substance abuse, uncomplicated | CPT/HCPCS: 93010 ==

== ENCOUNTER → 2024-06-21 11:55 | Outpatient (BNV) | payer OTHER, SELFPAY | PROVIDERS: Admitting Provider Registered Nurse; Emergency Provider Emergency Medicine; Responsible Provider Registered Nurse; Visit Provider Registered Nurse | DX: F33.1 Major depressive disorder, recurrent, moderate (principal); F14.10 Cocaine abuse, uncomplicated; F10.90 Alcohol use, unspecified, uncomplicated; F43.11 Post-traumatic stress disorder, acute | CPT/HCPCS: 99233 ==

== ENCOUNTER 2024-06-29 00:21 | Emergency (ER) | payer MEDICAID, SELFPAY ==
[2024-06-29 00:33] VITALS: BP 159/87; PULSE 102; O2SAT 96
[2024-06-29 00:35] VITALS: BP 135/88; PULSE 100; RESP 18; TEMP 36.8; O2SAT 93; BMI 29.9
[2024-06-29 00:43] VITALS: BP 135/88; PULSE 100; RESP 18; TEMP 36.8; O2SAT 93
--- NOTE | 2024-06-29 00:48 | PC.NURSE ---
Pt a&ox3, no signs of distress. Pt reports 12/29 cp. Pt requested and assisted to restroom and back into bed. Pt using profanity when asked how tall he is. Pt states what the fuck did I say Plan of care ongoing.
--- NOTE | 2024-06-29 01:36 | ED.ALCOHOL ---
HPI - Alcohol General Chief Complaint: ETOH/Substance Use Stated Complaint: LOOK FOR PLACE TO FEEL SAFE, NO SI/HI Time Seen by Provider: 06/29/24 00:39 Source: patient Mode of arrival: ambulatory Limitations: no limitations History of Present Illness ED Provider: Dr. Mary Steele HPI narrative: patient comes to the emergency room complaining of alcohol intoxication/alcohol abuse. Patient states that every time that he comes here, he is usually not mentally ready for detox but this time he is. Patient asking for inpatient level of treatment versus dual diagnosis. Patient denies SI or HI. Patient admits to drinking alcohol 1/2 hour before arrival including beers and nips of alcohol Related Data Home Medications ?Medication ?Instructions ?Recorded ?Confirmed simvastatin 20 mg tablet (Zocor) 20 mg PO BEDTIME 05/19/24 06/20/24 clonidine HCl 0.2 mg tablet 0.2 mg PO BEDTIME PRN Anxiety 06/20/24 06/20/24 fluoxetine 20 mg tablet 20 mg PO DAILY 06/20/24 06/20/24 melatonin 3 mg capsule 3 mg PO BEDTIME 06/20/24 06/20/24 mirtazapine 15 mg tablet 15 mg DAILY 06/20/24 06/20/24 Previous Rx's ?Medication ?Instructions ?Recorded metformin 1,000 mg tablet 1,000 mg PO BIDWMEAL #60 tabs 05/06/24 Allergies Allergy/AdvReac Type Severity Reaction Status Date / Time Penicillins [PENICILLINS] Allergy Severe SWELLING Verified 06/29/24 00:37 AND ITCHING, THROAT CLOSES. Review of Systems Review of Systems: Constitutional : No Weight loss, No Fever, No Chills, No Night Sweats, No Fatigue, No Malaise ENT/Mouth : No Hearing loss, No Ear Pain, No Nasal Congestion, No Sinus Pain, No Hoarseness, No sore throat, No Rhinorrhea, No Swallowing Difficulty Eyes: No Eye Pain, No Swelling, No Redness, No Foreign Body, No Discharge, No Vision Changes Cardiovascular : No Chest Pain, No SOB, No Dyspnea on Exertion, No Orthopnea, No Edema, No Palpitations Respiratory : No Cough, No Sputum, No Wheezing, No Smoke Exposure, No Dyspnea Gastrointestinal : No Nausea, No Vomiting, No Diarrhea, No Constipation, No abdominal Pain, No Hematochezia, No Melena Genitourinary : no irregular bleeding, No Dysuria, No Urinary Frequency, No Hematuria, No Urinary Incontinence, No Urgency, No Flank Pain, No Urinary Flow Changes, No Hesitancy Musculoskeletal : No joint pain, No Myalgias, No Joint Swelling Skin : No Skin Lesions, No rash Neuro : No Weakness, No Numbness, No Paresthesias, No Loss of Consciousness, No Dizziness, No Headache Psych : No Anxiety/Panic, No Depression, No SI/HI/AH/VH, admits to alcohol abuse, wants detox Heme/Lymph: No Bruising, No Bleeding,No Lymphadenopathy Endocrine : No Polyuria, No Polydipsia, No Temperature Intolerance [facility] Past Medical History Medical History Cocaine use disorder, moderate, dependence Alcohol use disorder, moderate, dependence COVID-19 ADHD PTSD (post-traumatic stress disorder) Depression Surgical History History of abdominal surgery Social History Social History Household Members: Family Housing: Homeless Do you presently have visiting nurse or other home services: No Unable to assess alcohol history related to: Refusing to respond Alcohol intake: current Alcohol intake frequency: 3 or more drinks per day Alcohol type: beer, hard liquor and other Patient Tobacco Use Status: Never used Tobacco Tobacco use type: Cigarette Cigarette Packs Per Day: 0.5 Cigarettes Per Day: 8 Second Hand Smoke Exposure: No Substance Use Type: Crack/Cocaine service: No Current occupational status: employed Sexual orientation: Straight/Heterosexual Physical Exam ED Vital Signs: Vital Signs - 24 hr 06/29/24 00:35 06/29/24 00:43 Temperature 98.2 F 98.2 F Pulse Rate 100 100 Respiratory Rate 18 18 Blood Pressure 135/88 135/88 Pulse Oximetry 93 93 Oxygen Delivery Method Room Air Room Air BMI result Body Mass Index 29.9 Const Other: Appearance: Alert. Oriented X3. No acute distress. Eyes: Pupils equal, round and reactive to light. ENT: Pharynx normal. Neck: Normal inspection. Neck supple. No lymph nodes noted. No crepitus CVS: Normal heart rate and rhythm. Pulses normal. Normal S1 and S2 Respiratory: No respiratory distress. Breath sounds normal. No Wheezing. No rales Abdomen: Soft and nontender. No rigidity. No distention. Skin: Skin warm and dry. Normal skin color. Normal skin turgor. Extremities: No lower extremity edema. No Lacerations. No Rash Neuro: Oriented X 3. No motor deficit. No sensory deficit. Moving all extremities. No slurred speech. CN 2 through 12 grossly intact Psych: calm, cooperative, normal affect Course Course Course Narrative: patient is not SI or HI, section 12 indicated care team consult pending all of patient's labs pending physician observation started at 01:40 all labs pending, sign-out given to my colleague Dr. Kumar Critical Care Time Critical Care Time Critical Care Time: Yes Total Critical Care Time: 35 Attestation: I have personally provided critical care time. Time includes review of lab data, radiology results, discussion with consultants, and monitoring for potential decompensation. Intervention performed as documented. Discharge Plan Discharge Clinical Impression: Alcohol abuse Patient Disposition: Home, Self-Care Instructions: Abuse of Alcohol (ED) Additional Instructions: Please follow-up with your primary care physician tomorrow. If you have any worsening or new symptoms, please return to the emergency room or call 911 Prescriptions: No Action clonidine HCl 0.2 mg Tablet 0.2 mg PO BEDTIME PRN (Reason: Anxiety) fluoxetine 20 mg Tablet 20 mg PO DAILY mirtazapine 15 mg Tablet 15 mg DAILY melatonin 3 mg Capsule 3 mg PO BEDTIME metformin 1,000 mg tablet 1,000 mg PO BIDWMEAL Qty: 60 0RF simvastatin [Zocor] 20 mg tablet 20 mg PO BEDTIME Print Language: Mohawk
[2024-06-29 01:55] LABS: Appearance Urine Clear; Color Urine Yellow; Glucose Urine UA Negative (Negative); Leukocyte Esterase Urine Negative (Negative); Nitrite Urine Negative (Negative); PH 5.5 (5.0-9.0); Specific Gravity - Urine <= 1.005 (1.005-1.025); Urine Blood Negative (Negative); Urine Ketones Negative (Negative); Urine Protein Negative (Neg-Trace)
--- NOTE | 2024-06-29 03:24 | PC.NURSE ---
Pt ambulates around nurses station with a steady gait. Plan of care ongoing.
[2024-06-29 03:28] VITALS: BP 135/88; PULSE 100; RESP 18; TEMP 36.8; O2SAT 93
== END 2024-06-29 03:32 | disposition home or self-care (01) ==
PROVIDERS: Emergency Provider Emergency Medicine
DX: F10.10 Alcohol abuse, uncomplicated (principal); Y90.9 Presence of alcohol in blood, level not specified; Z79.899 Other long term (current) drug therapy; Z71.41 Alcohol abuse counseling and surveillance of alcoholic
CPT/HCPCS: 81003; 99284

== ENCOUNTER 2024-08-04 00:51 | Inpatient (IN) | payer OTHER, SELFPAY ==
[2024-08-04 01:08] VITALS: BP 158/82; BP 159/99; PULSE 9; PULSE 93; RESP 16; TEMP 37; O2SAT 100; O2SAT 96; BMI 23.3
--- NOTE | 2024-08-04 01:55 | MHC.EDTECH ---
Patient changed into crisis attire, security at bedside to assist with exchange administrator,belongings list completed,locked in the [place] shelf 2
--- NOTE | 2024-08-04 02:04 | ED.ALCOHOL ---
HPI - Alcohol General Chief Complaint: ETOH/Substance Use Stated Complaint: DURG USE/ ETOH/HI Time Seen by Provider: 08/04/24 01:25 Source: patient and EMS Mode of arrival: EMS Limitations: no limitations History of Present Illness ED Provider: HPI narrative: Patient's history of PTSD depression polysubstance abuse cocaine and alcohol with depression as he had few drinks earlier today and an argument with his spouse from he is for last 13 use Related Data Home Medications ?Medication ?Instructions ?Recorded ?Confirmed simvastatin 20 mg tablet (Zocor) 20 mg PO BEDTIME 05/19/24 06/20/24 clonidine HCl 0.2 mg tablet 0.2 mg PO BEDTIME PRN Anxiety 06/20/24 06/20/24 fluoxetine 20 mg tablet 20 mg PO DAILY 06/20/24 06/20/24 melatonin 3 mg capsule 3 mg PO BEDTIME 06/20/24 06/20/24 mirtazapine 15 mg tablet 15 mg DAILY 06/20/24 06/20/24 Previous Rx's ?Medication ?Instructions ?Recorded metformin 1,000 mg tablet 1,000 mg PO BIDWMEAL #60 tabs 05/06/24 Allergies Allergy/AdvReac Type Severity Reaction Status Date / Time Penicillins [PENICILLINS] Allergy Severe SWELLING Verified 08/04/24 01:16 AND ITCHING, THROAT CLOSES. PMFSH Past Medical History Medical History Cocaine use disorder, moderate, dependence Alcohol use disorder, moderate, dependence COVID-19 ADHD PTSD (post-traumatic stress disorder) Depression Surgical History History of abdominal surgery Social History Social History Household Members: Family Housing: Homeless Do you presently have visiting nurse or other home services: No Unable to assess alcohol history related to: Refusing to respond Alcohol intake: current Alcohol intake frequency: 3 or more drinks per day Alcohol type: beer and hard liquor Patient Tobacco Use Status: Never used Tobacco Tobacco use type: Cigarette Cigarette Packs Per Day: 0.5 Cigarettes Per Day: 8 Smoked in Last 30 Days: Yes Second Hand Smoke Exposure: No Use of substances other than those prescribed or required for medical reasons: Yes Substance Use Type: Crack/Cocaine and Marijuana Advance Directives: No Advance Directives Information Provided: Yes Do you have a plan to hurt others: No Plan service: No Current occupational status: employed Sexual orientation: Straight/Heterosexual Physical Exam ED Vital Signs: Vital Signs - 24 hr 08/04/24 01:08 08/04/24 05:40 Temperature 98.6 F 97.9 F Pulse Rate 93 101 H Respiratory Rate 16 16 Blood Pressure 159/99 H 145/85 H Pulse Oximetry 96 95 Oxygen Delivery Method Room Air Room Air BMI result Body Mass Index 23.3 Medical Decision Making Medical Decision Making MDM Narrative: Patient with alcohol and crack use suicidal feeling will get care team involved Lab Data MDM Lab Attestation statement: I reviewed the patient's lab results. 08/04/24 02:53 08/04/24 02:53 Labs: Lab Results 08/04/24 08/04/24 Range/Units 02:47 02:53 WBC 9.3 (4.8-10.8) X10*3/uL RBC 5.06 (4.60-5.80) X10*6/uL Hgb 14.3 (14.0-18.0) g/dl Hct 41.6 L (42.0-52.0) % MCV 82.2 (80.0-98.0) fL MCH 28.3 (27.0-33.0) pg MCHC 34.4 (31.0-36.0) g/dl RDW 16.0 (11.0-16.0) % Plt Count 292 (160-400) X10*3/uL MPV 9.4 (9.4-12.4) fL Immature Gran % (Auto) 0.4 (0.0-0.4) % Neut % (Auto) 44.8 L (45-73) % Lymph % (Auto) 46.7 H (20-40) % [place] % (Auto) 6.3 (2-11) % Eos % (Auto) 1.2 (0-4) % Baso % (Auto) 0.6 (0-2) % Lymph # (Auto) 4.3 (1.2-4.9) X10*3/uL [place] # (Auto) 0.6 (0.1-1.2) X10*3/uL Eos # (Auto) 0.1 (0.0-0.4) X10*3/uL Baso # (Auto) 0.1 (0.0-0.2) X10*3/uL Abs Immat Gran (auto) 0.04 H (0.00-0.03) X10*3/uL Absolute Neuts (auto) 4.2 (2.0-8.3) x10*3/uL Absolute Nucleated RBC 0.000 (0.0-0.012) X10*3/uL Nucleated RBC % (auto) 0.0 (0.0-0.2) /100WBC Sodium 146 H (135-145) mmol/L Potassium 3.7 (3.3-5.1) mmol/L Chloride 113 H (96-108) mmol/L Carbon Dioxide 19 L (22-29) mmol/L Anion Gap 18 (12-20) BUN 12 (9-16) mg/dL Creatinine 0.94 (0.5-1.4) mg/dL Estim Creat Clear Calc 79.9 Estimated GFR > 60 Random Glucose 150 H (60-115) mg/dL Calcium 9.6 (8.4-10.2) mg/dL Total Bilirubin 0.4 (0.0-1.0) mg/dL AST 33 (5-37) U/L ALT 52 H (0-40) U/L Alkaline Phosphatase 86 (39-117) U/L Total Protein 8.2 H (6.5-8.0) g/dL Albumin 4.6 (3.5-5.0) g/dL Urine Color Yellow Urine Appearance Clear Urine pH 5.5 (5.0-9.0) Ur Specific South Range <= 1.005 (1.005-1.025) Urine Protein Negative (Neg-Trace) mg/dL Urine Glucose (UA) Negative (Negative) mg/dL Urine Ketones Negative (Negative) mg/dL Urine Blood Negative (Negative) Urine Nitrite Negative (Negative) Ur Leukocyte Esterase Trace H (Negative) Urine RBC 0-2 (0-2) /HPF Urine WBC 0-5 (0-5) /HPF Ur Squamous Epith Cells 0-2 (0-2) /HPF Urine Bacteria None Seen (None Seen) Hyaline Casts 0-2 (0-2) /LPF Urine Opiates Screen Not Detected (Not Detect) Ur Buprenorphine Scrn Not Detected (Not Detect) ng/mL Ur Oxycodone Screen Not Detected (Not Detect) ng/mL Urine Methadone Screen Not Detected (Not Detect) ng/mL Urine Fentanyl Screen Not Detected (Not Detect) Ur Barbiturates Screen Not Detected (Not Detect) Ur Phencyclidine Scrn Not Detected (Not Detect) Ur Amphetamines Screen Not Detected (Not Detect) U Benzodiazepines Scrn Not Detected (Not Detect) Urine Cocaine Screen POSITIVE H (Not Detect) U Marijuana (THC) Screen POSITIVE H (Not Detect) Ethyl Alcohol 219 mg/dL Medications Administered Generic Name Dose Route Start Last Admin Trade Name Freq PRN Reason Stop Dose Admin Lorazepam 2 mg 08/04/24 06:06 08/04/24 07:04 Lorazepam 1 Mg Tablet PO 2 mg RQ4H PRN Administration Alcohol Withdrawal Discharge Plan Discharge Clinical Impression: Polysubstance abuse, Cocaine use disorder, moderate, dependence, Alcoholic intoxication, Depression with suicidal ideation Patient Disposition: Still a Patient Prescriptions: No Action clonidine HCl 0.2 mg Tablet 0.2 mg PO BEDTIME PRN (Reason: Anxiety) fluoxetine 20 mg Tablet 20 mg PO DAILY mirtazapine 15 mg Tablet 15 mg DAILY melatonin 3 mg Capsule 3 mg PO BEDTIME metformin 1,000 mg tablet 1,000 mg PO BIDWMEAL Qty: 60 0RF simvastatin [Zocor] 20 mg tablet 20 mg PO BEDTIME Print Language: Luxembourger
--- NOTE | 2024-08-04 02:22 | ECG_ITS ---
Test Reason : SUBSTANCE USE Blood Pressure : */* mmHG Vent. Rate : 93 BPM Atrial Rate : 93 BPM P-R Int : 152 ms QRS Dur : 78 ms QT Int : 362 ms P-R-T Axes : 55 57 23 degrees QTcB Int : 450 ms Normal sinus rhythm Minimal voltage criteria for LVH, may be normal variant ( Sokolow-Pat ) Nonspecific T wave abnormality Abnormal ECG When compared with ECG of 20-Jun-2024 08:40, No significant change was found Referred By: Felix Kumar Electronically Signed By: TEODORA KUMAR MD
[2024-08-04 02:58] LABS: Basophils Absolute Auto 0.1 X10*3/uL (0.0-0.2); Basophils Percent Auto 0.6 % (0-2); Eosinophils Absolute Auto 0.1 X10*3/uL (0.0-0.4); Eosinophils Percent Auto 1.2 % (0-4); Hematocrit 41.6 % (42.0-52.0); Hemoglobin 14.3 g/dl (14.0-18.0); Imm Gran Abs Auto 0.04 X10*3/uL (0.00-0.03); Imm Gran Pct Auto 0.4 % (0.0-0.4); Lymphocytes Absolute Auto 4.3 X10*3/uL (1.2-4.9); Lymphocytes Percent Auto 46.7 % (20-40); MANUAL DIFF FLAG NO; Mean Corpuscular HGB Conc 34.4 g/dl (31.0-36.0); Mean Corpuscular Hemoglobin 28.3 pg (27.0-33.0); Mean Corpuscular Volume 82.2 fL (80.0-98.0); Mean Platelet Volume 9.4 fL (9.4-12.4); Monocytes Absolute Auto 0.6 X10*3/uL (0.1-1.2); Monocytes Percent Auto 6.3 % (2-11); Neutrophils Absolute Auto 4.2 x10*3/uL (2.0-8.3); Neutrophils Percent Auto 44.8 % (45-73); Platelet Count 292 X10*3/uL (160-400); Red Blood Count 5.06 X10*6/uL (4.60-5.80); White Blood Count 9.3 X10*3/uL (4.8-10.8)
[2024-08-04 03:14] LABS: Appearance Urine Clear; Color Urine Yellow; Glucose Urine UA Negative (Negative); Leukocyte Esterase Urine Trace (Negative); Nitrite Urine Negative (Negative); PH 5.5 (5.0-9.0); Specific Gravity - Urine <= 1.005 (1.005-1.025); UMIC TRIGGER UACC YES; Urine Blood Negative (Negative); Urine Ketones Negative (Negative); Urine Protein Negative (Neg-Trace)
[2024-08-04 03:15] LABS: Amphetamine Screen Urine Not Detected (Not Detect); Barbiturates, Urine Not Detected (Not Detect); Benzodiazepines Screen Urine Not Detected (Not Detect); Buprenorphine Scr Not Detected (Not Detect); Cannabinoid Screen Urine POSITIVE (Not Detect); Cocaine Screen Urine POSITIVE (Not Detect); Fentanyl, urine Not Detected (Not Detect); Methadone Screen, Urine Not Detected (Not Detect); Opiate Screen Urine Not Detected (Not Detect); Oxycodone Screen Urine Not Detected (Not Detect); Phencyclidine Screen Urine Not Detected (Not Detect)
[2024-08-04 03:19] LABS: Bacteria Urine None Seen (None Seen); Hyaline Casts Urine 0-2 /LPF (0-2); RBC Urine 0-2 /HPF (0-2); Squamous Epithelial Cell Urine 0-2 /HPF (0-2); WBC Urine 0-5 /HPF (0-5)
[2024-08-04 03:25] LABS: Alanine Aminotransferase 52 U/L (0-40); Albumin Level 4.6 g/dL (3.5-5.0); Anion Gap 18 (12-20); Aspartate Amino Transferase 33 U/L (5-37); Bilirubin Total 0.4 mg/dL (0.0-1.0); Blood Urea Nitrogen 12 mg/dL (9-16); Calcium 9.6 mg/dL (8.4-10.2); Carbon Dioxide 19 mmol/L (22-29); Chloride 113 mmol/L (96-108); Creatinine Clr Calc Pharmacy 79.9; Estimated Glomerular Filt Rate > 60; Ethanol 219 mg/dL; Glucose Random 150 mg/dL (60-115); Potassium 3.7 mmol/L (3.3-5.1); Sodium 146 mmol/L (135-145); Total Protein 8.2 g/dL (6.5-8.0)
[2024-08-04 03:44] LABS: Alkaline Phosphatase 86 U/L (39-117)
[2024-08-04 05:40] VITALS: BP 145/85; PULSE 101; RESP 16; TEMP 36.6; O2SAT 95
[2024-08-04] MEDS: LORazepam 1 MG TABLET 2 MG PO ×3 (07:04→14:15)
--- NOTE | 2024-08-04 08:08 | PC.NURSE ---
Attempted to complete med rec with patient - patient stating he takes multiple meds but is tired and wants to sleep right now. stating that he will let nurse know what medications he takes when he wakes up
--- NOTE | 2024-08-04 12:11 | PC.NURSE ---
Asked patient about any current medications he is taking- stating he doesn't know but he doesn't have any doctors currently
--- NOTE | 2024-08-04 12:37 | PC.NURSE ---
Patient recalled that he gets his meds filled at [facility] on [address] in [place]. flight technician able to provide list of meds that are currently active for patient
--- NOTE | 2024-08-04 13:30 | PC.NURSE ---
Report given to accepting RN
[2024-08-04 14:10] VITALS: BP 172/114; BP 173/117; PULSE 100; RESP 16; TEMP 36.6; O2SAT 97
[2024-08-04] MEDS: cloNIDine HCL 0.2 MG TABLET PO ×2 (14:10→22:36)
[2024-08-04] MEDS: FLUoxetine HCl 20 MG CAPSULE 40 MG PO (14:15)
[2024-08-04] MEDS: busPIRone HCl 5 MG TABLET 15 MG PO ×2 (14:15→22:37)
[2024-08-04] MEDS: metFORMIN HCl 1,000 MG TABLET 1000 MG PO ×2 (14:15→17:57)
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
--- NOTE | 2024-08-04 17:30 | PC.ADMIT ---
Nursing admission note: 53 year old male DX: PTSD, MDD, Alcohol use disorder, Cocaine use disorder. Referred for treatment by CARE team. Signed conditional voluntary for admission. Patent presented to [facility] ED after calling 911 from home. Patient reported alcohol, crack and cannabis use. Reported HI towards girlfriend, in addition to suicidal ideation. Presented with BAL of 219. Patient engaged easily. Presented with good eye contact, dressed in hospital attire. Calm and cooperative with admission process. Upon arrival to unit BP was elevated, received Ativan 2 mg and Clonidine 0.2mg. Fell asleep after meeting with MD. Reports mood continues depressed, rating depression 12/29. Affect congruent. Denies SI/HI at this time. Reports anxiety, rating anxiety 03/31. Denies perceptual disturbances, no overt psychosis or expressed delusions. Thoughts clear, linear and organized. Speech normal rate, tone, prosody. Denies sleep or appetite disturbances. Reports daily alcohol use for last month, drinking up to a sleeve of nips and 4 24 oz beers. last use prior to admission. Denies alcohol withdrawal seizures. Placed on CIWA q 4 hours [place]. Reports daily use of cannabis. TOX screen positive for cocaine and cannabis. Patient denies medical problems. Non tobacco use. Reports received flu vaccine for season. Denies current legal entanglements. Reports goals for admission include help getting my meds straight and gaining information about aftercare services. Patient oriented to unit, placed on q 15 minute safety checks. See nursing assessment/crisis evaluation for further details.
[2024-08-04 18:12] VITALS: BP 120/78; PULSE 93; RESP 18
[2024-08-04 18:27] VITALS: BMI 29.1
[2024-08-04 22:30] VITALS: BP 122/80; PULSE 96; RESP 18; TEMP 36.4; O2SAT 95
[2024-08-04] MEDS: Melatonin 3 MG TABLET PO (22:36)
[2024-08-04] MEDS: Prazosin HCL 1 MG CAPSULE 4 MG PO (22:36)
[2024-08-04] MEDS: Mirtazapine 15 MG TABLET PO (22:36)
[2024-08-04] MEDS: cloNIDine HCL 0.1 MG TABLET PO (22:36)
[2024-08-04] MEDS: diphenhydrAMINE HCL 25 MG CAPSULE 100 MG PO (22:38)
[2024-08-05 07:40] VITALS: BP 116/73; PULSE 87; RESP 14; TEMP 36.5; O2SAT 99
[2024-08-05 09:14] VITALS: BP 118/70
[2024-08-05] MEDS: FLUoxetine HCl 20 MG CAPSULE 40 MG PO (09:14)
[2024-08-05] MEDS: cloNIDine HCL 0.1 MG TABLET PO ×3 (09:14→20:33)
[2024-08-05] MEDS: metFORMIN HCl 1,000 MG TABLET 1000 MG PO ×2 (09:15→16:44)
[2024-08-05] MEDS: busPIRone HCl 5 MG TABLET 15 MG PO ×3 (09:15→20:34)
[2024-08-05] MEDS: Thiamine HCL 100 MG TABLET PO (09:15)
--- NOTE | 2024-08-05 11:16 | HO.PSYCHPN ---
Subjective Subjective Date of Service: 08/05/24 Reason For Visit: DURG USE/ ETOH/HI Mental Status Exam Mental Status Exam Narrative: Pt is alert and oriented; behavior is cooperative, friendly and calm; dressed in casual attire; mood is described as anxious; eye contact appropriate; Speech is normal rate, decr loudness and amount; thought process is organized and goal directed; Thought content is on Tx; otherwise pertinent to relevant topics and without any delusional content, paranoid ideations or grandiosity; denies SI/HI/VH/AH. Diagnostics Vital Signs (24Hr): Vital Signs - 24 hr 08/04/24 14:10 08/04/24 14:10 08/04/24 18:12 Temperature 97.8 F Pulse Rate 100 93 Respiratory Rate 16 18 Blood Pressure 172/114 H 173/117 H 120/78 Pulse Oximetry 97 Oxygen Delivery Method Room Air 08/04/24 22:30 08/05/24 07:40 08/05/24 09:14 Temperature 97.6 F 97.7 F Pulse Rate 96 87 Respiratory Rate 18 14 Blood Pressure 122/80 116/73 118/70 Pulse Oximetry 95 99 Oxygen Delivery Method Room Air Room Air BMI result Body Mass Index 29.1 Labs 08/04/24 02:53 08/04/24 02:53 Labs: Laboratory Results - last 48 hr 08/04/24 08/04/24 02:47 02:53 WBC 9.3 RBC 5.06 Hgb 14.3 Hct 41.6 L MCV 82.2 MCH 28.3 MCHC 34.4 RDW 16.0 Plt Count 292 MPV 9.4 Immature Gran % (Auto) 0.4 Neut % (Auto) 44.8 L Lymph % (Auto) 46.7 H [place] % (Auto) 6.3 Eos % (Auto) 1.2 Baso % (Auto) 0.6 Lymph # (Auto) 4.3 [place] # (Auto) 0.6 Eos # (Auto) 0.1 Baso # (Auto) 0.1 Abs Immat Gran (auto) 0.04 H Absolute Neuts (auto) 4.2 Absolute Nucleated RBC 0.000 Nucleated RBC % (auto) 0.0 Sodium 146 H Potassium 3.7 Chloride 113 H Carbon Dioxide 19 L Anion Gap 18 BUN 12 Creatinine 0.94 Estim Creat Clear Calc 79.9 Estimated GFR > 60 Random Glucose 150 H Calcium 9.6 Total Bilirubin 0.4 AST 33 ALT 52 H Alkaline Phosphatase 86 Total Protein 8.2 H Albumin 4.6 Urine Color Yellow Urine Appearance Clear Urine pH 5.5 Ur Specific [place] <= 1.005 Urine Protein Negative Urine Glucose (UA) Negative Urine Ketones Negative Urine Blood Negative Urine Nitrite Negative Ur Leukocyte Esterase Trace H Urine RBC 0-2 Urine WBC 0-5 Ur Squamous Epith Cells 0-2 Urine Bacteria None Seen Hyaline Casts 0-2 Urine Opiates Screen Not Detected Ur Buprenorphine Scrn Not Detected Ur Oxycodone Screen Not Detected Urine Methadone Screen Not Detected Urine Fentanyl Screen Not Detected Ur Barbiturates Screen Not Detected Ur Phencyclidine Scrn Not Detected Ur Amphetamines Screen Not Detected U Benzodiazepines Scrn Not Detected Urine Cocaine Screen POSITIVE H U Marijuana (THC) Screen POSITIVE H Ethyl Alcohol 219 Medications Medications Current Medications Acetaminophen (Acetaminophen 325 Mg Tablet) 650 mg PO Q6H PRN PRN Reason: Headache/Pain, Scale 1-10 Al Hydroxide/Mg Hydroxide (Magnesium Hydrox/Alum Hydrox 30 Ml Oral.Susp) 30 ml PO Q6H PRN PRN Reason: Heartburn/Nausea Buspirone HCl (Buspirone Hcl 5 Mg Tablet) 15 mg PO TID [facility] Last Admin: 08/05/24 09:15 Dose: 15 mg Clonidine HCl (Clonidine Hcl 0.2 Mg Tablet) 0.2 mg PO TID PRN; Protocol PRN Reason: Anxiety Last Admin: 08/04/24 22:36 Dose: 0.2 mg Clonidine HCl (Clonidine Hcl 0.1 Mg Tablet) 0.1 mg PO TID [facility]; Protocol Last Admin: 08/05/24 09:14 Dose: 0.1 mg Diphenhydramine HCl (Diphenhydramine Hcl 25 Mg Capsule) 100 mg PO BEDTIME [facility] Last Admin: 08/04/24 22:38 Dose: 100 mg Fluoxetine HCl (Fluoxetine Hcl 20 Mg Capsule) 40 mg PO DAILY [facility] Last Admin: 08/05/24 09:14 Dose: 40 mg Hydroxyzine HCl (Hydroxyzine Hcl 25 Mg Tablet) 25 mg PO Q6H PRN PRN Reason: mild anxiety Lorazepam (Lorazepam 1 Mg Tablet) 1 mg PO Q2H PRN PRN Reason: CIWA 8-11 Lorazepam (Lorazepam 1 Mg Tablet) 2 mg PO Q2H PRN PRN Reason: CIWA 12-15 Lorazepam (Lorazepam 1 Mg Tablet) 3 mg PO Q2H PRN PRN Reason: CIWA > 15, and call Magnesium Hydroxide (Milk Of Magnesia 30 Ml Oral.Susp) 30 ml PO DAILY PRN PRN Reason: Constipation Melatonin (Melatonin 3 Mg Tablet) 3 mg PO BEDTIME PRN PRN Reason: Insomnia Last Admin: 08/04/24 22:36 Dose: 3 mg Metformin HCl (Metformin Hcl 1,000 Mg Tablet) 1,000 mg PO BIDWM MARNIE Last Admin: 08/05/24 09:15 Dose: 1,000 mg Mirtazapine (Mirtazapine 15 Mg Tablet) 15 mg PO BEDTIME [facility] Last Admin: 08/04/24 22:36 Dose: 15 mg Nicotine Polacrilex (Nicotine Polacrilex 2 Mg Gum) 4 mg BUCCAL Q2H PRN PRN Reason: Nicotine Cravings Olanzapine (Olanzapine 5 Mg Tablet) 5 mg PO BID PRN PRN Reason: AGITATION Prazosin HCl (Prazosin Hcl 1 Mg Capsule) 4 mg PO BEDTIME MARNIE; Protocol Last Admin: 08/04/24 22:36 Dose: 4 mg Thiamine HCl (Thiamine Hcl 100 Mg Tablet) 100 mg PO DAILY [facility] Last Admin: 08/05/24 09:15 Dose: 100 mg Trazodone HCl (Trazodone Hcl 50 Mg Tablet) 50 mg PO BEDTIME MRX1 PRN PRN Reason: Insomnia Allergies Allergies Allergy/AdvReac Type Severity Reaction Status Date / Time Penicillins [PENICILLINS] Allergy Severe SWELLING Verified 08/04/24 01:16 AND ITCHING, THROAT CLOSES. Assessment & Plan Assessment & Plan (1) PTSD (post-traumatic stress disorder): Status: Acute Code(s): F43.10 - Post-traumatic stress disorder, unspecified (2) Cocaine use disorder, moderate, dependence: Status: Acute Code(s): F14.20 - Cocaine dependence, uncomplicated (3) Alcohol use disorder, moderate, dependence: Status: Acute Code(s): F10.20 - Alcohol dependence, uncomplicated (4) MDD (major depressive disorder), recurrent episode, moderate: Status: Acute Code(s): F33.1 - Major depressive disorder, recurrent, moderate (5) Diabetes mellitus: Status: Acute Code(s): E11.9 - Type 2 diabetes mellitus without complications (6) Homeless single person: Status: Acute Code(s): Z59.00 - Homelessness unspecified Plan ativan per [facility] protocol for alcohol withdrawal. clonidine 0.1 TID for HTN; clonidine 0.2 BID PRN also available. otherwise continue/restart home medication regimen. supportive care for cocaine withdrawal. addiction medicine consult. T/C dispo options, including rehab. Time Spent With Patient Time: Total time managing care of this patient today ____ minutes.
[2024-08-05] MEDS: Loperamide HCl 2 MG CAPSULE PO (14:08)
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
[2024-08-05] MEDS: LORazepam 1 MG TABLET PO (16:44)
[2024-08-05 20:00] VITALS: BP 128/88; PULSE 90; RESP 16; TEMP 36.4; O2SAT 96
[2024-08-05] MEDS: Melatonin 3 MG TABLET PO (20:33)
[2024-08-05] MEDS: cloNIDine HCL 0.2 MG TABLET PO (20:34)
[2024-08-05] MEDS: Prazosin HCL 1 MG CAPSULE 4 MG PO (20:34)
[2024-08-05] MEDS: Mirtazapine 15 MG TABLET PO (20:34)
[2024-08-05] MEDS: diphenhydrAMINE HCL 25 MG CAPSULE 100 MG PO (20:34)
[2024-08-06 07:58] VITALS: BP 111/81; PULSE 105; RESP 16; TEMP 36.4; O2SAT 100
[2024-08-06 08:14] LABS: Glucose, Whole Blood 138 mg/dL (60-115)
[2024-08-06] MEDS: Thiamine HCL 100 MG TABLET PO (08:14)
[2024-08-06] MEDS: cloNIDine HCL 0.1 MG TABLET PO (08:14)
[2024-08-06] MEDS: metFORMIN HCl 1,000 MG TABLET 1000 MG PO (08:14)
[2024-08-06] MEDS: FLUoxetine HCl 20 MG CAPSULE 40 MG PO (08:14)
[2024-08-06] MEDS: busPIRone HCl 5 MG TABLET 15 MG PO (08:14)
--- NOTE | 2024-08-06 09:32 | PM.EVENT ---
Event Note Date of Service: 08/06/24 Event Note: Patient is being discharged today. The discharge summary and medications have been done. He is comfortable with leaving. Denies any suicidal or homicidal ideations. Disposition discussed. He is being discharged later this morning. Time Spent With Patient Time: Total time managing care of this patient today ____ minutes.
== END 2024-08-06 09:55 | disposition home or self-care (01) | DRG 751 ==
LOC: HO.ED 12:13 → HO.PADLT16 13:01
PROVIDERS: Internal Medicine; Admitting Provider Psychiatry & Neurology Psychiatry; Emergency Provider Emergency Medicine Emergency Medical Services; Visit Provider Psychiatry & Neurology Psychiatry
DX: F33.1 Major depressive disorder, recurrent, moderate (principal); R45.851 Suicidal ideations; R45.850 Homicidal ideations; F43.10 Post-traumatic stress disorder, unspecified; F14.20 Cocaine dependence, uncomplicated; F19.10 Other psychoactive substance abuse, uncomplicated; Y90.7 Blood alcohol level of 200-239 mg/100 ml; E11.9 Type 2 diabetes mellitus without complications; F10.229 Alcohol dependence with intoxication, unspecified; I10 Essential (primary) hypertension; Z59.02 Unsheltered homelessness; Z79.84 Long term (current) use of oral hypoglycemic drugs; Z79.899 Other long term (current) drug therapy
CPT/HCPCS: 36415; 80053; 80307; 81001; 81003; 82947; 85025; 93005; 99285; S9485

== ENCOUNTER → 2024-08-04 02:22 | Outpatient (BNV) | payer MEDICAID, SELFPAY | PROVIDERS: Emergency Provider Internal Medicine; Visit Provider Internal Medicine Cardiovascular Disease | DX: R94.31 Abnormal electrocardiogram [ECG] [EKG] (principal); F19.10 Other psychoactive substance abuse, uncomplicated | CPT/HCPCS: 93010 ==

== ENCOUNTER → 2024-08-04 12:58 | Outpatient (BNV) | payer OTHER, SELFPAY | PROVIDERS: Admitting Provider Psychiatry & Neurology Psychiatry; Emergency Provider Emergency Medicine Emergency Medical Services; Visit Provider Psychiatry & Neurology Psychiatry | DX: F33.1 Major depressive disorder, recurrent, moderate (principal); F14.20 Cocaine dependence, uncomplicated; F10.20 Alcohol dependence, uncomplicated; F43.11 Post-traumatic stress disorder, acute; E11.9 Type 2 diabetes mellitus without complications; Z59.00 Homelessness unspecified | CPT/HCPCS: 99233; 99499 ==

== ENCOUNTER 2024-09-01 01:32 | Emergency (ER) | payer MEDICAID, SELFPAY ==
[2024-09-01 01:54] VITALS: BP 146/88; PULSE 84; O2SAT 95
[2024-09-01 01:58] VITALS: BP 170/113; PULSE 92; RESP 16; TEMP 37.1; O2SAT 100; BMI 30.1
[2024-09-01 02:02] VITALS: BP 170/113; PULSE 92; RESP 16; TEMP 37.1; O2SAT 100
[2024-09-01 02:32] LABS: Amphetamine Screen Urine Not Detected (Not Detect); Barbiturates, Urine Not Detected (Not Detect); Benzodiazepines Screen Urine Not Detected (Not Detect); Buprenorphine Scr Not Detected (Not Detect); Cannabinoid Screen Urine POSITIVE (Not Detect); Cocaine Screen Urine POSITIVE (Not Detect); Fentanyl, urine Not Detected (Not Detect); Methadone Screen, Urine Not Detected (Not Detect); Opiate Screen Urine Not Detected (Not Detect); Oxycodone Screen Urine Not Detected (Not Detect); Phencyclidine Screen Urine Not Detected (Not Detect)
--- NOTE | 2024-09-01 02:32 | MHC.EDTECH ---
Pt refused blood draw
--- NOTE | 2024-09-01 02:33 | MHC.EDTECH ---
pt refused EKG
--- NOTE | 2024-09-01 02:39 | PC.NURSE ---
report given to ALLEN Hill,patient moved with security to pod at this time. Patient refusing labs and EKG reporting I dont need that'
--- NOTE | 2024-09-01 03:46 | ED.PSYCH ---
HPI - Psych General Chief Complaint: Psychiatric Symptoms Stated Complaint: ETOH/ FEELS UNSAFE AT HOME Time Seen by Provider: 09/01/24 03:34 Source: patient and EMS Mode of arrival: EMS Limitations: no limitations History of Present Illness ED Provider: Dr. Mary Steele HPI Narrative: patient comes to the emergency room complaining of feeling homicidal, no specific details were given by the patient. Patient states that he is feels like hurting others and therefore decided to come in. Patient denies SI. Patient reports drinking beer and using crack cocaine Related Data Home Medications ?Medication ?Instructions ?Recorded ?Confirmed clonidine HCl 0.2 mg tablet 0.2 mg PO TID PRN Anxiety 06/20/24 09/01/24 fluoxetine 20 mg tablet 40 mg PO DAILY 06/20/24 09/01/24 mirtazapine 15 mg tablet 15 mg BEDTIME 06/20/24 09/01/24 buspirone 15 mg tablet 15 mg PO TID 08/04/24 09/01/24 diphenhydramine HCl 50 mg capsule 100 mg PO BEDTIME 08/04/24 09/01/24 (Banophen) olanzapine 5 mg tablet (Zyprexa) 5 mg PO BID PRN Agitation 08/04/24 09/01/24 prazosin 2 mg capsule 4 mg PO BEDTIME 08/04/24 09/01/24 Previous Rx's ?Medication ?Instructions ?Recorded metformin 1,000 mg tablet 1,000 mg PO BIDWMEAL #60 tabs 05/06/24 clonidine HCl 0.1 mg tablet 0.1 mg PO TID 30 days #90 tabs 08/05/24 melatonin 3 mg capsule 3 mg PO BEDTIME PRN Insomnia 30 08/05/24 days #30 caps Allergies Allergy/AdvReac Type Severity Reaction Status Date / Time Penicillins [PENICILLINS] Allergy Severe SWELLING Verified 09/01/24 02:00 AND ITCHING, THROAT CLOSES. Review of Systems Review of Systems: Constitutional : No Weight loss, No Fever, No Chills, No Night Sweats, No Fatigue, No Malaise ENT/Mouth : No Hearing loss, No Ear Pain, No Nasal Congestion, No Sinus Pain, No Hoarseness, No sore throat, No Rhinorrhea, No Swallowing Difficulty Eyes: No Eye Pain, No Swelling, No Redness, No Foreign Body, No Discharge, No Vision Changes Cardiovascular : No Chest Pain, No SOB, No Dyspnea on Exertion, No Orthopnea, No Edema, No Palpitations Respiratory : No Cough, No Sputum, No Wheezing, No Smoke Exposure, No Dyspnea Gastrointestinal : No Nausea, No Vomiting, No Diarrhea, No Constipation, No abdominal Pain, No Hematochezia, No Melena Genitourinary : no irregular bleeding, No Dysuria, No Urinary Frequency, No Hematuria, No Urinary Incontinence, No Urgency, No Flank Pain, No Urinary Flow Changes, No Hesitancy Musculoskeletal : No joint pain, No Myalgias, No Joint Swelling Skin : No Skin Lesions, No rash Neuro : No Weakness, No Numbness, No Paresthesias, No Loss of Consciousness, No Dizziness, No Headache Psych : No Anxiety/Panic, No Depression, No SI, reports having thoughts of hurting others, no one specific Heme/Lymph: No Bruising, No Bleeding,No Lymphadenopathy Endocrine : No Polyuria, No Polydipsia, No Temperature Intolerance PMFSH Past Medical History Medical History Depression with suicidal ideation Polysubstance abuse Cocaine use disorder, moderate, dependence Alcohol use disorder, moderate, dependence COVID-19 ADHD PTSD (post-traumatic stress disorder) Depression Surgical History History of abdominal surgery Social History Social History Household Members: Significant Other Household Members Other:: 2 Housing: House Do you presently have visiting nurse or other home services: No Unable to assess alcohol history related to: Refusing to respond Alcohol intake: current Alcohol intake frequency: 3 or more drinks per day Alcohol type: beer and hard liquor Patient Tobacco Use Status: Never used Tobacco Tobacco use type: Cigarette Cigarette Packs Per Day: 0.5 Cigarettes Per Day: 8 Smoked in Last 30 Days: No e-Cigarette/Vaping Use: Never Used Second Hand Smoke Exposure: No Use of substances other than those prescribed or required for medical reasons: Yes Substance Use Type: Crack/Cocaine and Marijuana Substance Use Frequency: Daily Last Used Substance: Just Prior to Admission Advance Directives: No Advance Directives Information Provided: Yes Do you have a plan to hurt others: No Plan service: No Current occupational status: employed Sexual orientation: Straight/Heterosexual Physical Exam Vital Signs: Vital Signs: Last Vital Signs Temp 98.7 F 09/01/24 02:02 Pulse 92 09/01/24 02:02 Resp 16 09/01/24 02:02 BP 170/113 H 09/01/24 02:02 Pulse Ox 100 09/01/24 02:02 O2 Del Method Room Air 09/01/24 02:02 BMI result Body Mass Index 30.1 Const: Other: Appearance: Alert. Oriented X3. No acute distress. Eyes: Pupils equal, round and reactive to light. ENT: Pharynx normal. Neck: Normal inspection. Neck supple. No lymph nodes noted. No crepitus CVS: Normal heart rate and rhythm. Pulses normal. Normal S1 and S2 Respiratory: No respiratory distress. Breath sounds normal. No Wheezing. No rales Abdomen: Soft and nontender. No rigidity. No distention. Skin: Skin warm and dry. Normal skin color. Normal skin turgor. Extremities: No lower extremity edema. No Lacerations. No Rash Neuro: Oriented X 3. No motor deficit. No sensory deficit. Moving all extremities. No slurred speech. CN 2 through 12 grossly intact Psych: calm, cooperative, normal affect Course Course Course Narrative: patient refusing labs care team consult pending physician observation started at 03:47 Medical Decision Making Lab Data Labs: Lab Results 09/01/24 Range/Units 02:11 Urine Opiates Screen Not Detected (Not Detect) Ur Buprenorphine Scrn Not Detected (Not Detect) ng/mL Ur Oxycodone Screen Not Detected (Not Detect) ng/mL Urine Methadone Screen Not Detected (Not Detect) ng/mL Urine Fentanyl Screen Not Detected (Not Detect) Ur Barbiturates Screen Not Detected (Not Detect) Ur Phencyclidine Scrn Not Detected (Not Detect) Ur Amphetamines Screen Not Detected (Not Detect) U Benzodiazepines Scrn Not Detected (Not Detect) Urine Cocaine Screen POSITIVE H (Not Detect) U Marijuana (THC) Screen POSITIVE H (Not Detect) Critical Care Time Critical Care Time Critical Care Time: Yes Total Critical Care Time: 35 Attestation: I have personally provided critical care time. Time includes review of lab data, radiology results, discussion with consultants, and monitoring for potential decompensation. Intervention performed as documented. Discharge Plan Discharge Clinical Impression: Polysubstance abuse, Feeling angry Patient Disposition: Still a Patient Prescriptions: No Action clonidine HCl 0.2 mg Tablet 0.2 mg PO TID PRN (Reason: Anxiety) fluoxetine 20 mg Tablet 40 mg PO DAILY mirtazapine 15 mg Tablet 15 mg BEDTIME metformin 1,000 mg tablet 1,000 mg PO BIDWMEAL Qty: 60 0RF diphenhydramine HCl [Banophen] 50 mg Capsule 100 mg PO BEDTIME buspirone 15 mg Tablet 15 mg PO TID olanzapine [Zyprexa] 5 mg Tablet 5 mg PO BID PRN (Reason: Agitation) prazosin 2 mg Capsule 4 mg PO BEDTIME clonidine HCl 0.1 mg Tablet 0.1 mg PO TID 30 Days Qty: 90 0RF Protocol: Hold for SBP< HOLD for SBP < : 90 melatonin 3 mg Capsule 3 mg PO BEDTIME PRN (Reason: Insomnia) 30 Days Qty: 30 0RF Interventions: [place]-Suicide Risk Severity Scale Last Done: 09/01/24 02:02 Print Language: Lithuanian
--- NOTE | 2024-09-01 06:11 | PC.NURSE ---
Patient got transferred from main ED, awaiting care team assessment, no distress observed/reported, refused labs and EKG provider aware, no behavior and safety concerns, will continue to monitor
[2024-09-01 09:28] LABS: MANUAL DIFF FLAG NO
[2024-09-01 09:30] LABS: Basophils Percent Auto 0.7 % (0-2); Eosinophils Absolute Auto 0.2 X10*3/uL (0.0-0.4); Eosinophils Percent Auto 2.8 % (0-4); Hematocrit 44.4 % (42.0-52.0); Hemoglobin 15.1 g/dl (14.0-18.0); Imm Gran Abs Auto 0.01 X10*3/uL (0.00-0.03); Imm Gran Pct Auto 0.2 % (0.0-0.4); Lymphocytes Absolute Auto 2.3 X10*3/uL (1.2-4.9); Lymphocytes Percent Auto 42.5 % (20-40); Mean Corpuscular Hemoglobin 28.3 pg (27.0-33.0); Mean Corpuscular Volume 83.3 fL (80.0-98.0); Mean Platelet Volume 9.7 fL (9.4-12.4); Monocytes Absolute Auto 0.4 X10*3/uL (0.1-1.2); Monocytes Percent Auto 8.2 % (2-11); Neutrophils Absolute Auto 2.5 x10*3/uL (2.0-8.3); Neutrophils Percent Auto 45.6 % (45-73); Platelet Count 279 X10*3/uL (160-400); Red Blood Count 5.33 X10*6/uL (4.60-5.80); White Blood Count 5.4 X10*3/uL (4.8-10.8)
[2024-09-01 09:39] VITALS: BP 158/98; PULSE 85; RESP 12; TEMP 36.4; O2SAT 97
[2024-09-01 09:52] LABS: Ethanol < 10 mg/dL
[2024-09-01 09:53] LABS: Alanine Aminotransferase 54 U/L (0-40); Albumin Level 4.7 g/dL (3.5-5.0); Alkaline Phosphatase 91 U/L (39-117); Anion Gap 13 (12-20); Aspartate Amino Transferase 42 U/L (5-37); Bilirubin Total 0.8 mg/dL (0.0-1.0); Blood Urea Nitrogen 11 mg/dL (9-16); Calcium 9.7 mg/dL (8.4-10.2); Carbon Dioxide 20 mmol/L (22-29); Chloride 112 mmol/L (96-108); Creatinine Clr Calc Pharmacy 85.4; Estimated Glomerular Filt Rate > 60; Glucose Random 103 mg/dL (60-115); Sodium 141 mmol/L (135-145); Total Protein 8.3 g/dL (6.5-8.0)
[2024-09-01 09:56] LABS: Acetaminophen LAB < 3 mcg/mL (<30); Salicylate < 5.0 mg/dL (15-30)
[2024-09-01] MEDS: cloNIDine HCL 0.1 MG TABLET PO (10:00)
[2024-09-01] MEDS: busPIRone HCl 5 MG TABLET 15 MG PO (10:00)
[2024-09-01] MEDS: FLUoxetine HCl 20 MG CAPSULE 40 MG PO (10:00)
[2024-09-01] MEDS: Ondansetron ODT 4 MG TAB.RAPDIS TRANSLINGU (10:30)
--- NOTE | 2024-09-01 11:13 | MHC.RECOVRN ---
T/w notified by CARE Team that pt is cleared and interested in ATS. Pt is not interested in [facility] in [place] has a bed available, pt currently completing phone screen.
--- NOTE | 2024-09-01 11:22 | MHC.RECOVRN ---
Pt unable to be accepted to [facility] without home medications. [facility] has bed availability, pt to call for phone screen.
--- NOTE | 2024-09-01 12:39 | MHC.CARE ---
Patient evaluated by the CARE Team, disposition determined to be detox level of treatment and he was referred to the Recovery Team for placement. ED Provider Dr. Panda updated.
--- NOTE | 2024-09-01 13:46 | MHC.RECOVRN ---
[facility] would also not accept pt without home medications. T/w spoke with ED provider who sent buspar rx to [facility]. Pts other medications are at [facility]. Prazosin and metformin need 90 day prescriptions, per insurance. T/w spoke with pt regarding this and pt reports he is actually ready to dc from the ED. Denies other questions or concerns. RN and provider aware.
[2024-09-01 15:02] VITALS: BP 158/98; PULSE 85; RESP 12; TEMP 36.4; O2SAT 97
== END 2024-09-01 15:02 | disposition home or self-care (01) ==
PROVIDERS: Emergency Provider Emergency Medicine
DX: R45.850 Homicidal ideations (principal); F14.10 Cocaine abuse, uncomplicated; F12.90 Cannabis use, unspecified, uncomplicated; R45.5 Hostility; R45.1 Restlessness and agitation; F17.210 Nicotine dependence, cigarettes, uncomplicated; Z51.81 Encounter for therapeutic drug level monitoring; Z79.899 Other long term (current) drug therapy; Z71.51 Drug abuse counseling and surveillance of drug abuser
CPT/HCPCS: 36415; 80053; 80143; 80179; 80307; 85025; 99284; 99285; S9485

== ENCOUNTER 2024-09-03 01:24 | Emergency (ER) | payer MEDICAID, SELFPAY ==
[2024-09-03 01:42] VITALS: BP 134/82; BP 152/92; PULSE 100; PULSE 112; RESP 16; TEMP 37; O2SAT 95; O2SAT 98; BMI 25.8
--- NOTE | 2024-09-03 02:05 | PC.NURSE ---
addendum to triage note patient stated not current w medications when he's self medicating states he feels safe, states he and gf dont get along as well when shes using drugs, he gets impulses to be physical and often would take medications to help calm himself, states that he is interested in detox at this time and that he has medications he needed two days ago.
[2024-09-03 02:26] LABS: MANUAL DIFF FLAG NO
[2024-09-03 02:27] LABS: Basophils Percent Auto 0.5 % (0-2); Eosinophils Absolute Auto 0.1 X10*3/uL (0.0-0.4); Eosinophils Percent Auto 0.8 % (0-4); Hematocrit 41.6 % (42.0-52.0); Hemoglobin 14.7 g/dl (14.0-18.0); Imm Gran Abs Auto 0.02 X10*3/uL (0.00-0.03); Imm Gran Pct Auto 0.3 % (0.0-0.4); Lymphocytes Absolute Auto 3.6 X10*3/uL (1.2-4.9); Lymphocytes Percent Auto 47.5 % (20-40); Mean Corpuscular HGB Conc 35.3 g/dl (31.0-36.0); Mean Corpuscular Hemoglobin 28.9 pg (27.0-33.0); Mean Corpuscular Volume 81.7 fL (80.0-98.0); Mean Platelet Volume 9.3 fL (9.4-12.4); Monocytes Absolute Auto 0.5 X10*3/uL (0.1-1.2); Monocytes Percent Auto 7.1 % (2-11); Neutrophils Absolute Auto 3.3 x10*3/uL (2.0-8.3); Neutrophils Percent Auto 43.8 % (45-73); Platelet Count 290 X10*3/uL (160-400); Red Blood Count 5.09 X10*6/uL (4.60-5.80); Red Cell Distribution Width 15.7 % (11.0-16.0); White Blood Count 7.5 X10*3/uL (4.8-10.8)
[2024-09-03] MEDS: diphenhydrAMINE HCL 25 MG CAPSULE 100 MG PO (02:29)
[2024-09-03 02:44] LABS: Amphetamine Screen Urine Not Detected (Not Detect); Barbiturates, Urine Not Detected (Not Detect); Benzodiazepines Screen Urine Not Detected (Not Detect); Buprenorphine Scr Not Detected (Not Detect); Cannabinoid Screen Urine POSITIVE (Not Detect); Cocaine Screen Urine POSITIVE (Not Detect); Fentanyl, urine Not Detected (Not Detect); Methadone Screen, Urine Not Detected (Not Detect); Opiate Screen Urine Not Detected (Not Detect); Oxycodone Screen Urine Not Detected (Not Detect); Phencyclidine Screen Urine Not Detected (Not Detect)
[2024-09-03 02:46] LABS: Acetaminophen LAB < 3 mcg/mL (<30); Salicylate < 5.0 mg/dL (15-30)
[2024-09-03 02:50] LABS: Alanine Aminotransferase 57 U/L (0-40); Alkaline Phosphatase 90 U/L (39-117); Anion Gap 17 (12-20); Aspartate Amino Transferase 44 U/L (5-37); Bilirubin Total 0.6 mg/dL (0.0-1.0); Blood Urea Nitrogen 14 mg/dL (9-16); Calcium 9.8 mg/dL (8.4-10.2); Carbon Dioxide 18 mmol/L (22-29); Chloride 111 mmol/L (96-108); Creatinine Clr Calc Pharmacy 68.3; Estimated Glomerular Filt Rate > 60; Ethanol 121 mg/dL; Glucose Random 107 mg/dL (60-115); Potassium 3.9 mmol/L (3.3-5.1); Sodium 142 mmol/L (135-145); Total Protein 8.8 g/dL (6.5-8.0)
--- NOTE | 2024-09-03 03:46 | ED_ITS ---
HPI - Psych General Chief Complaint: Psychiatric Symptoms Stated Complaint: ETOH, HI Time Seen by Provider: 09/03/24 02:24 Source: patient Mode of arrival: ambulatory Limitations: no limitations History of Present Illness ED Provider: HPI Narrative: Patient's history of alcohol abuse and depression was upset with his girlfriend with homicidal feeling requesting to go to detox does not feel safe to be with her at home. Patient has been drinking heavy for last 1 month Related Data Home Medications ?Medication ?Instructions ?Recorded ?Confirmed fluoxetine 20 mg tablet 40 mg PO DAILY 06/20/24 09/03/24 mirtazapine 15 mg tablet 15 mg BEDTIME 06/20/24 09/03/24 buspirone 15 mg tablet 15 mg PO TID 08/04/24 09/03/24 diphenhydramine HCl 50 mg capsule 100 mg PO BEDTIME 08/04/24 09/03/24 (Banophen) olanzapine 5 mg tablet (Zyprexa) 5 mg PO BID PRN Agitation 08/04/24 09/03/24 prazosin 2 mg capsule 4 mg PO BEDTIME 08/04/24 09/03/24 Previous Rx's ?Medication ?Instructions ?Recorded metformin 1,000 mg tablet 1,000 mg PO BIDWMEAL #60 tabs 05/06/24 clonidine HCl 0.1 mg tablet 0.1 mg PO TID 30 days #90 tabs 08/05/24 melatonin 3 mg capsule 3 mg PO BEDTIME PRN Insomnia 30 08/05/24 days #30 caps clonidine HCl 0.2 mg tablet 0.2 mg PO TID PRN anxiety 7 days 09/01/24 #21 tabs Allergies Allergy/AdvReac Type Severity Reaction Status Date / Time Penicillins [PENICILLINS] Allergy Severe SWELLING Verified 09/03/24 01:47 AND ITCHING, THROAT CLOSES. Review of Systems 2 Review of Systems: Yes all other systems are reviewed and are negative PMFSH Past Medical History Medical History Depression with suicidal ideation Polysubstance abuse Cocaine use disorder, moderate, dependence Alcohol use disorder, moderate, dependence COVID-19 ADHD PTSD (post-traumatic stress disorder) Depression Surgical History History of abdominal surgery Social History Social History Household Members: Significant Other Household Members Other:: 2 Housing: House Do you presently have visiting nurse or other home services: No Unable to assess alcohol history related to: Refusing to respond Alcohol intake: current Alcohol intake frequency: 3 or more drinks per day Alcohol type: beer and hard liquor Patient Tobacco Use Status: Never used Tobacco Tobacco use type: Cigarette Cigarette Packs Per Day: 0.5 Cigarettes Per Day: 8 e-Cigarette/Vaping Use: Never Used Second Hand Smoke Exposure: No Substance Use Type: Crack/Cocaine and Marijuana Advance Directives: No Advance Directives Information Provided: Yes Do you have a plan to hurt others: No Plan service: No Current occupational status: employed Sexual orientation: Straight/Heterosexual Physical Exam 2 Vital Signs: Vital Signs: Last Vital Signs Temp 98.6 F 09/03/24 01:42 Pulse 100 09/03/24 01:42 Resp 16 09/03/24 01:42 BP 134/82 09/03/24 01:42 Pulse Ox 98 09/03/24 01:42 O2 Del Method Room Air 09/03/24 01:42 BMI result Body Mass Index 25.8 Appearance: Alert. Oriented X3. No acute distress. Eyes: No pallor or icterus ENT: Pharynx normal. Oral Mucosa moist Neck: Normal inspection. Neck supple. CVS: Normal heart rate and rhythm. Pulses normal. Respiratory: No respiratory distress. Equal air entry bilateral, no wheezing/rales/rhonchi Abdomen: Soft and nontender. Bowel sounds are present, no mass palpable, no CVA tenderness Skin: Skin warm and dry. Normal skin color. Normal skin turgor. Extremities: No lower extremity edema. No calf tenderness psych: Feel depressed denies any SI or HI at this time no hallucination or delusion Neuro: Oriented X 3. No motor deficit. No sensory deficit.No cerebellar signs , cranial nerves II-XII intact Medications Administered Discontinued Medications Generic Name Dose Route Start Last Admin Trade Name Freq PRN Reason Stop Dose Admin Diphenhydramine HCl 100 mg 09/03/24 02:24 09/03/24 02:29 Diphenhydramine Hcl 25 Mg Capsule PO 09/03/24 02:25 100 mg ONCE ONE Administration Medical Decision Making Medical Decision Making MDM Narrative: Patient's depression with alcoholism with homicidal feeling will get care team involved for disposition Lab Data MDM Lab Attestation statement: I reviewed the patient's lab results. 09/03/24 02:21 09/03/24 02:21 Labs: Lab Results 09/03/24 Range/Units 02:21 WBC 7.5 (4.8-10.8) X10*3/uL RBC 5.09 (4.60-5.80) X10*6/uL Hgb 14.7 (14.0-18.0) g/dl Hct 41.6 L (42.0-52.0) % MCV 81.7 (80.0-98.0) fL MCH 28.9 (27.0-33.0) pg MCHC 35.3 (31.0-36.0) g/dl RDW 15.7 (11.0-16.0) % Plt Count 290 (160-400) X10*3/uL MPV 9.3 L (9.4-12.4) fL Immature Gran % (Auto) 0.3 (0.0-0.4) % Neut % (Auto) 43.8 L (45-73) % Lymph % (Auto) 47.5 H (20-40) % Bacon % (Auto) 7.1 (2-11) % Eos % (Auto) 0.8 (0-4) % Baso % (Auto) 0.5 (0-2) % Lymph # (Auto) 3.6 (1.2-4.9) X10*3/uL Bacon # (Auto) 0.5 (0.1-1.2) X10*3/uL Eos # (Auto) 0.1 (0.0-0.4) X10*3/uL Baso # (Auto) 0.0 (0.0-0.2) X10*3/uL Abs Immat Gran (auto) 0.02 (0.00-0.03) X10*3/uL Absolute Neuts (auto) 3.3 (2.0-8.3) x10*3/uL Absolute Nucleated RBC 0.000 (0.0-0.012) X10*3/uL Nucleated RBC % (auto) 0.0 (0.0-0.2) /100WBC Sodium 142 (135-145) mmol/L Potassium 3.9 (3.3-5.1) mmol/L Chloride 111 H (96-108) mmol/L Carbon Dioxide 18 L (22-29) mmol/L Anion Gap 17 (12-20) BUN 14 (9-16) mg/dL Creatinine 1.10 (0.5-1.4) mg/dL Estim Creat Clear Calc 68.3 Estimated GFR > 60 Random Glucose 107 (60-115) mg/dL Calcium 9.8 (8.4-10.2) mg/dL Total Bilirubin 0.6 (0.0-1.0) mg/dL AST 44 H (5-37) U/L ALT 57 H (0-40) U/L Alkaline Phosphatase 90 (39-117) U/L Total Protein 8.8 H (6.5-8.0) g/dL Albumin 5.0 (3.5-5.0) g/dL Salicylates < 5.0 L (15-30) mg/dL Urine Opiates Screen Not Detected (Not Detect) Ur Buprenorphine Scrn Not Detected (Not Detect) ng/mL Ur Oxycodone Screen Not Detected (Not Detect) ng/mL Urine Methadone Screen Not Detected (Not Detect) ng/mL Urine Fentanyl Screen Not Detected (Not Detect) Acetaminophen < 3 (<30) mcg/mL Ur Barbiturates Screen Not Detected (Not Detect) Ur Phencyclidine Scrn Not Detected (Not Detect) Ur Amphetamines Screen Not Detected (Not Detect) U Benzodiazepines Scrn Not Detected (Not Detect) Urine Cocaine Screen POSITIVE H (Not Detect) U Marijuana (THC) Screen POSITIVE H (Not Detect) Ethyl Alcohol 121 mg/dL Discharge Plan Discharge Clinical Impression: Alcohol use disorder, moderate, dependence, Depression Patient Disposition: Still a Patient Prescriptions: No Action fluoxetine 20 mg Tablet 40 mg PO DAILY mirtazapine 15 mg Tablet 15 mg BEDTIME clonidine HCl 0.2 mg tablet 0.2 mg PO TID PRN (Reason: anxiety) 7 Days Qty: 21 0RF metformin 1,000 mg tablet 1,000 mg PO BIDWMEAL Qty: 60 0RF diphenhydramine HCl [Banophen] 50 mg Capsule 100 mg PO BEDTIME buspirone 15 mg Tablet 15 mg PO TID olanzapine [Zyprexa] 5 mg Tablet 5 mg PO BID PRN (Reason: Agitation) prazosin 2 mg Capsule 4 mg PO BEDTIME clonidine HCl 0.1 mg Tablet 0.1 mg PO TID 30 Days Qty: 90 0RF Protocol: Hold for SBP< HOLD for SBP < : 90 melatonin 3 mg Capsule 3 mg PO BEDTIME PRN (Reason: Insomnia) 30 Days Qty: 30 0RF Interventions: [place]-Suicide Risk Severity Scale Last Done: 09/03/24 03:36 Print Language: Divehi
[2024-09-03 07:35] VITALS: BP 139/84; PULSE 93; RESP 14; TEMP 36.3; O2SAT 97
--- NOTE | 2024-09-03 09:51 | MHC.RECOVRN ---
Addendum entered by Vineet Russ RN 09/03/24 10:38: Pt got accepted at [facility] in [place]. He is expected to be there [facility]. He will be transported there via [employer]. ED RN and MD are aware. Original Note: Met with Kameron in [facility] to discuss ongoing substance use. Kameron was resting calmly in bed, watching tv. Patient stated that he has lost all control over his alcohol and cocaine use, and has been drinking and using daily for the last month. He reports drinking 4 beers and 4 fireball nips last night, as well as using $50 of cocaine via inhalation (smoking) just prior presenting to the ED yesterday. Pt states that recent stressors include a verbal altercation with girlfriend which caused patient have some HI towards her, so he brought himself to the hospital. Kameron reports prior ATS admissions at [facility], [facility], and [facility]. His longest period of sobriety was from [id number] while patient was incarcerated. He also reports a 10 month period of sobriety a couple of years ago. During that time, patient states he was on the Vivitrol shot which helped with his alcohol and cocaine cravings. Kameron is denying SI and/or HI at the moment (no ideation, plan, or intent). He does endorse feelings of depression and anxiety due to his current situation and struggle with alcohol and cocaine. He states he wants to go to detox, preferably closer to the [place] area, as he is not willing to go locally at [facility] in [place]. Pt agreed for ATS referrals to be sent on his behalf. See recovery/ assessment for more info.
[2024-09-03] MEDS: LORazepam 1 MG TABLET PO (10:42)
[2024-09-03 10:57] VITALS: BP 139/84; PULSE 93; RESP 14; TEMP 36.3; O2SAT 97
--- NOTE | 2024-09-03 12:08 | PHA.MEDREC ---
Pharmacy Consult ? Medication Reconciliation Pharmacy has reviewed the medication reconciliation completed by nursing. Matches medication list from last admission on 08/06/24.
== END 2024-09-03 10:58 | disposition other institution (70) ==
PROVIDERS: Emergency Provider Internal Medicine
DX: F10.24 Alcohol dependence with alcohol-induced mood disorder (principal); F14.24 Cocaine dependence with cocaine-induced mood disorder; Y90.6 Blood alcohol level of 120-199 mg/100 ml; F32.A Depression, unspecified; R45.850 Homicidal ideations; F19.10 Other psychoactive substance abuse, uncomplicated; F43.10 Post-traumatic stress disorder, unspecified; E11.9 Type 2 diabetes mellitus without complications; F17.210 Nicotine dependence, cigarettes, uncomplicated; Z59.00 Homelessness unspecified; Z79.899 Other long term (current) drug therapy; Z79.84 Long term (current) use of oral hypoglycemic drugs
CPT/HCPCS: 36415; 80053; 80143; 80179; 80307; 85025; 99284; 99285; S9485

== ENCOUNTER 2024-09-23 05:42 | Emergency (ER) | payer MEDICAID, SELFPAY ==
[2024-09-23 05:44] VITALS: BP 99/69; PULSE 79; RESP 16; TEMP 36.7; O2SAT 97; BMI 28.3
--- NOTE | 2024-09-23 06:07 | ED_ITS ---
HPI - Psych General Chief Complaint: Psychiatric Symptoms Stated Complaint: SI/ HI Time Seen by Provider: 09/23/24 06:00 Source: patient Mode of arrival: ambulatory Limitations: no limitations History of Present Illness ED Provider: Dr. Mary Steele HPI Narrative: Patient comes to the emergency room complaining of suicidal ideation, alcohol abuse. Patient states that he has had these thoughts for about a month, no specific plan. Patient states that he and his significant other drink quite a bit. Patient states that he is looking for help to stop drinking so that he can move forward in his life. patient denies HI. Related Data Home Medications ?Medication ?Instructions ?Recorded ?Confirmed fluoxetine 20 mg tablet 40 mg PO DAILY 06/20/24 09/23/24 mirtazapine 15 mg tablet 15 mg BEDTIME 06/20/24 09/23/24 buspirone 15 mg tablet 15 mg PO TID 08/04/24 09/23/24 diphenhydramine HCl 50 mg capsule 50 mg PO BEDTIME 08/04/24 09/23/24 (Banophen) olanzapine 5 mg tablet (Zyprexa) 5 mg PO BID PRN Agitation 08/04/24 09/23/24 prazosin 2 mg capsule 4 mg PO BEDTIME 08/04/24 09/23/24 metformin 1,000 mg tablet 1,000 mg PO DAILY 09/23/24 09/23/24 thiamine HCl (vitamin B1) 100 mg 100 mg PO DAILY 09/23/24 09/23/24 tablet Previous Rx's ?Medication ?Instructions ?Recorded melatonin 3 mg capsule 3 mg PO BEDTIME PRN Insomnia 30 08/05/24 days #30 caps clonidine HCl 0.2 mg tablet 0.2 mg PO TID PRN anxiety 7 days 09/01/24 #21 tabs Allergies Allergy/AdvReac Type Severity Reaction Status Date / Time Penicillins [PENICILLINS] Allergy Severe SWELLING Verified 09/23/24 05:48 AND ITCHING, THROAT CLOSES. Review of Systems 2 Review of Systems: Constitutional : No Weight loss, No Fever, No Chills, No Night Sweats, No Fatigue, No Malaise ENT/Mouth : No Hearing loss, No Ear Pain, No Nasal Congestion, No Sinus Pain, No Hoarseness, No sore throat, No Rhinorrhea, No Swallowing Difficulty Eyes: No Eye Pain, No Swelling, No Redness, No Foreign Body, No Discharge, No Vision Changes Cardiovascular : No Chest Pain, No SOB, No Dyspnea on Exertion, No Orthopnea, No Edema, No Palpitations Respiratory : No Cough, No Sputum, No Wheezing, No Smoke Exposure, No Dyspnea Gastrointestinal : No Nausea, No Vomiting, No Diarrhea, No Constipation, No abdominal Pain, No Hematochezia, No Melena Genitourinary : no irregular bleeding, No Dysuria, No Urinary Frequency, No Hematuria, No Urinary Incontinence, No Urgency, No Flank Pain, No Urinary Flow Changes, No Hesitancy Musculoskeletal : No joint pain, No Myalgias, No Joint Swelling Skin : No Skin Lesions, No rash Neuro : No Weakness, No Numbness, No Paresthesias, No Loss of Consciousness, No Dizziness, No Headache Psych : patient complaining of feeling anxious, depressed, angry when he drinks a lot of alcohol and his problems with his significant other. Patient denies plan of hurting himself, initially when he arrived patient mentioned HI the patient states that he would never hurt anybody or his significant other. Patient states that he has gets very angry at her Heme/Lymph: No Bruising, No Bleeding,No Lymphadenopathy Endocrine : No Polyuria, No Polydipsia, No Temperature Intolerance PMFSH Past Medical History Medical History Depression with suicidal ideation Polysubstance abuse Cocaine use disorder, moderate, dependence Alcohol use disorder, moderate, dependence COVID-19 ADHD PTSD (post-traumatic stress disorder) Depression Surgical History History of abdominal surgery Social History Social History Household Members: Significant Other Household Members Other:: 2 Housing: House Do you presently have visiting nurse or other home services: No Unable to assess alcohol history related to: Refusing to respond Alcohol intake: current Alcohol intake frequency: 3 or more drinks per day Alcohol type: beer, wine and hard liquor Patient Tobacco Use Status: Never used Tobacco Tobacco use type: Cigarette Cigarette Packs Per Day: 0.5 Cigarettes Per Day: 8 Smoked in Last 30 Days: Yes e-Cigarette/Vaping Use: Never Used Second Hand Smoke Exposure: No Use of substances other than those prescribed or required for medical reasons: Yes Substance Use Type: Crack/Cocaine Last Used Substance: Just Prior to Admission Any prior treatment program specific to substance use: No Advance Directives: No Advance Directives Information Provided: Yes Do you have a plan to hurt others: No Plan service: No Current occupational status: employed Sexual orientation: Straight/Heterosexual Physical Exam 2 Vital Signs: Vital Signs: Last Vital Signs Temp 98.0 F 09/23/24 13:13 Pulse 64 09/23/24 13:13 Resp 17 09/23/24 13:13 BP 108/64 09/23/24 13:13 Pulse Ox 99 09/23/24 13:13 O2 Del Method Room Air 09/23/24 13:13 BMI result Body Mass Index 28.3 Const: Other: Appearance: Alert. Oriented X3. No acute distress. Eyes: Pupils equal, round and reactive to light. ENT: Pharynx normal. Neck: Normal inspection. Neck supple. No lymph nodes noted. No crepitus CVS: Normal heart rate and rhythm. Pulses normal. Normal S1 and S2 Respiratory: No respiratory distress. Breath sounds normal. No Wheezing. No rales Abdomen: Soft and nontender. No rigidity. No distention. Skin: Skin warm and dry. Normal skin color. Normal skin turgor. Extremities: No lower extremity edema. No Lacerations. No Rash Neuro: Oriented X 3. No motor deficit. No sensory deficit. Moving all extremities. No slurred speech. CN 2 through 12 grossly intact Psych: calm, cooperative, normal affect Course Course Course Narrative: all of patient's labs pending care team consult pending physician observation started at 06:08 Reevaluation(s) Reevaluation #1: Time: 16:36 Date: 09/23/24 Provider: Michael Salter MD Physician observation ended at 16:36. Patient has been cleared for discharge by the CARE team. Will follow up as an outpatient. The patient feels comfortable being discharged from the emergency room. He has plans to go to the [facility] facility tomorrow. He is not suicidal. Time: 16:37 Medications Administered Generic Name Dose Route Start Last Admin Trade Name Freq PRN Reason Stop Dose Admin Buspirone HCl 15 mg 09/23/24 15:00 09/23/24 15:00 Buspirone Hcl 5 Mg Tablet PO 15 mg TID MARNIE Administration Fluoxetine HCl 40 mg 09/23/24 12:30 09/23/24 15:00 Fluoxetine Hcl 20 Mg Capsule PO 40 mg DAILY MARNIE Administration Medical Decision Making Differential Diagnosis Differential Diagnoses: The differential diagnosis associated with the presentation includes ( anxiety, depression, polysubstance abuse, alcohol abuse) Admission/Observation Consideration of admission/observation: Escalation of care including admission/observation considered ( patient waiting to be seen by the care team to determine patient's disposition) Lab Data 09/23/24 06:29 09/23/24 06:29 Labs: Lab Results 09/23/24 09/23/24 Range/Units 06:29 06:30 WBC 6.0 (4.8-10.8) X10*3/uL RBC 4.46 L (4.60-5.80) X10*6/uL Hgb 13.1 L (14.0-18.0) g/dl Hct 38.1 L (42.0-52.0) % MCV 85.4 (80.0-98.0) fL MCH 29.4 (27.0-33.0) pg MCHC 34.4 (31.0-36.0) g/dl RDW 15.9 (11.0-16.0) % Plt Count 279 (160-400) X10*3/uL MPV 9.7 (9.4-12.4) fL Immature Gran % (Auto) 0.3 (0.0-0.4) % Neut % (Auto) 47.1 (45-73) % Lymph % (Auto) 42.3 H (20-40) % Catron % (Auto) 6.2 (2-11) % Eos % (Auto) 3.3 (0-4) % Baso % (Auto) 0.8 (0-2) % Lymph # (Auto) 2.5 (1.2-4.9) X10*3/uL Catron # (Auto) 0.4 (0.1-1.2) X10*3/uL Eos # (Auto) 0.2 (0.0-0.4) X10*3/uL Baso # (Auto) 0.1 (0.0-0.2) X10*3/uL Abs Immat Gran (auto) 0.02 (0.00-0.03) X10*3/uL Absolute Neuts (auto) 2.8 (2.0-8.3) x10*3/uL Absolute Nucleated RBC 0.000 (0.0-0.012) X10*3/uL Nucleated RBC % (auto) 0.0 (0.0-0.2) /100WBC Sodium 141 (135-145) mmol/L Potassium 3.8 (3.3-5.1) mmol/L Chloride 111 H (96-108) mmol/L Carbon Dioxide 21 L (22-29) mmol/L Anion Gap 13 (12-20) BUN 11 (9-16) mg/dL Creatinine 0.93 (0.5-1.4) mg/dL Estim Creat Clear Calc 89.0 Estimated GFR > 60 Random Glucose 98 (60-115) mg/dL Calcium 9.1 D (8.4-10.2) mg/dL Total Bilirubin 0.5 (0.0-1.0) mg/dL AST 39 H (5-37) U/L ALT 37 (0-40) U/L Alkaline Phosphatase 86 (39-117) U/L Total Protein 6.8 (6.5-8.0) g/dL Albumin 4.1 (3.5-5.0) g/dL Urine Opiates Screen Not Detected (Not Detect) Ur Buprenorphine Scrn Not Detected (Not Detect) ng/mL Ur Oxycodone Screen Not Detected (Not Detect) ng/mL Urine Methadone Screen Not Detected (Not Detect) ng/mL Urine Fentanyl Screen Not Detected (Not Detect) Ur Barbiturates Screen Not Detected (Not Detect) Ur Phencyclidine Scrn Not Detected (Not Detect) Ur Amphetamines Screen Not Detected (Not Detect) U Benzodiazepines Scrn POSITIVE H (Not Detect) Urine Cocaine Screen POSITIVE H (Not Detect) U Marijuana (THC) Screen POSITIVE H (Not Detect) Ethyl Alcohol 45 mg/dL Critical Care Time Critical Care Time Critical Care Time: Yes Total Critical Care Time: 35 Attestation: I have personally provided critical care time. Time includes review of lab data, radiology results, discussion with consultants, and monitoring for potential decompensation. Intervention performed as documented. Discharge Plan Discharge Clinical Impression: Anxiety and depression, Alcohol abuse Patient Disposition: Home, Self-Care Additional Instructions: please continue your regular medications. Please do your best to minimize alcohol or any other substance use. Please follow through with your plans to go to [facility] tomorrow. Also follow up with your regular doctor. Return to the emergency room if significantly worse. You were seen in our Emergency Department today for treatment of a behavioral health issue. It is important after your visit that you follow up with either your behavioral health provider or a primary care doctor within 7 days.? If you have trouble finding a therapist you can reach out to [address] [phone] [facility] [place] [facility] can be reached 7 days a week 24 hours a day.? Call [phone] to speak with someone.? Return for any worsening symptoms or concerns such as thoughts of self harm or harm to others. Please call 911 if you feel your mental health is worsening.? Alcohol use disorder You were seen in the Emergency Department today for treatment of alcohol use disorder.? You may have been given medications to help with your withdrawal symptoms.? Please do not drink alcohol with them. This is very dangerous and can cause respiratory depression or other adverse reactions depending on the medication. If you would like to cut down or stop your alcohol use please consider calling our outpatient Addiction Treatment office:? [facility] (M-F [id number]) [address] [place] [address] ? You have also been given a list of treatment providers in the area that can assist as well.? If you experience seizures, vomiting blood, black stools, falls, severe headache, chest pain, fevers, trouble breathing, hallucinations or any other concerns you need to call 911 or seek immediate care. Please stay hydrated. Prescriptions: No Action fluoxetine 20 mg Tablet 40 mg PO DAILY mirtazapine 15 mg Tablet 15 mg BEDTIME clonidine HCl 0.2 mg tablet 0.2 mg PO TID PRN (Reason: anxiety) 7 Days Qty: 21 0RF diphenhydramine HCl [Banophen] 50 mg Capsule 50 mg PO BEDTIME buspirone 15 mg Tablet 15 mg PO TID olanzapine [Zyprexa] 5 mg Tablet 5 mg PO BID PRN (Reason: Agitation) prazosin 2 mg Capsule 4 mg PO BEDTIME melatonin 3 mg Capsule 3 mg PO BEDTIME PRN (Reason: Insomnia) 30 Days Qty: 30 0RF thiamine HCl (vitamin B1) 100 mg tablet 100 mg PO DAILY metformin 1,000 mg tablet 1,000 mg PO DAILY Referrals: [facility] [Provider Group] Interventions: [place]-Suicide Risk Severity Scale Last Done: 09/23/24 08:00 Print Language: Georgian
--- OUTSIDE RECORDS SUMMARY | 2024-09-23 06:12 | XMS_ITS | Clinical Summary ---
Author Organization [employer] Address [address] [facility] [address] [place] [address] Care Team Providers Care Marketing Summer Intern Name Role Phone Ethel Guerrero MD Primary Care Provider Allergies Active Allergy Reactions Criticality Noted Date Comments Penicillin G 11/16/2019 Other reaction(s): Itching, Rash, Rash Medications * This document contains information received from the source organization and may not represent a complete record from that organization. Spacer/Aero-Hol ding Chambers (AeroChamber MV) inhalerIndicati ons:Wheezing Use as instructed 1 each 2 08/21/19 23 Active fluticasone (Flonase) 50 MCG/ACT nasal sprayIndication s:Nasal congestion Administer 1-2 sprays into each nostril in the morning. Shake gently. Before first use, prime pump. After use, clean tip and replace cap. 16 g 2 08/21/19 23 Active Blood Pressure Monitor kitIndications: Primary hypertension Check blood pressure once daily 1 kit 08/21/19 23 Active melatonin 3 MG tablet Take 1 tablet (3 mg) by mouth if needed at bedtime for sleep. 30 tablet 11 12/25/19 23 Active FLUoxetine (PROzac) 20 MG capsule Take 1 capsule (20 mg) by mouth in the morning. 30 capsule 12/25/19 23 Active cloNIDine (Catapres) 0.1 MG tablet Take 1 tablet (0.1 mg) by mouth at bedtime. 30 tablet 12/25/19 23 Active mirtazapine (Remeron) 15 MG tabletIndicatio ns:Psychophysio logical insomnia Take 1 tablet (15 mg) by mouth at bedtime. Take with 7.5 mg tablet. Total 22.5 mg at bedtime. 30 tablet 11 12/25/19 23 Active prazosin (Minipress) 1 MG capsuleIndicati ons:Psychophysi ological insomnia take 1 capsule by oral route at bedtime. 90 capsule 1 07/02/19 24 Active losartan (Cozaar) 25 MG tablet Take 1 tablet (25 mg) by mouth Once per day. 90 tablet 3 08/26/19 25 026 Active metFORMIN XR (Glucophage-XR) 500 MG 24 hr tablet Take 1 tablet (500 mg) by mouth 2 times daily. Do not crush, chew, or split. 180 tablet 3 08/26/19 25 026 Active albuterol 108 (90 Base) MCG/ACT inhalerIndicati ons:Wheezing Inhale 2 puffs every 4 (four) hours if needed for wheezing or shortness of breath. Maximum 8 puffs per day 18 g 3 08/26/19 25 026 Active albuterol 108 (90 Base) MCG/ACT inhalerIndicati ons:Wheezing Inhale 2 puffs every 4 (four) hours if needed for wheezing or shortness of breath. Maximum 8 puffs per day 18 g 3 08/21/19 23 025 Discontinued(R eorder (will not trigger notification to Pharmacy)) hydroCHLOROthia zide (HYDRODiuril) 25 MG tablet Take 25 mg by mouth 1 (one) time each day. 025 Discontinued(M ed list cleanup (will not trigger notification to Pharmacy)) hydrOXYzine HCl (Atarax) 50 MG tabletIndicatio ns:Alcohol use disorder Take 1 tablet (50 mg) by mouth every 6 (six) hours if needed for anxiety. 60 tablet 3 11/21/19 23 025 Discontinued(M ed list cleanup (will not trigger notification to Pharmacy)) Active Problems Problem Noted Date Diagnosed Date Asthma 08/31/2024 Assessment & Plan (08/31/2024 2:35 PM EDT): - smoking 1/2 ppd for 36 years - evaluate with PFT for possible COPD - albuterol HFA prn, consider SMART Diabetes mellitus, type 2 08/25/2024 Assessment & Plan (08/31/2024 2:24 PM EDT): A1C 8.0% today, improved despite poor adherence to metformin Diabetes mellitus type 2 Diagnosis 2023 Microvascular complications: None Macrovascular complications: None Glucose monitoring device: Freestyle Adherence to self-monitoring blood glucose: Needs an improvement Currently prescribed medications: Metformin XR 500 mg bid Diabetic eye exam: Not yet Comprehensive foot exam: 08/25/24 Dental exam: Dental Dream - Ordered Hemoglobin A1c 08/25/24 - Ordered Lipid Panel with Reflex to Direct LDL 08/25/24 - Ordered Albumin, Random Urine W/Creatinine 08/25/24 Mild episode of recurrent major depressive disor clara 08/12/2024 Crack cocaine use 08/12/2024 History of homicidal ideation 08/12/2024 History of suicidal ideation 08/12/2024 Marijuana use 08/12/2024 Mood disorder 08/20/2022 Assessment & Plan (08/31/2024 2:33 PM EDT): - Hx suicidal ideation - most recent hospitalization for SI / HI in Jun 2024 - currently being treated for MDD, anxiety, and PTSD - possibly bipolar - current behavioral health service provider: [facility] - current medications: mirtazapine; prazosin; fluoxetine; prazosin; melatonin; clonidine - Treatment Hx: Previously on lorazepam, quetiapine; hydorxyzine Assessment & Plan (11/20/2022 9:05 AM EDT): - Hx suicidal ideation - most recent hospitalization for SI / HI in September 2022 - currently being treated for MDD, anxiety, and PTSD - possibly bipolar - current medications: Mirtazapine; prazosin - Treatment Hx: Previously on lorazepam, quetiapine; hydorxyzine - met with [facility] clinician today Assessment & Plan (08/20/2022 2:27 PM EST): - Hx suicidal ideation - currently being treated for MDD, anxiety, and PTSD - possibly bipolar - current medications: Mirtazapine; prazosin - Treatment Hx: Previously on lorazepam, quetiapine; hydorxyzine - met with [facility] clinician today Bunion of left foot 08/20/2022 Assessment & Plan (08/31/2024 2:20 PM EDT): - Painful - Refer to fancy needleworker Assessment & Plan (08/20/2022 2:22 PM EST): - Painful - Refer to fancy needleworker Mass of right axilla 08/20/2022 Assessment & Plan (08/20/2022 2:34 PM EST): -Evaluated by dr. Augustin on 07/31/22, likely inclusion cyst, not hidradenitis -Scheduled for excisional biopsy on 08/22/22 Psychophysiological insomnia 07/13/2022 Assessment & Plan (08/20/2022 2:22 PM EST): - increase mirtazapine to 30 mg at bedtime - continue prazosin 1 mg at bedtime for nightmare Assessment & Plan (07/13/2022 4:33 PM EST): - continue mirtazapine 15 mg at bedtime - continue prazosin 1 mg at bedtime for nightmare Hypertension 07/10/2022 Assessment & Plan (08/31/2024 2:19 PM EDT): -Goal BP < 140/90 per JNC-8 and < 130/80 per ACC/AHA guideline (Treatment threshold >= )140/90 - BP not at goal today -Risk factors and associated factors: Smoking cigarettes; stimulant (cocaine) use; -Restart losartan 25 mg daily -on clonidine and prazosin, prescribed by psych -Treatment Hx: Previously on hydrochlorothiazide 25 mg daily, but pt has not been taking -Continue working on lifestyle modifications -Refer to [facility] - Ordered TSH with Reflex to Free T4 08/25/24 - Ordered Comprehensive Metabolic Panel 08/25/24 - Ordered Albumin, Random Urine W/Creatinine 08/25/24 Assessment & Plan (11/11/2022 10:31 AM EDT): -Goal BP < 140/90 per JNC-8 and < 130/80 per ACC/AHA guideline (Treatment threshold >= )140/90 - BP not at goal today -Risk factors and associated factors: Smoking cigarettes; stimulant (cocaine) use; -Treatment Hx: Previously on hydrochlorothiazide 25 mg daily, but pt has not been taking -Continue working on lifestyle modifications -Refer to [facility] -Follow up in 3-6 mo, sooner if any problem arises Assessment & Plan (08/20/2022 2:26 PM EST): -Goal BP < 140/90 per JNC-8 and < 130/80 per ACC/AHA guideline (Treatment threshold >= )140/90 -Risk factors and associated factors: Smoking cigarettes; stimulant (cocaine) use; -Treatment Hx: Previously on hydrochlorothiazide 25 mg daily, but pt has not been taking -Continue working on lifestyle modifications -Refer to [facility] -Follow up in 3-6 mo, sooner if any problem arises Assessment & Plan (07/13/2022 3:43 PM EST): -Goal BP < 140/90 per JNC-8 and < 130/80 per ACC/AHA guideline (Treatment threshold >= )140/90 -Risk factors and associated factors: Smoking cigarettes; stimulant (cocaine) use; -Treatment Hx: Previously on hydrochlorothiazide 25 mg daily, but pt has not been taking -Continue working on lifestyle modifications -Refer to [facility] -Follow up in 3-6 mo, sooner if any problem arises Alcohol use disorder 07/10/2022 Assessment & Plan (08/26/2024 3:29 AM EST): - Hx treatment with Vivotrol. - He has tried Detox several times, most recently in September 2022 - Contemprative / preparation stage of change - Pt declined AUD clinic participation at this time Assessment & Plan (11/20/2022 9:04 AM EDT): - Hx treatment with Vivotrol. - He has tried Detox several times, most recently in September 2022 - Contemprative / preparation stage of change - Pt declined AUD clinic participation at this time Assessment & Plan (08/20/2022 2:27 PM EST): - Hx treatment with Vivotrol. - Pt declined AUD clinic participation at this time Assessment & Plan (07/13/2022 3:51 PM EST): - Hx treatment with Vivotrol. - Pt declined AUD clinic participation at this time Tobacco use disorder 07/10/2022 Assessment & Plan (08/31/2024 3:00 PM EDT): - pre-contemplative stage - smoking 18 pack years so far, will order chest CT in few years if he continues to smoke - continue working on smoking cessation Assessment & Plan (11/11/2022 10:31 AM EDT): - continue working on smoking cessation Assessment & Plan (08/20/2022 2:26 PM EST): - continue working on smoking cessation Assessment & Plan (07/13/2022 3:53 PM EST): - continue working on smoking cessation Moderate anxiety 07/10/2022 Assessment & Plan (11/14/2022 12:47 PM EDT): Assessment: Patient with a history of depression, (low mood, social isolation) Anxiety (nervousness and worry), alcohol use (more then 6 drinks a day), and substance use (consistent crack use) in the context of biopsychosocial stressors of housing instability, financial struggles, and relationships difficulty. Today Kameron reported Depression, (depressed mood, SI without plan or intent) alcohal use (drank 3 beers and several nips today), and substance use (used crack last night). Kameron will benefit from meeting with a womens volleyball coach to discuss options for detox. At this time Kameron Cordero meets criteria for Visit Diagnoses: Problem List Items Addressed This Visit Other History of substance use disorder Alcohol use disorder Anxiety and depression Patient ready to address current needs Yes Strengths include openness PLAN: 1. Follow up with [facility]: Not recommended for follow-up 2. Patient goal is to meet with [facility] womens volleyball coach to discuss detox admission 3. Behavioral Recommendations a. Warm handoff to [facility] Assessment & Plan (11/11/2022 10:32 AM EDT): - referred to [facility] clinician; Met with toñito from [facility] today - needs to confirm diagnosis - continue mirtazapine - continue prazosin Assessment & Plan (11/04/2022 2:16 PM EDT): Assessment: Patient with depression, (low mood, social isolation) Anxiety (nervousness and worry), alcohol use (more then 6 drinks a day since Thursday), and substance use (consistent crack use since Thursday11/01/22) in the context of biopsychosocial stressors of housing instability, financial struggles, and relationships difficulty. Patient will benefit from psychiatry, OP therapy, and a CHW. Referrals completed. At this time Kameron Cordero meets criteria for Visit Diagnoses: Unspecified Depressive Disorder Unspecified Anxiety Disorder AUD LAURENCE Patient ready to address current needs Yes for anxiety and depression. No for AUD and LAURENCE PLAN: 1. Follow up with [facility]: Recommended for follow-up: with PCP 11/11/22 2. Patient goal is to engage in psychiatry and OP therapy 3. Behavioral Recommendations a. Provided crisis and [facility] contact information b. Referral for OP therapy and psychiatry c. Referral for CHW Assessment & Plan (08/20/2022 2:27 PM EST): - referred to [facility] clinician - needs to confirm diagnosis - continue mirtazapine - continue prazosin Assessment & Plan (07/13/2022 3:52 PM EST): - refer to [facility] clinician - needs to confirm diagnosis - continue mirtazapine - continue prazosin History of open reduction an d internal fixation (ORIF) procedure 07/10/2022 Assessment & Plan (11/20/2022 9:35 AM EDT): -s/p ORIF of right olecranon on 10/09/[address] Grover -consider re-evaluation if still painful -pt has a difficulty using his right hand / arm -> He is applying for disability Assessment & Plan (07/13/2022 3:49 PM EST): -s/p ORIF of right olecranon on 10/09/[address] Grover -consider re-evaluation if still painful Assessment & Plan (07/10/2022 5:06 AM EST): - right olecranon fracture History of substance use disorder 05/27/2022 Assessment & Plan (07/13/2022 3:53 PM EST): - pt declined referral to womens volleyball coach at this time Assessment & Plan (07/10/2022 5:02 AM EST): - stimulant Posttraumatic stress disorder 05/27/2022 Assessment & Plan (08/31/2024 2:27 PM EDT): - current behavioral health service provider: [facility] - current medications: fluoxetine; melatonin; prazocin; mirtazapine; clonidine - continue current support and effort Assessment & Plan (11/11/2022 10:30 AM EDT): - referred to [facility] provider; met with Toñito from [facility] today - pt will contact [facility] Assessment & Plan (08/20/2022 2:27 PM EST): - referred to [facility] provider; met with Charles from [facility] today - pt will contact [facility] Assessment & Plan (07/13/2022 3:53 PM EST): - refer to [facility] provider Closed fracture of right ole cranon process with routine healing 09/20/2021 Assessment & Plan (07/13/2022 3:50 PM EST): - s/p ORIF on 10/09/21 - per pt, he is still in pain, and he cannot use his right arm very well - consider X-ray and refer back Assessment & Plan (07/10/2022 5:05 AM EST): - s/p ORIF by Dr. Grover on 10/08/21 Encounters * This document contains information received from the source organization and may not represent a complete record from that organization. Date Type Department Care Team Description 09/22/2024 Telephone [facility] MEDICINE [address] [place] [phone] Ethel Guerrero MD pt-1 address 09/03/2024 Orders Only GENERIC EXTERNAL DATA DEPARTMENT Provider, Generic External Data 09/02/2024 Population Health Risk Score [facility] () Department [address] [place] [id number] Provider, Population Health Generic 09/01/2024 Orders Only GENERIC EXTERNAL DATA DEPARTMENT Provider, Generic External Data 08/25/2024 9:30 AM EST Office Visit [facility] [address] [place] [phone] Ethel Guerrero MD Primary hypertension (Primary Dx); Tobacco use disorder; Mood disorder (CMS/HCC); Posttraumatic stress disorder; Alcohol use disorder; Type 2 diabetes mellitus with hyperglycemia, without long-term current use of insulin ([facility]); Routine screening for STI (sexually transmitted infection); Wheezing; Bunion of left foot; Mild intermittent asthma without complication; Dietary counseling; Exercise counseling; Overweight 08/25/2024 Patient Outreach [address] [phone] Ethel Guerrero MD Care Coordination (CHW outreach for SDOH PT-1 and food needs-referral completed /) 08/25/2024 Travel 08/23/[address] [phone] Ethel Guerrero MD chart prep 08/15/2024 Patient Outreach [address] [phone] [facility] 08/05/2024 Patient Outreach [address] [phone] Ethel Guerrero MD Transition Of Care (Tcm) (HDF- scheduled -and SDOH screening would need to be completed in office.) 08/04/2024 Orders Only GENERIC EXTERNAL DATA DEPARTMENT Provider, Generic External Data from Last 3 Months Immunizations Name Administration Dates Next Due Hep A, Unspecified 09/09/2010,08/01/2009 Hep B, Unspecified 09/09/2010,08/01/2009 Hep B, adult 01/10/2020,12/13/2019 Influenza, Unspecified 07/26/2009 [employer] SARS-CoV-2 Vaccination 10/31/2020,2007 Novel [id number], all formulations 07/26/2009 Pfizer Covid-19 Vaccine 12+ Bivalent 07/10/2022 Pneumococcal Polysaccharide PPSV23 04/15/2024,,07/26/2009 Td (adult), unspecified 05/01/2013,11/24,07/18/2008,05/04 Tdap 11/26/2015,05/11/2015,07/07/2009 Social History Tobacco Use Types Packs/Day Years Used Date Smoking Tobacco: Every Day Cigarettes Passive Smoke Exposure: Current Smokeless Tobacco: Never Tobacco Cessation:Ready to Q uit: Not Asked; Counseling Given: Not Answered Alcohol Answer Date Recorded How often do you have a drink containing alcohol ? 2 08/25/2024 How many drinks containing a lcohol do you have on a typical day when you are drinking? 2 08/25/2024 Frequency of Binge Drinking Not on file 11/2024 Depression Answer Date Recorded Patient Health Questionnaire-9 Score 4 08/12/2024 Patient Health Questionnaire-9 Score 4 08/12/2024 Last PHQ-9: Questionnaire Data Not on file 0 08/12/2024 Housing Stability Answer Date Recorded What is your housing situation today? I am not s ure 08/25/[address] you li ve. Do you have problems with any of the following? None of the above 08/25/2024 Food Insecurity Answer Date Recorded Within the past 12 months, y ou worried that your food would run out before you got money to buy more: Sometimes True 2024 Within the past 12 months,th e food you bought just didn't last and you didn't have enough money to get more: Sometimes True 08/25/2024 Transportation Answer Date Recorded In the past 12 months, has l ack of transportation kept you from medical appts, meetings, work or from getting things needed for daily living? No 08/25/2024 Utilities Answer Date Recorded In the past 12 months, has t he electric, gas, oil or water company threatened to shut off services in your home? No 08/25/2024 Depression Answer Date Recorded Patient Health Questionnaire-2 Score 3 08/12/2024 Internet Access Answer Date Recorded Internet Access Q1 Yes 08/25/2024 Internet Access Q2 Not on file 08/25/2024 Sex and Gender Information Value Date Recorded Sex Assigned at Male 04/21/2022 10:37 AM EDT Legal Sex Male 10:37 AM EDT Gender Identity Male 04/21/2022 10:37 AM EDT Sexual Orientation Choose not to disclose 2021 10:37 AM EDT Last Filed Vital Signs Vital Sign Reading Time Taken Comments Blood Pressure 150/101 08/25/2024 9:32 AM EST Pulse 95 08/25/2024 9:32 AM EST Temperature 36.2 ??C (97.1 ??F) 08/25/2024 9:32 AM ES T Respiratory Rate 20 08/25/2024 9:32 AM EST Oxygen Saturation 96% 08/25/2024 9:32 AM EST Inhaled Oxygen Concentration - - Weight 80.1 kg (176 lb 9.6 oz) 08/25/2024 9:32 A M EST Height 167.6 cm (5' 6 ) 08/25/2024 9:32 AM EST Body Mass Index 28.5 08/25/2024 9:32 AM EST Plan of Treatment Upcoming Encounters Date Type Department Care Team (Late st Contact Info) Description 09/26/2024 10:30 AM EDT Clinical Support [facility] MED[facility]INE [address] [place] [id number] Health Maintenance Due Date Last Done Comments CT Colonography 1971 Colonoscopy 1971 Colorectal Cancer Screening 1971 Dental Oral Exam 1971 Dental Prophylaxis 1971 Dental X-Ray: Bitewings 1971 Dental X-Ray: Full Mouth 1971 FIT DNA/Cologuard 1971 FIT 1971 FOBT 1971 Lipid Panel 1971 Sigmoidoscopy 1971 Diabetes: Foot Exam 11/14/1981 Eye Exam 11/14/1981 Family Planning (PISQ) 11/14/1986 Diabetes: Urine Protein Screening 11/14/1990 Zoster Vaccines (1 of 2) 11/14/2021 COVID-19 Vaccine ( season) 2024 07/10/2022, 10/31/2020, 05/04/2008 Influenza Vaccine (#1) 2024 07/26/2009, 2009 Diabetes: Hemoglobin A1C 11/25/2024 08/25/2024 Pneumococcal Vaccine: 50+ Years (2 of 2 - PCV) 04/15/2025 04/15/2024, 01/29/2012, 07/26/2009 Depression Screening 08/12/2025 08/12/2024, 08/12/19 Alcohol/Substance Use Screening 08/25/2025 08/25/2024 SDOH Screening 08/25/2025 08/25/2024 Tobacco Screening 08/25/2025 08/25/2024 DTaP/Tdap/Td Vaccines (6 - Td or Tdap) 11/25/2025 11/26/2015, 05/11/2015, 05/01/2013, Additional history exists RSV Patients and Patients Aged 60 years or older (1 - 1-dose 75+ series) 11/14/2046 Hepatitis A Vaccines Aged Out 09/09/2010, 08/01/19 10 No longer eligible based on patient's age to complete this topic HIV Screening Completed 11/23/2019 Hepatitis C Screening Completed 11/23/2019 Hepatitis B Vaccines Completed 01/10/2020, 12/13/2019, 09/09/2010, Additional history exists HIB Vaccines Aged Out No longer eligi ble based on patient's age to complete this topic HPV Vaccines Aged Out No longer eligi ble based on patient's age to complete this topic IPV Vaccines Aged Out No longer eligi ble based on patient's age to complete this topic Meningococcal Vaccine Aged Out No jose francisco ramona eligible based on patient's age to complete this topic RSV under 20 months Aged Out No longe r eligible based on patient's age to complete this topic Rotavirus Vaccines Aged Out No longer eligible based on patient's age to complete this topic Procedures Procedure Name Priority Date/Time Associated Diagnosis Comments ETHANOL Routine 09/03/2024 2:21 AM EDT COMPREHENSIVE METABOLIC PANEL Routine 09/03/2024 2:21 AM EDT ACETAMINOPHEN LEVEL Routine 09/03/2024 2 :21 AM EDT SALICYLATE Routine 09/03/2024 2:21 AM EDT DRUG MONITOR, PANEL 1, SCREEN, URINE Routine 09/03/2024 2:21 AM EDT CBC WITH AUTO DIFFERENTIAL Routine 09/03/2024 2:21 AM EDT ACETAMINOPHEN LEVEL Routine 09/01/2024 9 :19 AM EDT SALICYLATE Routine 09/01/2024 9:19 AM EDT COMPREHENSIVE METABOLIC PANEL Routine 09/01/2024 9:19 AM EDT ETHANOL Routine 09/01/2024 9:19 AM EDT CBC WITH AUTO DIFFERENTIAL Routine 09/01/2024 9:19 AM EDT DRUG MONITOR, PANEL 1, SCREEN, URINE Routine 09/01/2024 2:11 AM EDT POCT GLYCOSYLATED HEMOGLOBIN (HGB A1C) Routine 08/25/2024 9:33 AM EST Type 2 diabetes mellitus with hyperglycemia, without long-term current use of insulin ([facility]) POCT GLUCOSE Routine 08/25/2024 9:33 AM EST Type 2 diabetes mellitus with hyperglycemia, without long-term current use of insulin ([facility]) ETHANOL Routine 08/04/2024 2:53 AM EST COMPREHENSIVE METABOLIC PANEL Routine 08/04/2024 2:53 AM EST CBC WITH AUTO DIFFERENTIAL Routine 08/04/2024 2:53 AM EST DRUG MONITOR, PANEL 1, SCREEN, URINE Routine 08/04/2024 2:47 AM EST URINALYSIS, COMPLETE, WITH REFLEX TO CULTURE Routine 08/04/2024 2:47 AM EST ZZZ HISTORICAL HEPATITIS C ANTIBODY RFLX Routine 11/23/2019 10:15 AM EDT CARLITO HISTORICAL HIV AB/AG Routine 11/23/2019 10:15 AM EDT from Last 3 Months or Most Recently Relevant to Health Maintenance Results * Ethanol (09/03/2024 2:21 AM EDT) Only the most recent of3 resultswithin the time period is included. ETHANOL (MG/DL) IN SER/PLAS 121 mg/dL [facility] Comment:Serum/plasma ethanol results are to be used formedical/treatment purposes only. 09/03/2024 2:21 AM EDT 09/03/2024 2:24 AM EDT us Generic External Data Provider LAB BLOOD ORDERAB LES Final Result Performing Organization Address City/State/[facility] Co de Phone Number [facility] [address] [place] [phone] * (ABNORMAL) Drug Monitoring, Panel 1, Screen, Urine (09/03/2024 2:21 AM EDT) Only the most recent of3 resultswithin the time period is included. Pathologist [facility] Opiate Screen Urine Not Detected Not Detect [facility] Comment:Opiate cut-off is 30 0 ng/mL.Positive results are unconfirmed and should not be used fornon-medical purposes. Barbiturates, Urine Not Detected Not Detect [facility] Comment:Barbiturate cut-off is 200 ng/mL.Positive results are unconfirmed and should not be used fornon-medical purposes. Phencyclidine Screen Urine Not Detected Not Detect [facility] Comment:Phencyclidine cut-of f is 25 ng/mL.Positive results are unconfirmed and should not be used fornon-medical purposes. Amphetamine Screen Urine Not Detected Not Detect [facility] Comment:Amphetamine cut-off is 1000 ng/mL.Positive results are unconfirmed and should not be used fornon-medical purposes. Benzodiazepines Screen Urine Not Detected Not Detect [facility] Comment:Benzodiazepine cut-o ff is 200 ng/mL.Positive results are unconfirmed and should not be used fornon-medical purposes. Cocaine Screen Urine POSITIVE(A) Not Detect [facility] Comment:Cocaine cut-off is 3 00 ng/mL.Positive results are unconfirmed and should not be used fornon-medical purposes. Cannabinoid Screen Urine POSITIVE(A) Not Detect [facility] Comment:Cannabinoid cut-off is 50 ng/mL.Positive results are unconfirmed and should not be used fornon-medical purposes. Methadone Screen, Urine Not Detected Not Detect ng/mL [facility] Comment:Methadone cut-off is 300 ng/mL.Positive results are unconfirmed and should not be used fornon-medical purposes. FENTANYL URINE Not Detected Not Detect [facility] Comment:Fentanyl cut-off is 1 ng/mL.Positive results are unconfirmed and should not be used fornon-medical purposes. Oxycodone Urine Screen Not Detected Not Detect ng/mL [facility] Comment:Oxycodone cut-off is 100 ng/mL.Positive results are unconfirmed and should not be used fornon-medical purposes. Buprenorphine Screen Not Detected Not Detect ng/mL [facility] Comment:Buprenorphine cut-of f is 5 ng/mL.Positive results are unconfirmed and should not be used fornon-medical purposes. 09/03/2024 2:21 AM EDT 09/03/2024 2:24 AM EDT Generic External Data Provider LAB URINE ORDERAB LES Final Result [facility] [address] [place] [address] [phone] * (ABNORMAL) CBC auto differential (09/03/2024 2:21 AM EDT) Only the most recent of3 resultswithin the time period is included. White Blood Count 7.5 4.8 - 10.8 X10*3/uL [facility] Red Blood Count 5.09 4.60 - 5.80 X10*6/uL [facility] Hemoglobin 14.7 14.0 - 18.0 g/dl [facility] Hematocrit 41.6(L) 42.0 - 52.0 % [facility] Mean Corpuscular Volume 81.7 80.0 - 98.0 fL [facility] Mean Corpuscular Hemoglobin 28.9 27.0 - 33.0 pg [facility] Mean Corpuscular HGB Conc 35.3 31.0 - 36.0 g/dl [facility] Red Cell Distribution Width 15.7 11.0 - 16.0 % [facility] Platelet Count 290 160 - 400 X10*3/uL [facility] Mean Platelet Volume 9.3(L) 9.4 - 12.4 fL [facility] Neutrophils Percent Auto 43.8(L) 45 - 73 % [facility] Imm Gran Pct Auto 0.3 0.0 - 0.4 % [facility] Lymphocytes Percent Auto 47.5(H) 20 - 40 % [facility] Monocytes Percent Auto 7.1 2 - 11 % [facility] Eosinophils Percent Auto 0.8 0 - 4 % [facility] Basophils Percent Auto 0.5 0 - 2 % [facility] NRBC Pct Auto 0.0 0.0 - 0.2 /100WBC [facility] Neutrophils Absolute Auto 3.3 2.0 - 8.3 x10*3/uL [facility] Imm Gran Abs Auto 0.02 0.00 - 0.03 X10*3/uL [facility] Lymphocytes Absolute Auto 3.6 1.2 - 4.9 X10*3/uL [facility] Monocytes Absolute Auto 0.5 0.1 - 1.2 X10*3/uL [facility] Eosinophils Absolute Auto 0.1 0.0 - 0.4 X10*3/uL [facility] Basophils Absolute Auto 0.0 0.0 - 0.2 X10*3/uL [facility] NRBC Abs Auto 0.000 0.0 - 0.012 X10*3/uL [facility] 09/03/2024 2:21 AM EDT 09/03/2024 2:24 AM EDT Generic External Data Provider LAB BLOOD ORDERAB LES Final Result Performing Organization Address [facility] de Phone Number [facility] [address] [place] [phone] * Acetaminophen level (09/03/2024 2:21 AM EDT) Only the most recent of2 resultswithin the time period is included. Acetaminophen LAB <3 <30 mcg/mL [facility] 09/03/2024 2:21 AM EDT 09/03/2024 2:24 AM EDT Generic External Data Provider LAB BLOOD ORDERAB LES Final Result Performing Organization Address [facility] Phone Number [facility] [address] [place] [phone] * (ABNORMAL) Salicylate (09/03/2024 2:21 AM EDT) Only the most recent of2 resultswithin the time period is included. Salicylate <5.0(L) 15 - 30 mg/dL [facility] 09/03/2024 2:21 AM EDT 09/03/2024 2:24 AM EDT Generic External Data Provider LAB BLOOD ORDERAB LES Final Result Performing Organization Address [facility] de Phone Number [facility] [address] [place] [phone] * (ABNORMAL) Comprehensive Metabolic Panel (09/03/2024 2:21 AM EDT) Only the most recent of3 resultswithin the time period is included. Sodium 142 135 - 145 mmol/L [facility] Potassium 3.9 3.3 - 5.1 mmol/L [facility] Chloride 111(H) 96 - 108 mmol/L [facility] Carbon Dioxide 18(L) 22 - 29 mmol/L [facility] Anion Gap 17 12 - 20 [facility] Urea Nitrogen (BUN) 14 9 - 16 mg/dL [facility] Creatinine, Serum 1.10 0.5 - 1.4 mg/dL [facility] Creatinine Clr Calc Pharmacy 68.3 [facility] Comment:eGFR (calculated fro m the MDRD study equation) and eCrCl(calculated from the Cockcroft-Gault equation) are based ondifferent parameters and may not yield comparable results.If eCrCl result is absurd, please check patient'sheight/weight. Estimated Glomerular Filt Rate >60 [facility] Comment:Chronic Kidney Disea se: Estimated GFR < 60 mL/min/1.57z7Tpmqum Kidney Disease: Estimated GFR < 15 mL/min/1.73m2 Glucose 107 60 - 115 mg/dL [facility] Calcium 9.8 8.4 - 10.2 mg/dL [facility] Bilirubin, Total 0.6 0.0 - 1.0 mg/dL [facility] Aspartate Amino Transferase 44(H) 5 - 37 U/L [facility] Alanine Aminotransferase 57(H) 0 - 40 U/L [facility] Total Protein 8.8(H) 6.5 - 8.0 g/dL [facility] Albumin Level 5.0 3.5 - 5.0 g/dL [facility] Alkaline Phosphatase 90 39 - 117 U/L [facility] 09/03/2024 2:21 AM EDT 09/03/2024 2:24 AM EDT us Generic External Data Provider LAB BLOOD ORDERAB LES Final Result [facility] [address] [place] [phone] * (ABNORMAL) POCT glycosylated hemoglobin (Hgb A1c) (08/25/2024 9:33 AM EST) Hemoglobin A1C 8.0(A) 4.0 - 6.0 % QC Media Lot # [id number] Lot# Expiration Date Blood Capillary blood specimen / Unknown 08/25/2024 9:33 AM EST Ethel Guerrero MD POINT OF CARE TEST ENTER/EDIT OR DERABLES Final Result * POCT glucose manually resulted (08/25/2024 9:33 AM EST) Glucose Blood, POC 178 60 - 200 mg/dL QC Media Lot # [id number] Lot# Expiration Date Blood Capillary blood specimen / Unknown 08/25/2024 9:33 AM EST Ethel Guerrero MD POINT OF CARE TEST ENTER/EDIT OR DERABLES Final Result * (ABNORMAL) Urinalysis, Complete, with Reflex to Culture (08/04/2024 2:47 AM EST) Color Urine Yellow [facility] Appearance Urine Clear [facility] PH 5.5 5.0 - 9.0 [facility] Glucose Urine UA Negative Negative mg/dL [facility] Urine Blood Negative Negative [facility] Specific [place] - Urine <=1.005 1.005 - 1.025 [facility] Urine Protein Negative Neg-Trace mg/dL [facility] Urine Ketones Negative Negative mg/dL [facility] Nitrite Urine Negative Negative [facility] Leukocyte Esterase Urine Trace(A) Negative [facility] RBC Urine 0-2 0 - 2 /HPF [facility] Urine WBC 0-5 0 - 5 /HPF [facility] Urine Squamous Epithelial Cell 0-2 0 - 2 /HPF [facility] Urine Bacteria None Seen None Seen [facility] Hyaline Casts, Urine 0-2 0 - 2 /LPF [facility] 08/04/2024 2:47 AM EST 08/04/2024 2:57 AM EST Narrative [facility] - 08/04/2024 3:29 AM EST [id number], Clean Catch us Generic External Data Provider LAB URINE ORDERAB LES Final Result Performing Organization Address [facility] Co de Phone Number [facility] [address] [place] [phone] * HEPATITIS C ANTIBODY RFLX (11/23/2019 10:15 AM EDT) Pathologist [facility] HEPATITIS C ANTIBODY [facility]IVE [facility] Comment: Antibodies to HCV not detected; does not exclude early acute HCV infection. 11/23/2019 10:1 5 AM EDT Harpreet Galvez MD HISTORICAL/NON ORDERABLE LABS Final Result Performing Organization Address [facility] Phone Number [facility] [address] * HIV AB/AG (11/23/2019 10:15 AM EDT) Pathologist [facility] HIV AG/AB NONREACTIVE NR [facility] Comment: HIV-1 p24 Ag and/or HIV-1/HIV-2 Ab not detected. ?? A test result that is nonreactive does not exclude the possibility of exposure to or infection with HIV-1 and/or HIV-2. Nonreactive results in this assay for individuals with prior exposure to HIV-1 and/or HIV-2 may be due to antigen and antibody levels that are below the limit of detection of this assay. ?? The [employer] HIV Ag/Ab Combo assay result and supplemental assay results should be interpreted in conjunction with the patient's clinical presentation, history and other laboratory results. ??If the results are inconsistent with clinical evidence, additional testing is suggested to confirm the result. 11/23/2019 10:1 5 AM EDT Harpreet Galvez MD HISTORICAL/NON ORDERABLE LABS Final Result Performing Organization Address [facility] de Phone Number [facility] [address] [place] [address], [place] from Last 3 Months or Most Recently Relevant to Health Maintenance Insurance [facility] [employer] MEDICAID STAND ADULT Care Teams Marketing Summer Intern Relationship Specialty Start Date End Date Ethel Guerrero MD [address] [place] [phone] PCP - General Family Medicine 06/03/22 Giovanna Roland Carpet Sewing Machine OperatorRace Relations Adviser 11/17/23
--- OUTSIDE RECORDS SUMMARY | 2024-09-23 06:12 | XMS_ITS | Clinical Summary ---
Author Organization [address] [facility] Address [address] [place] [address] Phone Care Team Providers Care Promotions Officer Name Role Phone Ethel Guerrero MD Primary Care Provider [phone] Social History Tobacco Use Types Packs/Day Years Used Date Smoking Tobacco: Never Assessed Sex and Gender Information Value Date Recorded Sex Assigned at Not on file Legal Sex Male 2:58 PM EST Gender Identity Not on file Sexual Orientation Not on file Plan of Treatment Health Maintenance Due Date Last Done Comments Hepatitis B Vaccines (3 of 3 - 19+ 3-dose series) 06/13/2020 01/10/2020, 12/13/2019 Pneumococcal Vaccine: 50+ Years (2 of 2 - PCV) 11/14/2021 01/29/2012 Zoster Vaccines (1 of 2) 11/14/2021 Cholesterol Screening (Lipid Panel) 05/21/2022 Colorectal Cancer Screening: Colonoscopy 05/21/2022 Depression Screening 05/21/2022 HIV Screening 05/21/2022 Hepatitis C Screening 05/21/2022 Social Influencers of Health Screening 05/21/2022 COVID-19 Vaccine (2 - season) 2024 10/31/2020 Influenza Vaccine (Season Ended) 2025 DTaP,Tdap,and Td Vaccines (7 - Td or Tdap) 11/25/2025 11/26/2015, 05/01/2013, 11/25/2011, Additional history exists Pneumococcal Vaccine: Pediatrics (0 to 5 Years) and At-Risk Patients (6 to 64 Years) Aged Out 01/29/2012 No longer eligible based on patient's age to complete this topic HIB Vaccines Aged Out No longer eligi ble based on patient's age to complete this topic HPV Vaccines Aged Out No longer eligi ble based on patient's age to complete this topic Hepatitis A Vaccines Aged Out No long er eligible based on patient's age to complete this topic IPV Vaccines Aged Out No longer eligi ble based on patient's age to complete this topic MMR Vaccines Aged Out No longer eligi ble based on patient's age to complete this topic Meningococcal ACWY Vaccine Aged Out N o longer eligible based on patient's age to complete this topic Meningococcal B Vacine Aged Out No lo nger eligible based on patient's age to complete this topic RSV Immunization Patients Under 20 months Aged Out No longer eligible based on patient's age to complete this topic Varicella Vaccines Aged Out No longer eligible based on patient's age to complete this topic Insurance MEDICAID - [place] Care Teams Promotions Officer Relationship Specialty Start Date End Date Ethel Guerrero MD [address] [place] [phone] PCP - General Family Medicine 09/20/24
--- OUTSIDE RECORDS SUMMARY | 2024-09-23 06:12 | XMS_ITS | Encounter Summary ---
Author Organization [employer] Address [address] [facility] [address] [place] [address] Care Team Providers Care Shift Supervisor Rn Name Role Phone Ethel Guerrero MD Primary Care Provider [phone] Reason for Visit * Reason Onset Date Comments pt-1 address 09/22/2024 Encounter Details Date Type Department Care Team ([facility] Contact Info) Description 09/22/2024 Telephone [facility] [address] [place] [phone] Ethel Guerrero MD [address] [place], [place] [phone] pt-1 address Social History Tobacco Use Types Packs/Day Years Used Date Smoking Tobacco: Every Day Cigarettes Passive Smoke Exposure: Current Smokeless Tobacco: Never Alcohol Answer Date Recorded How often do [...] not to disclose 2021 10:37 AM EDT documented as of this encounter Miscellaneous Notes * Telephone Encounter - Una Valverde [place] - 09/22/2024 4:03 PM EDT Lori called pt 2x to get psych address for pt-1. No answer phone call was picked up twice and both times phone call was hanged up documented in this encounter Plan of Treatment Upcoming Encounters Date Type Department Care Team (Late st Contact Info) Description 09/26/2024 10:30 AM EDT Clinical Support [facility] [address] [place] [address] documented as of this encounter Visit Diagnoses Not on filedocumented in this encounter Additional Health Concerns Assessment Noted Time PHQ-9 Depression Total Score: 4 08/12/19 25 12:00 PM EST documented as of this encounter Care Teams Shift Supervisor Rn Relationship Specialty Start Date End Date Ethel Guerrero MD [address] [place] [address] PCP - General Family Medicine 06/03/22 Giovanna Roland Nutritional ChemistPublic Events Facilities Rental Manager 11/17/23 documented as of this encounter
[2024-09-23 06:40] LABS: MANUAL DIFF FLAG NO
[2024-09-23 06:42] LABS: Basophils Absolute Auto 0.1 X10*3/uL (0.0-0.2); Basophils Percent Auto 0.8 % (0-2); Eosinophils Absolute Auto 0.2 X10*3/uL (0.0-0.4); Eosinophils Percent Auto 3.3 % (0-4); Hematocrit 38.1 % (42.0-52.0); Hemoglobin 13.1 g/dl (14.0-18.0); Imm Gran Abs Auto 0.02 X10*3/uL (0.00-0.03); Imm Gran Pct Auto 0.3 % (0.0-0.4); Lymphocytes Absolute Auto 2.5 X10*3/uL (1.2-4.9); Lymphocytes Percent Auto 42.3 % (20-40); Mean Corpuscular HGB Conc 34.4 g/dl (31.0-36.0); Mean Corpuscular Hemoglobin 29.4 pg (27.0-33.0); Mean Corpuscular Volume 85.4 fL (80.0-98.0); Mean Platelet Volume 9.7 fL (9.4-12.4); Monocytes Absolute Auto 0.4 X10*3/uL (0.1-1.2); Monocytes Percent Auto 6.2 % (2-11); Neutrophils Absolute Auto 2.8 x10*3/uL (2.0-8.3); Neutrophils Percent Auto 47.1 % (45-73); Platelet Count 279 X10*3/uL (160-400); Red Blood Count 4.46 X10*6/uL (4.60-5.80); Red Cell Distribution Width 15.9 % (11.0-16.0)
[2024-09-23 07:02] LABS: Amphetamine Screen Urine Not Detected (Not Detect); Barbiturates, Urine Not Detected (Not Detect); Benzodiazepines Screen Urine POSITIVE (Not Detect); Buprenorphine Scr Not Detected (Not Detect); Cannabinoid Screen Urine POSITIVE (Not Detect); Cocaine Screen Urine POSITIVE (Not Detect); Fentanyl, urine Not Detected (Not Detect); Methadone Screen, Urine Not Detected (Not Detect); Opiate Screen Urine Not Detected (Not Detect); Oxycodone Screen Urine Not Detected (Not Detect); Phencyclidine Screen Urine Not Detected (Not Detect)
[2024-09-23 07:03] LABS: Alanine Aminotransferase 37 U/L (0-40); Albumin Level 4.1 g/dL (3.5-5.0); Alkaline Phosphatase 86 U/L (39-117); Anion Gap 13 (12-20); Aspartate Amino Transferase 39 U/L (5-37); Bilirubin Total 0.5 mg/dL (0.0-1.0); Blood Urea Nitrogen 11 mg/dL (9-16); Calcium 9.1 mg/dL (8.4-10.2); Carbon Dioxide 21 mmol/L (22-29); Chloride 111 mmol/L (96-108); Estimated Glomerular Filt Rate > 60; Ethanol 45 mg/dL; Glucose Random 98 mg/dL (60-115); Potassium 3.8 mmol/L (3.3-5.1); Sodium 141 mmol/L (135-145); Total Protein 6.8 g/dL (6.5-8.0)
--- NOTE | 2024-09-23 11:38 | MHC.CARE ---
Pt is requesting detox and is being referred to the recovery team at this time. Provider in agreement.
[2024-09-23 13:13] VITALS: BP 108/64; PULSE 64; RESP 17; TEMP 36.7; O2SAT 99
--- NOTE | 2024-09-23 13:32 | MHC.RECOVRN ---
Pt cleared by CARE Team, pt interested in ATS. Referral sent to [facility] and is currently under review.
--- NOTE | 2024-09-23 14:21 | PHA.MEDREC ---
Pharmacy Consult ? Medication Reconciliation Pharmacy has completed the medication reconciliation. Spoke to patient to confirm medication list. Patient confirmed he takes metformin 1000 mg daily and prazosin 4 mg at bedtime and said he fills rx at [facility] in [place]. [facility] and pharmacist said they have 7 day supply of metformin 1000 mg bid and prazosin 4 mg bedtime on hold due to insurance rejection (requires 90 day supply). He also said he takes olanzapine 5 mg bid prn. Last dose of medications was some times last week (he doesn't know which day).
--- NOTE | 2024-09-23 14:28 | MHC.RECOVRN ---
Pt edwin Márquez ATS. CARE Team aware.
[2024-09-23] MEDS: busPIRone HCl 5 MG TABLET 15 MG PO (15:00)
[2024-09-23] MEDS: FLUoxetine HCl 20 MG CAPSULE 40 MG PO (15:00)
[2024-09-23 16:53] VITALS: BP 108/64; PULSE 64; RESP 17; TEMP 36.7; O2SAT 98
== END 2024-09-23 16:53 | disposition home or self-care (01) ==
PROVIDERS: Emergency Medicine; Emergency Provider Emergency Medicine
DX: R45.851 Suicidal ideations (principal); R45.850 Homicidal ideations; F41.9 Anxiety disorder, unspecified; F33.1 Major depressive disorder, recurrent, moderate; F10.10 Alcohol abuse, uncomplicated; Y90.2 Blood alcohol level of 40-59 mg/100 ml; F17.210 Nicotine dependence, cigarettes, uncomplicated; Z51.81 Encounter for therapeutic drug level monitoring; Z79.899 Other long term (current) drug therapy
CPT/HCPCS: 36415; 80053; 80307; 85025; 99285; S9485